=== PATIENT | female | born 1965 | race Caucasian/White ===

== ENCOUNTER 2020-05-23 08:47 | Emergency (ER) | payer MEDICARE, MEDICAID, SELFPAY ==
--- NOTE | ~2020-05-23 | CT_ITS ---
EXAMINATION: CT LE LT w con DATE: 05/23/2020 12:15 INDICATION: Left upper inner thigh erythema and edema. TECHNIQUE: High resolution computed tomography (CT) of the left thigh was performed without intraveno us contrast. Additional sagittal and coronal reconstructions were performed. Automated exposure contr ol and iterative reconstruction technique were employed. The dose-length product was 1135.30 mGy-cm. COMPARISON: CT abdomen and pelvis dated 07/02/2015 FINDINGS: There is stranding and multiple foci of soft tissue gas in the subcutaneous fat at the left inferomed ial buttock along the inferior aspect of the gluteal cleft. There is a separate similar region of sub cutaneous stranding and gas at the medial aspect of the proximal most left thigh. No abscess. No evid ent stranding or gas in the deeper muscular compartments of the thigh or extension into the pelvis. A symmetric mildly prominent likely reactive left inguinal lymph nodes. There is some subcutaneous vari cosities at the posterolateral aspect of the left thigh. Osteoarthritis at the bilateral knees, moder ate to severe in the medial compartment of the right knee and moderate in all 3 components of the lef t knee. No left knee or hip joint effusion. Mild scattered sigmoid diverticulosis without adjacent in flammatory stranding to suggest diverticulitis. IMPRESSION: 1. Regions of subcutaneous inflammatory stranding and soft tissue gas in the subcutaneous fat at the inferomedial aspect of the left buttock and at the medial aspect of the proximal left thigh raising c oncern for necrotizing fasciitis. No abscess. Dr. Crowder discussed these findings with Dr. Ya dubon at 12:20 PM. Reviewed, dictated and finalized at location B. ER IMPRESSION: 1. Regions of subcutaneous inflammatory stranding and soft tissue gas in the james bcutaneous fat at the inferomedial aspect of the left buttock and at the medial aspect of the proximal left thigh raising concern for necrotizing fasciitis. N o abscess. Dr. Crowder discussed these findings with Dr. Ya Galdamez at 12:20 PM.
[2020-05-23 08:55] VITALS: BP 124/92; PULSE 88; RESP 18; TEMP 36; O2SAT 97
--- NOTE | 2020-05-23 10:08 | ED.SKABFB ---
HPI - Skin/Abscess/Foreign Bdy General Chief complaint: Skin/Abscess/Foreign Body <Ya Galdamez PA-C - Last Filed: 05/23/20 14:18> Stated complaint: wound to buttock <Ya Galdamez PA-C - Last Filed: 05/23/20 14:18> Time Seen by Provider: 05/23/20 10:01 <Ya Galdamez PA-C - Last Filed: 05/23/20 14:18> Source: patient <Ya Galdamez PA-C - Last Filed: 05/23/20 14:18> Mode of arrival: ambulatory <Ya Galdamez PA-C - Last Filed: 05/23/20 14:18> Limitations: no limitations <Ya Galdamez PA-C - Last Filed: 05/23/20 14:18> History of Present Illness HPI narrative: This is a 55-year-old female that presents the emergency department for redness and swelling to her left thigh x3 days. Reports warmth and pain to the area. Does report she has had some drainage from the area. Reports she had some leftover cephalexin, and took 3 doses yesterday. Denies fever. <Ya Galdamez PA-C - Last Filed: 05/23/20 14:18> Related Data Allergies/Adverse reactions: Allergies Allergy/AdvReac Type Severity Reaction Status Date / Time lisinopril Allergy Unknown Verified 05/23/20 09:56 <Ya Galdamez PA-C - Last Filed: 05/23/20 14:18> Review of Systems Review of Systems: Narrative: CONSTITUTIONAL: Denies fever SKIN: Reports redness and swelling <Ya Galdamez PA-C - Last Filed: 05/23/20 14:18> All systems reviewed & are unremarkable except as noted in HPI and below <Ya Galdamez PA-C - Last Filed: 05/23/20 14:18> [facility] Past Medical History Medical History: Medical History (Updated 05/23/20 @ 14:13 by Ya Galdamez PA-C) History of diabetes mellitus History of hyperlipidemia History of hypertension <Ya Galdamez PA-C - Last Filed: 05/23/20 14:18> Family History Family History: Family History (Updated 10/21/15 @ 23:19 by DOCTOR UNKNOWN) Mother Family history of Alzheimer's disease Father Family history of diabetes mellitus in first degree relative Other Hypertension <Ya Galdamez PA-C - Last Filed: 05/23/20 14:18> Social History Social History: Social History Smoking status: Never smoker Alcohol intake: never Gender identity (if verbalized by the patient): Female <Ya Galdamez PA-C - Last Filed: 05/23/20 14:18> Exam Narrative: Exam Narrative: GENERAL: Well-appearing, obese, and in no acute distress. HEAD: Normocephalic, atraumatic. EYES: EOMI. CHEST: Airway patent HEART: Regular rate and rhythm. Normal peripheral pulses. EXTREMITIES: Normal range of motion. Left inner, upper thigh with moderate sized area of erythema and edema. Erythema extends to the left buttock SKIN: Warm, dry, no rash. NEURO: No focal deficits. Alert and oriented x3. PSYCH: Normal mood and affect <Ya Galdamez PA-C - Last Filed: 05/23/20 14:18> Course INVESTMENT BANKING ANALYST/PA Physician Supervision For this patient encounter, I reviewed the INVESTMENT BANKING ANALYST or PA documentation, treatment plan, and medical decision making; and I had [id number] time with this patient. Patient presented with redness to right posterior lower extremity and buttock that has been present for 2 days. She is non toxic appearing. There is large area of induration to right buttock and right posterior thigh, there appears to small amount of malodorous seround drainage. She was found to have findings concerning for necrotizing fasciitis so she will be transferred for higher level of care. <Yumiko Turner MD - Last Filed: 05/23/20 15:52> Consultations Consultation #1: Spoke with Dr. Goodrich about patient and workup. Would recommend transfer for higher level of care <Ya Galdamez PA-C - Last Filed: 05/23/20 14:18> Date: 05/23/20 <DEANDRA Graves Last Filed: 05/23/20 14:18> Time: 13:57 <DEANDRA Graves Filed: 05/23/20 14:18> Consultation #2: Spoke with Dr. Manriquez, general surgery at [place]. Recommends
[2020-05-23 10:41] LABS: Basophils Absolute Auto 0.1 K/mm3 (0.0-0.1); Basophils Percent Auto 0.3 % (0.2-1.2); Eosinophils Absolute Auto 0.2 K/mm3 (0-0.3); Hematocrit 37.7 % (37.0-47.0); Hemoglobin 12.2 g/dL (12.0-15.0); Immature Granulocyte Absolute 0.22 K/mm3 (0.00-0.031); Immature Granulocyte Percent A 1.4 % (0-0.5); Lymphocytes Absolute Auto 1.09 K/mm3 (0.9-3.2); Mean Corpuscular HGB Conc 32.4 g/dl (32-36); Mean Corpuscular Hemoglobin 26.1 pg (26-34); Mean Corpuscular Volume 80.6 fl (80-100); Monocytes Absolute Auto 1.2 K/mm3 (0.1-0.6); Monocytes Percent Auto 7.5 % (2.6-8.5); Neutrophils Absolute Auto 12.9 K/mm3 (1.3-6.7); Neutrophils Percent Auto 82.8 % (45.5-73.1); Platelet Count Result 286 k/mm3 (150-375); Red Blood Count 4.68 M/mm3 (4.2-5.4); Red Cell Distribution Width 13.8 % (11.5-14.5); White Blood Count 15.6 K/mm3 (4.5-10.0)
[2020-05-23 11:00] LABS: Anion Gap 5 mmol/L (8-16); Blood Urea Nitrogen 13 mg/dL (7-17); Calcium 8.8 mg/dL (8.4-10.2); Carbon Dioxide 32 mmol/L (22-30); Chloride 98 mmol/L (98-107); Estimated CRCL calculation 128 ml/min; Estimated Glomerular Filt Rate > 60; Glucose 425 mg/dL (65-105); Potassium 4.2 mmol/L (3.4-5.0); Sodium 135 mmol/L (137-145)
[2020-05-23 11:08] LABS: CRP 26.7 mg/dL (<1.0); Erythrocyte Sedimentation Rate 29 mm/hr (0-20)
[2020-05-23 11:17] LABS: Hemoglobin A1C 12.8 % (<5.7)
[2020-05-23] MEDS: SODIUM CHLORIDE 0.9% IV 1,000 ML 999 ML IV CONT (12:58)
[2020-05-23 13:12] VITALS: BP 123/72; PULSE 96; RESP 14; O2SAT 96
[2020-05-23 13:18] LABS: Lactic Acid Reflex 2.9 mmol/L (0.7-2.1)
[2020-05-23 13:31] LABS: Prothrombin Time 14.2 Seconds (11.1-14.7)
[2020-05-23 13:32] LABS: Partial Thromboplastin Time 31.4 SECONDS (22.3-36.8)
[2020-05-23 13:33] LABS: CRP 25.6 mg/dL (<1.0)
[2020-05-23 13:41] LABS: Creatine Kinase 29 U/L (30-135)
--- NOTE | 2020-05-23 14:40 | PC.NURSE ---
made contact with [facility] and [facility] to [facility]. both companies declined. made contact with [facility] and they accepted with [facility]
[2020-05-23 15:01] VITALS: BP 127/70; PULSE 102; RESP 14; O2SAT 96
[2020-05-23 16:01] VITALS: BP 129/72; PULSE 102; RESP 14; O2SAT 95
[2020-05-23 16:04] LABS: Reflex Lactic Acid Yes or No Add Lactic
--- NOTE | 2020-05-23 16:19 | PC.NURSE ---
[facility] arrived [id number]
[2020-05-23 21:32] LABS: Glucose Point of Care 386 (65-105)
== END 2020-05-23 16:21 | disposition short-term general hospital (02) ==
PROVIDERS: Physician Assistant; Emergency Provider General Practice; PCP Family Medicine Adolescent Medicine
DX: M72.6 Necrotizing fasciitis (principal); E11.9 Type 2 diabetes mellitus without complications; E78.5 Hyperlipidemia, unspecified; I10 Essential (primary) hypertension
CPT/HCPCS: 36415; 73701; 80048; 81025; 82550; 82948; 83036; 83605; 85025; 85610; 85652; 85730; 86140; 87040; 96361; 96365; 96366; 96367; 99285; J0743; J3370; J7030; Q9967

== ENCOUNTER 2022-01-05 20:34 | Inpatient (IN) | payer MEDICARE, MEDICAID, SELFPAY ==
[2022-01-05] VITALS (19 sets, daily range): BP systolic 102–139; BP diastolic 52–107; PULSE 96–111; RESP 12–25; TEMP 37.6; O2SAT 97–99
--- NOTE | ~2022-01-05 | XR_ITS ---
EXAMINATION: XR chest 1V portable INDICATION: Shortness of breath TECHNIQUE: Portable AP chest at 2132 hours COMPARISON: None available FINDINGS: There are diffuse opacities throughout the right lung. Cardiomegaly is noted. No pleural ef fusion or pneumothorax. There is thoracic dextroscoliosis. IMPRESSION: 1. Diffuse opacities throughout the right lung, consistent with atelectasis versus pneumonia versus a symmetric pulmonary edema. 2. Cardiomegaly. Reviewed, dictated and finalized at location F. IMPRESSION: 1. Diffuse opacities throughout the right lung, consistent with atelectasis bessie lisy pneumonia versus asymmetric pulmonary edema. 2. Cardiomegaly.
--- NOTE | ~2022-01-05 | XR_ITS ---
EXAMINATION: XR chest 1V portable DATE: 01/15/2022 05:51 INDICATION: Pneumonia TECHNIQUE: frontal view of the chest was obtained. COMPARISON: Chest radiograph dated 01/08/2022 FINDINGS: There is been some interval improvement in now subtle opacities in the right mid to lower and left mi d lung zones. No pleural effusion or pneumothorax. Cardiomegaly. S-shaped thoracolumbar scoliosis. IMPRESSION: 1. Decreasing bilateral lung disease which could represent improving pulmonary edema or pneumonia. 2. Cardiomegaly. Reviewed, dictated and finalized at location A.
--- NOTE | ~2022-01-05 | US_ITS ---
EXAMINATION: US venous doppler [facility] DATE: 01/09/2022 09:14 INDICATION: Lower limb pain and swelling. TECHNIQUE: Grayscale ultrasound images without and with compression and Doppler ultrasound images of the bilateral lower extremity veins were obtained. COMPARISON: Ultrasound 01/06/2022 FINDINGS: The visualized portions of right common femoral vein, profunda (deep) femoral vein, femoral vein, pop liteal vein, peroneal veins, posterior tibial veins, and greater saphenous vein outflow are patent. The visualized portions of left common femoral vein, profunda femoral vein, femoral vein, popliteal v ein, peroneal veins, posterior tibial veins, and greater saphenous vein outflow are patent. IMPRESSION: 1. No deep venous thrombosis. Reviewed, dictated and finalized at location B.
--- NOTE | ~2022-01-05 | CT_ITS ---
EXAMINATION: CTA chest PE protocol DATE: 01/05/2022 22:44 INDICATION: Shortness of breath and tachycardia TECHNIQUE: Computed tomography angiography (CTA) of the chest was performed with 100 mL Omnipaque-350 intravenous contrast timed to evaluate the pulmonary arteries. Coronal maximum intensity projection 3D-reconstructions were created by the technologist. The dose-length product (DLP) was 1006.46 mGy-cm . Automated exposure control and iterative reconstruction technique were employed. COMPARISON: None. FINDINGS: The pulmonary arteries are well-opacified. No pulmonary embolism is identified. There is mi ld bilateral hilar, subcarinal, aorticopulmonary window, and prevascular lymphadenopathy. There are a irspace opacities in the right middle and lower lobes. There are small pleural effusions. Cardiomegal y is noted. There is moderate thoracic spondylosis. IMPRESSION: 1. No pulmonary embolism. 2. Airspace opacities of the right middle and lower lobes, likely pneumonia. 3. Bilateral hilar and mediastinal lymphadenopathy as described above which may be reactive in the ab sence of known malignancy. Follow-up CT in three months is recommended. Reviewed, dictated and finalized at location F. IMPRESSION: 1. No pulmonary embolism. 2. Airspace opacities of the right middle and lower lobes, likely pneumonia. 3. Bilateral hilar and mediastinal lymphadenopathy as described above which may be reactive in the absence of known malignancy. Follow-up CT in three months i s recommended.
--- NOTE | ~2022-01-05 | XR_ITS ---
EXAMINATION: XR chest 1V portable Exam Date/Time: 01/08/2022 21:55 CDT HISTORY: SOB Comparison: CTPA and x-ray chest 01/05/2022. RESULT: Lines, tubes, and devices: None. Lungs and pleura: Worsening mid and lower right lung airspace opacities. Increasing diffuse reticula r opacities. Cardiomediastinal silhouette: Stable. Other: No acute osseous or upper abdominal finding. IMPRESSION: Worsening pneumonia and possible interstitial edema. Reviewed, dictated and finalized at location K.
--- NOTE | ~2022-01-05 | CT_ITS ---
EXAMINATION: CTA chest PE protocol DATE: 01/09/2022 08:49 INDICATION: Shortness of breath. TECHNIQUE: Computed tomography angiography (CTA) of the chest was performed with 100 mL Omnipaque-350 intravenous contrast timed to evaluate the pulmonary arteries. Coronal maximum intensity projection 3D-reconstructions were created by the technologist. Automated exposure control and iterative reconst ruction technique were employed. The dose-length product was 1043.56 mGy-cm. COMPARISON: Chest CT 01/05/2022 FINDINGS: There are centrilobular nodules and groundglass opacities in all lobes, consistent with pne umonia. No pleural effusion. Cardiomegaly is noted. No pericardial effusion. There is no pulmonary em bolus. There is mild mediastinal and bilateral hilar lymphadenopathy. There is dextroscoliosis of tho racic spine and levoscoliosis of the thoracolumbar spine. There is mild chronic anterior wedging of m ultiple vertebral bodies. There is moderate thoracolumbar spondylosis. IMPRESSION: 1. No pulmonary embolus. 2. Multifocal pneumonia, worsened from 01/05/2022. 3. Cardiomegaly. 4. Mild mediastinal and bilateral hilar lymphadenopathy, likely reactive. Reviewed, dictated and finalized at location B.
--- NOTE | ~2022-01-05 | US_ITS ---
EXAMINATION: US venous doppler [facility] DATE: 01/06/2022 16:13 INDICATION: Bilateral lower limb swelling, elevated d dimer . TECHNIQUE: Grayscale images without and with compression and Doppler images of the bilateral lower ex tremity veins were obtained. COMPARISON: CT 05/23/2020, ultrasound 09/17/2005. FINDINGS: The right common femoral vein, profunda (deep) femoral vein, femoral vein, popliteal vein, peroneal v ein, posterior tibial veins, and greater saphenous vein are patent. The left common femoral vein, profunda femoral vein, femoral vein, popliteal vein, peroneal vein, pos terior tibial veins, and greater saphenous vein are patent. IMPRESSION: 1. Patent bilateral lower extremity veins. No evidence of deep venous thrombosis. Reviewed, dictated and finalized at location K. IMPRESSION: 1. Patent bilateral lower extremity veins. No evidence of deep venous thrombos is.
--- NOTE | 2022-01-05 20:58 | ECG_ITS ---
Measurements Intervals Means Rate: 107 P: 65 IL: 163 QRS: -60 QRSD: 86 T: 55 QT: 323 QTc: 432 Interpretive Statements SINUS TACHYCARDIA WITH OCCASIONAL VENTRICULAR PREMATURE COMPLEXES BASELINE ARTIFACT CANNOT RULE OUT ANTEROSEPTAL MYOCARDIAL INFARCTION, PROBABLY OLD CANNOT RULE OUT INFERIOR MYOCARDIAL INFARCTION, PROBABLY OLD ABNORMAL ECG NO PREVIOUS ECG AVAILABLE FOR COMPARISON Electronically Signed On 01-06-2022 15:13:57 CDT by Refugio Smith M.D.
--- NOTE | 2022-01-05 21:06 | ED.GENADULT ---
HPI - General Adult General Chief complaint: Shortness of Breath/Dyspnea <DEANDRA Mclean Last Filed: 01/05/22 22:22> Stated complaint: sob <DEANDRA Mclean Last Filed: 01/05/22 22:22> Time Seen by Provider: 01/05/22 20:59 <DEANDRA Mclean Last Filed: 01/05/22 22:22> History of Present Illness HPI narrative: 56-year-old female with history of CHF, KARY here for evaluation of shortness of breath over the past day and a half. Patient states that she has a history of CHF and has not been taking her bumetanide due to diarrhea over the past week. Patient states the diarrhea has improved, but yesterday she started to feel short of breath with exertion, develop a productive cough robison sputum, and feels generalized fatigue. Denies sick contacts. States her legs are more swollen than usual. Denies orthopnea. No chest pain, abdominal pain, nausea, vomiting. She has a history of CHF. <DEANDRA Mlcean Last Filed: 01/05/22 22:22> Related Data Home medications: Home Medications Medication Instructions Recorded Confirmed bumetanide 2 mg tablet 2 mg PO BID 06/15/21 01/06/22 metformin 500 mg tablet,extended 2,000 mg PO DAILY 06/15/21 01/06/22 release 24 hr naproxen 500 mg tablet 500 mg PO BID PRN Pain, Mild 06/15/21 01/06/22 sacubitril 24 mg-valsartan 26 mg 1 tablet PO BID 06/15/21 01/06/22 tablet (Entresto) mupirocin 2 % topical ointment 1 applic topical BID knee pain 01/06/22 01/06/22 <DEANDRA Mclean Last Filed: 01/05/22 22:22> Allergies/adverse reactions: Allergies Allergy/AdvReac Type Severity Reaction Status Date / Time lisinopril Allergy Unknown Verified 12/20/21 13:34 <DEANDRA Mclean Last Filed: 01/05/22 22:22> Review of Systems Review of Systems: Gen.: Denies fevers or chills Eyes: Denies eye pain or visual change ENT: Denies congestion Respiratory: Reports shortness of breath and cough. CV: Denies chest pain or palpitations GI: Denies abdominal pain nausea, emesis or diarrhea denies burning, urgency, frequency or hematuria Musculoskeletal: Denies back pain or muscle pain Neuro: Denies numbness, tingling, weakness or focal weakness Skin: Denies rash Except as documented, all other systems reviewed and negative <Ya Ren PA-C - Last Filed: 01/05/22 22:22> [facility] Past Medical History Medical History: Medical History Chronic combined systolic and diastolic heart failure GERD (gastroesophageal reflux disease) History of amputation of left great toe 2017 Hypertension Major depressive disorder, recurrent, mild Obstructive sleep apnea 06/2019 Osteoarthritis of knees, 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 <Ya Ren PA-C - Last Filed: 01/05/22 22:22> Surgical History Surgical History: Surgical History History of cholecystectomy 09/2015 <Ya Ren PA-C - Last Filed: 01/05/22 22:22> Family History Family History: Family History Mother Family history of Alzheimer's disease Hypertension Father Family history of diabetes mellitus in first degree relative Acute myocardial infarction Heart disease Hypertension Sibling CAD (coronary artery disease) Acute myocardial infarction Other Depression Diabetes mellitus <Ya Ren PA-C - Last Filed: 01/05/22 22:22> Social History Social History: Social History Smoking status: Never smoker Second hand tobacco smoke exposure: No Alcohol intake: former Drinks per week: 1 Substance use: never Substance use type: does not use Additional occupation/education comments: Disabled Gender identity (if verbali
[2022-01-05 21:19] LABS: Basophils Percent Auto 0.3 % (0.2-1.2); Eosinophils Absolute Auto 0.1 K/mm3 (0-0.3); Eosinophils Percent Auto 0.9 % (0-4.4); Hematocrit 40.4 % (37.0-47.0); Immature Granulocyte Absolute 0.04 K/mm3 (0.00-0.031); Immature Granulocyte Percent A 0.4 % (0-0.5); Lymphocytes Absolute Auto 1.43 K/mm3 (0.9-3.2); Lymphocytes Percent Auto 15.2 % (18.3-44.2); Mean Corpuscular HGB Conc 29.7 g/dl (32-36); Mean Corpuscular Hemoglobin 22.9 pg (26-34); Mean Platelet Volume 10.2 fl (7.4-10.4); Monocytes Absolute Auto 0.9 K/mm3 (0.1-0.6); Monocytes Percent Auto 9.4 % (2.6-8.5); Neutrophils Absolute Auto 6.9 K/mm3 (1.3-6.7); Neutrophils Percent Auto 73.8 % (45.5-73.1); Nucleated Red Blood Cells Perc 0.2 % (0.0-0.2); Platelet Count Result 280 k/mm3 (150-375); Red Blood Count 5.25 M/mm3 (4.2-5.4); White Blood Count 9.4 K/mm3 (4.5-10.0)
[2022-01-05 21:28] LABS: Alanine Aminotransferase 25 U/L (6-35); Albumin Level 3.9 g/dL (3.5-5.1); Alkaline Phosphatase 84 U/L (38-126); Anion Gap 11 mmol/L (8-16); Aspartate Amino Transferase 27 U/L (14-36); Bilirubin,Total 0.4 mg/dL (0.2-1.3); Blood Urea Nitrogen 14 mg/dL (7-17); Calcium 8.5 mg/dL (8.4-10.2); Carbon Dioxide 24 mmol/L (22-30); Chloride 103 mmol/L (98-107); Estimated CRCL calculation 81 ml/min; Estimated Glomerular Filt Rate > 60; Glucose 175 mg/dL (65-110); Sodium 138 mmol/L (137-145)
[2022-01-05 21:30] LABS: INR 1.1; Prothrombin Time 13.9 Seconds (11.1-14.7)
[2022-01-05 21:31] LABS: Partial Thromboplastin Time 26.3 SECONDS (22.3-36.8)
[2022-01-05 21:39] LABS: Platelet Estimate Adequate (Adequate)
[2022-01-05 21:40] LABS: Hypochromasia 2+ (NORMAL); Microcytosis 1+ (NORMAL); Polychromasia 1+ (NORMAL); Schistocytes None Seen (NORMAL)
[2022-01-05 21:41] LABS: Anisocytosis 1+ (NORMAL)
[2022-01-05] MEDS: ALBUTEROL SULFATE NEB 2.5 MG/3 ML INH 5 MG INHALATION (21:45)
[2022-01-05 21:55] LABS: Influenza A QL RT-PCR Negative (Negative); Influenza B QL RT-PCR Negative (Negative); SARS-CoV-2 RNA PCR Negative
[2022-01-05 21:59] LABS: NT Pro B Type Natriuretic Pept 5630 pg/mL (5-100); Troponin I 0.043 ng/mL (0.000-0.034)
[2022-01-05 22:11] LABS: Lipase 105 U/L (23-300)
[2022-01-05] MEDS: FUROSEMIDE INJ 40 MG/4 ML VIAL IV PUSH (22:16)
[2022-01-05 22:18] LABS: D Dimer 1.54 ug/mL (<0.48)
--- NOTE | 2022-01-05 22:35 | PC.NURSE ---
Called pharmacy and spoke with Williams for medication for pt
[2022-01-05 23:11] LABS: Lactic Acid Reflex 2.8 mmol/L (0.7-2.0)
[2022-01-06] VITALS (23 sets, daily range): BP systolic 94–118; BP diastolic 51–96; PULSE 80–103; RESP 14–20; TEMP 36.4–37.6; O2SAT 91–99; BMI 51.0
--- NOTE | 2022-01-06 | ECHO_ITS ---
Patient Info Name: Allison Thurston Age: 56 years : 1965 Gender: Female Ht: 67 in Wt: 321 lbs BSA: 2.71 m2 HR: 86 bpm BP: 104 / 63 mmHg Heart Rhythm: Sinus Rhythm Technical Quality: Poor Exam Date: 01/06/2022 12:32 PM Exam Location: [facility] Patient Status: Inpatient Admit Date: 01/05/2022 Staff Ordering Physician: Lashon Fitzpatrick DO Pathology Teacher: Nitza Oglesby RDCS Attending Provider: Roxane White DO Referring Physician: Nanette ARTEAGA; Exam Type: CA echo dop color flow w con Study Info Indications R06.02 - Shortness of breath Complete two-dimensional, color flow and Doppler transthoracic echocardiogram is performed with contrast to opacify the left ventricle and to improve the deliniation of the left ventricle endocardial borders. Contrast/Agitated Saline Contrast/Ag. Saline: Definity Amount: 4.00 ml Administered By: Nitza Oglesby [facility] Reason for Poor Study: patient body habitus Summary 1. Technically difficult study with limited views. Despite definity contrast enhancement regional wall motion assessment limited. 2. Left ventricular chamber dimension is severely enlarged. 3. Left ventricular systolic function is moderately reduced, estimated at 35-40%. 4. There is no increased left ventricular wall thickness. 5. The left ventricular diastolic function is grade II diastolic dysfunction. 6. Right atrial chamber dimension is moderately enlarged. 7. There is mild to moderate mitral valve regurgitation. 8. There is moderate tricuspid valve regurgitation. 9. Mild pulmonary hypertension, estimated pulmonary arterial systolic pressure is 39 mmHg. Left Ventricle Left ventricular chamber dimension is severely enlarged. Left ventricular systolic function is moderately reduced, estimated at 35-40%. There is no increased left ventricular wall thickness. The left ventricular diastolic function is grade II diastolic dysfunction. Technically difficult study with limited views. Despite definity contrast enhancement regional wall motion assessment limited. Right Ventricle Right ventricular chamber dimension is normal. Right ventricular systolic function is normal. Left Atria Left atrial chamber dimension is mildly enlarged. Right Atria Right atrial chamber dimension is moderately enlarged. Aortic Valve The aortic valve is not well visualized. There is mild aortic valve regurgitation. Pulmonic Valve The pulmonic valve is not well visualized. There is trace pulmonic regurgitation. Mitral Valve The mitral valve has thickened leaflets. There is mild to moderate mitral valve regurgitation. The mitral valve annulus is mildly calcified. Tricuspid Valve The tricuspid valve leaflets are normal. There is moderate tricuspid valve regurgitation. Mild pulmonary hypertension, estimated pulmonary arterial systolic pressure is 39 mmHg. Pericardium/Pleural The pericardium appears not well visualized. Inferior Vena Cava Normal inferior vena cava with <50% collapse upon inspiration consistent with elevated right atrial pressure, 10 mmHg. Aorta The aortic root size at the sinus of Valsalva is normal. There is mild aortic atherosclerosis. Left Ventricular Outflow Tract Name Value Normal LV
[2022-01-06] MEDS: ASPIRIN 81 MG CHEWABLE TABLET 324 MG PO (00:13)
[2022-01-06] MEDS: SODIUM CHLORIDE 0.9% IV 1,000 ML 500 ML IV CONT (00:13)
--- NOTE | 2022-01-06 01:39 | ADMGEN ---
This patient, Allison Thursotn, was admitted to IMU Room 213-01 at 0135. Patient/family oriented to hospital policies and general routines including ID bracelet, bed and alarms, visiting hours, pain management, procedures, bathroom and other care routines, personal items, smoking policy, room service/diet, and visiting hours. Information on how to activate the Rapid Response Team has been discussed. Patient/Family are encouraged to report perceived risks to care and to ask questions if they do not understand what they are told or what they should do.
[2022-01-06 01:58] LABS: Glucose Point of Care 147 mg/dl (65-105)
[2022-01-06 02:00] LABS: Reflex Lactic Acid Yes or No Add Lactic
[2022-01-06 02:48] LABS: Troponin I 0.053 ng/mL (0.000-0.034)
[2022-01-06 02:56] LABS: Lactic Acid 2.2 mmol/L (0.7-2.0)
[2022-01-06 03:51] LABS: Troponin I 0.053 ng/mL (0.000-0.034)
--- NOTE | 2022-01-06 04:04 | PC.NURSE ---
Per Dr. White: No need to call with next troponin level.
[2022-01-06] MEDS: ALBUTEROL SULFATE NEB 2.5 MG/3 ML INH 5 MG INHALATION ×4 (08:44→22:50)
[2022-01-06] MEDS: IPRATROPIUM BR 0.02% INH SOLN 0.5 MG/2.5 ML VIAL INHALATION ×4 (08:44→22:50)
[2022-01-06 08:55] LABS: Glucose Point of Care 153 mg/dl (65-105)
--- NOTE | 2022-01-06 11:15 | PM.IMHP ---
H&P: HPI History of Present Illness Date/Time: 01/06/22 11:15 Chief Complaint: Shortness of breath Narrative: 56 y/o F with PMH significant for heart failure, obesity, GERD, diabetes with neuropathy, iron deficiency anemia, chronic diabetic ulcer, obstructive sleep apnea, depression with anxiety, urinary incontinence, OCD with chronic skin picking is presenting with progressively worsening shortness of breath over the last few days. She states that she has had significant diarrhea over the last week and therefore she stopped taking her water pills. She also is complaining of a cough productive of some sputum, generalized weakness and fatigue as well as worsening lower extremity edema. No chest pain. No nausea, vomiting or diarrhea. No fevers or chills. No sick contacts nor recent travel. No orthopnea. In the ER, CT was negative for PE. ER chart shows fluid overload noted on exam with 2+ pitting edema bilateral lower extremities as well as vascular congestion noted on chest x-ray. Chest x-ray positive for possible pneumonia. COVID and flu swabs were negative. Oxygen saturation was stable on room air. She was afebrile and somewhat tachycardic. She did have an elevated troponin with a benign ECG and elevated lactic acid as well as BNP. Blood cultures were drawn and she was started on IV antibiotics with Rocephin azithromycin. She was also started on maintenance fluids and not given any diuretics. Review of Systems Review of Systems: 12 point review of systems was assessed and was negative except as noted in the HPI [facility] Past Medical History Medical History Chronic combined systolic and diastolic heart failure GERD (gastroesophageal reflux disease) History of amputation of left great toe 2017 Hypertension Major depressive disorder, recurrent, mild Obstructive sleep apnea 06/2019 Osteoarthritis of knees, 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 Surgical History Surgical History History of cholecystectomy 09/2015 Family History Family History Mother Family history of Alzheimer's disease Hypertension Father Family history of diabetes mellitus in first degree relative Acute myocardial infarction Heart disease Hypertension Sibling CAD (coronary artery disease) Acute myocardial infarction Other Depression Diabetes mellitus Social History Social History (Reviewed 01/06/22 @ 16:22 by BRIANNA Calvin Smoking status: Never smoker Second hand tobacco smoke exposure: No Alcohol intake: former Drinks per week: 1 Substance use: never Substance use type: does not use Additional occupation/education comments: Disabled Gender identity (if verbalized by the patient): Female Sexual Orientation (if Verbalized by the Patient): Straight or Heterosexual Spiritual care concerns: No Agree to blood products: Yes Meds Home Medications and Allergies Home Medications Medication Instructions Recorded Confirmed Type bumetanide 2 mg tablet 2 mg PO BID 06/15/21 01/06/22 History metformin 500 mg tablet,extended 2,000 mg PO DAILY 06/15/21 01/06/22 History release 24 hr naproxen 500 mg tablet 500 mg PO BID PRN Pain, Mild 06/15/21 01/06/22 History sacubitril 24 mg-valsartan 26 mg 1 tablet PO BID 06/15/21 01/06/22 History tablet (Entresto) aspirin 81 mg chewable tablet 81 mg PO DAILY #100 tabs 08/15/21 01/06/22 Rx atorvastatin 10 mg tablet 10 mg PO DAILY #90 tabs 09/19/21 01/06/22 Rx pioglitazone 30 mg tablet See Rx Instructions .Route 09/19/21 01/06/22 Rx .COMPLEX #90 tabs sitagliptin 100 mg tablet (Januvia) 100 mg PO DAILY #90 tabs 09/19/21 01/06/22 Rx buspirone 10 mg tablet 10 mg PO BID #60 tabs 12/20/21 01/06/22 Rx ferrous sulfate 325 mg (65 mg 325 mg PO TID #90 tabs 12/20/21 01/06/22 Rx iron)
[2022-01-06 12:59] LABS: Glucose Point of Care 157 mg/dl (65-105)
[2022-01-06 16:30] LABS: Glucose Point of Care 181 mg/dl (65-105)
[2022-01-06 20:06] LABS: Glucose Point of Care 214 mg/dl (65-105)
[2022-01-06] MEDS: busPIRone HCL 10 MG TABLET PO (20:51)
[2022-01-06] MEDS: HEPARIN SODIUM 5,000 UNITS/ML VIAL 5000 UNITS SUB-Q (20:51)
[2022-01-06] MEDS: SACUBITRIL/VALSARTAN 24-26 MG TABLET 1 TAB PO (20:51)
[2022-01-06] MEDS: GABAPENTIN 300 MG CAPSULE PO (20:52)
[2022-01-07] VITALS (21 sets, daily range): BP systolic 98–120; BP diastolic 56–90; PULSE 90–105; RESP 16–22; TEMP 36.4–37.7; O2SAT 92–100
[2022-01-07] LABS: Add Urine Microscopic? YES; Appearance Urine Cloudy (Clear); Bilirubin Urine Negative (Negative); Blood Urine Negative (Negative); Color Urine Amber (Yellow); Glucose Urine UA Negative (Negative); Ketones Urine Negative (Negative); Leukocyte Esterase Ur Negative LEU/UL (NEGATIVE); Mucus Urine Rare /lpf; Nitrate Urine Negative (Negative); Protein Urine 2+ mg/dL (Negative); Squamous Epithelial Cell Urine Few /hpf (Few); Urobilinogen Urine Negative mg/dL (<2.0)
[2022-01-07 00:06] LABS: Specific Grav Ur 1.041 (1.001-1.035)
[2022-01-07] MEDS: IPRATROPIUM BR 0.02% INH SOLN 0.5 MG/2.5 ML VIAL INHALATION ×4 (02:06→20:20)
[2022-01-07] MEDS: ALBUTEROL SULFATE NEB 2.5 MG/3 ML INH 5 MG INHALATION ×4 (02:06→20:20)
[2022-01-07 05:03] LABS: Basophils Percent Auto 0.6 % (0.2-1.2); Eosinophils Absolute Auto 0.2 K/mm3 (0-0.3); Eosinophils Percent Auto 2.8 % (0-4.4); Hematocrit 32.9 % (37.0-47.0); Hemoglobin 10.2 g/dL (12.0-15.0); Immature Granulocyte Absolute 0.02 K/mm3 (0.00-0.031); Immature Granulocyte Percent A 0.3 % (0-0.5); Lymphocytes Absolute Auto 1.25 K/mm3 (0.9-3.2); Lymphocytes Percent Auto 20.3 % (18.3-44.2); Mean Corpuscular Volume 74.3 fl (80-100); Mean Platelet Volume 10.2 fl (7.4-10.4); Monocytes Absolute Auto 0.7 K/mm3 (0.1-0.6); Monocytes Percent Auto 11.8 % (2.6-8.5); Neutrophils Percent Auto 64.2 % (45.5-73.1); Platelet Count Result 229 k/mm3 (150-375); Red Blood Count 4.43 M/mm3 (4.2-5.4); Red Cell Distribution Width 15.5 % (11.5-14.5); White Blood Count 6.2 K/mm3 (4.5-10.0)
[2022-01-07 05:17] LABS: Alanine Aminotransferase 30 U/L (6-35); Albumin Level 3.4 g/dL (3.5-5.1); Alkaline Phosphatase 73 U/L (38-126); Anion Gap 12 mmol/L (8-16); Aspartate Amino Transferase 38 U/L (14-36); Bilirubin,Total 0.3 mg/dL (0.2-1.3); Blood Urea Nitrogen 15 mg/dL (7-17); Calcium 7.8 mg/dL (8.4-10.2); Carbon Dioxide 25 mmol/L (22-30); Chloride 100 mmol/L (98-107); Estimated CRCL calculation 103 ml/min; Estimated Glomerular Filt Rate > 60; Glucose 133 mg/dL (65-110); Potassium 3.3 mmol/L (3.4-5.0); Sodium 137 mmol/L (137-145)
[2022-01-07] MEDS: GABAPENTIN 300 MG CAPSULE PO ×3 (05:42→20:33)
[2022-01-07 06:08] LABS: Anisocytosis 1+ (NORMAL); Macrocytosis 1+ (NORMAL); Platelet Estimate Adequate (Adequate); Poikilocytosis 1+ (NORMAL); Polychromasia 1+ (NORMAL)
[2022-01-07 06:09] LABS: Ovalocytes 1+ (NORMAL); Schistocytes None Seen (NORMAL)
[2022-01-07 08:27] LABS: Glucose Point of Care 153 mg/dl (65-105)
[2022-01-07] MEDS: HEPARIN SODIUM 5,000 UNITS/ML VIAL 5000 UNITS SUB-Q ×2 (08:49→20:32)
[2022-01-07] MEDS: ASPIRIN 81 MG CHEWABLE TABLET PO (08:49)
[2022-01-07] MEDS: ATORVASTATIN 10 MG TABLET PO (08:50)
[2022-01-07] MEDS: busPIRone HCL 10 MG TABLET PO ×2 (08:50→16:50)
[2022-01-07] MEDS: SACUBITRIL/VALSARTAN 24-26 MG TABLET 1 TAB PO ×2 (08:50→16:50)
--- NOTE | 2022-01-07 08:50 | PM.IMPN ---
Progress Note: A&P Assessment and Plan (1) Community acquired pneumonia: Code(s): J18.9 - Pneumonia, unspecified organism Status: Acute Assessment and Plan: Continue azithromycin and Rocephin Discontinue IV fluids Suspect RSV pneumonia as etiology, but will continue antibiotics due to possibility of bacterial coinfection (2) Heart failure: Code(s): I50.9 - Heart failure, unspecified Status: Deleted Assessment and Plan: Echo showed an EF of 35-40% with grade 2 diastolic dysfunction as well as mild pulmonary hypertension. No significant valvular disease noted. Strict I's and O's and daily standing weights ordered Appreciate cardiology consultation, pending Cont diuresis with bumex for now, restart home heart failure medications, continue Entresto, Lipitor, and aspirin Will add an extra dose of IV Bumex today, convert to oral diuresis tomorrow and anticipate discharging home on usual medications, can follow-up outpatient with Cardiology to better optimize her heart failure medications when she recovers from pneumonia (3) Elevated troponin: Code(s): R77.8 - Other specified abnormalities of plasma proteins Status: Acute Assessment and Plan: Trend troponins, monitor telemetry (4) Obstructive sleep apnea: Code(s): G47.33 - Obstructive sleep apnea (adult) (pediatric) Status: Chronic Assessment and Plan: Nocturnal pulse ox (5) Major depressive disorder, recurrent, mild: Code(s): F33.0 - Major depressive disorder, recurrent, mild Status: Chronic Assessment and Plan: Stable (6) Hypertension: Code(s): I10 - Essential (primary) hypertension Status: Chronic Assessment and Plan: Stable (7) GERD (gastroesophageal reflux disease): Code(s): K21.9 - Gastro-esophageal reflux disease without esophagitis Status: Chronic Assessment and Plan: Stable (8) Type 2 diabetes mellitus with diabetic polyneuropathy: Code(s): E11.42 - Type 2 diabetes mellitus with diabetic polyneuropathy Status: Chronic Assessment and Plan: A1c is 9, down from 12.8 last year, Accu-Cheks plus sliding scale insulin Hold oral antidiabetic medications Plan DVT prophylaxis with heparin GI prophylaxis not indicated Code status full code Subjective Date/time seen: 01/07/22 08:50 Interval history: No overnight events noted. No chest pain or shortness of breath. No nausea, vomiting or diarrhea. No fevers or chills. Patient states she still feels a little too weak today into anxious to go home. She states her nieces and nephews recently got diagnosed with RSV were in the hospital, they are now home, but she is concerned that she also has RSV and she states she is very anxious about the whole situation. She would like to stay here as long as possible because when she goes home she is alone and there was no one there to take care of her. Nursing staff state that she is completely self-sufficient while here. Review of Systems Review of Systems: 12 point review of systems was assessed and was negative except as noted in the HPI Exam Narrative: General: No acute distress, alert and oriented per baseline HEENT: Atraumatic, normocephalic, mucous membranes moist CV: Regular rate and rhythm, S1, S2 Lungs: Good air entry, diminished at bases and expiratory wheezes throughout Abdomen: Soft, nontender, nondistended Extremities: 2+ pitting edema bilateral extremities Skin: No rashes noted, no lesions or wounds seen Psych: Euthymic, normal affect Objective Data Vital Signs Vital Signs: Vital Signs - 24 hr 01/06/22 12:00 01/06/22 16:00 01/06/22 08:55 Temperature 98 F 98.2 F Pulse Rate 89 87 86 Respiratory Rate 14 20 20 Blood Pressure 104/51 L 100/71 Pulse Oximetry 95 91 Oxygen Delivery 01/06/22 14:30 01/06/22 14:40 01/06/22 12:00 Temperature Pulse Rate 80 82 94 Respiratory Rate 20 2
--- NOTE | 2022-01-07 09:10 | PM.CNCAR ---
Assessment and Plan Assessment and plan (1) Chronic combined systolic and diastolic heart failure: Code(s): I50.42 - Chronic combined systolic (congestive) and diastolic (congestive) heart failure Status: Acute Assessment and Plan: Reasonably compensated although with worsening lower extremity edema due to noncompliance with diuretic therapy and IV fluids at admission. Resume diuretic therapy, given additional IV dose. Monitor volume status and renal function. Monitor blood pressure. Need to review prior cardiovascular records including left heart catheterization, ischemic testing and/or echocardiogram prior cardiology notes. Patient reports history of normal coronary anatomy on left heart catheterization within the past couple of years. Records requested. Echocardiogram personally reviewed and discussed severe LV enlargement EF 35-40% on to moderate MR/TR. Mild pulmonary hypertension. History reports multiple family members with cardiac issues with her uncles, brothers details which she is unsure states she thinks they all had heart attacks. Discussed optimization of medical management with uptitration of Entresto, addition of SGOT 2 inhibitor therapy, spironolactone. Will add carvedilol 3.125 mg twice daily. Alternative to pioglitazone may be considered given heart failure risk although this did not translate to worsening heart failure mortality. At this time, it does not appear that she will tolerate aggressive uptitration of medical therapy particularly given more acute illness. Preference for addition of beta-petty and spironolactone at this time. Monitor renal function, BP, and electrolytes. She has an unknown lisinopril issues listed under allergies yet tolerating Entresto as she describes. She will need to follow up with Cardiology as an outpatient within the next 2 weeks post discharge. (2) Cardiomyopathy: Code(s): I42.9 - Cardiomyopathy, unspecified Status: Acute Assessment and Plan: Moderate LV dysfunction EF 35-40%. Per patient report consistent with nonischemic etiology although details unavailable at this time. Management as above. (3) PSVT (paroxysmal supraventricular tachycardia): Code(s): I47.1 - Supraventricular tachycardia Status: Acute Assessment and Plan: No clear evidence of atrial fibrillation atrial flutter thus far. If identified systemic anticoagulation would be advised for block stroke risk reduction. Will initiate beta-petty therapy as above. (4) Sepsis: Qualifiers: Sepsis acute organ dysfunction status: without acute organ dysfunction Sepsis type: sepsis due to unspecified organism Qualified Code(s): A41.9 - Sepsis, unspecified organism Code(s): A41.9 - Sepsis, unspecified organism Status: Acute Assessment and Plan: Per primary service. Stable, improving. (5) Community acquired pneumonia: Code(s): J18.9 - Pneumonia, unspecified organism Status: Acute Assessment and Plan: Antibiotics as appropriate. (6) Hypertension: Code(s): I10 - Essential (primary) hypertension Status: Chronic Assessment and Plan: Stable, relatively hypotensive intermittently. (7) Type 2 diabetes mellitus with diabetic polyneuropathy: Code(s): E11.42 - Type 2 diabetes mellitus with diabetic polyneuropathy Status: Chronic Assessment and Plan: Management per primary service. Hemoglobin A1c 9%. Suboptimal control. History of Present Illness History of Present Illness Consult date/time: Date of service: 01/07/22 09:10 Requesting physician: Lashon Fitzpatrick DO Consult reason: congestive heart failure and Other (Elevated troponin) Reason For Visit: Sepsis, pneumonia Narrative: Patient is a 56-year-old female with a reported past medical history significant for nonischemic cardiomyopathy with reported normal cardiac catheterization history of EF approximately 30%, typ
[2022-01-07] MEDS: guaiFENesin 600 MG/DEXTROMETHORPHAN 30 MG SR TAB 12 HR 1 TAB PO ×2 (11:48→20:32)
[2022-01-07] MEDS: BUMETANIDE INJ 2.5 MG/10 ML VIAL 2 MG IV PUSH ×2 (11:49→16:48)
[2022-01-07] MEDS: POTASSIUM CHLORIDE 20 MEQ TABLET 40 MEQ PO (11:50)
[2022-01-07] MEDS: FERROUS SULFATE 324 MG TABLET PO ×2 (11:52→16:49)
[2022-01-07 12:54] LABS: Glucose Point of Care 216 mg/dl (65-105)
[2022-01-07] MEDS: INSULIN ASPART (*BKC) 100 UNITS/ML SUB-Q (13:27)
[2022-01-07 18:06] LABS: Glucose Point of Care 192 mg/dl (65-105)
[2022-01-07 20:28] LABS: Glucose Point of Care 236 mg/dl (65-105)
[2022-01-07] MEDS: INSULIN GLARGINE (*BKC) 100 UNITS/ML SUB-Q (20:32)
[2022-01-07] MEDS: carvediloL 3.125 MG TABLET PO (20:32)
[2022-01-08] VITALS (29 sets, daily range): BP systolic 70–146; BP diastolic 40–77; PULSE 60–96; RESP 12–26; TEMP 36.4–36.8; O2SAT 93–100
[2022-01-08] MEDS: ALBUTEROL SULFATE NEB 2.5 MG/3 ML INH 5 MG INHALATION ×4 (02:30→20:41)
[2022-01-08] MEDS: IPRATROPIUM BR 0.02% INH SOLN 0.5 MG/2.5 ML VIAL INHALATION ×4 (02:30→20:41)
[2022-01-08] MEDS: GABAPENTIN 300 MG CAPSULE PO ×3 (04:54→20:02)
[2022-01-08 05:10] LABS: Basophils Percent Auto 0.6 % (0.2-1.2); Eosinophils Absolute Auto 0.1 K/mm3 (0-0.3); Eosinophils Percent Auto 1.5 % (0-4.4); Hematocrit 35.7 % (37.0-47.0); Hemoglobin 10.8 g/dL (12.0-15.0); Immature Granulocyte Absolute 0.03 K/mm3 (0.00-0.031); Immature Granulocyte Percent A 0.4 % (0-0.5); Lymphocytes Absolute Auto 1.46 K/mm3 (0.9-3.2); Lymphocytes Percent Auto 21.2 % (18.3-44.2); Mean Corpuscular HGB Conc 30.3 g/dl (32-36); Mean Corpuscular Hemoglobin 23.2 pg (26-34); Mean Corpuscular Volume 76.8 fl (80-100); Mean Platelet Volume 10.5 fl (7.4-10.4); Monocytes Absolute Auto 0.7 K/mm3 (0.1-0.6); Monocytes Percent Auto 10.6 % (2.6-8.5); Neutrophils Absolute Auto 4.5 K/mm3 (1.3-6.7); Neutrophils Percent Auto 65.7 % (45.5-73.1); Platelet Count Result 254 k/mm3 (150-375); Red Blood Count 4.65 M/mm3 (4.2-5.4); Red Cell Distribution Width 15.9 % (11.5-14.5); White Blood Count 6.9 K/mm3 (4.5-10.0)
[2022-01-08 05:27] LABS: Alanine Aminotransferase 52 U/L (6-35); Albumin Level 3.3 g/dL (3.5-5.1); Alkaline Phosphatase 91 U/L (38-126); Anion Gap 10 mmol/L (8-16); Aspartate Amino Transferase 69 U/L (14-36); Bilirubin,Total 0.3 mg/dL (0.2-1.3); Blood Urea Nitrogen 22 mg/dL (7-17); Calcium 7.5 mg/dL (8.4-10.2); Carbon Dioxide 23 mmol/L (22-30); Chloride 100 mmol/L (98-107); Estimated CRCL calculation 92 ml/min; Estimated Glomerular Filt Rate > 60; Glucose 181 mg/dL (65-110); Potassium 3.6 mmol/L (3.4-5.0); Sodium 133 mmol/L (137-145)
[2022-01-08 09:19] LABS: Glucose Point of Care 149 mg/dl (65-105)
[2022-01-08] MEDS: BUMETANIDE INJ 2.5 MG/10 ML VIAL 2 MG IV PUSH (09:31)
[2022-01-08] MEDS: ATORVASTATIN 10 MG TABLET PO (09:32)
[2022-01-08] MEDS: guaiFENesin 600 MG/DEXTROMETHORPHAN 30 MG SR TAB 12 HR 1 TAB PO ×2 (09:32→20:01)
[2022-01-08] MEDS: FERROUS SULFATE 324 MG TABLET PO ×3 (09:32→18:39)
[2022-01-08] MEDS: ASPIRIN 81 MG CHEWABLE TABLET PO (09:32)
[2022-01-08] MEDS: carvediloL 3.125 MG TABLET PO ×2 (09:33→20:02)
[2022-01-08] MEDS: HEPARIN SODIUM 5,000 UNITS/ML VIAL 5000 UNITS SUB-Q ×2 (09:33→20:02)
[2022-01-08] MEDS: busPIRone HCL 10 MG TABLET PO ×2 (09:34→18:39)
[2022-01-08] MEDS: SACUBITRIL/VALSARTAN 24-26 MG TABLET 1 TAB PO ×2 (09:34→18:40)
--- NOTE | 2022-01-08 11:01 | PM.PNCARD ---
Progress Note: A&P Assessment and Plan (1) Cardiomyopathy: Code(s): I42.9 - Cardiomyopathy, unspecified Status: Acute (2) Chronic combined systolic and diastolic heart failure: Code(s): I50.42 - Chronic combined systolic (congestive) and diastolic (congestive) heart failure Status: Acute (3) Sepsis: Qualifiers: Sepsis acute organ dysfunction status: without acute organ dysfunction Sepsis type: sepsis due to unspecified organism Qualified Code(s): A41.9 - Sepsis, unspecified organism Code(s): A41.9 - Sepsis, unspecified organism Status: Acute (4) Pneumonia: Qualifiers: Laterality: right Lung location: lower lobe of lung Pneumonia type: due to unspecified organism Qualified Code(s): J18.9 - Pneumonia, unspecified organism Code(s): J18.9 - Pneumonia, unspecified organism Status: Acute (5) Elevated troponin: Code(s): R77.8 - Other specified abnormalities of plasma proteins Status: Acute Plan Reasonably compensated on exam today. Need to review prior cardiovascular records including left heart catheterization, ischemic testing and/or echocardiogram prior cardiology notes.? Patient reports history of normal coronary anatomy on left heart catheterization within the past couple of years.? Records requested. Echocardiogram reviewed and shows severe LV enlargement EF 35-40% on to moderate MR/TR. Continue with Entresto and Coreg at this time. Would resume home Bumex dose. She will need to follow up with Cardiology as an outpatient within the next 2 weeks post discharge. Subjective Date/time seen: 01/08/22 11:01 Interval history: Reason For Follow-Up: Cardiomyopathy No acute events overnight. Patient sitting up at side of bed eating breakfast this morning. Denies orthopnea. Review of Systems Review of Systems: All systems reviewed & are unremarkable except as noted in HPI and below (subjectie) Exam Const: General: comfortable and no acute distress HENMT: Mouth: Yes moist mucous membranes Eyes: General: appearance normal, both eyes and all related structures Neck: Neck: no JVD Resp: Effort & Inspection: normal respiratory effort Auscultation: diminished lung sounds Cardio: Rate: regular rate Rhythm: regular rhythm Heart sounds: no murmurs Skin: General skin exam: normal color Neuro: Speech: normal speech Extrem: Other: Minimal lower extremity edema Psych: Mental Status: mental status grossly normal Objective Data Vital Signs Vital Signs: Vital Signs - 24 hr 10/16/22 12:00 01/07/22 13:55 01/07/22 14:04 Temperature 36.9 C Pulse Rate 98 101 H 94 Respiratory Rate 16 22 H 20 Blood Pressure 120/90 Pulse Oximetry 97 Oxygen Delivery 01/07/22 16:00 01/07/22 12:00 01/07/22 16:00 Temperature 36.8 C Pulse Rate 93 93 92 Respiratory Rate 20 Blood Pressure 114/73 Pulse Oximetry 100 Oxygen Delivery 01/07/22 14:00 01/07/22 12:00 01/07/22 16:00 Temperature Pulse Rate 94 92 92 Respiratory Rate 20 20 Blood Pressure Pulse Oximetry 100 100 Oxygen Delivery Room Air Room Air 01/07/22 18:00 01/07/22 20:00 01/07/22 20:32 Temperature 36.4 C Pulse Rate 105 H 97 99 Respiratory Rate 20 Blood Pressure 102/77 Pulse Oximetry 96 Oxygen Delivery 01/07/22 20:45 01/07/22 21:00 01/07/22 20:00 Temperature Pulse Rate 95 94 101 H Respiratory Rate 18 20 Blood Pressure Pulse Oximetry Oxygen Delivery 01/07/22 20:00 01/07/22 22:00 01/07/22 23:47 Temperature 36.4 C Pulse Rate 99 98 95 Respiratory Rate 20 18 Blood Pressure 101/56 L Pulse Oximetry 96 97 Oxygen Delivery Room Air 01/08/22 00:00 01/08/22 00:00 01/08/22 02:00 Temperature Pulse Rate 94 95 95 Respiratory Rate 18 Blood Pressure Pulse Oximetry 97 Oxygen Delivery Room Air 01/08/22 02:30 01/08/22 02:44 01/08/22 04:00 Temperature 36.7 C Pulse Rate 94 95 78 Re
[2022-01-08 12:01] LABS: Glucose Point of Care 218 mg/dl (65-105)
--- NOTE | 2022-01-08 13:14 | PM.DS ---
DS: Admitting Diagnosis Discharge Date January 08, 2022 Admitting Diagnosis Pneumonia DS: Discharge Diagnosis Discharge Diagnosis (1) Community acquired pneumonia: Code(s): J18.9 - Pneumonia, unspecified organism Status: Acute Assessment and Plan: Continue azithromycin and Rocephin Discontinue IV fluids Suspect RSV pneumonia as etiology, but will continue antibiotics due to possibility of bacterial coinfection (2) Heart failure: Code(s): I50.9 - Heart failure, unspecified Status: Deleted Assessment and Plan: Echo showed an EF of 35-40% with grade 2 diastolic dysfunction as well as mild pulmonary hypertension. No significant valvular disease noted. Strict I's and O's and daily standing weights ordered Appreciate cardiology consultation, pending Cont diuresis with bumex for now, restart home heart failure medications, continue Entresto, Lipitor, and aspirin Will add an extra dose of IV Bumex today, convert to oral diuresis tomorrow and anticipate discharging home on usual medications, can follow-up outpatient with Cardiology to better optimize her heart failure medications when she recovers from pneumonia (3) Elevated troponin: Code(s): R77.8 - Other specified abnormalities of plasma proteins Status: Acute Assessment and Plan: Trend troponins, monitor telemetry (4) Obstructive sleep apnea: Code(s): G47.33 - Obstructive sleep apnea (adult) (pediatric) Status: Chronic Assessment and Plan: Nocturnal pulse ox (5) Major depressive disorder, recurrent, mild: Code(s): F33.0 - Major depressive disorder, recurrent, mild Status: Chronic Assessment and Plan: Stable (6) Hypertension: Code(s): I10 - Essential (primary) hypertension Status: Chronic Assessment and Plan: Stable (7) GERD (gastroesophageal reflux disease): Code(s): K21.9 - Gastro-esophageal reflux disease without esophagitis Status: Chronic Assessment and Plan: Stable (8) Type 2 diabetes mellitus with diabetic polyneuropathy: Code(s): E11.42 - Type 2 diabetes mellitus with diabetic polyneuropathy Status: Chronic Assessment and Plan: A1c is 9, down from 12.8 last year, Accu-Cheks plus sliding scale insulin Hold oral antidiabetic medications Plan DVT prophylaxis with heparin GI prophylaxis not indicated Code status full code DS: Summary Hospital Course Hospital Course: 56 y/o F with PMH significant for heart failure, obesity, GERD, diabetes with neuropathy, iron deficiency anemia, chronic diabetic ulcer, obstructive sleep apnea, depression with anxiety, urinary incontinence, OCD with chronic skin picking is presenting with progressively worsening shortness of breath over the last few days.? She states that she has had significant diarrhea over the last week and therefore she stopped taking her water pills.? She also is complaining of a cough productive of some sputum, generalized weakness and fatigue as well as worsening lower extremity edema.? No chest pain.? No nausea, vomiting or diarrhea.? No fevers or chills.? No sick contacts nor recent travel.? No orthopnea. In the ER, CT was negative for PE.? ER chart shows fluid overload noted on exam with 2+ pitting edema bilateral lower extremities as well as vascular congestion noted on chest x-ray.? Chest x-ray positive for possible pneumonia.? COVID and flu swabs were negative.? Oxygen saturation was stable on room air.? She was afebrile and somewhat tachycardic.? She did have an elevated troponin with a benign ECG and elevated lactic acid as well as BNP.? Blood cultures were drawn and she was started on IV antibiotics with Rocephin azithromycin.? She was also started on maintenance fluids and not given any diuretics. Upon admission, patient was started on IV diuresis with Bumex. Home oral anti diabetics were held, Accu-Cheks sliding scale insulin are started. Cardiology was co
[2022-01-08] MEDS: INSULIN ASPART (*BKC) 100 UNITS/ML SUB-Q (14:55)
[2022-01-08 17:01] LABS: Glucose Point of Care 185 mg/dl (65-105)
[2022-01-08 20:00] LABS: Glucose Point of Care 213 mg/dl (65-105)
[2022-01-08] MEDS: INSULIN GLARGINE (*BKC) 100 UNITS/ML SUB-Q (20:08)
--- NOTE | 2022-01-08 21:30 | PC.NURSE ---
2130- Patient put call light on was complaining of nausea and not feeling well. Vitals were obtained, systolic BP in the 70s, patient looked very pale and in distress. Rapid response initiated see documentation.
[2022-01-08 21:33] LABS: Glucose Point of Care 220 mg/dl (65-105)
--- NOTE | 2022-01-08 21:47 | ECG_ITS ---
Measurements Intervals [place] Rate: 93 P: 58 NC: 153 QRS: -61 QRSD: 110 T: 77 QT: 374 QTc: 467 Interpretive Statements SINUS RHYTHM WITH FREQUENT SUPRAVENTRICULAR PREMATURE COMPLEXES INCOMPLETE RIGHT BUNDLE BRANCH BLOCK [90+ ms QRS DURATION, TERMINAL R IN V1/V2, 40+ ms S IN I/aVL/V4/V5/V6] LEFT ANTERIOR FASCICULAR BLOCK [QRS AXIS <= -45, QR IN I, RS IN II] POSSIBLE ANTERIOR MYOCARDIAL INFARCTION [30 ms Q WAVE IN V3/V4, OR R < 0.2 mV IN V4], OF INDETERMINATE AGE ABNORMAL ECG COMPARED TO ECG 01/05/2022 21:07:30 SINUS RHYTHM NOW PRESENT INCOMPLETE RIGHT BUNDLE-BRANCH BLOCK NOW PRESENT LEFT ANTERIOR FASCICULAR BLOCK NOW PRESENT Electronically Signed On 01-09-2022 14:06:14 CDT by Mina Clemons M.D.
[2022-01-08 22:14] LABS: Alveolar/Arterial O2 Gradient 129.9 mmHg; Base Excess ABG -4.4 mEq/l (+/-2.0); Carboxyhemoglobin 0.3 % THb (0-2.0); Fractional Inspired Oxygen 44 %; HCO3 ABG 19.5 mEq/l (22.0-26.0); Methemoglobin ABG 0.2 %THb (0-1.5); Oxygen Content ABG 16.4 %vol (16.0-22.0); Oxygen Saturation ABG 98.9 % (95.0-100.0); Oxyhemoglobin 97.7 % THb (90.0-100.0); PCO2 ABG 31.9 mmHg (35.0-45.0); PO2 ABG 147.5 mmHg (80.0-100.0); PO2 FiO2 Ratio Arterial Blood 3.35 %; Reduced Hemoglobin 1.8 %THb (0-5.0); Total Hemoglobin 11.7 g/dL (12.0-18.0); pH ABG 7.404 (7.350-7.450)
[2022-01-08 22:15] LABS: Device NASAL CANNULA; Modified Allen's Test Unable to perform; Site Drawn LEFT BRACHIAL
[2022-01-08 22:26] LABS: Lactic Acid Reflex 2.9 mmol/L (0.7-2.0)
[2022-01-08 22:28] LABS: Alanine Aminotransferase 74 U/L (6-35); Albumin Level 3.6 g/dL (3.5-5.1); Alkaline Phosphatase 93 U/L (38-126); Anion Gap 15 mmol/L (8-16); Aspartate Amino Transferase 102 U/L (14-36); Bilirubin,Total 0.3 mg/dL (0.2-1.3); Blood Urea Nitrogen 27 mg/dL (7-17); Calcium 7.5 mg/dL (8.4-10.2); Carbon Dioxide 22 mmol/L (22-30); Chloride 96 mmol/L (98-107); Estimated CRCL calculation 76 ml/min; Estimated Glomerular Filt Rate 51; Glucose 278 mg/dL (65-110); Magnesium 1.3 mg/dL (1.6-2.3); Potassium 3.9 mmol/L (3.4-5.0); Sodium 133 mmol/L (137-145)
[2022-01-08] MEDS: SODIUM CHLORIDE 0.9% IV 500 ML 999 ML IV CONT (22:57)
[2022-01-08 23:11] LABS: Hematocrit 38.3 % (37.0-47.0); Hemoglobin 11.4 g/dL (12.0-15.0); Mean Corpuscular HGB Conc 29.8 g/dl (32-36); Mean Corpuscular Hemoglobin 22.9 pg (26-34); Mean Corpuscular Volume 76.9 fl (80-100); Mean Platelet Volume 11.5 fl (7.4-10.4); Platelet Count Result 298 k/mm3 (150-375); Red Blood Count 4.98 M/mm3 (4.2-5.4); Red Cell Distribution Width 15.8 % (11.5-14.5); White Blood Count 7.6 K/mm3 (4.5-10.0)
--- NOTE | 2022-01-08 23:24 | PM.CCN ---
Critical Care Event Note Summary Code activated: No Narrative: 01/08/2022 at 21:35 Rapid response was called when the patient called nursing staff stating that she felt terrible. When they went to evaluate the patient she was found to be pale, diaphoretic, cyanotic to the extremities. Her manual blood pressure was 70 systolic. She denied any chest pain. She was short of breath and reported that she could not lay flat. Patient had received 3.125 mg of Coreg about 30 minutes prior to event. Patient did not have any actual vomiting. When I arrived at bedside patient received 500 mL bolus. Stat EKG was performed which demonstrated normal sinus rhythm. Patient coarse breath sounds bilaterally with mild tachypnea, no accessory muscle use, no JVD noted, she has old healing wound to the plantar surface of the left foot, she had marked pallor and hands were cold and blue, no perioral cyanosis, 5 L nasal cannula where in place with patient's pulse ox reading 100%. The patient had been on room air prior to the event. Initially they were unable to bulk picker pulse ox but was able to bulk picker pulse ox when moved to her ear. With 500 mL bolus the patient's blood pressures did improved to the 90s systolic. Stat labs were performed which demonstrated slight increase in lactic acidosis from this a.m.. Normal white count, hemoglobin increased by almost 1 gram from this a.m. ABG pH 7.4 pCO2 31 PO2 147 with bicarb of 19 but normal serum bicarb at 22. Creatinine was up from 0.9-1.12 and BUN was up to 27 AST and ALT had increased moderately. And troponin was improved from prior serum magnesium was down to 1.3. Hypotension: Differential includes worsening sepsis, vasovagal event, medication effect or hypovolemia. The patient's blood pressure medicines were minimal dosing and I would not expect this to cause the patient's hypotension. IV Fluid bolus was given with improvement in blood pressures. Patient recurrent hypotension under additional 500 mL bolus was ordered. Chest x-ray demonstrated worsening airspace opacities concerning for worsening pneumonia versus interstitial edema. Patient is still on Rocephin and azithromycin. She remains afebrile. Patient is not a candidate for Lasix given her hypotension. She is already on appropriate antibiotic therapy. Will attempt repeat fluid bolus if blood pressures are still low will need to consider transferring the patient for central line and pressors. Will hold patient's blood pressure medications. Were performed cheetah implant further evaluation from there Hypoxia: patient did have hypoxia during the rapid response but I think this is due to hypoperfusion and vaso constriction. Patient's oxygenation remained stable after event on 2 L nasal cannula. Given sudden hypoxia and hypotension will also repeat D-dimer. 70 minute spent in critical care activities. Due to a high probability of clinically significant, life threatening deterioration, the patient required my highest level of preparedness to intervene emergently and I personally spent this critical care time directly and personally managing the patient. This critical care time included obtaining a history; examining the patient; pulse oximetry; ordering and review of studies; arranging urgent treatment with development of a management plan; evaluation of patient's response to treatment; frequent reassessment; and discussions with other providers. It was exclusive of separately billable procedures and treating other patients and teaching time. Please see Assessment and Plan section and the rest of the note for further information on patient assessment and treatment. This case had a high probability of a clinically significant, sudden, or life threatening deterioration of this patient's condition which required my full and direct attention, intervention and personal management. Critical care time: 30 - 74 mins
[2022-01-08 23:34] LABS: D Dimer 3.44 ug/mL (<0.48)
[2022-01-08] MEDS: SODIUM CHLORIDE 0.9% IV 500 ML IV CONT (23:55)
[2022-01-08] MEDS: MAGNESIUM SULF 4 GM/WATER100ML 4 GM/100 ML BAG IVPB (23:55)
[2022-01-09] VITALS (29 sets, daily range): BP systolic 89–135; BP diastolic 60–88; PULSE 77–110; RESP 18–28; TEMP 36.2–36.8; O2SAT 94–100
[2022-01-09] MEDS: SODIUM CHLORIDE 0.9% IV 1,000 ML 75 ML IV CONT ×2 (01:01→21:08)
[2022-01-09 01:10] LABS: Reflex Lactic Acid Yes or No Add Lactic
[2022-01-09 01:40] LABS: Lactic Acid 1.8 mmol/L (0.7-2.0)
[2022-01-09] MEDS: ALBUTEROL SULFATE NEB 2.5 MG/3 ML INH 5 MG INHALATION ×4 (02:31→20:30)
[2022-01-09] MEDS: IPRATROPIUM BR 0.02% INH SOLN 0.5 MG/2.5 ML VIAL INHALATION ×4 (02:31→20:30)
[2022-01-09 04:54] LABS: Basophils Absolute Auto 0.1 K/mm3 (0.0-0.1); Basophils Percent Auto 0.8 % (0.2-1.2); Eosinophils Absolute Auto 0.1 K/mm3 (0-0.3); Eosinophils Percent Auto 1.1 % (0-4.4); Hematocrit 34.5 % (37.0-47.0); Hemoglobin 10.4 g/dL (12.0-15.0); Immature Granulocyte Absolute 0.03 K/mm3 (0.00-0.031); Immature Granulocyte Percent A 0.5 % (0-0.5); Lymphocytes Absolute Auto 1.66 K/mm3 (0.9-3.2); Mean Corpuscular HGB Conc 30.1 g/dl (32-36); Mean Corpuscular Hemoglobin 23.1 pg (26-34); Mean Corpuscular Volume 76.5 fl (80-100); Mean Platelet Volume 10.8 fl (7.4-10.4); Monocytes Absolute Auto 0.7 K/mm3 (0.1-0.6); Monocytes Percent Auto 10.9 % (2.6-8.5); Neutrophils Absolute Auto 3.7 K/mm3 (1.3-6.7); Neutrophils Percent Auto 59.7 % (45.5-73.1); Nucleated Red Blood Cells Perc 0.3 % (0.0-0.2); Platelet Count Result 257 k/mm3 (150-375); Red Blood Count 4.51 M/mm3 (4.2-5.4); Red Cell Distribution Width 15.6 % (11.5-14.5); White Blood Count 6.1 K/mm3 (4.5-10.0)
[2022-01-09 05:07] LABS: Alanine Aminotransferase 82 U/L (6-35); Albumin Level 3.4 g/dL (3.5-5.1); Alkaline Phosphatase 82 U/L (38-126); Anion Gap 13 mmol/L (8-16); Aspartate Amino Transferase 96 U/L (14-36); Bilirubin,Total 0.2 mg/dL (0.2-1.3); Blood Urea Nitrogen 29 mg/dL (7-17); Calcium 7.5 mg/dL (8.4-10.2); Carbon Dioxide 21 mmol/L (22-30); Chloride 99 mmol/L (98-107); Estimated CRCL calculation 92 ml/min; Estimated Glomerular Filt Rate > 60; Glucose 181 mg/dL (65-110); Magnesium 2.1 mg/dL (1.6-2.3); Potassium 3.7 mmol/L (3.4-5.0); Sodium 133 mmol/L (137-145)
[2022-01-09] MEDS: GABAPENTIN 300 MG CAPSULE PO ×3 (06:09→21:01)
--- NOTE | 2022-01-09 07:25 | PM.IMPN ---
Progress Note: A&P Assessment and Plan (1) Hypoxia: Code(s): R09.02 - Hypoxemia Status: Acute Assessment and Plan: Patient had an episode of hypoxia overnight requiring 4 L nasal cannula, she is on room air today, D-dimer was checked and had increased from previous, Dopplers and CTA negative for blood clots Will consult pulmonology for possible sleep apnea due to the apneic episode last night, she may need to go home on CPAP/oxygen Will order ApneaLink tonight (2) Community acquired pneumonia: Code(s): J18.9 - Pneumonia, unspecified organism Status: Acute Assessment and Plan: Continue azithromycin and Rocephin Discontinue IV fluids Suspect RSV pneumonia as etiology, but will continue antibiotics due to possibility of bacterial coinfection (3) Heart failure: Code(s): I50.9 - Heart failure, unspecified Status: Deleted Assessment and Plan: Echo showed an EF of 35-40% with grade 2 diastolic dysfunction as well as mild pulmonary hypertension. No significant valvular disease noted. Strict I's and O's and daily standing weights ordered Appreciate cardiology consultation, pending Restarted home heart failure medications, continue Entresto, Lipitor, and aspirin Converted to oral diuresis and anticipate discharging home on usual medications She can follow-up outpatient with Cardiology to better optimize her heart failure medications when she recovers from pneumonia (4) Elevated troponin: Code(s): R77.8 - Other specified abnormalities of plasma proteins Status: Acute Assessment and Plan: resolved (5) Obstructive sleep apnea: Code(s): G47.33 - Obstructive sleep apnea (adult) (pediatric) Status: Chronic Assessment and Plan: ApneaLink tonight, appreciate pulmonology consultation, may need CPAP at discharge (6) Major depressive disorder, recurrent, mild: Code(s): F33.0 - Major depressive disorder, recurrent, mild Status: Chronic Assessment and Plan: Stable (7) Hypertension: Code(s): I10 - Essential (primary) hypertension Status: Chronic Assessment and Plan: Stable (8) GERD (gastroesophageal reflux disease): Code(s): K21.9 - Gastro-esophageal reflux disease without esophagitis Status: Chronic Assessment and Plan: Stable (9) Type 2 diabetes mellitus with diabetic polyneuropathy: Code(s): E11.42 - Type 2 diabetes mellitus with diabetic polyneuropathy Status: Chronic Assessment and Plan: A1c is 9, down from 12.8 last year, Accu-Cheks plus sliding scale insulin Hold oral antidiabetic medications Plan DVT prophylaxis with heparin GI prophylaxis not indicated Code status full code Subjective Date/time seen: 01/08/22 07:25 Interval history: Patient states she feels a little sick still, requesting to go home tomorrow. No overnight events noted. No chest pain or shortness of breath. No nausea, vomiting or diarrhea. No fevers or chills. Review of Systems Review of Systems: 12 point review of systems was assessed and was negative except as noted in the HPI Exam Narrative: General: No acute distress, alert and oriented per baseline HEENT: Atraumatic, normocephalic, mucous membranes moist CV: Regular rate and rhythm, S1, S2 Lungs: Good air entry, diminished at bases and expiratory wheezes throughout Abdomen: Soft, nontender, nondistended Extremities: 1+ pitting edema bilateral extremities Skin: No rashes noted, no lesions or wounds seen Psych: Euthymic, normal affect Objective Data Vital Signs Vital Signs: Vital Signs - 24 hr 01/08/22 07:28 01/08/22 08:03 01/08/22 08:05 Temperature 98.3 F Pulse Rate 93 81 82 Respiratory Rate 22 H 12 12 Blood Pressure 136/75 Pulse Oximetry 99 Oxygen Delivery Oxygen Flow Rate Fraction of Inspired Oxygen 01/08/22 09:33 01/08/22 08:00 01/08/22 10:00 Temperature Pulse Rate 96 95
[2022-01-09 09:04] LABS: Glucose Point of Care 182 mg/dl (65-105)
[2022-01-09] MEDS: ATORVASTATIN 10 MG TABLET PO (09:52)
[2022-01-09] MEDS: guaiFENesin 600 MG/DEXTROMETHORPHAN 30 MG SR TAB 12 HR 1 TAB PO ×2 (09:52→21:00)
[2022-01-09] MEDS: busPIRone HCL 10 MG TABLET PO ×2 (09:52→18:25)
[2022-01-09] MEDS: FERROUS SULFATE 324 MG TABLET PO ×3 (09:52→18:25)
[2022-01-09] MEDS: ASPIRIN 81 MG CHEWABLE TABLET PO (09:52)
[2022-01-09] MEDS: SACUBITRIL/VALSARTAN 24-26 MG TABLET 1 TAB PO ×2 (09:52→18:25)
[2022-01-09] MEDS: HEPARIN SODIUM 5,000 UNITS/ML VIAL 5000 UNITS SUB-Q ×2 (09:53→21:01)
--- NOTE | 2022-01-09 11:04 | PM.PNCARD ---
Progress Note: A&P Assessment and Plan (1) Cardiomyopathy: Code(s): I42.9 - Cardiomyopathy, unspecified Status: Acute (2) Chronic combined systolic and diastolic heart failure: Code(s): I50.42 - Chronic combined systolic (congestive) and diastolic (congestive) heart failure Status: Acute (3) Community acquired pneumonia: Code(s): J18.9 - Pneumonia, unspecified organism Status: Acute (4) Sepsis: Qualifiers: Sepsis acute organ dysfunction status: without acute organ dysfunction Sepsis type: sepsis due to unspecified organism Qualified Code(s): A41.9 - Sepsis, unspecified organism Code(s): A41.9 - Sepsis, unspecified organism Status: Acute Plan Echocardiogram reviewed and shows severe LV enlargement EF 35-40% on to moderate MR/TR. Patient reports a history of non-ischemic cardiomyopathy (was taking Entresto at home), however, has not seen a liquor tester in a while. Prior cardiovascular records including left heart catheterization, ischemic testing and/or echocardiogram prior cardiology notes.? Patient reports history of normal coronary anatomy on left heart catheterization within the past couple of years.? Records requested. Treatment of PNA as per primary team. Continue with Entresto and Coreg at this time. Would resume home Bumex dose. She will need to follow up with Cardiology as an outpatient within the next 2 weeks post discharge. Subjective Date/time seen: 01/09/22 11:04 Interval history: Reason for follow-up: Cardiomyopathy Patient was supposed to be discharged yesterday, however, had a rapid response called. Patient was noted to be pale, diaphoretic, cyanotic to extremities. Patient states she felt short of breath when this happening. Manual blood pressure cuff 70s systolics. Given fluid bolus, which improved blood pressure. Patient noted to be hypoxia during this event, which improved with supplemental oxygen via nasal cannula. EKG done which did not show significant changes. Chest CT done which was negative for PE, but noted to have worsening multifocal PNA. Venous duplex negative for DVT. Patient states she feels much better this morning. Review of Systems Review of Systems: All systems reviewed & are unremarkable except as noted in HPI and below (subjective) Exam Const: General: comfortable and no acute distress Eyes: General: appearance normal, both eyes and all related structures Neck: Neck: no JVD Resp: Effort & Inspection: normal respiratory effort Auscultation: diminished lung sounds Cardio: Rate: regular rate Rhythm: regular rhythm Heart sounds: no murmurs Skin: General skin exam: normal color Neuro: Speech: normal speech Psych: Mental Status: mental status grossly normal Objective Data Vital Signs Vital Signs: Vital Signs - 24 hr 01/08/22 13:26 01/08/22 13:30 01/08/22 16:00 Temperature 36.6 C Pulse Rate 69 67 60 Respiratory Rate 12 14 20 Blood Pressure 98/73 L Pulse Oximetry 100 Oxygen Delivery Oxygen Flow Rate Fraction of Inspired Oxygen 01/08/22 20:02 01/08/22 20:13 01/08/22 21:30 Temperature 36.7 C 36.4 C L Pulse Rate 75 76 76 Respiratory Rate 20 16 Blood Pressure 146/77 H 70/40 L Pulse Oximetry 97 97 Oxygen Delivery Oxygen Flow Rate Fraction of Inspired Oxygen 01/08/22 22:00 01/08/22 20:41 01/08/22 20:52 Temperature Pulse Rate 88 76 74 Respiratory Rate 16 16 16 Blood Pressure 90/46 L Pulse Oximetry 100 Oxygen Delivery Oxygen Flow Rate Fraction of Inspired Oxygen 01/08/22 20:52 01/08/22 21:00 01/08/22 20:00 Temperature 36.4 C L Pulse Rate 93 Respiratory Rate 22 H Blood Pressure 70/40 L Pulse Oximetry 98 96 Oxygen Delivery Room Air High Flow Nasal Cannula Room Air Oxygen Flow Rate 6 Fraction of Inspired Oxygen 01/08/22 22:47 01/08/22 22:15 01/08/22 22:41 Temperature Pulse Rate 88 70 Respiratory Rate 16 Blood
[2022-01-09 12:01] LABS: Glucose Point of Care 248 mg/dl (65-105)
[2022-01-09] MEDS: INSULIN ASPART (*BKC) 100 UNITS/ML SUB-Q ×2 (13:27→18:25)
--- NOTE | 2022-01-09 15:48 | PCPTNOTE ---
Spoke with hospitalist about pt being able to participate in skilled therapy with Bed rest orders in places since last night 01/08/22. Hospitalist OK patient to participate in skilled therapy this date despite bed rest orders.
[2022-01-09 17:26] LABS: Glucose Point of Care 314 mg/dl (65-105)
[2022-01-09 20:37] LABS: Glucose Point of Care 237 mg/dl (65-105)
[2022-01-09] MEDS: INSULIN GLARGINE (*BKC) 100 UNITS/ML SUB-Q (21:01)
[2022-01-10] VITALS (22 sets, daily range): BP systolic 92–134; BP diastolic 62–89; PULSE 65–94; RESP 18–24; TEMP 36–37.1; O2SAT 94–100
[2022-01-10] MEDS: ALBUTEROL SULFATE NEB 2.5 MG/3 ML INH 5 MG INHALATION ×4 (04:36→20:49)
[2022-01-10] MEDS: IPRATROPIUM BR 0.02% INH SOLN 0.5 MG/2.5 ML VIAL INHALATION ×4 (04:36→20:49)
[2022-01-10 05:42] LABS: Basophils Percent Auto 0.7 % (0.2-1.2); Eosinophils Absolute Auto 0.1 K/mm3 (0-0.3); Eosinophils Percent Auto 2.1 % (0-4.4); Hematocrit 36.6 % (37.0-47.0); Immature Granulocyte Absolute 0.04 K/mm3 (0.00-0.031); Immature Granulocyte Percent A 0.7 % (0-0.5); Lymphocytes Absolute Auto 2.23 K/mm3 (0.9-3.2); Lymphocytes Percent Auto 36.9 % (18.3-44.2); Mean Corpuscular HGB Conc 30.1 g/dl (32-36); Mean Corpuscular Volume 76.4 fl (80-100); Monocytes Absolute Auto 0.7 K/mm3 (0.1-0.6); Monocytes Percent Auto 11.7 % (2.6-8.5); Neutrophils Absolute Auto 2.9 K/mm3 (1.3-6.7); Neutrophils Percent Auto 47.9 % (45.5-73.1); Nucleated Red Blood Cells Perc 0.3 % (0.0-0.2); Platelet Count Result 272 k/mm3 (150-375); Red Blood Count 4.79 M/mm3 (4.2-5.4); Red Cell Distribution Width 15.7 % (11.5-14.5); White Blood Count 6.1 K/mm3 (4.5-10.0)
[2022-01-10 05:54] LABS: Alanine Aminotransferase 107 U/L (6-35); Albumin Level 3.4 g/dL (3.5-5.1); Alkaline Phosphatase 113 U/L (38-126); Anion Gap 10 mmol/L (8-16); Aspartate Amino Transferase 106 U/L (14-36); Bilirubin,Total 0.3 mg/dL (0.2-1.3); Blood Urea Nitrogen 34 mg/dL (7-17); Calcium 7.8 mg/dL (8.4-10.2); Carbon Dioxide 25 mmol/L (22-30); Chloride 97 mmol/L (98-107); Estimated CRCL calculation 84 ml/min; Estimated Glomerular Filt Rate 57; Glucose 154 mg/dL (65-110); Sodium 132 mmol/L (137-145)
[2022-01-10] MEDS: GABAPENTIN 300 MG CAPSULE PO ×3 (06:15→21:17)
[2022-01-10 06:40] LABS: Platelet Estimate Adequate (Adequate)
[2022-01-10 06:41] LABS: Anisocytosis 1+ (NORMAL); Atypical Lymphocytes Present; Crenated RBC 1+ (NORMAL); Hypochromasia 1+ (NORMAL); Ovalocytes 1+ (NORMAL); Poikilocytosis 2+ (NORMAL); Schistocytes 1+ (NORMAL)
[2022-01-10 08:25] LABS: Glucose Point of Care 144 mg/dl (65-105)
[2022-01-10] MEDS: guaiFENesin 600 MG/DEXTROMETHORPHAN 30 MG SR TAB 12 HR 1 TAB PO ×2 (09:16→21:17)
[2022-01-10] MEDS: FERROUS SULFATE 324 MG TABLET PO ×3 (09:16→18:17)
[2022-01-10] MEDS: ATORVASTATIN 10 MG TABLET PO (09:17)
[2022-01-10] MEDS: busPIRone HCL 10 MG TABLET PO ×2 (09:17→18:16)
[2022-01-10] MEDS: ASPIRIN 81 MG CHEWABLE TABLET PO (09:17)
[2022-01-10] MEDS: HEPARIN SODIUM 5,000 UNITS/ML VIAL 5000 UNITS SUB-Q ×2 (09:17→21:17)
[2022-01-10] MEDS: SACUBITRIL/VALSARTAN 24-26 MG TABLET 1 TAB PO ×2 (09:17→18:16)
--- NOTE | 2022-01-10 10:38 | PM.CNPUL ---
Assessment and Plan Assessment and plan (1) Hypoxia: Code(s): R09.02 - Hypoxemia Status: Acute Assessment and Plan: The patient currently is on room air. She required oxygen 4 L with her rapid response yesterday, this occurred with hypotension, clamminess, increased infiltrates on the chest x-ray. There was a concern that part of this may have been obstructive sleep apnea and I think this is very likely. She says she was tested, Dr Machado told her she did not have it, and to sleep on her side. I do not see any sleep studies in our system, nor an ApneaLink while in the hospital. She may not want to use CPAP, so testing may have limited utility. She has elevated BMI 51.8, snores, crowded airway, sleepy in the day. plan: ApneaLink tonight; this may not be enough to get her into a CPAP but may help give an idea about severity. (2) Community acquired pneumonia: Code(s): J18.9 - Pneumonia, unspecified organism Status: Acute Assessment and Plan: Has worsening infiltrate on chest CT January 09, still on antibiotics with a cough productive yellow sputum. She was on azithromycin which has been stopped because she has had the full 5 days, continues on Rocephin. I am recommending to change that to cefepime with increased infiltrates and get a procalcitonin. If possible we should obtain a sputum. She has been on antibiotics but if she has a resistant organism we may be able to culture it. plan: Stop Rocephin, add Cefepime, sputum studies, procalcitonin. Cornet valve to help clear secretions. (3) Obstructive sleep apnea: Code(s): G47.33 - Obstructive sleep apnea (adult) (pediatric) Status: Chronic Assessment and Plan: This is listed as a diagnosis. Cannot find a report, patient says she does not have. Probably does. Ben plummer. History of Present Illness History of Present Illness Consult date: 01/10/22 Requesting physician: Lashon Fitzpatrick DO Chief complaint: Sepsis, pneumonia Narrative: She was seen about 10:30, and her mother's cousin Traci was in the room. NEW: Allison Thurston is a 56 yo F with increased shortness of breath, was treated for chronic systolic & diastolic CHF, cardiomyopathy, was better, planned to be discharged yesterday. She had a rapid response, was hypotensive to 70, clammy and sweaty, needed a bolus of fluids and required 4 L of oxygen and previously was on room air. She was short of breath and hypoxemic, needed O2. EKG was without changes. CT chest = increased pneumonia without PE. Dopplers negative for DVT. Her Ddimer was increased 3.44. White blood cell count is normal 6.1. Hemoglobin 11, hematocrit 36.6%, platelets 272, all of these are normal. Arterial blood gas on admission 7.4, 31.9, 147.5, 19.3 and 98.9. Sodium 132 potassium 4 chloride 97 carbon dioxide 25 BUN 34 creatinine 1. She has been on azithromycin and Rocephin since admission. She says that prior to this admission she was around a fire pit at home with family members, later developed nausea vomiting and diarrhea for 3 days prior to this admission. She stopped her diuretics because she was having diarrhea. She had increased dyspnea and LE swelling before admission. She had a productive cough with yellow sputum, increased SOB and wheezing. She does not use a nebulizer at home, was using her albuterol inhaler 8-9 times a day. She has 1 cat. Her shortness of breath with worse with exertion, rain, spring & fall, but not cold air. Se does not have signficaint sinus symptoms. ? She does not have a prior history of significant lung disease. She has had an inhaler at home over the last couple of years. She uses his when she has an episode of bronchitis which is infrequent. She does not generally have a cough for
[2022-01-10 12:20] LABS: Glucose Point of Care 193 mg/dl (65-105)
--- NOTE | 2022-01-10 14:23 | PM.IMPN ---
Progress Note: A&P Assessment and Plan (1) Hypoxia: Code(s): R09.02 - Hypoxemia Status: Acute Assessment and Plan: Patient had an episode of hypoxia overnight requiring 4 L nasal cannula, Ddimer was checked and had increased from previous, Dopplers and CTA negative for blood clots Pulmonary consulted for possible sleep apnea due to the apneic episode last night, she may need to go home on CPAP/oxygen Apnea link not done yet No hypercapnia noted that ABG (2) Community acquired pneumonia: Code(s): J18.9 - Pneumonia, unspecified organism Status: Acute Assessment and Plan: Continue azithromycin and Rocephin Discontinue IV fluids Suspect RSV pneumonia as etiology, but will continue antibiotics due to possibility of bacterial coinfection CTA showed multifocal pneumonia which has worsened. Finished azithromycin course. Ceftriaxone has been switched to cefepime per Pulmonary. Appreciate her recommendations. Sputum culture Pulmonary consulted (3) Heart failure: Code(s): I50.9 - Heart failure, unspecified Status: Deleted Assessment and Plan: Echo showed an EF of 35-40% with grade 2 diastolic dysfunction as well as mild pulmonary hypertension. There is moderate TR and [id number] MR. Strict I's and O's and daily standing weights ordered Cardiology consulted. Restarted home heart failure medications, continue Entresto, Lipitor, and aspirin Converted to oral diuresis and anticipate discharging home on usual medications She can follow-up outpatient with Cardiology to better optimize her heart failure medications when she recovers from pneumonia Stop IV fluids in restarted Bumex smaller dose 1 mg twice daily today (4) Elevated troponin: Code(s): R77.8 - Other specified abnormalities of plasma proteins Status: Acute Assessment and Plan: resolved (5) Obstructive sleep apnea: Code(s): G47.33 - Obstructive sleep apnea (adult) (pediatric) Status: Chronic Assessment and Plan: ApneaLink tonight, appreciate pulmonology consultation, may need CPAP at discharge (6) Major depressive disorder, recurrent, mild: Code(s): F33.0 - Major depressive disorder, recurrent, mild Status: Chronic Assessment and Plan: Stable (7) Hypertension: Code(s): I10 - Essential (primary) hypertension Status: Chronic Assessment and Plan: Stable (8) GERD (gastroesophageal reflux disease): Code(s): K21.9 - Gastro-esophageal reflux disease without esophagitis Status: Chronic Assessment and Plan: Stable (9) Type 2 diabetes mellitus with diabetic polyneuropathy: Code(s): E11.42 - Type 2 diabetes mellitus with diabetic polyneuropathy Status: Chronic Assessment and Plan: A1c is 9, down from 12.8 last year, Accu-Cheks plus sliding scale insulin Hold oral antidiabetic medications Plan DVT prophylaxis with heparin GI prophylaxis not indicated Code status full code Subjective Date/time seen: 01/10/22 14:23 Interval history: No overnight events. Feels short of breath upon ambulation. But much more improved than day before yesterday when she was very short of breath. Denies any fever chills. She is currently off oxygen. Review of Systems Review of Systems: All systems reviewed & are unremarkable except as noted in HPI and below Exam Narrative: General: No acute distress, alert and oriented per baseline HEENT: Atraumatic, normocephalic, mucous membranes moist CV: Regular rate and rhythm, S1, S2 Lungs: Good air entry, diminished at bases and end expiratory wheezes throughout Abdomen: Soft, nontender, nondistended Extremities: 2 + pitting edema bilateral extremities Skin: No rashes noted, no lesions or wounds seen Psych: Euthymic, normal affect Objective Data Vital Signs Vital Signs: Vital Signs - 24 hr 01/09/22 14:47 01/09/22 14:50 01/09/22 14:59 Temperature Pulse
[2022-01-10 16:41] LABS: Glucose Point of Care 244 mg/dl (65-105)
[2022-01-10] MEDS: BUMETANIDE 1 MG TABLET PO (18:16)
[2022-01-10] MEDS: INSULIN ASPART (*BKC) 100 UNITS/ML SUB-Q (18:17)
[2022-01-10 20:14] LABS: Glucose Point of Care 255 mg/dl (65-105)
[2022-01-10] MEDS: INSULIN GLARGINE (*BKC) 100 UNITS/ML SUB-Q (21:17)
[2022-01-11] VITALS (16 sets, daily range): BP systolic 105–134; BP diastolic 60–94; PULSE 62–86; RESP 16–22; TEMP 36.3–36.7; O2SAT 94–100
[2022-01-11] MEDS: GABAPENTIN 300 MG CAPSULE PO ×3 (05:22→20:56)
[2022-01-11 06:45] LABS: Basophils Absolute Auto 0.1 K/mm3 (0.0-0.1); Basophils Percent Auto 0.9 % (0.2-1.2); Eosinophils Absolute Auto 0.3 K/mm3 (0-0.3); Hematocrit 37.5 % (37.0-47.0); Hemoglobin 11.2 g/dL (12.0-15.0); Immature Granulocyte Absolute 0.04 K/mm3 (0.00-0.031); Immature Granulocyte Percent A 0.7 % (0-0.5); Mean Corpuscular HGB Conc 29.9 g/dl (32-36); Mean Corpuscular Hemoglobin 23.2 pg (26-34); Mean Corpuscular Volume 77.6 fl (80-100); Mean Platelet Volume 10.5 fl (7.4-10.4); Monocytes Absolute Auto 0.6 K/mm3 (0.1-0.6); Monocytes Percent Auto 10.6 % (2.6-8.5); Neutrophils Absolute Auto 2.9 K/mm3 (1.3-6.7); Neutrophils Percent Auto 49.8 % (45.5-73.1); Platelet Count Result 263 k/mm3 (150-375); Red Blood Count 4.83 M/mm3 (4.2-5.4); Red Cell Distribution Width 15.8 % (11.5-14.5); White Blood Count 5.8 K/mm3 (4.5-10.0)
[2022-01-11 07:04] LABS: Alanine Aminotransferase 131 U/L (6-35); Albumin Level 3.4 g/dL (3.5-5.1); Alkaline Phosphatase 120 U/L (38-126); Anion Gap 9 mmol/L (8-16); Aspartate Amino Transferase 118 U/L (14-36); Bilirubin,Total 0.3 mg/dL (0.2-1.3); Blood Urea Nitrogen 29 mg/dL (7-17); Calcium 8.2 mg/dL (8.4-10.2); Carbon Dioxide 24 mmol/L (22-30); Chloride 103 mmol/L (98-107); Estimated CRCL calculation 103 ml/min; Estimated Glomerular Filt Rate > 60; Glucose 150 mg/dL (65-110); Potassium 3.5 mmol/L (3.4-5.0); Sodium 136 mmol/L (137-145)
[2022-01-11 07:32] LABS: Procalcitonin 0.1 ng/mL
[2022-01-11 07:35] LABS: Atypical Lymphocytes Present; Hypochromasia 1+ (NORMAL); Platelet Estimate Adequate (Adequate); Schistocytes None Seen (NORMAL)
[2022-01-11 08:36] LABS: Glucose Point of Care 132 mg/dl (65-105)
[2022-01-11] MEDS: ALBUTEROL SULFATE NEB 2.5 MG/3 ML INH 5 MG INHALATION ×3 (08:39→21:28)
[2022-01-11] MEDS: IPRATROPIUM BR 0.02% INH SOLN 0.5 MG/2.5 ML VIAL INHALATION ×3 (08:39→21:28)
[2022-01-11] MEDS: HEPARIN SODIUM 5,000 UNITS/ML VIAL 5000 UNITS SUB-Q ×2 (10:02→20:54)
[2022-01-11] MEDS: SACUBITRIL/VALSARTAN 24-26 MG TABLET 1 TAB PO ×2 (10:02→16:38)
[2022-01-11] MEDS: ATORVASTATIN 10 MG TABLET PO (10:02)
[2022-01-11] MEDS: ASPIRIN 81 MG CHEWABLE TABLET PO (10:02)
[2022-01-11] MEDS: FERROUS SULFATE 324 MG TABLET PO ×3 (10:02→16:39)
[2022-01-11] MEDS: guaiFENesin 600 MG/DEXTROMETHORPHAN 30 MG SR TAB 12 HR 1 TAB PO ×2 (10:02→20:55)
[2022-01-11] MEDS: BUMETANIDE 1 MG TABLET PO (10:02)
[2022-01-11] MEDS: busPIRone HCL 10 MG TABLET PO ×2 (10:02→16:38)
[2022-01-11] MEDS: ACETAMINOPHEN 325 MG TABLET 650 MG PO (11:37)
--- NOTE | 2022-01-11 12:02 | PCPTNOTE ---
Attempted to see patient for PT at this time, however patient declined. Patient reported she wants to rest at this time.
[2022-01-11 12:37] LABS: Glucose Point of Care 181 mg/dl (65-105)
[2022-01-11] MEDS: BUDESONIDE RESPULE NEB 0.5 MG/2 ML AMP INHALATION ×2 (13:07→21:28)
--- NOTE | 2022-01-11 13:52 | PM.IMPN ---
Progress Note: A&P Assessment and Plan (1) Hypoxia: Code(s): R09.02 - Hypoxemia Status: Acute Assessment and Plan: Patient had an episode of hypoxia overnight requiring 4 L nasal cannula, Ddimer was checked and had increased from previous, Dopplers and CTA negative for blood clots Pulmonary consulted for possible sleep apnea due to the apneic episode last night, she may need to go home on CPAP/oxygen Apnea link not done yet No hypercapnia noted that ABG (2) Community acquired pneumonia: Code(s): J18.9 - Pneumonia, unspecified organism Status: Acute Assessment and Plan: Continue azithromycin and Rocephin Discontinue IV fluids Suspect RSV pneumonia as etiology, but will continue antibiotics due to possibility of bacterial coinfection CTA showed multifocal pneumonia which has worsened. Finished azithromycin course. Ceftriaxone has been switched to cefepime per Pulmonary. Appreciate her recommendations. Sputum culture Pulmonary consulted Will add Pulmicort nebs today (3) Heart failure: Code(s): I50.9 - Heart failure, unspecified Status: Deleted Assessment and Plan: Echo showed an EF of 35-40% with grade 2 diastolic dysfunction as well as mild pulmonary hypertension. There is moderate TR and [id number] MR. Strict I's and O's and daily standing weights ordered Cardiology consulted. Restarted home heart failure medications, continue Entresto, Lipitor, and aspirin Converted to oral diuresis and anticipate discharging home on usual medications She can follow-up outpatient with Cardiology to better optimize her heart failure medications when she recovers from pneumonia Stop IV fluids in restarted Bumex smaller dose 1 mg twice daily which he tolerated well Bumex will be increased to 2 mg twice daily (4) Elevated troponin: Code(s): R77.8 - Other specified abnormalities of plasma proteins Status: Acute Assessment and Plan: resolved (5) Obstructive sleep apnea: Code(s): G47.33 - Obstructive sleep apnea (adult) (pediatric) Status: Chronic Assessment and Plan: ApneaLink performed 01/11/2022 with AHI 21.3/RI 24.2. Highly suspicious for underlying sleep apnea. we Can use CPAP at night however she will need sleep study as an outpatient basis for formal diagnosis and treatment. Pulmonary on board for further direction on this she will at least qualify for oxygen at night (6) Major depressive disorder, recurrent, mild: Code(s): F33.0 - Major depressive disorder, recurrent, mild Status: Chronic Assessment and Plan: Stable (7) Hypertension: Code(s): I10 - Essential (primary) hypertension Status: Chronic Assessment and Plan: Stable (8) GERD (gastroesophageal reflux disease): Code(s): K21.9 - Gastro-esophageal reflux disease without esophagitis Status: Chronic Assessment and Plan: Stable (9) Type 2 diabetes mellitus with diabetic polyneuropathy: Code(s): E11.42 - Type 2 diabetes mellitus with diabetic polyneuropathy Status: Chronic Assessment and Plan: A1c is 9, down from 12.8 last year, Accu-Cheks plus sliding scale insulin Hold oral antidiabetic medications Plan DVT prophylaxis with heparin GI prophylaxis not indicated Code status full code disposition: [facility] has accepted Subjective Date/time seen: 01/11/22 13:52 Interval history: No overnight events.Patient feels diet and bit short of breath. Still wheezy. Denies fever chills. No chest pain. Review of Systems Review of Systems: All systems reviewed & are unremarkable except as noted in HPI and below Exam Narrative: General: No acute distress, alert and oriented per baseline HEENT: Atraumatic, normocephalic, mucous membranes moist CV: Regular rate and rhythm, S1, S2 Lungs: Good air entry, diminished at bases and end expiratory wheezes throughout Abdomen:
[2022-01-11] MEDS: BUMETANIDE 1 MG TABLET 2 MG PO (16:38)
[2022-01-11 16:53] LABS: Glucose Point of Care 187 mg/dl (65-105)
--- NOTE | 2022-01-11 18:19 | PM.PNPUL ---
Progress Note: A&P Assessment and Plan (1) Hypoxia: Code(s): R09.02 - Hypoxemia Status: Acute Assessment and Plan: The patient currently is 2 L/min. Has been on room air at time this admission. She required oxygen 4 L with her rapid response 01/09, occurred with hypotension, clamminess, increased infiltrates on the chest x-ray.? There was a concern that part of this may have been obstructive sleep apnea, nad he ApneaLink is consistent with obstructive sleep apnea. (2) Community acquired pneumonia: Code(s): J18.9 - Pneumonia, unspecified organism Status: Acute Assessment and Plan: Has worsening infiltrate on chest CT January 09, still on antibiotics with a cough productive yellow sputum. Completed azithromycin x 5 days. Changed to Cefepime 01/10 with increased infiltrates. plan:?Stop Rocephin, add Cefepime, sputum studies, procalcitonin. Cornet valve to help clear secretions. (3) Obstructive sleep apnea: Code(s): G47.33 - Obstructive sleep apnea (adult) (pediatric) Status: Chronic Assessment and Plan: This is listed as a diagnosis, ApneaLink shows this is positive. Time Spent With Patient Time with patient: less than 15 minutes Subjective Date/time seen: 01/11/22 18:19 Interval history: Hospital follow up : Allison Thurston is a 56 yo F with increased shortness of breath, was treated for chronic systolic & diastolic CHF, cardiomyopathy, was better, was almost ready to go home, then 01/09 had a rapid response, was hypotensive to 70, clammy and sweaty, needed a bolus of fluids and required 4 L of oxygen and previously was on room air.? She was short of breath and hypoxemic, needed O2. EKG was without changes. CT chest = increased pneumonia without PE, no DVT, D-dimer was increased 3.44, normal WBC. ABG @ admission 7.4, 31.9, 147.5, 19.3 and 98.9.? Yesterday she was switched to Cefepime from Rocephin, azithromycin stopped. She had ApneaLink last night, has evidence of obstructive sleep apnea, O2 dragan of 70%, AHI 21.3; 32 minutes < 88%. She says that prior to this admission she was around a fire pit at home with family members, later developed nausea vomiting and diarrhea for 3 days prior to this admission. She stopped her diuretics because she was having diarrhea. She had increased dyspnea and LE swelling before admission. She had a productive cough with yellow sputum, increased SOB and wheezing. She does not use a nebulizer at home, was using her albuterol inhaler 8-9 times a day. She has 1 cat. Her shortness of breath with worse with exertion, rain, spring & fall, but not cold air. Seh does not have signficaint sinus symptoms. ? She does not have a prior history of significant lung disease.? She has had an inhaler at home over the last couple of years.? She uses his when she has an episode of bronchitis which is infrequent.? She does not generally have a cough for sputum production.? Smoked a minimal amount in her teens. 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 PMH: CHF, GERD, DM, neuropathy, Fe def anemia with pica, she says she was tested and does not have KARY, anxiety and depression. She has chronic skin picking. DATA * 01/10/2022 : ApneaLink 6 hour 19 min; AHI 21.3, PEE 35.2, average saturation 93%, lowest saturation 70%, 32 minutes spent below 88%. This is abnormal, needs follow up out-patient. * 01/09/2022 - Chest CTA?No pulmonary embolus.? Multifocal pneumonia, worsened from 01/05/2022.? Cardiomegaly.? Mild mediastinal and bilateral hilar lymphadenopathy, likely reactive. * 01/06/2022 - echo - Technically difficult study with limited views. Despite definity contrast enhancement regional wall motion assessment limited. ? 2. Left ventricular chamber dimension is severely
[2022-01-11 20:02] LABS: Glucose Point of Care 213 mg/dl (65-105)
[2022-01-11] MEDS: INSULIN GLARGINE (*BKC) 100 UNITS/ML SUB-Q (20:50)
[2022-01-12] VITALS (14 sets, daily range): BP systolic 112–129; BP diastolic 68–98; PULSE 74–95; RESP 16–20; TEMP 36.1–36.8; O2SAT 94–100
[2022-01-12] MEDS: ALBUTEROL SULFATE NEB 2.5 MG/3 ML INH 5 MG INHALATION ×4 (02:10→20:15)
[2022-01-12 05:12] LABS: Basophils Absolute Auto 0.1 K/mm3 (0.0-0.1); Basophils Percent Auto 0.9 % (0.2-1.2); Eosinophils Absolute Auto 0.3 K/mm3 (0-0.3); Eosinophils Percent Auto 5.7 % (0-4.4); Hematocrit 36.1 % (37.0-47.0); Immature Granulocyte Absolute 0.04 K/mm3 (0.00-0.031); Immature Granulocyte Percent A 0.7 % (0-0.5); Lymphocytes Absolute Auto 2.18 K/mm3 (0.9-3.2); Lymphocytes Percent Auto 38.8 % (18.3-44.2); Mean Corpuscular HGB Conc 30.5 g/dl (32-36); Mean Corpuscular Hemoglobin 22.8 pg (26-34); Mean Corpuscular Volume 74.9 fl (80-100); Mean Platelet Volume 10.6 fl (7.4-10.4); Monocytes Absolute Auto 0.6 K/mm3 (0.1-0.6); Monocytes Percent Auto 11.4 % (2.6-8.5); Neutrophils Absolute Auto 2.4 K/mm3 (1.3-6.7); Neutrophils Percent Auto 42.5 % (45.5-73.1); Platelet Count Result 288 k/mm3 (150-375); Red Blood Count 4.82 M/mm3 (4.2-5.4); White Blood Count 5.6 K/mm3 (4.5-10.0)
[2022-01-12 05:25] LABS: Alanine Aminotransferase 120 U/L (6-35); Albumin Level 3.3 g/dL (3.5-5.1); Alkaline Phosphatase 103 U/L (38-126); Anion Gap 9 mmol/L (8-16); Aspartate Amino Transferase 86 U/L (14-36); Bilirubin,Total 0.3 mg/dL (0.2-1.3); Blood Urea Nitrogen 25 mg/dL (7-17); Calcium 8.5 mg/dL (8.4-10.2); Carbon Dioxide 31 mmol/L (22-30); Chloride 102 mmol/L (98-107); Estimated CRCL calculation 93 ml/min; Estimated Glomerular Filt Rate > 60; Glucose 141 mg/dL (65-110); Magnesium 1.5 mg/dL (1.6-2.3); Potassium 3.7 mmol/L (3.4-5.0); Sodium 142 mmol/L (137-145)
[2022-01-12] MEDS: GABAPENTIN 300 MG CAPSULE PO ×3 (05:27→21:28)
[2022-01-12 05:47] LABS: Anisocytosis 1+ (NORMAL); Atypical Lymphocytes Present; Hypochromasia 2+ (NORMAL); Microcytosis 1+ (NORMAL); Platelet Estimate Adequate (Adequate); Schistocytes None Seen (NORMAL)
[2022-01-12] MEDS: IPRATROPIUM BR 0.02% INH SOLN 0.5 MG/2.5 ML VIAL INHALATION ×4 (06:40→20:17)
[2022-01-12 08:19] LABS: Glucose Point of Care 152 mg/dl (65-105)
[2022-01-12] MEDS: BUDESONIDE RESPULE NEB 0.5 MG/2 ML AMP INHALATION (08:39)
[2022-01-12 09:26] LABS: RSV RNA, RT-PCR Negative (Negative)
[2022-01-12] MEDS: ASPIRIN 81 MG CHEWABLE TABLET PO (09:54)
[2022-01-12] MEDS: HEPARIN SODIUM 5,000 UNITS/ML VIAL 5000 UNITS SUB-Q ×2 (09:54→20:17)
[2022-01-12] MEDS: SACUBITRIL/VALSARTAN 24-26 MG TABLET 1 TAB PO ×2 (09:54→16:31)
[2022-01-12] MEDS: ATORVASTATIN 10 MG TABLET PO (09:54)
[2022-01-12] MEDS: FERROUS SULFATE 324 MG TABLET PO ×3 (09:54→16:31)
[2022-01-12] MEDS: busPIRone HCL 10 MG TABLET PO ×2 (09:54→16:31)
[2022-01-12] MEDS: guaiFENesin 600 MG/DEXTROMETHORPHAN 30 MG SR TAB 12 HR 1 TAB PO ×2 (09:56→20:16)
[2022-01-12] MEDS: BUMETANIDE 1 MG TABLET 2 MG PO ×2 (09:56→16:30)
[2022-01-12 12:15] LABS: Glucose Point of Care 199 mg/dl (65-105)
--- NOTE | 2022-01-12 12:20 | PM.IMPN ---
Progress Note: A&P Assessment and Plan (1) Hypoxia: Code(s): R09.02 - Hypoxemia Status: Acute Assessment and Plan: Patient had an episode of hypoxia overnight requiring 4 L nasal cannula, Ddimer was checked and had increased from previous, Dopplers and CTA negative for blood clots Pulmonary consulted for possible sleep apnea due to the apneic episode last night, she may need to go home on CPAP/oxygen Apnea link with possible underlying sleep apnea. Will order oxygen at night at discharge however also started on CPAP during night time here No hypercapnia noted that ABG (2) Community acquired pneumonia: Code(s): J18.9 - Pneumonia, unspecified organism Status: Acute Assessment and Plan: Continue azithromycin and Rocephin Discontinue IV fluids Suspect RSV pneumonia as etiology, but will continue antibiotics due to possibility of bacterial coinfection. RSV came back negative CTA showed multifocal pneumonia which has worsened. Finished azithromycin course. Ceftriaxone has been switched to cefepime per Pulmonary. Appreciate her recommendations. Sputum culture Pulmonary consulted added Pulmicort neb 01/11 Wheezing still present: Will add prednisone 50 mg dailyNow that she is adequately treated for her bacterial pneumonia (3) Heart failure: Code(s): I50.9 - Heart failure, unspecified Status: Deleted Assessment and Plan: Echo showed an EF of 35-40% with grade 2 diastolic dysfunction as well as mild pulmonary hypertension. There is moderate TR and [id number] MR. Strict I's and O's and daily standing weights ordered Cardiology consulted. Restarted home heart failure medications, continue Entresto, Lipitor, and aspirin Converted to oral diuresis and anticipate discharging home on usual medications She can follow-up outpatient with Cardiology to better optimize her heart failure medications when she recovers from pneumonia Stop IV fluids in restarted Bumex smaller dose 1 mg twice daily which he tolerated well Bumex increased to 2 mg twice daily. Tolerating well continue same (4) Elevated troponin: Code(s): R77.8 - Other specified abnormalities of plasma proteins Status: Acute Assessment and Plan: resolved (5) Obstructive sleep apnea: Code(s): G47.33 - Obstructive sleep apnea (adult) (pediatric) Status: Chronic Assessment and Plan: ApneaLink performed 01/11/2022 with AHI 21.3/RI 24.2. Highly suspicious for underlying sleep apnea. we Can use CPAP at night however she will need sleep study as an outpatient basis for formal diagnosis and treatment. Pulmonary on board for further direction on this she will at least qualify for oxygen at night (6) Major depressive disorder, recurrent, mild: Code(s): F33.0 - Major depressive disorder, recurrent, mild Status: Chronic Assessment and Plan: Stable (7) Hypertension: Code(s): I10 - Essential (primary) hypertension Status: Chronic Assessment and Plan: Stable (8) GERD (gastroesophageal reflux disease): Code(s): K21.9 - Gastro-esophageal reflux disease without esophagitis Status: Chronic Assessment and Plan: Stable (9) Type 2 diabetes mellitus with diabetic polyneuropathy: Code(s): E11.42 - Type 2 diabetes mellitus with diabetic polyneuropathy Status: Chronic Assessment and Plan: A1c is 9, down from 12.8 last year, Accu-Cheks plus sliding scale insulin Hold oral antidiabetic medications Plan DVT prophylaxis with heparin GI prophylaxis not indicated Code status full code disposition: [facility] has accepted Subjective Date/time seen: 01/12/22 12:20 Interval history: No overnight events. Patient feeling better. Still wheezy and short of breath with activity. No chest pain. Cough present. Review of Systems Review of Systems: All systems reviewed & are unremarkable except as n
--- NOTE | 2022-01-12 13:27 | PC.NURSE ---
This patient, Allison Thurston, was received from [ [id number]] on 01/12/22 at 1310. Patient/family oriented to unit policies and routines
[2022-01-12] MEDS: predniSONE 40 MG, predniSONE 10 MG 50 MG PO (13:42)
[2022-01-12] MEDS: MAGNESIUM SULF 2 GM/WATER 50ML 2 GM/50 ML BAG IVPB (13:46)
[2022-01-12 16:25] LABS: Glucose Point of Care 177 mg/dl (65-105)
[2022-01-12] MEDS: INSULIN GLARGINE (*BKC) 100 UNITS/ML SUB-Q (20:15)
[2022-01-12 21:33] LABS: Glucose Point of Care 281 mg/dl (65-105)
[2022-01-13] VITALS (14 sets, daily range): BP systolic 90–133; BP diastolic 70–89; PULSE 62–94; RESP 14–20; TEMP 36.2–36.6; O2SAT 93–100
[2022-01-13] MEDS: IPRATROPIUM BR 0.02% INH SOLN 0.5 MG/2.5 ML VIAL INHALATION ×4 (03:51→20:53)
[2022-01-13] MEDS: ALBUTEROL SULFATE NEB 2.5 MG/3 ML INH 5 MG INHALATION ×4 (03:51→20:53)
[2022-01-13] MEDS: GABAPENTIN 300 MG CAPSULE PO ×3 (05:32→21:41)
[2022-01-13 06:23] LABS: Basophils Percent Auto 0.5 % (0.2-1.2); Hematocrit 36.4 % (37.0-47.0); Immature Granulocyte Absolute 0.09 K/mm3 (0.00-0.031); Immature Granulocyte Percent A 1.4 % (0-0.5); Lymphocytes Absolute Auto 1.54 K/mm3 (0.9-3.2); Lymphocytes Percent Auto 23.7 % (18.3-44.2); Mean Corpuscular HGB Conc 30.2 g/dl (32-36); Mean Corpuscular Hemoglobin 22.5 pg (26-34); Mean Corpuscular Volume 74.4 fl (80-100); Mean Platelet Volume 10.3 fl (7.4-10.4); Monocytes Absolute Auto 0.5 K/mm3 (0.1-0.6); Monocytes Percent Auto 7.7 % (2.6-8.5); Neutrophils Absolute Auto 4.3 K/mm3 (1.3-6.7); Neutrophils Percent Auto 66.7 % (45.5-73.1); Platelet Count Result 321 k/mm3 (150-375); Red Blood Count 4.89 M/mm3 (4.2-5.4); Red Cell Distribution Width 16.2 % (11.5-14.5); White Blood Count 6.5 K/mm3 (4.5-10.0)
[2022-01-13 06:35] LABS: Alanine Aminotransferase 91 U/L (6-35); Albumin Level 3.3 g/dL (3.5-5.1); Alkaline Phosphatase 91 U/L (38-126); Anion Gap 10 mmol/L (8-16); Aspartate Amino Transferase 48 U/L (14-36); Bilirubin,Total 0.3 mg/dL (0.2-1.3); Blood Urea Nitrogen 25 mg/dL (7-17); Calcium 8.3 mg/dL (8.4-10.2); Carbon Dioxide 31 mmol/L (22-30); Chloride 98 mmol/L (98-107); Estimated CRCL calculation 95 ml/min; Estimated Glomerular Filt Rate > 60; Glucose 227 mg/dL (65-110); Magnesium 1.4 mg/dL (1.6-2.3); Potassium 3.8 mmol/L (3.4-5.0); Sodium 139 mmol/L (137-145)
[2022-01-13 08:03] LABS: Glucose Point of Care 235 mg/dl (65-105)
[2022-01-13] MEDS: BUDESONIDE RESPULE NEB 0.5 MG/2 ML AMP INHALATION ×2 (08:24→20:56)
[2022-01-13] MEDS: MAGNESIUM SULF 2 GM/WATER 50ML 2 GM/50 ML BAG IVPB (08:46)
[2022-01-13] MEDS: FERROUS SULFATE 324 MG TABLET PO ×3 (08:47→16:46)
[2022-01-13] MEDS: predniSONE 40 MG, predniSONE 10 MG 50 MG PO (08:47)
[2022-01-13] MEDS: SACUBITRIL/VALSARTAN 24-26 MG TABLET 1 TAB PO ×2 (08:47→16:46)
[2022-01-13] MEDS: busPIRone HCL 10 MG TABLET PO ×2 (08:47→16:46)
[2022-01-13] MEDS: guaiFENesin 600 MG/DEXTROMETHORPHAN 30 MG SR TAB 12 HR 1 TAB PO ×2 (08:47→21:41)
[2022-01-13] MEDS: ATORVASTATIN 10 MG TABLET PO (08:47)
[2022-01-13] MEDS: HEPARIN SODIUM 5,000 UNITS/ML VIAL 5000 UNITS SUB-Q ×2 (08:48→21:40)
[2022-01-13] MEDS: ASPIRIN 81 MG CHEWABLE TABLET PO (08:48)
[2022-01-13] MEDS: INSULIN ASPART (*BKC) 100 UNITS/ML SUB-Q ×3 (08:48→16:45)
[2022-01-13] MEDS: BUMETANIDE 1 MG TABLET 2 MG PO ×2 (08:48→16:46)
[2022-01-13 11:40] LABS: Glucose Point of Care 266 mg/dl (65-105)
--- NOTE | 2022-01-13 15:19 | PM.IMPN ---
Progress Note: A&P Assessment and Plan (1) Hypoxia: Code(s): R09.02 - Hypoxemia Status: Acute Assessment and Plan: Patient had an episode of hypoxia overnight requiring 4 L nasal cannula, Ddimer was checked and had increased from previous, Dopplers and CTA negative for blood clots Pulmonary consulted for possible sleep apnea due to the apneic episode last night, she may need to go home on CPAP/oxygen Apnea link with possible underlying sleep apnea. Will order oxygen at night at discharge however also started on CPAP during night time here which he tolerated well No hypercapnia noted that ABG (2) Community acquired pneumonia: Code(s): J18.9 - Pneumonia, unspecified organism Status: Acute Assessment and Plan: Continue azithromycin and Rocephin Discontinue IV fluids Suspect RSV pneumonia as etiology, but will continue antibiotics due to possibility of bacterial coinfection. RSV came back negative CTA showed multifocal pneumonia which has worsened. Finished azithromycin course. Ceftriaxone has been switched to cefepime per Pulmonary. Appreciate her recommendations. Sputum culture Pulmonary consulted added Pulmicort neb 01/11 Wheezing still present: Added prednisone 50 mg dailyNow that she is adequately treated for her bacterial pneumonia Wheezing much improved after addition of prednisone. Will continue short course (3) Heart failure: Code(s): I50.9 - Heart failure, unspecified Status: Deleted Assessment and Plan: Echo showed an EF of 35-40% with grade 2 diastolic dysfunction as well as mild pulmonary hypertension. There is moderate TR and [id number]-fv-mxmyztye MR. Strict I's and O's and daily standing weights ordered Cardiology consulted. Restarted home heart failure medications, continue Entresto, Lipitor, and aspirin Converted to oral diuresis and anticipate discharging home on usual medications She can follow-up outpatient with Cardiology to better optimize her heart failure medications when she recovers from pneumonia Stop IV fluids in restarted Bumex smaller dose 1 mg twice daily which he tolerated well Bumex increased to 2 mg twice daily. Tolerating well continue same (4) Elevated troponin: Code(s): R77.8 - Other specified abnormalities of plasma proteins Status: Acute Assessment and Plan: resolved (5) Obstructive sleep apnea: Code(s): G47.33 - Obstructive sleep apnea (adult) (pediatric) Status: Chronic Assessment and Plan: ApneaLink performed 01/11/2022 with AHI 21.3/RI 24.2. Highly suspicious for underlying sleep apnea. we Can use CPAP at night however she will need sleep study as an outpatient basis for formal diagnosis and treatment. Pulmonary on board for further direction on this she will at least qualify for oxygen at night (6) Major depressive disorder, recurrent, mild: Code(s): F33.0 - Major depressive disorder, recurrent, mild Status: Chronic Assessment and Plan: Stable (7) Hypertension: Code(s): I10 - Essential (primary) hypertension Status: Chronic Assessment and Plan: Stable (8) GERD (gastroesophageal reflux disease): Code(s): K21.9 - Gastro-esophageal reflux disease without esophagitis Status: Chronic Assessment and Plan: Stable (9) Type 2 diabetes mellitus with diabetic polyneuropathy: Code(s): E11.42 - Type 2 diabetes mellitus with diabetic polyneuropathy Status: Chronic Assessment and Plan: A1c is 9, down from 12.8 last year, Accu-Cheks plus sliding scale insulin Hold oral antidiabetic medications Plan DVT prophylaxis with heparin GI prophylaxis not indicated Code status full code disposition: [facility] has accepted Subjective Date/time seen: 01/13/22 15:19 Interval history: Patient feeling better. Some cough still present. Denies any chest pain. Daughter at bedside and discussed with her
[2022-01-13 16:35] LABS: Glucose Point of Care 278 mg/dl (65-105)
[2022-01-13] MEDS: INSULIN GLARGINE (*BKC) 100 UNITS/ML SUB-Q ×2 (21:40→22:52)
[2022-01-13 22:38] LABS: Glucose Point of Care 408 mg/dl (65-105)
[2022-01-13] MEDS: INSULIN ASPART (*BKC) 100 UNITS/ML 6 UNITS SUB-Q (22:52)
[2022-01-14] VITALS (18 sets, daily range): BP systolic 100–133; BP diastolic 57–75; PULSE 58–99; RESP 18–21; TEMP 36.1–37.1; O2SAT 95–100
[2022-01-14] MEDS: ALBUTEROL SULFATE NEB 2.5 MG/3 ML INH 5 MG INHALATION ×4 (02:39→20:34)
[2022-01-14] MEDS: IPRATROPIUM BR 0.02% INH SOLN 0.5 MG/2.5 ML VIAL INHALATION ×4 (02:39→20:34)
[2022-01-14 02:45] LABS: Glucose Point of Care 318 mg/dl (65-105)
--- NOTE | 2022-01-14 03:11 | PCRCNOTE ---
Patient refused her autoCPAP therapy.
[2022-01-14] MEDS: GABAPENTIN 300 MG CAPSULE PO ×3 (05:24→20:19)
[2022-01-14 06:37] LABS: Basophils Percent Auto 0.5 % (0.2-1.2); Eosinophils Percent Auto 0.2 % (0-4.4); Hematocrit 35.7 % (37.0-47.0); Hemoglobin 10.7 g/dL (12.0-15.0); Immature Granulocyte Absolute 0.06 K/mm3 (0.00-0.031); Immature Granulocyte Percent A 0.7 % (0-0.5); Lymphocytes Absolute Auto 2.29 K/mm3 (0.9-3.2); Lymphocytes Percent Auto 27.2 % (18.3-44.2); Mean Corpuscular Hemoglobin 22.5 pg (26-34); Mean Platelet Volume 10.3 fl (7.4-10.4); Monocytes Absolute Auto 0.9 K/mm3 (0.1-0.6); Monocytes Percent Auto 10.6 % (2.6-8.5); Neutrophils Absolute Auto 5.1 K/mm3 (1.3-6.7); Neutrophils Percent Auto 60.8 % (45.5-73.1); Platelet Count Result 345 k/mm3 (150-375); Red Blood Count 4.76 M/mm3 (4.2-5.4); Red Cell Distribution Width 16.6 % (11.5-14.5); White Blood Count 8.4 K/mm3 (4.5-10.0)
[2022-01-14 06:47] LABS: Alanine Aminotransferase 70 U/L (6-35); Albumin Level 3.5 g/dL (3.5-5.1); Alkaline Phosphatase 78 U/L (38-126); Anion Gap 13 mmol/L (8-16); Aspartate Amino Transferase 32 U/L (14-36); Bilirubin,Total 0.3 mg/dL (0.2-1.3); Blood Urea Nitrogen 27 mg/dL (7-17); Calcium 8.4 mg/dL (8.4-10.2); Carbon Dioxide 32 mmol/L (22-30); Chloride 96 mmol/L (98-107); Estimated CRCL calculation 95 ml/min; Estimated Glomerular Filt Rate > 60; Glucose 238 mg/dL (65-110); Potassium 3.2 mmol/L (3.4-5.0); Sodium 141 mmol/L (137-145)
[2022-01-14 08:04] LABS: Glucose Point of Care 204 mg/dl (65-105)
[2022-01-14] MEDS: INSULIN ASPART (*BKC) 100 UNITS/ML SUB-Q (08:56)
[2022-01-14] MEDS: POTASSIUM CHLORIDE 20 MEQ TABLET 40 MEQ PO (08:56)
[2022-01-14] MEDS: guaiFENesin 600 MG/DEXTROMETHORPHAN 30 MG SR TAB 12 HR 1 TAB PO ×2 (08:57→20:19)
[2022-01-14] MEDS: HEPARIN SODIUM 5,000 UNITS/ML VIAL 5000 UNITS SUB-Q ×2 (08:57→20:21)
[2022-01-14] MEDS: FERROUS SULFATE 324 MG TABLET PO ×3 (08:57→16:43)
[2022-01-14] MEDS: ATORVASTATIN 10 MG TABLET PO (08:57)
[2022-01-14] MEDS: SACUBITRIL/VALSARTAN 24-26 MG TABLET 1 TAB PO ×2 (08:57→16:43)
[2022-01-14] MEDS: busPIRone HCL 10 MG TABLET PO ×2 (08:57→16:42)
[2022-01-14] MEDS: BUMETANIDE 1 MG TABLET 2 MG PO ×2 (08:57→16:42)
[2022-01-14] MEDS: ASPIRIN 81 MG CHEWABLE TABLET PO (08:58)
[2022-01-14] MEDS: BUDESONIDE RESPULE NEB 0.5 MG/2 ML AMP INHALATION ×2 (09:03→20:34)
[2022-01-14 11:34] LABS: Glucose Point of Care 194 mg/dl (65-105)
--- NOTE | 2022-01-14 13:41 | PM.IMPN ---
Progress Note: A&P Assessment and Plan (1) Hypoxia: Code(s): R09.02 - Hypoxemia Status: Acute Assessment and Plan: Patient had an episode of hypoxia overnight requiring 4 L nasal cannula, Ddimer was checked and had increased from previous, Dopplers and CTA negative for blood clots Pulmonary consulted for possible sleep apnea due to the apneic episode last night, she may need to go home on CPAP/oxygen Apnea link with possible underlying sleep apnea. Will order oxygen at night at discharge however also started on CPAP during night time here which he tolerated well No hypercapnia noted that ABG Can continue CPAP at night while in the nursing facility if available (2) Community acquired pneumonia: Code(s): J18.9 - Pneumonia, unspecified organism Status: Acute Assessment and Plan: Continue azithromycin and Rocephin Discontinue IV fluids Suspect RSV pneumonia as etiology, but will continue antibiotics due to possibility of bacterial coinfection. RSV came back negative CTA showed multifocal pneumonia which has worsened. Finished azithromycin course. Ceftriaxone has been switched to cefepime per Pulmonary. Appreciate her recommendations. Sputum culture Pulmonary consulted added Pulmicort neb 01/11 Wheezing still present: Added prednisone 50 mg dailyNow that she is adequately treated for her bacterial pneumonia Wheezing much improved after addition of prednisone. Will continue short course Lower down prednisone to 40 mg daily Will also switch her cefepime and change it to oral Omnicef (3) Heart failure: Code(s): I50.9 - Heart failure, unspecified Status: Deleted Assessment and Plan: Echo showed an EF of 35-40% with grade 2 diastolic dysfunction as well as mild pulmonary hypertension. There is moderate TR and nomo-tr-vvmnzufx MR. Strict I's and O's and daily standing weights ordered Cardiology consulted. Restarted home heart failure medications, continue Entresto, Lipitor, and aspirin Converted to oral diuresis and anticipate discharging home on usual medications She can follow-up outpatient with Cardiology to better optimize her heart failure medications when she recovers from pneumonia Stop IV fluids in restarted Bumex smaller dose 1 mg twice daily which he tolerated well Bumex increased to 2 mg twice daily. Tolerating well continue same (4) Elevated troponin: Code(s): R77.8 - Other specified abnormalities of plasma proteins Status: Acute Assessment and Plan: resolved (5) Obstructive sleep apnea: Code(s): G47.33 - Obstructive sleep apnea (adult) (pediatric) Status: Chronic Assessment and Plan: ApneaLink performed 01/11/2022 with AHI 21.3/RI 24.2. Highly suspicious for underlying sleep apnea. we Can use CPAP at night however she will need sleep study as an outpatient basis for formal diagnosis and treatment. Pulmonary on board for further direction on this she will at least qualify for oxygen at night (6) Major depressive disorder, recurrent, mild: Code(s): F33.0 - Major depressive disorder, recurrent, mild Status: Chronic Assessment and Plan: Stable (7) Hypertension: Code(s): I10 - Essential (primary) hypertension Status: Chronic Assessment and Plan: Stable (8) GERD (gastroesophageal reflux disease): Code(s): K21.9 - Gastro-esophageal reflux disease without esophagitis Status: Chronic Assessment and Plan: Stable (9) Type 2 diabetes mellitus with diabetic polyneuropathy: Code(s): E11.42 - Type 2 diabetes mellitus with diabetic polyneuropathy Status: Chronic Assessment and Plan: A1c is 9, down from 12.8 last year, Accu-Cheks plus sliding scale insulin Hold oral antidiabetic medications Increase Lantus and SSI to continue. Worsening likely due to steroid treatment. Plan DVT prophylaxis with heparin GI prophylaxis not indicated Code status full code
[2022-01-14 16:40] LABS: Glucose Point of Care 167 mg/dl (65-105)
[2022-01-14] MEDS: CEFDINIR 300 MG CAPSULE PO (20:20)
[2022-01-14] MEDS: INSULIN GLARGINE (*BKC) 100 UNITS/ML 10 UNITS SUB-Q (20:20)
[2022-01-14 20:48] LABS: Glucose Point of Care 267 mg/dl (65-105)
[2022-01-14 21:32] LABS: Pneumococcal Antigen Urine Not Detected (Not Detected)
[2022-01-15] VITALS (11 sets, daily range): BP systolic 111–121; BP diastolic 74–78; PULSE 77–92; RESP 18–20; TEMP 36.1–36.4; O2SAT 95–98
[2022-01-15] MEDS: IPRATROPIUM BR 0.02% INH SOLN 0.5 MG/2.5 ML VIAL INHALATION ×2 (02:12→09:12)
[2022-01-15] MEDS: ALBUTEROL SULFATE NEB 2.5 MG/3 ML INH 5 MG INHALATION ×2 (02:12→09:12)
[2022-01-15] MEDS: GABAPENTIN 300 MG CAPSULE PO ×2 (05:48→14:17)
[2022-01-15 07:06] LABS: Basophils Absolute Auto 0.1 K/mm3 (0.0-0.1); Basophils Percent Auto 0.7 % (0.2-1.2); Eosinophils Absolute Auto 0.3 K/mm3 (0-0.3); Eosinophils Percent Auto 4.1 % (0-4.4); Hematocrit 36.7 % (37.0-47.0); Hemoglobin 11.1 g/dL (12.0-15.0); Immature Granulocyte Absolute 0.03 K/mm3 (0.00-0.031); Immature Granulocyte Percent A 0.4 % (0-0.5); Lymphocytes Absolute Auto 2.11 K/mm3 (0.9-3.2); Lymphocytes Percent Auto 31.2 % (18.3-44.2); Mean Corpuscular HGB Conc 30.2 g/dl (32-36); Mean Corpuscular Hemoglobin 22.9 pg (26-34); Mean Corpuscular Volume 75.7 fl (80-100); Mean Platelet Volume 10.6 fl (7.4-10.4); Monocytes Absolute Auto 0.7 K/mm3 (0.1-0.6); Monocytes Percent Auto 10.5 % (2.6-8.5); Neutrophils Absolute Auto 3.6 K/mm3 (1.3-6.7); Neutrophils Percent Auto 53.1 % (45.5-73.1); Platelet Count Result 348 k/mm3 (150-375); Red Blood Count 4.85 M/mm3 (4.2-5.4); Red Cell Distribution Width 16.9 % (11.5-14.5); White Blood Count 6.8 K/mm3 (4.5-10.0)
[2022-01-15 07:30] LABS: Alanine Aminotransferase 65 U/L (6-35); Albumin Level 3.4 g/dL (3.5-5.1); Alkaline Phosphatase 79 U/L (38-126); Anion Gap 9 mmol/L (8-16); Aspartate Amino Transferase 37 U/L (14-36); Bilirubin,Total 0.3 mg/dL (0.2-1.3); Blood Urea Nitrogen 23 mg/dL (7-17); Calcium 8.6 mg/dL (8.4-10.2); Carbon Dioxide 36 mmol/L (22-30); Chloride 96 mmol/L (98-107); Estimated CRCL calculation 95 ml/min; Estimated Glomerular Filt Rate > 60; Glucose 173 mg/dL (65-110); Potassium 3.7 mmol/L (3.4-5.0); Sodium 141 mmol/L (137-145)
[2022-01-15] MEDS: CEFDINIR 300 MG CAPSULE PO (08:12)
[2022-01-15] MEDS: FERROUS SULFATE 324 MG TABLET PO ×3 (08:13→16:44)
[2022-01-15] MEDS: ASPIRIN 81 MG CHEWABLE TABLET PO (08:13)
[2022-01-15] MEDS: busPIRone HCL 10 MG TABLET PO ×2 (08:14→16:43)
[2022-01-15] MEDS: ATORVASTATIN 10 MG TABLET PO (08:15)
[2022-01-15] MEDS: predniSONE 20 MG TABLET 40 MG PO (08:15)
[2022-01-15] MEDS: BUMETANIDE 1 MG TABLET 2 MG PO ×2 (08:15→16:45)
[2022-01-15] MEDS: SACUBITRIL/VALSARTAN 24-26 MG TABLET 1 TAB PO ×2 (08:15→16:45)
[2022-01-15] MEDS: guaiFENesin 600 MG/DEXTROMETHORPHAN 30 MG SR TAB 12 HR 1 TAB PO (08:15)
[2022-01-15] MEDS: HEPARIN SODIUM 5,000 UNITS/ML VIAL 5000 UNITS SUB-Q (08:16)
[2022-01-15] MEDS: BUDESONIDE RESPULE NEB 0.5 MG/2 ML AMP INHALATION (09:12)
[2022-01-15 09:18] LABS: Glucose Point of Care 165 mg/dl (65-105)
[2022-01-15] MEDS: INSULIN ASPART (*BKC) 100 UNITS/ML SUB-Q (12:06)
[2022-01-15 12:16] LABS: Glucose Point of Care 306 mg/dl (65-105)
--- NOTE | 2022-01-15 13:59 | PM.DS ---
DS: Admitting Diagnosis Discharge Date 01/15/2022 Admitting Diagnosis shortness of breath DS: Discharge Diagnosis Discharge Diagnosis (1) Hypoxia: Code(s): R09.02 - Hypoxemia Status: Acute (2) Community acquired pneumonia: Code(s): J18.9 - Pneumonia, unspecified organism Status: Acute (3) Heart failure: Code(s): I50.9 - Heart failure, unspecified Status: Deleted (4) Elevated troponin: Code(s): R77.8 - Other specified abnormalities of plasma proteins Status: Acute (5) Obstructive sleep apnea: Code(s): G47.33 - Obstructive sleep apnea (adult) (pediatric) Status: Chronic (6) Major depressive disorder, recurrent, mild: Code(s): F33.0 - Major depressive disorder, recurrent, mild Status: Chronic (7) Hypertension: Code(s): I10 - Essential (primary) hypertension Status: Chronic (8) GERD (gastroesophageal reflux disease): Code(s): K21.9 - Gastro-esophageal reflux disease without esophagitis Status: Chronic (9) Type 2 diabetes mellitus with diabetic polyneuropathy: Code(s): E11.42 - Type 2 diabetes mellitus with diabetic polyneuropathy Status: Chronic DS: Summary Hospital Course Hospital Course: # acute hypoxic respiratory failure: Patient had an episode of hypoxia overnight After admission requiring 4 L nasal cannula, Ddimer was checked and had increased from previous, Dopplers and CTA negative for blood clots Pulmonary consulted for possible sleep apnea due to the apneic episode. Apnea link Done in the hospital showed possible underlying sleep apnea.? she was started on APAP while in the hospital and will need sleep study as an outpatient. Continue oxygen at night and/or CPAP at night while in the nursing facility Follow-up with pulmonary as an outpatient basis for continued evaluation. No hypercapnia noted that ABG # pneumonia: She was started on Rocephin and azithromycin. RSV came back negative. Negative for flu and COVID. CTA showed multifocal pneumonia which has worsened.? Finished azithromycin course.? Ceftriaxone has been switched to cefepime per Pulmonary.? Delete that still wheezy and hence was started on prednisone with subsequent improvement. Continue prednisone taper at discharge along with antibiotics. She did 7 days course of cefepime and was changed to Omnicef at discharge. Delete that # congestive heart failure: Combined diastolic and systolic acute on chronic Echo showed an EF of 35-40% with grade 2 diastolic dysfunction as well as mild pulmonary hypertension.? There is moderate TR and vyqj-fw-ukhzecku MR. Strict I's and O's and daily standing weights ordered Cardiology consulted. Restarted home heart failure medications, continue Entresto, Lipitor, and aspirin initially started on IV diuresis which was could converted to oral diuresis. # elevated troponin: resolved # obstructive sleep apnea: ApneaLink? performed 01/11/2022 with AHI 21.3/RI 24.2. ? Highly suspicious for underlying sleep apnea. We started her on CPAP at night while in the hospital stay. However she will need formal sleep study as an outpatient basis for formal diagnosis and treatment. Will continue on oxygen at night, if possible continue APAP at the nursing facility upon discharge. # major depressive disorder, recurrent, mild: Stable # hypotension: In episode during the hospital stay likely related to pneumonia which recovered quickly. # GERD: Stable # Type 2 diabetes mellitus with diabetic polyneuropathy: A1c is 9, down from 12.8 last year, Accu-Cheks plus sliding scale insulin Hold oral antidiabetic medications Increase Lantus and SSI to continue.? Worsening likely due to steroid treatment. Will resume oral hypoglycemic agent at discharge along with SSI due to concurrent use of steroid. #DVT prophylaxis with heparin #GI prophylaxis not indicated #Code status full code #?disposition:? PT OT sug
[2022-01-15 14:21] LABS: EDCOVIDSCREEN Negative (Negative)
[2022-01-15 16:30] LABS: Glucose Point of Care 407 mg/dl (65-105)
[2022-01-15] MEDS: INSULIN ASPART (*BKC) 100 UNITS/ML 10 UNITS SUB-Q (16:46)
[2022-01-16 22:57] LABS: Legionella pneumophila Ag Ur Not Detected (Not Detected)
== END 2022-01-15 19:52 | DRG 871 ==
LOC: ANHED 23:38 → ANHIMU 01-06 01:04 → ANH3MEDSUR 01-12 13:01
PROVIDERS: Emergency Medicine; Internal Medicine Critical Care Medicine; Physician Assistant; Student in an Organized Health Care Education/Training Program; Admitting Provider Internal Medicine; Emergency Provider Emergency Medicine; PCP Family Medicine Adolescent Medicine; Visit Provider Internal Medicine
DX: A41.9 Sepsis, unspecified organism (principal); I50.43 Acute on chronic combined systolic (congestive) and diastolic (congestive) heart failure; J18.9 Pneumonia, unspecified organism; J96.01 Acute respiratory failure with hypoxia; F33.0 Major depressive disorder, recurrent, mild; I47.1 Supraventricular tachycardia; I42.8 Other cardiomyopathies; Z68.43 Body mass index [BMI] 50.0-59.9, adult; I27.20 Pulmonary hypertension, unspecified; I11.0 Hypertensive heart disease with heart failure; E11.622 Type 2 diabetes mellitus with other skin ulcer; E11.42 Type 2 diabetes mellitus with diabetic polyneuropathy; I08.1 Rheumatic disorders of both mitral and tricuspid valves; D50.9 Iron deficiency anemia, unspecified; E66.01 Morbid (severe) obesity due to excess calories; I95.9 Hypotension, unspecified; F41.8 Other specified anxiety disorders; F42.4 Excoriation (skin-picking) disorder; K21.9 Gastro-esophageal reflux disease without esophagitis; G47.33 Obstructive sleep apnea (adult) (pediatric); R77.8 Other specified abnormalities of plasma proteins; M17.0 Bilateral primary osteoarthritis of knee; Z20.822 Contact with and (suspected) exposure to COVID-19; Z28.21 Immunization not carried out because of patient refusal; Z79.82 Long term (current) use of aspirin; Z79.84 Long term (current) use of oral hypoglycemic drugs; Z79.899 Other long term (current) drug therapy; Z91.14 Patient's other noncompliance with medication regimen
CPT/HCPCS: 36415; 36600; 71045; 71275; 80053; 81001; 82375; 82805; 82948; 83036; 83050; 83605; 83690; 83735; 83880; 84145; 84484; 85025; 85027; 85380; 85610; 85730; 87040; 87426; 87449; 87502; 87899; 93005; 93970; 94002; 94640; 94660; 96361; 96365; 96367; 96375; 96376; 97110; 97116; 97162; 97165; 97530; 97535; 99285; A9270; C8929; C9803; G0378; J0131; J0456; J0692; J0696; J1644; J1815; J1940; J3475; J7030; J7040; J7512; Q9967; U0003; U0005

== ENCOUNTER 2022-08-26 20:31 | Emergency (ER) | payer MEDICARE, MEDICAID, SELFPAY ==
--- NOTE | ~2022-08-26 | CT_ITS ---
EXAMINATION: CTA [facility] DATE: 08/27/2022 00:38 INDICATION: Peripheral arterial disease. Multiple lower limb ulcers. TECHNIQUE: Computed tomographic angiography (CTA) of the bilateral lower extremities was performed wi th 150 mL Omnipaque-350 intravenous contrast. Automated exposure control and iterative reconstruction technique were employed. The dose-length product was 1643.94 mGy-cm. Maximum intensity projection 3D -reconstructions of the arteries were created by the technologist on a separate workstation. COMPARISON: Left lower limb CT 05/23/2020, CT abdomen and pelvis 07/02/2015 FINDINGS: PELVIC VASCULATURE: There is no significant stenosis of the external iliac arteries. RIGHT LOWER EXTREMITY VASCULATURE: There is no significant stenosis of right common femoral artery, right profunda femoral artery, super ficial femoral artery, popliteal artery, tibioperoneal trunk, peroneal artery or anterior tibial wendy ry. There is total occlusion of posterior tibial artery distally. LEFT LOWER EXTREMITY VASCULATURE: There is no significant stenosis of left common femoral artery, deep femoral artery, superficial femo ral artery, posterior tibial artery, anterior tibial artery, or peroneal artery. ADDITIONAL FINDINGS: Body wall edema is noted. There is physiologic fluid in the pelvis. There is subcutaneous edema in th e lower limbs. There is severe osteoarthritis of the knees. There are moderate-sized bilateral knee j oint effusions with loose bodies. There is a large ulcer of the plantar aspect of left foot. There is amputation of left great toe. There is severe osteoarthritis of left ankle joint, left subtalar join t, and left Chopart joint. IMPRESSION: 1. Total occlusion of distal right posterior tibial artery. Two-vessel runoff on the right. 2. No significant left-sided arterial occlusive disease. Three-vessel runoff. 3. Large ulcer of plantar aspect of left foot. No specific evidence of osteomyelitis. Reviewed, dictated and finalized at location A. IMPRESSION: 1. Total occlusion of distal right posterior tibial artery. Two-vessel runoff on the right. 2. No significant left-sided arterial occlusive disease. Three-vessel runoff. 3. Large ulcer of plantar aspect of left foot. No specific evidence of osteomye litis.
[2022-08-26 20:33] VITALS: BP 117/72; PULSE 77; RESP 18; TEMP 36.3; O2SAT 100
[2022-08-26 21:37] VITALS: BP 125/86; PULSE 81; RESP 20
[2022-08-26 21:46] VITALS: BP 127/84; PULSE 81; RESP 18
[2022-08-26 22:01] VITALS: BP 117/82; PULSE 81; RESP 18
--- NOTE | 2022-08-26 22:03 | ED.EXTPRO ---
HPI - Extremity Problem General Chief complaint: Extremity Problem,Nontraumatic <Igor Cabrera PA-C - Last Filed: 08/27/22 03:42> Stated complaint: burning in feet, ulcer <Igor Cabrera PA-C - Last Filed: 08/27/22 03:42> Time Seen by Provider: 08/26/22 21:16 <Igor Cabrera PA-C - Last Filed: 08/27/22 03:42> Source: patient <DEANDRA Garcia Last Filed: 08/27/22 03:42> Mode of arrival: ambulatory <DEANDRA Garcia Last Filed: 08/27/22 03:42> Limitations: no limitations <Igor Cabrera PA-C - Last Filed: 08/27/22 03:42> History of Present Illness HPI Narrative: This is a 57-year-old female with PMH of type 2 diabetes, chronic ulcers, heart failure who is presenting to the ED with chief complaint of bilateral lower extremity wounds and pain. Reports this is been going on for several weeks but is worse in the last couple of days. She is concerned as the right toes seem darker and cold. Reports the pain in the right foot is worse than the left. Describes it as a burning pain. Reports bilateral swelling. States she has been dealing with diabetic/venous ulcers chronically and has a wound care doctor that she sees at [place]. She states that the last appointment for this was around . She has been using the dressings they prescribed. Denies fevers, chills, shortness of breath, chest pain, cough, abdominal pain, nausea, vomiting. Patient states that her sugars have been under control running in the 120s to 130s. <Igor Cabrera PA-C - Last Filed: 08/27/22 03:42> Related Data Home medications: Home Medications Medication Instructions Recorded Confirmed bumetanide 2 mg tablet 2 mg PO BID 06/15/21 02/01/22 sacubitril 24 mg-valsartan 26 mg 1 tablet PO BID 06/15/21 02/01/22 tablet (Entresto) carvedilol 3.125 mg tablet 3.125 mg PO Q12H 02/05/22 <Igor Cabrera PA-C - Last Filed: 08/27/22 03:42> Allergies/Adverse reactions: Allergies Allergy/AdvReac Type Severity Reaction Status Date / Time lisinopril Allergy Unknown Verified 08/26/22 20:32 <Igor Cabrera PA-C - Last Filed: 08/27/22 03:42> Review of Systems Review of Systems: CONSTITUTIONAL: Denies fever, chills, or sweats. EYES: Denies visual changes, redness, or discharge. ENT: Denies rhinorrhea, congestion, sore throat, or otalgia. CARDIOVASCULAR: Denies chest pain, palpitations, or edema. RESPIRATORY: Denies cough or dyspnea. GASTROINTESTINAL: Denies abdominal pain, nausea, vomiting, or diarrhea. GENITOURINARY: Denies dysuria or hematuria. SKIN: See HPI MUSCULOSKELETAL: See HPI NEUROLOGIC: Denies headache, numbness, dizziness, or weakness. PSYCHIATRIC: Denies anxiety or depression. <Igor Cabrera PA-C - Last Filed: 08/27/22 03:42> [facility] Past Medical History Medical History: Medical History (Updated 08/27/22 @ 03:40 by Igor Cabrera PA-C) Chronic combined systolic and diastolic heart failure GERD (gastroesophageal reflux disease) History of amputation of left great toe 2017 History of amputation of toe Lt big toe Hypertension Major depressive disorder, recurrent, mild Obstructive sleep apnea 06/2019 Osteoarthritis of knees, 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 <DEANDRA Garcia Last Filed: 08/27/22 03:42> Surgical History Surgical History: Surgical History History of cholecystectomy 09/2015 <DEANDRA Garcia Last Filed: 08/27/22 03:42> Family History Family History: Family History Mother Family history of Alzheimer's disease Hypertension Father Family history of diabetes mellitus in first degree relative Acute myocardial infarction Heart disease Hypertension Sibling CAD (coronary artery disease) Acute myocardial infarction Other Depression Diabetes mellitus <Igor Cabrera PA-C -
[2022-08-26 22:25] LABS: Basophils Absolute Auto 0.1 K/mm3 (0.0-0.1); Basophils Percent Auto 0.9 % (0.2-1.2); Eosinophils Absolute Auto 0.4 K/mm3 (0-0.3); Eosinophils Percent Auto 4.5 % (0-4.4); Hematocrit 42.2 % (37.0-47.0); Hemoglobin 12.2 g/dL (12.0-15.0); Immature Granulocyte Absolute 0.04 K/mm3 (0.00-0.031); Immature Granulocyte Percent A 0.5 % (0-0.5); Lymphocytes Absolute Auto 0.93 K/mm3 (0.9-3.2); Lymphocytes Percent Auto 10.7 % (18.3-44.2); Mean Corpuscular HGB Conc 28.9 g/dl (32-36); Mean Corpuscular Hemoglobin 20.7 pg (26-34); Mean Corpuscular Volume 71.8 fl (80-100); Monocytes Absolute Auto 0.8 K/mm3 (0.1-0.6); Monocytes Percent Auto 9.1 % (2.6-8.5); Neutrophils Absolute Auto 6.4 K/mm3 (1.3-6.7); Neutrophils Percent Auto 74.3 % (45.5-73.1); Nucleated Red Blood Cells Perc 0.2 % (0.0-0.2); Platelet Count Result 382 k/mm3 (150-375); Red Blood Count 5.88 M/mm3 (4.2-5.4); Red Cell Distribution Width 25.2 % (11.5-14.5); White Blood Count 8.7 K/mm3 (4.5-10.0)
[2022-08-26 22:37] LABS: Alanine Aminotransferase 17 U/L (6-35); Albumin Level 3.6 g/dL (3.5-5.1); Alkaline Phosphatase 116 U/L (38-126); Anion Gap 8 mmol/L (8-16); Aspartate Amino Transferase 24 U/L (14-36); Bilirubin,Total 0.7 mg/dL (0.2-1.3); Blood Urea Nitrogen 31 mg/dL (7-17); Calcium 8.4 mg/dL (8.4-10.2); Carbon Dioxide 25 mmol/L (22-30); Chloride 108 mmol/L (98-107); Estimated CRCL calculation 79 ml/min; Estimated Glomerular Filt Rate 57; Glucose 100 mg/dL (65-110); Potassium 4.6 mmol/L (3.4-5.0); Sodium 141 mmol/L (137-145)
[2022-08-26] MEDS: SODIUM CHLORIDE 0.9% IV 1,000 ML 999 ML IV CONT (22:51)
[2022-08-26] MEDS: HYDROmorphone HCL INJ (*CRX) 1 MG/ML SYR 0.5 MG IV PUSH (22:52)
[2022-08-26] MEDS: PIPERACILLN/TAZ 3.375GM/NS50ML 3.375 GM/50 ML BAG IVPB (23:03)
[2022-08-26 23:18] LABS: Anisocytosis 1+ (NORMAL); Platelet Estimate Adequate (Adequate); Poikilocytosis 1+ (NORMAL); Schistocytes None Seen (NORMAL); Target Cells 1+ (NORMAL)
[2022-08-27] VITALS (10 sets, daily range): BP systolic 92–113; BP diastolic 67–86; PULSE 76–86; RESP 12–18; O2SAT 97–100
[2022-08-27] MEDS: HYDROmorphone HCL INJ (*CRX) 1 MG/ML SYR 0.5 MG IV PUSH (03:25)
== END 2022-08-27 05:20 | disposition home or self-care (01) ==
PROVIDERS: Physician Assistant; Emergency Provider Emergency Medicine; PCP Family Medicine Adolescent Medicine
DX: E11.621 Type 2 diabetes mellitus with foot ulcer (principal); L97.529 Non-pressure chronic ulcer of other part of left foot with unspecified severity; L97.519 Non-pressure chronic ulcer of other part of right foot with unspecified severity; E11.42 Type 2 diabetes mellitus with diabetic polyneuropathy; F33.0 Major depressive disorder, recurrent, mild; K21.9 Gastro-esophageal reflux disease without esophagitis; I11.0 Hypertensive heart disease with heart failure; I50.42 Chronic combined systolic (congestive) and diastolic (congestive) heart failure; G47.33 Obstructive sleep apnea (adult) (pediatric); Z79.84 Long term (current) use of oral hypoglycemic drugs; Z79.82 Long term (current) use of aspirin
CPT/HCPCS: 36415; 73706; 80053; 85025; 86140; 96361; 96365; 96375; 96376; 99284; J1170; J2543; J7030; Q9967

== ENCOUNTER 2022-09-30 17:01 | Inpatient (IN) | payer MEDICARE, MEDICAID, SELFPAY ==
--- NOTE | ~2022-09-30 | CT_ITS ---
EXAMINATION: CT cervical spine wo con DATE: 09/30/2022 18:57 INDICATION: Nontraumatic right side pain TECHNIQUE: Computed tomography (CT) of the cervical spine was performed without intravenous contrast. Automated exposure control and iterative reconstruction technique were employed. The dose-length pro duct was 555.91 mGy-cm. COMPARISON: None. FINDINGS: Vertebral Body Alignment: Intact. Reversed cervical lordosis centered at C4-5. Craniocervical and atlantoaxial alignment: Moderate degenerative change. Alignment intact. Osseous structures/fracture: No evidence of a lytic or blastic process in the visualized spine. No e vidence of acute fracture. Small volume right mastoid fluid. Cervical soft tissues: The paraspinal soft tissues planes are maintained. 3.0 cm right thyroid nodule . Bovine aortic arch. Degenerative changes: Multilevel degenerative disc disease, severe at C4-5 through C6-7. Multilevel m ild and moderate degrees of neural foraminal narrowing. Multilevel mild facet arthropathy. Moderate c entral canal stenosis at C5-6. IMPRESSION: No acute fracture or traumatic malalignment in the cervical spine. Moderate central canal stenosis at C5-6. Multilevel severe cervical degenerative disc disease, mild facet arthropathy, and mild to moderate de grees of neural foraminal narrowing. 3 cm right thyroid nodule, recommend outpatient thyroid ultrasound for further characterization. Reviewed, dictated and finalized at location K. IMPRESSION: No acute fracture or traumatic malalignment in the cervical spine. Moderate central canal stenosis at C5-6. Multilevel severe cervical degenerative disc disease, mild facet arthropathy, a nd mild to moderate degrees of neural foraminal narrowing. 3 cm right thyroid nodule, recommend outpatient thyroid ultrasound for further characterization.
--- NOTE | ~2022-09-30 | XR_ITS ---
EXAMINATION: XR hand BI arthritis min 3V DATE: 10/02/2022 14:33 INDICATION: Edema of the hands. Rheumatoid factor positive. TECHNIQUE: 5 views of each hand on a total of 8 radiographs were obtained. COMPARISON: Left wrist radiographs 08/06/2007 FINDINGS: RIGHT HAND: Bone alignment is normal. No fracture. There is moderate osteoarthritis of first carpomet acarpal joint and mild osteoarthritis of third metacarpophalangeal joint and most of the interphalang eal joints. There is moderate osteoarthritis of second distal interphalangeal joint. LEFT HAND: Bone alignment is normal. No fracture. There is moderate osteoarthritis of first carpometa carpal joint and mild osteoarthritis of first metacarpophalangeal joint and most of the interphalange al joints. There is moderate osteoarthritis of second and third distal interphalangeal joints. There are loose bodies of first carpometacarpal joint. IMPRESSION: 1. Polyarticular osteoarthritis. No evidence of inflammatory arthropathy. Reviewed, dictated and finalized at location E.
--- NOTE | ~2022-09-30 | CT_ITS ---
CT OF RIGHT SHOULDER EXAMINATION: CT shoulder RT wo con DATE: 09/30/2022 18:57 INDICATION: Nontraumatic pain, septic arthritis. TECHNIQUE: Computed tomography (CT) of the right shoulder was performed without intravenous contrast. Automated exposure control and iterative reconstruction technique were employed. The dose-length pro duct was 653.14 mGy-cm. COMPARISON: CT C-spine, same date; CTPA 01/09/2022 FINDINGS: Moderate AC joint and glenohumeral joint osteoarthritis. No fracture or dislocation. No lisy picious osseous erosion. Scattered degenerative appearing subchondral cysts. Small-volume joint fluid . Right axillary lymphadenopathy Degenerative changes in the spine. Partially visualized right thyroid nodule, follow-up recommendations made in the concurrent CT C-spine report. Rounded, slightly irregul ar 7 mm pulmonary nodule in the medial right apex. The nodule's borders are less well defined which c ould be secondary to interval pathologic change or motion artifact. IMPRESSION: No acute osseous finding in the right shoulder. No CT evidence of osteomyelitis or significant joint effusion. Note, sterility of the joint space cannot be confirmed with imaging alone. 7 mm right medial apical pulmonary nodule, stable in size since the prior study 9 months ago, but wit h potentially concerning morphologic change, recommend low-dose noncontrast CT of the chest in 6 chaim hs for continued follow-up. Reviewed, dictated and finalized at location K. IMPRESSION: No acute osseous finding in the right shoulder. No CT evidence of osteomyelitis or significant joint effusion. Note, sterility of the joint space cannot be co nfirmed with imaging alone. 7 mm right medial apical pulmonary nodule, stable in size since the prior study 9 months ago, but with potentially concerning morphologic change, recommend lo w-dose noncontrast CT of the chest in 6 months for continued follow-up.
--- NOTE | ~2022-09-30 | XR_ITS ---
EXAMINATION: XR chest 1V portable Exam Date/Time: 09/30/2022 20:35 CDT HISTORY: Right upper extremity pain, SWELLING IN LT ARM Comparison: 01/15/2022. RESULT: Lines, tubes, and devices: None. Lungs and pleura: Clear. Cardiomediastinal silhouette: Stable. Other: No acute osseous or upper abdominal finding. Severe thoracic scoliosis. IMPRESSION: No acute cardiopulmonary process. Reviewed, dictated and finalized at location K.
--- NOTE | ~2022-09-30 | MR_ITS ---
MRI of the cervical spine Clinical History: Bilateral upper extremity pain and weakness Technique: Axial T2-weighted and gradient images, and sagittal T1-weighted, T2-weighted, and STIR mandeep ges were acquired. Following intravenous administration of 20 cc MultiHance gadolinium, T1-weighted f at-sat imaging was performed in the axial and sagittal planes. Findings: There is mild reversal normal cervical lordosis. No fracture or subluxation evident. No lisy picious bone marrow signal abnormality seen. At C2-C3, there is no disc bulge or herniation. No spinal canal stenosis, cord compression, or neural foraminal narrowing. At C3-C4, there is minimal central disc bulge. No spinal canal stenosis, cord compression, or neural foraminal narrowing. At C4-C5, there is degenerative disc narrowing with disc ossify complex, resulting in mild canal sten osis and mild flattening the ventral cord. There is bilateral neural foraminal narrowing. There is bi lateral facet arthropathy. At C5-C6, there is degenerative disc narrowing. Disc osteophyte complex results in moderate canal mehreen nosis and ventral cord compression. There is bilateral neural foraminal narrowing. At C6-C7, there is disc osteophyte complex at the left paracentral to left foraminal region, with lef t neural foraminal narrowing. Right neural foramen probably preserved. No chanel canal stenosis or cor d compression. No abnormal signal seen in the spinal cord. Paravertebral soft tissues are unremarkable. No abnormal postcontrast enhancement identified. Impression: Moderate to advanced degenerative spondylosis at C5-C6, with canal stenosis, cord compression, and bi lateral neural foraminal narrowing, largely related to disc osteophyte complex. Moderate degenerative spondylosis at C4-C5, as detailed above. Left neural foraminal narrowing at C6-C7 related to left paracentral/left foraminal disc osteophyte c omplex. Reviewed, dictated and finalized at location M. Impression: Moderate to advanced degenerative spondylosis at C5-C6, with canal stenosis, co rd compression, and bilateral neural foraminal narrowing, largely related to di sc osteophyte complex. Moderate degenerative spondylosis at C4-C5, as detailed above. Left neural foraminal narrowing at C6-C7 related to left paracentral/left naveed inal disc osteophyte complex.
[2022-09-30 17:02] VITALS: BP 121/68; PULSE 93; RESP 18; TEMP 36.6; O2SAT 100
[2022-09-30 18:00] LABS: Basophils Absolute Auto 0.1 K/mm3 (0.0-0.1); Basophils Percent Auto 0.7 % (0.2-1.2); Eosinophils Absolute Auto 0.2 K/mm3 (0-0.3); Eosinophils Percent Auto 2.5 % (0-4.4); Hematocrit 42.3 % (37.0-47.0); Hemoglobin 12.4 g/dL (12.0-15.0); Immature Granulocyte Absolute 0.03 K/mm3 (0.00-0.031); Immature Granulocyte Percent A 0.4 % (0-0.5); Lymphocytes Absolute Auto 1.19 K/mm3 (0.9-3.2); Lymphocytes Percent Auto 15.6 % (18.3-44.2); Mean Corpuscular HGB Conc 29.3 g/dl (32-36); Mean Corpuscular Hemoglobin 20.8 pg (26-34); Mean Platelet Volume 9.6 fl (7.4-10.4); Monocytes Absolute Auto 0.8 K/mm3 (0.1-0.6); Monocytes Percent Auto 10.5 % (2.6-8.5); Neutrophils Absolute Auto 5.4 K/mm3 (1.3-6.7); Neutrophils Percent Auto 70.3 % (45.5-73.1); Platelet Count Result 285 k/mm3 (150-375); Red Blood Count 5.96 M/mm3 (4.2-5.4); Red Cell Distribution Width 21.7 % (11.5-14.5); White Blood Count 7.6 K/mm3 (4.5-10.0)
[2022-09-30 18:11] LABS: Lactic Acid Reflex 1.6 mmol/L (0.7-2.0)
[2022-09-30 18:14] LABS: Alanine Aminotransferase 15 U/L (6-35); Anion Gap 1 mmol/L (8-16); Aspartate Amino Transferase 22 U/L (14-36); Bilirubin,Total 0.5 mg/dL (0.2-1.3); Blood Urea Nitrogen 28 mg/dL (7-17); CRP 5.2 mg/dL (<1.0); Calcium 9.4 mg/dL (8.4-10.2); Carbon Dioxide 30 mmol/L (22-30); Chloride 103 mmol/L (98-107); Estimated CRCL calculation 116 ml/min; Estimated Glomerular Filt Rate > 60; Glucose 130 mg/dL (65-110); Potassium 4.1 mmol/L (3.4-5.0); Sodium 134 mmol/L (137-145)
--- NOTE | 2022-09-30 18:14 | ED.UPPEXIN ---
HPI - Extremity Injury (Upper) General Chief Complaint: Extremity Injury, Upper Stated Complaint: right arm pain Time Seen by Provider: 09/30/22 18:00 Source: patient and EMS Mode of arrival: EMS Limitations: no limitations History of Present Illness HPI narrative: 57 years old white female lives alone came from home by ambulance complaining of right shoulder and right upper extremity pain started 2 days ago. She denies any trauma, fever, chills, nausea, vomiting, chest pain, shortness of breath. Patient reports some swelling of handS, more on the right side, left hand is improving, Patient uses a walker at home, status post left right toes amputation 3 weeks ago, ulceration of the left foot 1 week ago, been taking care of by home visiting nurse and wound care clinic. And was told that her condition is chronic and stable. Was seen by her family physician recently for feet managed. Related Data Home Medications Medication Instructions Recorded Confirmed bumetanide 2 mg tablet 2 mg PO BID 06/15/21 02/01/22 sacubitril 24 mg-valsartan 26 mg 1 tablet PO BID 06/15/21 02/01/22 tablet (Entresto) carvedilol 3.125 mg tablet 3.125 mg PO Q12H 02/05/22 Allergies Allergy/AdvReac Type Severity Reaction Status Date / Time lisinopril Allergy Unknown Verified 09/30/22 17:02 Review of Systems Review of Systems: All systems reviewed & are unremarkable except as noted in HPI and below PMFSH Past Medical History Medical History Chronic combined systolic and diastolic heart failure GERD (gastroesophageal reflux disease) History of amputation of left great toe 2017 History of amputation of toe Lt big toe Hypertension Major depressive disorder, recurrent, mild Obstructive sleep apnea 06/2019 Osteoarthritis of knees, 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 Surgical History Surgical History History of cholecystectomy 09/2015 Family History Family History Mother Family history of Alzheimer's disease Hypertension Father Family history of diabetes mellitus in first degree relative Acute myocardial infarction Heart disease Hypertension Sibling CAD (coronary artery disease) Acute myocardial infarction Other Depression Diabetes mellitus Social History Social History Smoking status: Never smoker Second hand tobacco smoke exposure: No Alcohol intake: former Drinks per week: 1 Substance use: never Substance use type: does not use Living arrangements: alone Occupation/Education: other Additional occupation/education comments: Disabled Gender identity (if verbalized by the patient): Female Sexual Orientation (if Verbalized by the Patient): Straight or Heterosexual Spiritual care concerns: No Agree to blood products: Yes Exam Narrative: General appearance: Well-developed, well-nourished Skin: Normal color multiple scattered sores Head: Normocephalic, nontraumatic Eyes: Clear conjunctiva ENT: Oropharynx normal, ears normal, nose normal Neck: Supple, nontender Chest and respiratory: Airway patent, no respiratory distress, no accessory muscle use Heart: Regular rate/rhythm Abdomen: Soft, nontender, no organomegaly, quiet bowel sounds Vascular: Normal peripheral pulses, normal capillary refill. Musculoskeletal: Severe limited range of motion of the right shoulder, diffuse tenderness of the right shoulder laterally, no bruises, no swelling, no deformity, no warmth. Supination triggers severe pain at the wrist area and hand left foot showed 5 x 5 X half centimeter ulcer at the plantar area, no erythema, no discharge, chronic. Right lower leg showed superficial ulceration medially above the medial malleolus, without any erythematous changes or discharge. Chron
[2022-09-30 18:15] LABS: Albumin Level 3.6 g/dL (3.5-5.1); Alkaline Phosphatase 93 U/L (38-126)
[2022-09-30 18:22] LABS: Anisocytosis 1+ (NORMAL); Hypochromasia 1+ (NORMAL); Microcytosis 1+ (NORMAL); Platelet Estimate Adequate (Adequate); Schistocytes None Seen (NORMAL); Target Cells 1+ (NORMAL)
[2022-09-30 18:23] LABS: Troponin I < 0.012 ng/mL (0.000-0.034)
[2022-09-30] MEDS: HYDROmorphone HCL INJ (*CRX) 1 MG/ML SYR 0.5 MG IV PUSH (18:23)
[2022-09-30] MEDS: ONDANSETRON INJ 4 MG/2 ML VIAL IV PUSH (18:23)
[2022-09-30 18:29] LABS: Prothrombin Time 13.5 Seconds (11.1-14.7)
[2022-09-30 18:30] LABS: Partial Thromboplastin Time 28.2 SECONDS (22.3-36.8)
[2022-09-30 18:49] LABS: Erythrocyte Sedimentation Rate 13 mm/hr (0-20)
--- NOTE | 2022-09-30 19:24 | PC.NURSE ---
This RN assumed care of patient.
--- NOTE | 2022-09-30 21:26 | PM.IMHP ---
H&P: HPI History of Present Illness Date/Time: 09/30/22 21:26 Chief Complaint: Right arm pain Narrative: 57-year-old female with a past medical history of type 2 diabetes mellitus, diabetic peripheral neuropathy, Charcot foot with chronic right foot wound and untreated obstructive sleep apnea who presented to the ER with right shoulder pain. The patient reports that for the last week or so she has been having heaviness in increased weakness in bilateral arms and hands. She has noticed some edema to bilateral hands. She reports that her hands have become so weak that she has been opening bottles with a wrench. She is right handed. She reports that 2 days ago she woke up with pain in her right arm. The pain extended from her right lateral neck down her arm into her hand. It hurts so bad that she can even make a fist or squeeze my hand. She cannot lift her arm from the shoulder and seems to be having difficulty straightening her arm at the elbow. She denies any fevers or chills. She has not had any nausea or vomiting. She does feel as if she is hungry. She has not been able to eat 2 days because she has not been able to get out of bed unassisted. She did have recent partial amputation of the right 2nd toe by her biodiesel product development manager at [facility]. She has had a prior left great toe amputation. She reports that she has chronic wound on her left foot that is actually quite large. But she has not noticed any significant drainage. The wound has been there on and off for years and most recently open back up in April. She had recent debridement of wound on her right medial stuart while she was hospitalized at [facility]. She follows with podiatry and wound care. She denies any cough or congestion. She does have some dyspnea on exertion but this is unchanged from baseline. She denies any change in her chronic swelling of her legs but again bilateral hands and arms are swollen. She denies any loss of bowel control. She has chronic difficulty with bladder control in has a lot of functional urinary incontinence. Review of Systems Review of Systems: 12 systems were reviewed with pertinent positives and negatives per HPI. Except as documented in the HPI, all other systems were reviewed and are negative. FOR[facility] Past Medical History Medical History (Updated 10/01/22 @ 06:47 by Roxane White DO) Charcot's joint of foot due to diabetes Chronic combined systolic and diastolic heart failure Essential hypertension GERD (gastroesophageal reflux disease) Major depressive disorder, recurrent, mild Mixed incontinence Obstructive sleep apnea 06/2019--refuses CPAP Osteoarthritis of knees, bilateral Peripheral artery disease PSVT (paroxysmal supraventricular tachycardia) Type 2 diabetes mellitus with diabetic polyneuropathy Surgical History Surgical History (Updated 10/01/22 @ 06:37 by Roxane White DO) History of 3 sections History of amputation of left great toe 2017 History of amputation of toe Partial amputation of 2nd left toe History of cholecystectomy 09/2015 Family History Family History Mother Family history of Alzheimer's disease Hypertension Father Family history of diabetes mellitus in first degree relative Acute myocardial infarction Heart disease Hypertension Sibling CAD (coronary artery disease) Acute myocardial infarction Other Depression Diabetes mellitus Social History Social History (Updated 10/01/22 @ 06:44 by Roxane White DO) Social History: She is and lives in her own home. She has a son who lives in [place] and a daughter who lives locally. She had another son who in an MVA at a young age. She ambulates with a walker. 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 Code status: Full code Surrogate decision maker: Daughter Smoking status:
[2022-09-30 21:33] VITALS: BMI 41.6
[2022-09-30 21:34] VITALS: BP 142/83; PULSE 71; RESP 20; TEMP 36.3; O2SAT 94
--- NOTE | 2022-09-30 22:50 | PC.NURSE ---
This patient, Allison Thurston, was admitted to Medical Room 349-01. Patient/family oriented to hospital policies and general routines including ID bracelet, bed and alarms, visiting hours, pain management, procedures, bathroom and other care routines, personal items, smoking policy, room service/diet, and visiting hours. Information on how to activate the Rapid Response Team has been discussed. Patient/Family are encouraged to report perceived risks to care and to ask questions if they do not understand what they are told or what they should do.
[2022-10-01] VITALS (7 sets, daily range): BP systolic 105–122; BP diastolic 62–75; PULSE 92–97; RESP 16–18; TEMP 36.5–36.6; O2SAT 95–100
[2022-10-01 05:49] LABS: Anion Gap 4 mmol/L (8-16); Blood Urea Nitrogen 23 mg/dL (7-17); Calcium 9.3 mg/dL (8.4-10.2); Carbon Dioxide 31 mmol/L (22-30); Chloride 103 mmol/L (98-107); Estimated CRCL calculation 102 ml/min; Estimated Glomerular Filt Rate > 60; Glucose 193 mg/dL (65-110); Potassium 4.6 mmol/L (3.4-5.0); Sodium 138 mmol/L (137-145)
[2022-10-01 05:57] LABS: Basophils Percent Auto 0.3 % (0.2-1.2); Hematocrit 42.8 % (37.0-47.0); Hemoglobin 12.1 g/dL (12.0-15.0); Immature Granulocyte Absolute 0.02 K/mm3 (0.00-0.031); Immature Granulocyte Percent A 0.5 % (0-0.5); Lymphocytes Absolute Auto 0.62 K/mm3 (0.9-3.2); Lymphocytes Percent Auto 16.8 % (18.3-44.2); Mean Corpuscular HGB Conc 28.3 g/dl (32-36); Mean Corpuscular Hemoglobin 20.4 pg (26-34); Mean Corpuscular Volume 72.3 fl (80-100); Mean Platelet Volume 9.4 fl (7.4-10.4); Monocytes Absolute Auto 0.2 K/mm3 (0.1-0.6); Monocytes Percent Auto 5.7 % (2.6-8.5); Neutrophils Absolute Auto 2.8 K/mm3 (1.3-6.7); Neutrophils Percent Auto 76.7 % (45.5-73.1); Platelet Count Result 273 k/mm3 (150-375); Red Blood Count 5.92 M/mm3 (4.2-5.4); Red Cell Distribution Width 21.6 % (11.5-14.5); White Blood Count 3.7 K/mm3 (4.5-10.0)
[2022-10-01 06:24] LABS: Anisocytosis 1+ (NORMAL); Hypochromasia 1+ (NORMAL); Platelet Estimate Adequate (Adequate); Schistocytes None Seen (NORMAL)
[2022-10-01 08:44] LABS: Glucose Point of Care 155 mg/dl (65-105)
[2022-10-01] MEDS: ATORVASTATIN 10 MG TABLET PO (09:12)
[2022-10-01] MEDS: SACUBITRIL/VALSARTAN 24-26 MG TABLET 1 TAB PO ×2 (09:12→17:12)
[2022-10-01] MEDS: PIOGLITAZONE HCL 30 MG TABLET PO (09:12)
[2022-10-01] MEDS: GABAPENTIN 300 MG CAPSULE PO ×3 (09:12→17:12)
[2022-10-01] MEDS: EMPAGLIFLOZIN 25 MG TABLET PO (09:12)
[2022-10-01] MEDS: SPIRONOLACTONE 25 MG TABLET PO (09:12)
[2022-10-01] MEDS: busPIRone HCL 10 MG TABLET PO ×2 (09:12→17:13)
[2022-10-01] MEDS: COLLAGENASE OINT 30 GM TUBE 1 APPLIC TOPICAL (09:13)
[2022-10-01] MEDS: DICLOFENAC SODIUM 1% 100 GM GEL (*BKC) 1 APPLIC TOPICAL ×4 (09:13→20:32)
[2022-10-01] MEDS: LIDOCAINE 5% PATCH 1 PATCH TRANSDERM (09:23)
[2022-10-01 12:05] LABS: Glucose Point of Care 183 mg/dl (65-105)
--- NOTE | 2022-10-01 13:30 | PM.IMPN ---
Progress Note: A&P Assessment and Plan (1) Pain of right upper extremity: Code(s): M79.601 - Pain in right arm Status: Acute Assessment and Plan: Patient has marked pain of the right upper extremity up into the neck. Cervical spine CT showing no acute fracture or traumatic malalignment but with moderate central canal stenosis C5-6. Shoulder CT shows no acute osseous abnormalities of the right shoulder. No evidence of osteomyelitis or significant joint effusion. Cervical spine MRI again shows moderate to advanced degenerative spondylosis at C5-6 with central canal stenosis, cord compression and bilateral neural foraminal narrowing secondary to disc osteophyte complex. Also with left neural foraminal stenosis at C6-7 related to left paracentral/left foraminal disc osteophyte complex. Patient was started on IV antibiotics for possible septic arthritis although this seems less likely. CRP is elevated at 5.2 by white count is normal. No fevers. More concerning for neural foraminal and cord stenosis. Orthopedics has been consulted. Start PT and OT. Will check rheumatoid factor and CHARO. 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 She is followed at a wound care clinic. Even if patient needed shoulder or cervical spine surgery, she would not be a candidate given the fact she has multiple open wounds. Blood culture collected. White count normal. CRP slightly elevated at 5.2. Will continue IV antibiotics for now. Will follow CRP levels. Wound care consult. Add diflucan. (3) Type 2 diabetes mellitus with diabetic polyneuropathy: Qualifiers: Diabetes mellitus predatory animal exterminator insulin use: without predatory animal exterminator use Qualified Code(s): E11.42 - Type 2 diabetes mellitus with diabetic polyneuropathy Code(s): E11.42 - Type 2 diabetes mellitus with diabetic polyneuropathy Status: Chronic Assessment and Plan: A1c in December was 9.0. The patient's blood glucose was reviewed on 10/01 Glucose remains reasonably well controlled. Continue AccuCheks covering with sliding scale. Hypoglycemia protocol available as needed. Continue to follow Will also continue medications for neuropathy including Neurontin.? Patient may benefit from increasing her Neurontin dose.? Will also continue tramadol as needed for pain (4) Thyroid nodule: Code(s): E04.1 - Nontoxic single thyroid nodule Status: Acute Assessment and Plan: Cervical spine CT showing 3cm right thyroid nodule. She will need to have outpatient follow-up. (5) Pulmonary nodule: Code(s): R91.1 - Solitary pulmonary nodule Status: Acute Assessment and Plan: Shoulder CT shows a 7 mm right medial apical pulmonary nodule that is stable in size but with potentially concerning morphologic change. Patient will need follow-up CT of the chest in 6 months to monitor. Chest x-ray was clear. (6) Obstructive sleep apnea: Code(s): G47.33 - Obstructive sleep apnea (adult) (pediatric) Status: Chronic Assessment and Plan: Patient does have obstructive sleep apnea but refuses CPAP.? She would benefit from diet lifestyle modification.? Given the patient's decreased mobility she may require placement for acute rehab on discharge. (7) CHF (congestive heart failure): Code(s): I50.9 - Heart failure, unspecified Status: Acute Assessment and Plan: Patient has chronic systolic and diastolic CHF. Echocardiogram here in December 2021 shows EF of 35-40% with grade 2 diastolic dysfunction and severe LV chamber enlargement. There is mild-moderate MR and moderate TR. She also has mild pulmonary hypertension. Continue Entresto. Continue Aldactone
[2022-10-01] MEDS: ENOXAPARIN 40 MG/0.4 ML SYRINGE SUB-Q (17:11)
[2022-10-01] MEDS: TOLNAFTATE 1% POWDER 45 GM BTL 1 APPLIC TOPICAL ×2 (17:11→20:32)
[2022-10-01] MEDS: SILVERGEL (ELTA) 45 ML 1 APPLIC TOPICAL (17:11)
[2022-10-01 17:23] LABS: Glucose Point of Care 137 mg/dl (65-105)
[2022-10-01 21:40] LABS: Glucose Point of Care 175 mg/dl (65-105)
[2022-10-02 05:40] VITALS: BP 126/82; PULSE 86; RESP 16; TEMP 36.1; O2SAT 96
[2022-10-02 06:25] LABS: Basophils Absolute Auto 0.1 K/mm3 (0.0-0.1); Basophils Percent Auto 1.1 % (0.2-1.2); Eosinophils Absolute Auto 0.2 K/mm3 (0-0.3); Hematocrit 41.5 % (37.0-47.0); Immature Granulocyte Absolute 0.03 K/mm3 (0.00-0.031); Immature Granulocyte Percent A 0.5 % (0-0.5); Lymphocytes Absolute Auto 1.15 K/mm3 (0.9-3.2); Lymphocytes Percent Auto 20.1 % (18.3-44.2); Mean Corpuscular HGB Conc 28.9 g/dl (32-36); Mean Corpuscular Hemoglobin 20.9 pg (26-34); Mean Corpuscular Volume 72.3 fl (80-100); Mean Platelet Volume 9.8 fl (7.4-10.4); Monocytes Absolute Auto 0.6 K/mm3 (0.1-0.6); Monocytes Percent Auto 10.7 % (2.6-8.5); Neutrophils Absolute Auto 3.6 K/mm3 (1.3-6.7); Neutrophils Percent Auto 63.6 % (45.5-73.1); Platelet Count Result 270 k/mm3 (150-375); Red Blood Count 5.74 M/mm3 (4.2-5.4); Red Cell Distribution Width 21.9 % (11.5-14.5); White Blood Count 5.7 K/mm3 (4.5-10.0)
[2022-10-02 06:34] LABS: Iron 49 ug/dL (37-170); Rheumatoid Factor 20.6 IU/ML (<12)
[2022-10-02 06:35] LABS: Anion Gap 5 mmol/L (8-16); Blood Urea Nitrogen 20 mg/dL (7-17); Carbon Dioxide 31 mmol/L (22-30); Chloride 103 mmol/L (98-107); Potassium 4.1 mmol/L (3.4-5.0); Sodium 139 mmol/L (137-145)
[2022-10-02 06:36] LABS: Alanine Aminotransferase 16 U/L (6-35); Albumin Level 3.6 g/dL (3.5-5.1); Alkaline Phosphatase 82 U/L (38-126); Aspartate Amino Transferase 24 U/L (14-36); Bilirubin,Total 0.4 mg/dL (0.2-1.3); CRP 2.6 mg/dL (<1.0); Calcium 9.3 mg/dL (8.4-10.2); Estimated CRCL calculation 102 ml/min; Estimated Glomerular Filt Rate > 60; Glucose 131 mg/dL (65-110); Magnesium 1.6 mg/dL (1.6-2.3)
[2022-10-02 06:43] LABS: Percent Iron Saturation 18 % (20-50)
[2022-10-02 06:53] LABS: Platelet Estimate Adequate (Adequate)
[2022-10-02 06:54] LABS: Hypochromasia 1+ (NORMAL)
[2022-10-02 06:55] LABS: Anisocytosis 1+ (NORMAL); Microcytosis 2+ (NORMAL); Schistocytes None Seen (NORMAL)
[2022-10-02 07:23] LABS: Glucose Point of Care 127 mg/dl (65-105)
[2022-10-02] MEDS: ATORVASTATIN 10 MG TABLET PO (08:21)
[2022-10-02] MEDS: PIOGLITAZONE HCL 30 MG TABLET PO (08:21)
[2022-10-02] MEDS: SPIRONOLACTONE 25 MG TABLET PO (08:21)
[2022-10-02] MEDS: EMPAGLIFLOZIN 25 MG TABLET PO (08:21)
[2022-10-02] MEDS: GABAPENTIN 300 MG CAPSULE PO ×3 (08:21→18:13)
[2022-10-02] MEDS: SACUBITRIL/VALSARTAN 24-26 MG TABLET 1 TAB PO ×2 (08:21→18:12)
[2022-10-02] MEDS: busPIRone HCL 10 MG TABLET PO ×2 (08:21→18:12)
[2022-10-02] MEDS: TOLNAFTATE 1% POWDER 45 GM BTL 1 APPLIC TOPICAL ×2 (08:22→20:24)
[2022-10-02] MEDS: ENOXAPARIN 40 MG/0.4 ML SYRINGE SUB-Q (08:23)
[2022-10-02] MEDS: LIDOCAINE 5% PATCH 1 PATCH TRANSDERM (08:26)
[2022-10-02 10:39] LABS: Vancomycin Trough 22.4 ug/mL (10.0-20.0)
--- NOTE | 2022-10-02 11:48 | PM.IMPN ---
Progress Note: A&P Assessment and Plan (1) Bacteremia: Code(s): R78.81 - Bacteremia Status: Acute Assessment and Plan: Patient was started on IV antibiotics in the form Rocephin and vancomycin for possible septic arthritis. These conditions are unlikely. Blood cultures have returned positive for Gram-positive cocci in clusters in the aerobic bottle only in 1 set. She does have open wounds so this could be the source of the bacteremia. This may be a contaminated specimen. No fevers. No elevated white count. CRP was elevated at 5.2 and this has improved. Continue Rocephin and vancomycin for now. Follow-up on blood culture results. (2) Pain of right upper extremity: Code(s): M79.601 - Pain in right arm Status: Acute Assessment and Plan: Patient had marked pain of the right upper extremity up into the neck. Cervical spine CT showing no acute fracture or traumatic malalignment but with moderate central canal stenosis C5-6. Shoulder CT shows no acute osseous abnormalities of the right shoulder. No evidence of osteomyelitis or significant joint effusion. Cervical spine MRI as mentioned below. Patient was started on IV antibiotics for possible septic arthritis although this is unlikely. CRP is elevated at 5.2 but now trending down. No fevers. Appears this is related to vibrating trauma with the power merchandise carrier. Symptoms are much better. Orthopedics has been consulted. Continue PT and OT but probably not required after today. CHARO pending but RF positive. Will check hand xray looking for erosions (given the hand edema) but feel RA unlikely. (3) Cervical spinal cord compression: Code(s): G95.20 - Unspecified cord compression Status: Acute Assessment and Plan: Cervical spine MRI again shows moderate to advanced degenerative spondylosis at C5-6 with central canal stenosis, cord compression and bilateral neural foraminal narrowing secondary to disc osteophyte complex. Also with left neural foraminal stenosis at C6-7 related to left paracentral/left foraminal disc osteophyte complex. Do not feel this is contributing to her symptoms but this will need to be followed by neurosurgery. Plan to have her follow up with NS after discharge (4) Chronic ulcer of left foot due to diabetes mellitus: Code(s): E11.621 - Type 2 diabetes mellitus with foot ulcer; L97.529 - Non-pressure chronic ulcer of other part of left foot with unspecified severity Status: Acute Assessment and Plan: Patient with a known chronic left foot wound. She is followed at a wound care clinic in [place]. Even if patient needed cervical spine surgery, she would not be a candidate given the fact she has multiple open wounds. Blood cultureas above. White count normal. CRP elevated at 5.2 but trending down. Will continue IV antibiotics for now. Wound care following. (5) Type 2 diabetes mellitus with diabetic polyneuropathy: Qualifiers: Diabetes mellitus vermin exterminator insulin use: without vermin exterminator use Qualified Code(s): E11.42 - Type 2 diabetes mellitus with diabetic polyneuropathy Code(s): E11.42 - Type 2 diabetes mellitus with diabetic polyneuropathy Status: Chronic Assessment and Plan: A1c in December was 9.0. The patient's blood glucose was reviewed on 10/02 Glucose remains reasonably well controlled. Continue AccuCheks covering with sliding scale. Hypoglycemia protocol available as needed. Continue to follow She has chronic neuropathy related to her DM. She is on gabapentin. Will also continue medications for neuropathy including Neurontin. Continue tramadol as needed for pain (6) Thyroid nodule: Code(s): E04.1 - Nontoxic single thyroid nodule Status: Acute Assessment and Plan: Cervical spine CT showing 3cm right thyroid nodule. She will need to have outpatient follow-up. (7) Pulmonary nodule: Code(s): R91.1 - Solitary pulmonary no
[2022-10-02 11:51] LABS: Glucose Point of Care 168 mg/dl (65-105)
[2022-10-02] MEDS: SILVERGEL (ELTA) 45 ML 1 APPLIC TOPICAL (12:48)
[2022-10-02] MEDS: DICLOFENAC SODIUM 1% 100 GM GEL (*BKC) 1 APPLIC TOPICAL ×4 (12:49→20:24)
[2022-10-02] MEDS: cefTRIAXone 2 GM/NS 100 ML 2 GM/100 ML BAG IVPB (12:53)
[2022-10-02] MEDS: CYANOCOBALAMIN INJ 1,000 MCG/ML VIAL 1000 MCG IM (12:58)
[2022-10-02 14:00] VITALS: BP 131/93; PULSE 86; RESP 16; TEMP 36.4; O2SAT 98
--- NOTE | 2022-10-02 14:52 | PCPTNOTE ---
Patient refused treatment this session. Patient initially agreed to therapy, however patient refused to participate in any activity. Patient reported not today for therapy.
[2022-10-02 16:45] LABS: Glucose Point of Care 146 mg/dl (65-105)
[2022-10-02 20:00] VITALS: PULSE 86; RESP 16; O2SAT 98
[2022-10-02 21:08] LABS: Glucose Point of Care 157 mg/dl (65-105)
[2022-10-02 21:59] VITALS: BP 114/73; PULSE 91; RESP 18; TEMP 36.7; O2SAT 96
[2022-10-03 06:00] VITALS: BP 111/78; PULSE 90; RESP 18; TEMP 36.6; O2SAT 94
[2022-10-03 06:04] LABS: Anion Gap 3 mmol/L (8-16); Blood Urea Nitrogen 22 mg/dL (7-17); Calcium 9.4 mg/dL (8.4-10.2); Carbon Dioxide 31 mmol/L (22-30); Chloride 104 mmol/L (98-107); Estimated CRCL calculation 117 ml/min; Estimated Glomerular Filt Rate > 60; Glucose 117 mg/dL (65-110); Potassium 4.4 mmol/L (3.4-5.0); Sodium 138 mmol/L (137-145)
[2022-10-03 06:08] LABS: Hemoglobin A1C 7.8 % (<5.7)
[2022-10-03 08:31] LABS: Glucose Point of Care 127 mg/dl (65-105)
[2022-10-03] MEDS: CYANOCOBALAMIN 1,000 MCG TABLET 1000 MCG PO (08:57)
[2022-10-03] MEDS: ATORVASTATIN 10 MG TABLET PO (08:57)
[2022-10-03] MEDS: busPIRone HCL 10 MG TABLET PO ×2 (08:57→17:37)
[2022-10-03] MEDS: EMPAGLIFLOZIN 25 MG TABLET PO (08:57)
[2022-10-03] MEDS: ENOXAPARIN 40 MG/0.4 ML SYRINGE SUB-Q (08:57)
[2022-10-03] MEDS: GABAPENTIN 300 MG CAPSULE PO ×3 (08:57→17:37)
[2022-10-03] MEDS: SACUBITRIL/VALSARTAN 24-26 MG TABLET 1 TAB PO ×2 (08:57→17:37)
[2022-10-03] MEDS: SPIRONOLACTONE 25 MG TABLET PO (08:57)
[2022-10-03] MEDS: LIDOCAINE 5% PATCH 1 PATCH TRANSDERM (08:58)
[2022-10-03] MEDS: TOLNAFTATE 1% POWDER 45 GM BTL 1 APPLIC TOPICAL ×2 (09:01→21:15)
[2022-10-03] MEDS: DICLOFENAC SODIUM 1% 100 GM GEL (*BKC) 1 APPLIC TOPICAL ×4 (09:01→21:15)
[2022-10-03] MEDS: SILVERGEL (ELTA) 45 ML 1 APPLIC TOPICAL (09:02)
[2022-10-03 12:43] LABS: Glucose Point of Care 184 mg/dl (65-105)
[2022-10-03] MEDS: cefTRIAXone 2 GM/NS 100 ML 2 GM/100 ML BAG IVPB (13:35)
[2022-10-03 14:22] VITALS: BP 110/74; PULSE 84; RESP 17; TEMP 36.3; O2SAT 99
--- NOTE | 2022-10-03 16:16 | PM.IMPN ---
Progress Note: A&P Assessment and Plan (1) Bacteremia: Code(s): R78.81 - Bacteremia Status: Acute Assessment and Plan: Patient was started on IV antibiotics in the form Rocephin and vancomycin for possible septic arthritis. These conditions are unlikely. Blood cultures have returned positive for Gram-positive cocci in clusters in the aerobic bottle only in 1 set. She does have open wounds so this could be the source of the bacteremia. This may be a contaminated specimen. No fevers. No elevated white count. CRP was elevated at 5.2 and this has improved. Continue Rocephin and vancomycin for now. Blood cx positive, repeat pending, cont abx for now (2) Pain of right upper extremity: Code(s): M79.601 - Pain in right arm Status: Acute Assessment and Plan: Patient had marked pain of the right upper extremity up into the neck. Cervical spine CT showing no acute fracture or traumatic malalignment but with moderate central canal stenosis C5-6. Shoulder CT shows no acute osseous abnormalities of the right shoulder. No evidence of osteomyelitis or significant joint effusion. Cervical spine MRI as mentioned below. Patient was started on IV antibiotics for possible septic arthritis although this is unlikely. CRP is elevated at 5.2 but now trending down. No fevers. Appears this is related to vibrating trauma with the power tufter hand. Symptoms are much better. Orthopedics has been consulted. Continue PT and OT but probably not required after today. CHARO pending but RF positive. Will check hand xray looking for erosions (given the hand edema) but feel RA unlikely. (3) Cervical spinal cord compression: Code(s): G95.20 - Unspecified cord compression Status: Acute Assessment and Plan: Cervical spine MRI again shows moderate to advanced degenerative spondylosis at C5-6 with central canal stenosis, cord compression and bilateral neural foraminal narrowing secondary to disc osteophyte complex. Also with left neural foraminal stenosis at C6-7 related to left paracentral/left foraminal disc osteophyte complex. Do not feel this is contributing to her symptoms but this will need to be followed by neurosurgery. Plan to have her follow up with NS after discharge (4) Chronic ulcer of left foot due to diabetes mellitus: Code(s): E11.621 - Type 2 diabetes mellitus with foot ulcer; L97.529 - Non-pressure chronic ulcer of other part of left foot with unspecified severity Status: Acute Assessment and Plan: Patient with a known chronic left foot wound. She is followed at a wound care clinic in [place]. Even if patient needed cervical spine surgery, she would not be a candidate given the fact she has multiple open wounds. Blood cultureas above. White count normal. CRP elevated at 5.2 but trending down. Will continue IV antibiotics for now. Wound care following. 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 The patient's blood glucose was reviewed on 10/03 Glucose remains reasonably well controlled. Continue AccuCheks covering with sliding scale. Hypoglycemia protocol available as needed. Continue to follow She has chronic neuropathy related to her DM. She is on gabapentin. Will also continue medications for neuropathy including Neurontin. Continue tramadol as needed for pain (6) Thyroid nodule: Code(s): E04.1 - Nontoxic single thyroid nodule Status: Acute Assessment and Plan: Cervical spine CT showing 3cm right thyroid nodule. She will need to have outpatient follow-up. (7) Pulmonary nodule: Code(s): R91.1 - Solit
[2022-10-03 17:37] LABS: Glucose Point of Care 172 mg/dl (65-105)
[2022-10-03 19:54] VITALS: BP 117/71; PULSE 83; RESP 19; TEMP 35.8; O2SAT 97
[2022-10-03 20:41] LABS: Glucose Point of Care 178 mg/dl (65-105)
[2022-10-04 05:22] VITALS: BP 101/58; PULSE 83; RESP 18; TEMP 36.4; O2SAT 98
[2022-10-04 05:57] LABS: Estimated CRCL calculation 102 ml/min; Estimated Glomerular Filt Rate > 60
[2022-10-04 08:31] LABS: Glucose Point of Care 143 mg/dl (65-105)
[2022-10-04] MEDS: GABAPENTIN 300 MG CAPSULE PO ×3 (09:13→17:45)
[2022-10-04] MEDS: SPIRONOLACTONE 25 MG TABLET PO (09:13)
[2022-10-04] MEDS: ENOXAPARIN 40 MG/0.4 ML SYRINGE SUB-Q (09:13)
[2022-10-04] MEDS: SACUBITRIL/VALSARTAN 24-26 MG TABLET 1 TAB PO (09:13)
[2022-10-04] MEDS: CYANOCOBALAMIN 1,000 MCG TABLET 1000 MCG PO (09:13)
[2022-10-04] MEDS: ATORVASTATIN 10 MG TABLET PO (09:13)
[2022-10-04] MEDS: busPIRone HCL 10 MG TABLET PO ×2 (09:13→17:45)
[2022-10-04] MEDS: TOLNAFTATE 1% POWDER 45 GM BTL 1 APPLIC TOPICAL ×2 (09:14→20:52)
[2022-10-04] MEDS: SILVERGEL (ELTA) 45 ML 1 APPLIC TOPICAL (09:14)
[2022-10-04] MEDS: DICLOFENAC SODIUM 1% 100 GM GEL (*BKC) 1 APPLIC TOPICAL ×4 (09:14→20:52)
[2022-10-04] MEDS: LIDOCAINE 5% PATCH 1 PATCH TRANSDERM (09:14)
[2022-10-04 09:52] LABS: Basophils Absolute Auto 0.1 K/mm3 (0.0-0.1); Basophils Percent Auto 0.8 % (0.2-1.2); Eosinophils Absolute Auto 0.4 K/mm3 (0-0.3); Eosinophils Percent Auto 5.9 % (0-4.4); Hematocrit 43.2 % (37.0-47.0); Hemoglobin 12.5 g/dL (12.0-15.0); Immature Granulocyte Absolute 0.04 K/mm3 (0.00-0.031); Immature Granulocyte Percent A 0.7 % (0-0.5); Lymphocytes Absolute Auto 1.39 K/mm3 (0.9-3.2); Lymphocytes Percent Auto 23.3 % (18.3-44.2); Mean Corpuscular HGB Conc 28.9 g/dl (32-36); Mean Corpuscular Hemoglobin 21.2 pg (26-34); Mean Corpuscular Volume 73.1 fl (80-100); Monocytes Absolute Auto 0.7 K/mm3 (0.1-0.6); Monocytes Percent Auto 11.7 % (2.6-8.5); Neutrophils Absolute Auto 3.4 K/mm3 (1.3-6.7); Neutrophils Percent Auto 57.6 % (45.5-73.1); Platelet Count Result 293 k/mm3 (150-375); Red Blood Count 5.91 M/mm3 (4.2-5.4); Red Cell Distribution Width 22.2 % (11.5-14.5)
[2022-10-04 10:17] LABS: Platelet Estimate Adequate (Adequate)
[2022-10-04 10:18] LABS: Large Platelets Present
[2022-10-04 10:19] LABS: Anisocytosis 1+ (NORMAL); Microcytosis 2+ (NORMAL); Schistocytes None Seen (NORMAL)
[2022-10-04 11:16] LABS: Alanine Aminotransferase 21 U/L (6-35); Albumin Level 3.4 g/dL (3.5-5.1); Alkaline Phosphatase 84 U/L (38-126); Anion Gap 2 mmol/L (8-16); Aspartate Amino Transferase 29 U/L (14-36); Bilirubin,Total 0.3 mg/dL (0.2-1.3); Blood Urea Nitrogen 23 mg/dL (7-17); CRP 1.2 mg/dL (<1.0); Calcium 9.4 mg/dL (8.4-10.2); Carbon Dioxide 29 mmol/L (22-30); Chloride 103 mmol/L (98-107); Estimated CRCL calculation 102 ml/min; Estimated Glomerular Filt Rate > 60; Glucose 130 mg/dL (65-110); Potassium 4.3 mmol/L (3.4-5.0); Sodium 134 mmol/L (137-145)
--- NOTE | 2022-10-04 11:19 | PM.DS ---
DS: Admitting Diagnosis Discharge Date 10/04/22 Admitting Diagnosis Shoulder pain DS: Discharge Diagnosis Discharge Diagnosis (1) Bacteremia: Code(s): R78.81 - Bacteremia Status: Acute Assessment and Plan: Patient was started on IV antibiotics in the form Rocephin and vancomycin for possible septic arthritis. These conditions are unlikely. Blood cultures have returned positive for Gram-positive cocci in clusters in the aerobic bottle only in 1 set. She does have open wounds so this could be the source of the bacteremia. This may be a contaminated specimen. No fevers. No elevated white count. CRP was elevated at 5.2 and this has improved. Continue Rocephin and vancomycin for now. Blood cx positive, repeat pending, cont abx for now 10/04: blood cx with staph epidermidis, sens to bactrim, transition to this and anticipate d/c after ortho eval, start linezolid to complete 7 day course abx, hold buspar + tramadol while on it, trial norco + hydroxyzine (2) Pain of right upper extremity: Code(s): M79.601 - Pain in right arm Status: Acute Assessment and Plan: Patient had marked pain of the right upper extremity up into the neck. Cervical spine CT showing no acute fracture or traumatic malalignment but with moderate central canal stenosis C5-6. Shoulder CT shows no acute osseous abnormalities of the right shoulder. No evidence of osteomyelitis or significant joint effusion. Cervical spine MRI as mentioned below. Patient was started on IV antibiotics for possible septic arthritis although this is unlikely. CRP is elevated at 5.2 but now trending down. No fevers. Appears this is related to vibrating trauma with the power icer hand. Symptoms are much better. Orthopedics has been consulted. Continue PT and OT but probably not required after today. CHARO pending but RF positive. Will check hand xray looking for erosions (given the hand edema) but feel RA unlikely. 10/04: awaiting ortho consult (3) Cervical spinal cord compression: Code(s): G95.20 - Unspecified cord compression Status: Acute Assessment and Plan: Cervical spine MRI again shows moderate to advanced degenerative spondylosis at C5-6 with central canal stenosis, cord compression and bilateral neural foraminal narrowing secondary to disc osteophyte complex. Also with left neural foraminal stenosis at C6-7 related to left paracentral/left foraminal disc osteophyte complex. Do not feel this is contributing to her symptoms but this will need to be followed by neurosurgery. Plan to have her follow up with NS after discharge 10/04: f/u NS outpatient (4) Chronic ulcer of left foot due to diabetes mellitus: Code(s): E11.621 - Type 2 diabetes mellitus with foot ulcer; L97.529 - Non-pressure chronic ulcer of other part of left foot with unspecified severity Status: Acute Assessment and Plan: Patient with a known chronic left foot wound. She is followed at a wound care clinic in [place]. Even if patient needed cervical spine surgery, she would not be a candidate given the fact she has multiple open wounds. Blood cultureas above. White count normal. CRP elevated at 5.2 but trending down. Will continue IV antibiotics for now. Wound care following. 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 The patient's blood glucose was reviewed on 10/04 Glucose remains reasonably well controlled. Continue AccuCheks covering with sliding scale. Hypoglycemia protocol available as needed. Continue to follow She has chron
--- NOTE | 2022-10-04 11:21 | PM.IMPN ---
Progress Note: A&P Assessment and Plan (1) Bacteremia: Code(s): R78.81 - Bacteremia Status: Acute Assessment and Plan: Patient was started on IV antibiotics in the form Rocephin and vancomycin for possible septic arthritis. These conditions are unlikely. Blood cultures have returned positive for Gram-positive cocci in clusters in the aerobic bottle only in 1 set. She does have open wounds so this could be the source of the bacteremia. This may be a contaminated specimen. No fevers. No elevated white count. CRP was elevated at 5.2 and this has improved. Continue Rocephin and vancomycin for now. Blood cx positive, repeat pending, cont abx for now 10/04: blood cx with staph epidermidis, sens to bactrim, transition to this and anticipate d/c after ortho eval, start linezolid to complete 7 day course abx, hold buspar + tramadol while on it, trial norco + hydroxyzine (2) Pain of right upper extremity: Code(s): M79.601 - Pain in right arm Status: Acute Assessment and Plan: Patient had marked pain of the right upper extremity up into the neck. Cervical spine CT showing no acute fracture or traumatic malalignment but with moderate central canal stenosis C5-6. Shoulder CT shows no acute osseous abnormalities of the right shoulder. No evidence of osteomyelitis or significant joint effusion. Cervical spine MRI as mentioned below. Patient was started on IV antibiotics for possible septic arthritis although this is unlikely. CRP is elevated at 5.2 but now trending down. No fevers. Appears this is related to vibrating trauma with the power hand blocker. Symptoms are much better. Orthopedics has been consulted. Continue PT and OT but probably not required after today. CHARO pending but RF positive. Will check hand xray looking for erosions (given the hand edema) but feel RA unlikely. 10/04: awaiting ortho consult (3) Cervical spinal cord compression: Code(s): G95.20 - Unspecified cord compression Status: Acute Assessment and Plan: Cervical spine MRI again shows moderate to advanced degenerative spondylosis at C5-6 with central canal stenosis, cord compression and bilateral neural foraminal narrowing secondary to disc osteophyte complex. Also with left neural foraminal stenosis at C6-7 related to left paracentral/left foraminal disc osteophyte complex. Do not feel this is contributing to her symptoms but this will need to be followed by neurosurgery. Plan to have her follow up with NS after discharge 10/04: f/u NS outpatient (4) Chronic ulcer of left foot due to diabetes mellitus: Code(s): E11.621 - Type 2 diabetes mellitus with foot ulcer; L97.529 - Non-pressure chronic ulcer of other part of left foot with unspecified severity Status: Acute Assessment and Plan: Patient with a known chronic left foot wound. She is followed at a wound care clinic in [place]. Even if patient needed cervical spine surgery, she would not be a candidate given the fact she has multiple open wounds. Blood cultureas above. White count normal. CRP elevated at 5.2 but trending down. Will continue IV antibiotics for now. Wound care following. 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 The patient's blood glucose was reviewed on 10/04 Glucose remains reasonably well controlled. Continue AccuCheks covering with sliding scale. Hypoglycemia protocol available as needed. Continue to follow She has chronic neuropathy related to her DM. She is on gabapentin. Will also continue medications for leo
[2022-10-04 11:31] LABS: Procalcitonin 0.1 ng/mL
[2022-10-04 12:11] LABS: Glucose Point of Care 169 mg/dl (65-105)
[2022-10-04] MEDS: EMPAGLIFLOZIN 25 MG TABLET PO (12:32)
[2022-10-04 14:00] VITALS: BP 112/86; PULSE 82; RESP 18; TEMP 36.7; O2SAT 97
--- NOTE | 2022-10-04 15:47 | PC.NURSE ---
Message left to ortho office regarding consult that was done on the . At this time it looks as though no one has seen pt. Will attempt one more time before close of office.
[2022-10-04 17:21] LABS: Glucose Point of Care 146 mg/dl (65-105)
--- NOTE | 2022-10-04 17:55 | PM.CNOR ---
Assessment and Plan Assessment and plan (1) Pain of right upper extremity: Code(s): M79.601 - Pain in right arm Status: Acute Assessment and Plan: JULITO IS HERE FOR EVALUATION OF HER RIGHT SHOULDER PAIN ON ADMISSION. HER PAIN IS NO LONGER SIGNIFICANT. SHE STATES SHE RECEIVED A PAIN PATCH OF LIDOCAINE AND IS FEELING MUCH BETTER. SHE HAS FULL MOTION OF THE RIGHT SHOULDER WITH MINIMAL DISCOMFORT. SHE HAS NO SIGN OF SEPSIS OR ANY ROTATOR CUFF OR SHOULDER JOINT PATHOLOGY ON EXAM AT THIS TIME. CT SCAN SHOWS NO SIGNIFICANT SHOULDER PATHOLOGY RELATED TO SEPSIS OR TRAUMA. HISTORY, EXAM AND RADIOGRAPHS REVIEWED WITH THE PATIENT. REFERRING PHYSICIAN RECORDS AND IMAGES REVIEWED. CONDITION, NATURE, ETIOLOGY AND COURSE OF NATURAL HISTORY REVIEWED. CONSERVATIVE AND OPERATIVE TREATMENT OPTIONS REVIEWED WELL THE RISKS AND BENEFITS OF EACH. IMPRESSION IS TRANSIENT RIGHT SHOULDER DISCOMFORT POSSIBLY RELATED TO CERVICAL RADICULOPATHY VS SHOULDER STRAIN. RECOMMEND CONTINUE CURRENT PAIN REGIMEN WITH PATCH AND ENCOURAGE MOTION AND F/U NEEDED. History of Present Illness HPI Consult date: 10/04/22 Consult reason: joint pain (RIGHT SHOULDER PAIN) Chief complaint: Right upper extremity pain of uknown etiology Narrative: JULITO WAS ADMITTED FOR RIGHT SHOULDER PAIN AND POSSIBLE SEPSIS TO THE RIGHT SHOULDER JOINT. ON ADMISSION SHE COMPLAINED OF SEVERE PAIN WITH ACTIVITY. SHE DENIED ANY INJURY. SHE DENIED ANY FEVER OR CHILLS. HER ONSET OF PAIN WAS PROGRESSIVE OVER THE LAST COUPLE OF DAYS. ONCE SHE WAS ADMITTED A CONSULT WAS REQUESTED. ON THEW DAY SHE WAS EXAMINED SHE HAS NO MORE COMPLAINTS OR RIGHT SHOULDER PAIN. SHE DID HAVE SOME NECK PAIN AND POSSIBLE SOME MILD SIGNS OF RADICULOPATHY TO THE SHOULDER BLADE REGION. SHE DENIED ANY SHOULDER PROPPER PAIN. Review of Systems Review of Systems: All systems reviewed & are unremarkable except as noted in HPI and below PMFSH Past Medical History Medical History Charcot's joint of foot due to diabetes Chronic combined systolic and diastolic heart failure Essential hypertension GERD (gastroesophageal reflux disease) Major depressive disorder, recurrent, mild Mixed incontinence Obstructive sleep apnea 06/2019--refuses CPAP Osteoarthritis of knees, bilateral Peripheral artery disease PSVT (paroxysmal supraventricular tachycardia) Type 2 diabetes mellitus with diabetic polyneuropathy Surgical History Surgical History History of 3 sections History of amputation of left great toe 2018 History of amputation of toe Partial amputation of 2nd left toe History of cholecystectomy 09/2015 Family History Family History Mother Family history of Alzheimer's disease Hypertension Father Family history of diabetes mellitus in first degree relative Acute myocardial infarction Heart disease Hypertension Sibling CAD (coronary artery disease) Acute myocardial infarction Other Depression Diabetes mellitus Social History Social History Social History: She is and lives in her own home. She has a son who lives in [place] and a daughter who lives locally. She had another son who in an MVA at a young age. She ambulates with a walker. 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 Code status: Full code Surrogate decision maker: Daughter Smoking status: Never smoker Second hand tobacco smoke exposure: No Alcohol intake: never Drinks per week: 1 Substance use: never Substance use type: does not use Lack of Transportation: No Lack of Food: Never True Current Housing: I Have Housing Concerned About Future Housing: No Difficulty Paying Gas/Electric Bills: Decline
[2022-10-04 20:32] VITALS: BP 118/68; PULSE 90; RESP 18; TEMP 36.1; O2SAT 96
[2022-10-04] MEDS: SULFAMETHOXAZOLE/TRIMETHOPRIM 800/160 MG DS TABLET 1 TAB PO (20:51)
[2022-10-04 20:55] LABS: Glucose Point of Care 211 mg/dl (65-105)
[2022-10-05 05:34] VITALS: BP 95/68; PULSE 98; RESP 16; TEMP 36.2; O2SAT 74
[2022-10-05 05:42] LABS: Basophils Absolute Auto 0.1 K/mm3 (0.0-0.1); Basophils Percent Auto 0.8 % (0.2-1.2); Eosinophils Absolute Auto 0.4 K/mm3 (0-0.3); Eosinophils Percent Auto 6.9 % (0-4.4); Hematocrit 42.5 % (37.0-47.0); Hemoglobin 12.4 g/dL (12.0-15.0); Immature Granulocyte Absolute 0.03 K/mm3 (0.00-0.031); Immature Granulocyte Percent A 0.5 % (0-0.5); Lymphocytes Absolute Auto 1.52 K/mm3 (0.9-3.2); Mean Corpuscular HGB Conc 29.2 g/dl (32-36); Mean Corpuscular Hemoglobin 21.1 pg (26-34); Mean Corpuscular Volume 72.3 fl (80-100); Mean Platelet Volume 9.2 fl (7.4-10.4); Monocytes Absolute Auto 0.7 K/mm3 (0.1-0.6); Monocytes Percent Auto 11.4 % (2.6-8.5); Neutrophils Absolute Auto 3.4 K/mm3 (1.3-6.7); Neutrophils Percent Auto 55.4 % (45.5-73.1); Platelet Count Result 273 k/mm3 (150-375); Red Blood Count 5.88 M/mm3 (4.2-5.4); Red Cell Distribution Width 21.7 % (11.5-14.5); White Blood Count 6.1 K/mm3 (4.5-10.0)
[2022-10-05 06:15] LABS: Alanine Aminotransferase 21 U/L (6-35); Albumin Level 3.6 g/dL (3.5-5.1); Alkaline Phosphatase 90 U/L (38-126); Anion Gap 4 mmol/L (8-16); Aspartate Amino Transferase 32 U/L (14-36); Bilirubin,Total 0.3 mg/dL (0.2-1.3); Blood Urea Nitrogen 22 mg/dL (7-17); Calcium 9.4 mg/dL (8.4-10.2); Carbon Dioxide 28 mmol/L (22-30); Chloride 105 mmol/L (98-107); Estimated CRCL calculation 117 ml/min; Estimated Glomerular Filt Rate > 60; Glucose 120 mg/dL (65-110); Potassium 4.1 mmol/L (3.4-5.0); Sodium 137 mmol/L (137-145)
[2022-10-05 06:27] LABS: Anisocytosis 2+ (NORMAL); Hypochromasia 1+ (NORMAL); Platelet Estimate Adequate (Adequate)
[2022-10-05 06:28] LABS: Microcytosis 2+ (NORMAL); Schistocytes None Seen (NORMAL)
[2022-10-05] MEDS: SULFAMETHOXAZOLE/TRIMETHOPRIM 800/160 MG DS TABLET 1 TAB PO (09:47)
[2022-10-05] MEDS: CYANOCOBALAMIN 1,000 MCG TABLET 1000 MCG PO (09:47)
[2022-10-05] MEDS: GABAPENTIN 300 MG CAPSULE PO ×2 (09:48→14:03)
[2022-10-05] MEDS: ATORVASTATIN 10 MG TABLET PO (09:48)
[2022-10-05] MEDS: LIDOCAINE 5% PATCH 1 PATCH TRANSDERM (09:48)
[2022-10-05] MEDS: busPIRone HCL 10 MG TABLET PO (09:48)
[2022-10-05] MEDS: EMPAGLIFLOZIN 25 MG TABLET PO (09:48)
[2022-10-05] MEDS: ENOXAPARIN 40 MG/0.4 ML SYRINGE SUB-Q (09:48)
[2022-10-05] MEDS: SILVERGEL (ELTA) 45 ML 1 APPLIC TOPICAL (09:49)
[2022-10-05] MEDS: DICLOFENAC SODIUM 1% 100 GM GEL (*BKC) 1 APPLIC TOPICAL ×2 (09:49→14:01)
[2022-10-05] MEDS: TOLNAFTATE 1% POWDER 45 GM BTL 1 APPLIC TOPICAL (09:49)
[2022-10-05 12:11] LABS: Glucose Point of Care 125 mg/dl (65-105)
[2022-10-05 12:11] LABS: Glucose Point of Care 133 mg/dl (65-105)
== END 2022-10-05 16:30 | disposition home health service (06) | DRG 552 ==
LOC: ANHED 20:28 → ANH3MED 20:45
PROVIDERS: Internal Medicine; Admitting Provider Internal Medicine; Emergency Provider Emergency Medicine; PCP Family Medicine Adolescent Medicine; Visit Provider Student in an Organized Health Care Education/Training Program
DX: M47.12 Other spondylosis with myelopathy, cervical region (principal); I50.42 Chronic combined systolic (congestive) and diastolic (congestive) heart failure; L97.429 Non-pressure chronic ulcer of left heel and midfoot with unspecified severity; L97.819 Non-pressure chronic ulcer of other part of right lower leg with unspecified severity; I47.1 Supraventricular tachycardia; R78.81 Bacteremia; M48.02 Spinal stenosis, cervical region; M79.601 Pain in right arm; I11.0 Hypertensive heart disease with heart failure; E11.42 Type 2 diabetes mellitus with diabetic polyneuropathy; E11.51 Type 2 diabetes mellitus with diabetic peripheral angiopathy without gangrene; E11.621 Type 2 diabetes mellitus with foot ulcer; E11.622 Type 2 diabetes mellitus with other skin ulcer; E11.610 Type 2 diabetes mellitus with diabetic neuropathic arthropathy; E53.8 Deficiency of other specified B group vitamins; E04.1 Nontoxic single thyroid nodule; M17.0 Bilateral primary osteoarthritis of knee; R91.1 Solitary pulmonary nodule; K21.9 Gastro-esophageal reflux disease without esophagitis; G47.33 Obstructive sleep apnea (adult) (pediatric); F32.9 Major depressive disorder, single episode, unspecified; Z89.412 Acquired absence of left great toe; Z89.421 Acquired absence of other right toe(s); Z79.85 Long-term (current) use of injectable non-insulin antidiabetic drugs
CPT/HCPCS: 36415; 71045; 72125; 72156; 73130; 73200; 80048; 80053; 80202; 82565; 82607; 82728; 82746; 82948; 83036; 83540; 83550; 83605; 83735; 84145; 84484; 85025; 85610; 85652; 85730; 86038; 86140; 86430; 87040; 87147; 87181; 87186; 96365; 96366; 96367; 96372; 96375; 97110; 97161; 97165; 97530; 97535; 99285; A9270; A9577; G0378; J0696; J1100; J1170; J1650; J2405; J3370; J3420

== ENCOUNTER 2024-04-27 14:37 | Inpatient (IN) | payer MEDICARE, MEDICAID, SELFPAY ==
--- NOTE | ~2024-04-27 | XR_ITS ---
EXAMINATION: XR chest 1V DATE: 04/27/2024 16:48 INDICATION: Dyspnea. TECHNIQUE: A single frontal view of the chest was obtained. COMPARISON: Chest single view 09/30/2022, chest CT 01/09/2022 FINDINGS: There is no pneumonia, pleural effusion, or pneumothorax. Cardiomegaly is noted. IMPRESSION: 1. Cardiomegaly. Reviewed, dictated and finalized at location A. [employer] IMPRESSION: 1. Cardiomegaly.
[2024-04-27 15:14] VITALS: BP 141/89; PULSE 88; RESP 20; TEMP 36.7; O2SAT 100
--- NOTE | 2024-04-27 16:17 | ECG_ITS ---
Test Date: 2024-04-27 16:35:40 Measurements Intervals [place] Rate: 86 P: 51 FL: 177 QRS: -59 QRSD: 106 T: 64 QT: 380 QTc: 455 Interpretive Statements SINUS RHYTHM LEFT AXIS DEVIATION POSSIBLE LEFT ATRIAL ENLARGEMENT CONSIDER INFERIOR INFARCT, AGE INDETERMINATE POSSIBLE ANTERIOR MYOCARDIAL INFARCTION , OF INDETERMINATE AGE BASELINE ARTIFACT- I, II, AVR, AVL, V3-V4 ABNORMAL ECG No previous ECG available for comparison Electronically Signed On 04-27-2024 16:38:29 NETWORK DIAGNOSTIC SUPPORT SPECIALIST by Royal Jensen D.O.
--- NOTE | 2024-04-27 16:19 | ED.SOB ---
HPI - SOB/Dyspnea General Chief Complaint: Shortness of Breath/Dyspnea Stated Complaint: swelling to extremities Focused HPI: This is a 59-year-old female who presents to the ED for chief complaint of extremity swelling over the past week. Patient reports that she has had a near 40 lb weight gain in the past 4 months. States that she just realized today that she has not been taking Entresto as prescribed for the past 7 months. Otherwise she is taking all of her medications to her knowledge. States that she has not seen a affiliate marketing manager any here. Endorses dyspnea on exertion. Denies chest pain, cough, fevers GENERAL: Well-appearing, well-nourished, and in no acute distress. HEAD: Normocephalic, atraumatic. CHEST: Clear to auscultation. No respiratory distress. HEART: Regular rate and rhythm. EXT: 3+ pitting edema to the bilateral feet and calves. NEURO: Alert and oriented x3. Patient screened in triage and initial orders placed. Additional care and disposition to be based upon diagnostic testing and treatment. Source: patient Mode of arrival: wheelchair Limitations: no limitations Related Data Home Medications ?Medication ?Instructions ?Recorded ?Confirmed ?Last Taken ?Type bumetanide 2 mg tablet 2 mg PO DAILY 01/06/24 01/06/24 Unknown History bupropion HCl 300 mg 24 hr tablet, 300 mg PO QAM 01/06/24 01/06/24 Unknown History extended release glimepiride 4 mg tablet 4 mg PO QAM 01/06/24 01/06/24 Unknown History lisinopril 20 mg tablet 20 mg PO DAILY 01/06/24 01/06/24 Unknown History magnesium 200 mg tablet 400 mg PO DAILY 01/06/24 01/06/24 Unknown History oxybutynin chloride 5 mg tablet 5 mg PO DAILY 01/06/24 01/06/24 Unknown History pioglitazone 30 mg tablet 30 mg PO DAILY 01/06/24 01/06/24 Unknown History prednisone 10 mg tablet 10 mg PO DAILY 01/06/24 01/06/24 Unknown History sacubitril 49 mg-valsartan 51 mg 1 tablet PO BID 01/06/24 01/06/24 Unknown History tablet (Entresto) sitagliptin phosphate 100 mg 100 mg PO DAILY 01/06/24 01/06/24 Unknown History tablet (Januvia) Allergies Allergy/AdvReac Type Severity Reaction Status Date / Time No Known Allergies Allergy Verified 01/06/24 14:22 [facility] Past Medical History Medical History Charcot's joint of foot due to diabetes Chronic combined systolic and diastolic heart failure Chronic ulcer of left foot due to diabetes mellitus Essential hypertension GERD (gastroesophageal reflux disease) Major depressive disorder, recurrent, mild Mixed incontinence Obstructive sleep apnea 06/2019--refuses CPAP Osteoarthritis of knees, bilateral Peripheral artery disease Pneumonia PSVT (paroxysmal supraventricular tachycardia) Sepsis Type 2 diabetes mellitus with diabetic polyneuropathy Surgical History Surgical History History of 3 sections History of amputation of left great toe 2017 History of amputation of toe Partial amputation of 2nd left toe History of cholecystectomy 09/2015 Family History Family History Mother Family history of Alzheimer's disease Hypertension Father Family history of diabetes mellitus in first degree relative Acute myocardial infarction Heart disease Hypertension Sibling CAD (coronary artery disease) Acute myocardial infarction Other Depression Diabetes mellitus Social History Social History Social History: She is and lives in her own home. She has a son who lives in [place] and a daughter who lives locally. She had another son who in an MVA at a young age. She ambulates with a walker. 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 Code status: Full code Surrogate decision maker: Daughter Smoking status: Never smoker Second hand tobacco smoke exposure: No Alcohol intake: never Drinks per week: 1 Substance use: never Substance use type: does not use Lack of Transportation: No Lack of Food: Never True Current Housing: I Have Housing Concerned About Future Housing: No Difficulty Paying Gas/Electric Bills: Decline to Answer Difficulty Paying for Meds: Decline to Answer Currently Unemployed: Decline to Answer Education: Decline to Answer Difficulty w/ Childcare or Family Care: Decline to Answer Living arrangements: alone Occupation/Education: other Additional occupation/education comments: Disabled Gender identity (if verbalized by the patient): Female Sexual Orientation (if Verbalized by the Patient): Straight or Heterosexual Spiritual care concerns: No Agree to blood products: Yes Course Vital Signs Vital signs: Vital Signs Temperature 98.0 F 04/27/24 15:14 Pulse Rate 88 04/27/24 15:14 Respiratory Rate 20 04/27/24 15:14 Blood Pressure 141/89 H 04/27/24 15:14 Pulse Oximetry 100 04/27/24 15:14 Oxygen Delivery Room Air 04/27/24 15:14 Temperature 98.0 F 04/27/24 15:14 Pulse Rate 88 04/27/24 15:14 Respiratory Rate 20 04/27/24 15:14 Blood Pressure 141/89 H 04/27/24 15:14 Pulse Oximetry 100 04/27/24 15:14 Oxygen Delivery Room Air 04/27/24 15:14 Discharge Plan Discharge Patient Language: Mauritian Prescriptions: No Action lorazepam 1 mg tablet 1 mg PO BID Qty: 60 4RF Januvia 100 mg tablet 100 mg PO DAILY glimepiride 4 mg tablet 4 mg PO QAM Rx Instructions: administer with breakfast lisinopril 20 mg tablet 20 mg PO DAILY bupropion HCl 300 mg tablet extended release 24 hr 300 mg PO QAM Entresto 49-51 mg tablet 1 tablet PO BID magnesium 200 mg tablet 400 mg PO DAILY bumetanide 2 mg tablet 2 mg PO DAILY oxybutynin chloride 5 mg tablet 5 mg PO DAILY prednisone 10 mg tablet 10 mg PO DAILY pioglitazone 30 mg tablet 30 mg PO DAILY (DME) blood-glucose meter [OneTouch Ultra2 Meter] [facility] See Rx Instructions .Route Qty: 1 0RF Rx Instructions: use to test blood sugars once daily (DME) OneTouch Ultra Test Strip See Rx Instructions .Route Qty: 100 2RF Rx Instructions: use one daily to test blood sugars buspirone 10 mg tablet 10 mg PO BID Qty: 180 2RF Rx Instructions: TAKE 1 TABLET BY MOUTH TWICE A DAY tolterodine 4 mg capsule,extended release 24hr See Rx Instructions .ROUTE .COMPLEX Qty: 90 1RF Dose Instruction: TAKE 1 CAPSULE BY MOUTH EVERY DAY Rx Instructions: TAKE 1 CAPSULE BY MOUTH EVERY DAY diclofenac sodium 1 % gel See Rx Instructions .ROUTE .COMPLEX Qty: 100 2RF Dose Instruction: APPLY 4 G TOPICALLY FOUR TIMES DAILY APPLY TO SINGLE KNEE, ANKLE, FOOT FOR FOOT INCLUDES SOLE/TOES/TOP OF FOOT Rx Instructions: APPLY 4 G TOPICALLY FOUR TIMES DAILY APPLY TO SINGLE KNEE, ANKLE, FOOT FOR FOOT INCLUDES SOLE/TOES/TOP OF FOOT metformin 500 mg tablet extended release 24 hr 2,000 mg PO DAILY Qty: 360 2RF atorvastatin 10 mg tablet 10 mg PO DAILY Qty: 90 2RF naproxen 500 mg tablet 500 mg PO BID Qty: 180 1RF gabapentin 300 mg capsule 300 mg PO TID Qty: 270 2RF doxycycline hyclate 100 mg capsule 100 mg PO DAILY Qty: 90 2RF spironolactone 25 mg tablet 25 mg PO DAILY Qty: 90 2RF Follow-up/Referrals: Ortiz Machado MD [Primary Care Provider] -
[2024-04-27 16:38] LABS: Basophils Absolute Auto 0.1 K/mm3 (0.0-0.1); Basophils Percent Auto 0.9 % (0.2-1.2); Eosinophils Absolute Auto 0.2 K/mm3 (0-0.3); Hematocrit 45.3 % (37.0-47.0); Hemoglobin 12.8 g/dL (12.0-15.0); Immature Granulocyte Absolute 0.05 K/mm3 (0.00-0.031); Immature Granulocyte Percent A 0.6 % (0-0.5); Lymphocytes Absolute Auto 1.72 K/mm3 (0.9-3.2); Lymphocytes Percent Auto 18.9 % (18.3-44.2); Mean Corpuscular HGB Conc 28.3 g/dl (32-36); Mean Corpuscular Hemoglobin 21.1 pg (26-34); Mean Corpuscular Volume 74.6 fl (80-100); Mean Platelet Volume 9.4 fl (7.4-10.4); Monocytes Absolute Auto 0.8 K/mm3 (0.1-0.6); Monocytes Percent Auto 8.5 % (2.6-8.5); Neutrophils Absolute Auto 6.3 K/mm3 (1.3-6.7); Neutrophils Percent Auto 69.1 % (45.5-73.1); Platelet Count Result 367 k/mm3 (150-375); Red Blood Count 6.07 M/mm3 (4.2-5.4); Red Cell Distribution Width 19.6 % (11.5-14.5); White Blood Count 9.1 K/mm3 (4.5-10.0)
[2024-04-27 16:48] LABS: Prothrombin Time 13.3 Seconds (11.1-14.7)
[2024-04-27 16:49] LABS: Partial Thromboplastin Time 25.1 Seconds (22.3-36.8)
[2024-04-27 16:57] LABS: NT Pro B Type Natriuretic Pept 4260 pg/mL (19.9-100); Troponin I 0.018 ng/mL (0.000-0.034)
[2024-04-27 17:11] LABS: Alanine Aminotransferase 21 U/L (6-35); Albumin Level 4.3 g/dL (3.5-5.1); Alkaline Phosphatase 104 U/L (38-126); Anion Gap 14 mmol/L (4-12); Aspartate Amino Transferase 23 U/L (14-36); Bilirubin,Total 0.6 mg/dL (0.2-1.3); Blood Urea Nitrogen 24 mg/dL (7-17); Calcium 9.8 mg/dL (8.4-10.2); Carbon Dioxide 24 mmol/L (22-30); Chloride 102 mmol/L (98-107); Estimated CRCL calculation 101 ml/min; Estimated Glomerular Filt Rate > 60; Glucose 160 mg/dL (65-110); Potassium 5.1 mmol/L (3.4-5.0); Sodium 140 mmol/L (137-145)
[2024-04-27 17:12] LABS: Hypochromasia 1+; Platelet Estimate Adequate (Adequate); Schistocytes None Seen
[2024-04-27 17:13] LABS: Anisocytosis 3+; Microcytosis 1+ (NORMAL)
--- OUTSIDE RECORDS SUMMARY | 2024-04-27 19:20 | XMS_ITS | Referral Summary ---
Author Organization [facility] Address [address] [place] [address] Care Team Providers Care Hydrogenation Still Operator Name Role Phone Unavailable Primary Care Provider Unavailabl e Source Comments [facility],non-owned Affiliates and Associated Physician Practices is amultiple site organization consisting of ambulatory clinics and hospital sitesin [place], [place], [place] and [place]. This disclosure is being madepursuant to the Care Everywhere program and may not contain all information available regarding this patient. Last updated 17.[facility] [employer] Allergies No known active allergies Medications * Be aware that medications may not be up to date on this document. Alwaysverify current medications with the patient. Medication Sig Dispensed Refills Start Date End Date Status VENTOLIN HFA 108 (90 Base) MCG/ACT inhaler 10/02/2018 Act virgil atorvastatin (LIPITOR) 10 MG tablet Take 10 mg by mouth once daily 06/05/2019 Active diclofenac sodium (VOLTAREN) 1 % gel 01/19/2019 Active ferrous sulfate 325 (65 FE) MG tablet TAKE 1 TABLET 3 TIMES A DAY 09/04/2018 Active glimepiride (AMARYL) 2 MG tablet 05/27/2019 Active LORazepam (ATIVAN) 1 MG tablet 03/06/2019 Active metFORMIN ER 24hr (GLUCOPHAGE XR) 500 MG tablet 10/13/2018 Active Sacubitril-Valsartan (ENTRESTO PO) Active SITagliptin Phosphate (JANUVIA PO) Active GLIMEPIRIDE PO Active LISINOPRIL PO Active magnesium 500 MG tablet Take 500 mg by mouth once daily Active BUMETANIDE PO Active mupirocin (BACTROBAN) 2 % ointment Apply to affected area 3 times daily 30 g 2 04/10/2020 Active Social History Tobacco Use Types Packs/Day Years Used Date Smoking Tobacco: Never Smokeless Tobacco: Never Sex and Gender Information Value Date Recorded Sex Assigned at Not on file Gender Identity Not on file Sexual Orientation Not on file Last Filed Vital Signs Vital Sign Reading Time Taken Comments Blood Pressure 152/88 04/10/2020 11:29 AM [employer] Pulse 100 04/10/2020 11:29 AM [employer] Temperature 36.6 ??C (97.8 ??F) 04/10/2020 11:[address] Respiratory Rate 16 04/10/2020 11:29 AM [employer] Oxygen Saturation 96% 04/10/2020 11:29 AM [employer] Inhaled Oxygen Concentration - - Weight 140.6 kg (310 lb) 04/10/2020 11:29 AM [employer] Height 172.7 cm (5' 8 ) 04/10/2020 11:29 AM [employer] Body Mass Index 47.14 04/10/2020 11:29 AM [employer] Plan of Treatment Not on file
--- OUTSIDE RECORDS SUMMARY | 2024-04-27 19:20 | XMS_ITS | Clinical Summary ---
Author Organization [facility] Address [address] [place] [address] Care Team Providers Care Hearing Screen Coordinator Name Role Phone Ortiz Machado MD Primary Care Prov ider Mina Lawler MD Unavailable Alok Wright MD Unavailable [phone] Allergies No known active allergies Medications atorvastatin (LIPITOR) 10 mg tabletIndicatio ns:hyperlipidem ia 9 Active insulin glargine (LANTUS,BASAGLA R) 100 unit/mL (3 mL) insulin pen Inject 36 Units under the skin nightly May substitute with insulin detemir if glargine not covered. 15 mL 1 Active Additional Information Patient not taking.Reported on 05/31/2022 pen needle, diabetic (Pen Needle) 31 gauge x 5/16 needle Use as directed once a day 100 each 1 Active pen needle, diabetic 31 gauge x 5/16 needle Use as directed 3 times a day 100 each 1 Active liraglutide (VICTOZA) 0.6 mg/0.1 mL (18 mg/3 mL) injectionIndica tions:type 2 diabetes mellitus Inject 1.2 mg under the skin daily Indications: type 2 diabetes mellitus 6 mL 1 1 Active Additional Information Patient not taking.Reported on 05/31/2022 buPROPion XL (WELLBUTRIN XL) 300 mg 24 hr tabletIndicatio ns:major depressive disorder bupropion HCl XL 300 mg 24 hr tablet, extended release Active glimepiride (AMARYL) 4 mg tabletIndicatio ns:type 2 diabetes mellitus Take 1 tablet (4 mg total) by mouth 2 (two) times a day Active magnesium oxide (MAG-OX) 400 mg (241.3 mg elemental magnesium) tabletIndicatio ns:hypomagnesem ia Take 1 tablet (400 mg total) by mouth 2 (two) times a day 1 Active Jardiance 25 mg tabletIndicatio ns:heart failure associated with type 2 diabetes mellitus Take 1 tablet (25 mg total) by mouth daily 3 Active OneTouch Ultra2 Meter misc 3 Active OneTouch Ultra Test strip 3 Active metFORMIN (GLUCOPHAGE) 500 mg tabletIndicatio ns:type 2 diabetes mellitus Take 2 tablets (1,000 mg total) by mouth 2 (two) times a day with meals Active SITagliptin phosphate (JANUVIA) 100 mg tabletIndicatio ns:type 2 diabetes mellitus Take 1 tablet (100 mg total) by mouth 2 (two) times a day Active gabapentin (NEURONTIN) 300 mg capsuleIndicati ons:Diabetic Peripheral Neuropathy Take 1 capsule (300 mg total) by mouth 3 (three) times a day Active oxybutynin XL (DITROPAN-XL) 5 mg 24 hr tabletIndicatio ns:Neurogenic Bladder Take 1 tablet (5 mg total) by mouth daily Active ferrous sulfate 325 mg (65 mg of elemental iron) tabletIndicatio ns:Iron Deficiency Anemia Take 1 tablet (325 mg total) by mouth daily with breakfast Active furosemide (LASIX) 20 mg tabletIndicatio ns:Edema Take 3 tablets (60 mg total) by mouth 2 (two) times a day 180 tablet 11 3 Active metoprolol XL (TOPROL-XL) 25 mg extended release tabletIndicatio ns:hypertension Take 1 tablet (25 mg total) by mouth daily 30 tablet 11 3 Active spironolactone (ALDACTONE) 25 mg tabletIndicatio ns:hypertension TAKE 1 TABLET (25 MG TOTAL) BY MOUTH DAILY. 90 tablet 3 3 Active Entresto 24-26 mg tabletIndicatio ns:chronic heart failure TAKE 1 TABLET BY MOUTH TWICE A DAY 60 tablet 3 Active busPIRone (BUSPAR) 10 mg tabletIndicatio ns:Generalized Anxiety Disorder Take 1 tablet (10 mg total) by mouth 3 (three) times a day Active LORazepam (ATIVAN) 1 mg tablet Take 1 tablet (1 mg total) by mouth 2 (two) times a day Active Active Problems Problem Noted Date Diagnosed Date Acute osteomyelitis of left foot (CMS/HCC) 08/27 Acute kidney injury 05/16/2022 Acute hematogenous osteomyelitis of left foot Assessment & Plan (05/10/2022 4:26 PM TRANSFER PROFESSOR): Impression: Patient underwent an MRI of the left foot on 05/08/2022 which reveals acute osteomyelitis to the left 3rd toe. Plan: Recommend patient to follow-up with Podiatry to discuss surgical intervention to include amputation of left 3rd toe osteomyelitis. Patient to follow-up on an as-needed basis. CHF (congestive heart failur e), NYHA class I, acute on chronic, combined 05/10/2022 Class 3 severe obesity due t o excess calories with serious comorbidity and body mass index (BMI) of 50.0 to 59.9 in adult 05/04/2022 Assessment & Plan (05/04/2022 12:37 PM TRANSFER PROFESSOR): Impression: Patient reports gaining 100 lb since December 2021. BMI is 56.23. Plan: Discussed with the patient the importance of lifestyle modifications to include diet and exercise. We will defer care to primary care provider. Type 2 diabetes mellitus wit h foot ulcer, with long-term current use of insulin 05/04/2022 Assessment & Plan (05/10/2022 4:27 PM TRANSFER PROFESSOR): Impression: Chronic diabetes Plan: Continue insulin, Jardiance, Victoza Assessment & Plan (05/04/2022 1:34 PM TRANSFER PROFESSOR): Impression: Chronic diabetes mellitus with good glucose control. 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 No concern for osteomyelitis seen on MRI. Osteomyelitis is seen to the left 3rd toe. Plan: Continue wound care as recommended by wound clinic. Recommend patient to follow-up with Podiatry for further surgical evaluation. Assessment & Plan (05/04/2022 1:40 PM TRANSFER PROFESSOR): Impression: Neurotrophic ulcer noted to the left foot. Unable to probe bone on exam. No concern for infection. Necrosis noted to the tip of the left 2nd toe. Audible signals are noted to bilateral distal pulses. Plan: Recommend bilateral lower extremity arterial Doppler for further evaluation of arterial blood flow and MRI of left foot with and without contrast for further evaluation of underlying bone infection. Continue wound care recommendations as per [facility]. Non-pressure chronic ulcer o f right calf with fat layer exposed 05/04/2022 Assessment & Plan (05/10/2022 4:28 PM TRANSFER PROFESSOR): Impression: Multiple small ulcerations to right lower extremity. Plan: Continue dressing changes as recommended by wound care. Assessment & Plan (05/04/2022 1:38 PM TRANSFER PROFESSOR): Impression: Patient has multiple small ulcerations to the right medial calf with yellow slough tissue noted within the wound bed. Patient also has a right dorsal foot wound that is small in size. No concern for infection. Plan: Continue recommendations as per Wound Clinic. Localized edema 05/04/2022 Assessment & Plan (05/04/2022 1:44 PM TRANSFER PROFESSOR): Impression: Patient has 3+ pitting edema to bilateral lower extremities. Plan: Recommend compression therapy to include Tubigrip and Kti bandage to bilateral lower extremities and leg elevation for edema control. 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 - Endocrine c/s - Lantus qhs - MDSSI - Carb consistent diet 05/24 current regimen: Lantus 34 units QHS, Lispro 11 units TID with meals, SSI Endocrine recommendations: - 16 units Lispro with meals and High dose sliding scale -??Recommend Victoza 0.6 mg every day (covered by insurance; $9.20/month) at discharge??(Victoza would aid in weight loss). - discontinue Januvia at discharge - Monitor blood glucose TID/HS HTN (hypertension) 05/24/2020 Assessment & Plan (05/10/2022 4:26 PM TRANSFER PROFESSOR): Impression: Chronic hypertension Plan: Continue Coreg Assessment & Plan (05/04/2022 12:37 PM TRANSFER PROFESSOR): Impression: Chronic hypertension. Plan: Continue Coreg Assessment & Plan (05/24/2020 10:09 AM TRANSFER PROFESSOR): Home medications: HCTZ, lisinopril both on hold. Reports EF 35% Necrotizing fasciitis of lower leg ([facility]) 03/2020 Overview (05/23/2020): Added automatically from request for surgery [id number] Assessment & Plan (05/30/2020 11:44 AM TRANSFER PROFESSOR): #LLE wound/buttock - OR 05/23-I&D excisional debridement L buttock and medial thigh w/ 2 incisions packed WTD Kerlix w/ Dakins - WTD dressing changes - Vanc / Cefepime / Clindamycin - Vanc trough -Wound Cx: GPC, GPB, GN coccobacillus 3/ dressing changed, changed to Dakin's wet to dry dressings. 05/25 BID dakin's soaked gauze and cover with dry dressing. May shower. 05/26 OR Excisional debridement left buttock and medial thigh 05/27: plan for Closure in OR on 05/29 05/29: OR for closure of buttock and medial thigh wound, closed over whitney drain On day of discharge patient ambulating well, pain controlled, KIET drain teaching provided Home health ordered Necrotizing fasciitis 05/23/2020 Encounters Date Type Department Care Team Description 02/12/2024 3:10 PM TRANSFER PROFESSOR Ancillary Procedure [facility] Imaging at [address] [phone] 02/12/2024 3:05 PM TRANSFER PROFESSOR Ancillary Procedure [facility] at [address] [phone] 02/12/2024 3:00 PM TRANSFER PROFESSOR Office Visit [facility] [address] [place] [phone] Inocencio Sinha PA Primary osteoarthritis of both knees (Primary Dx); BMI 40.0-44.9, adult ([facility]) 02/12/2024 Orders Only [facility] [address] [place] [phone] Inocencio Sinha PA Primary osteoarthritis of both knees (Primary Dx); BMI 40.0-44.9, adult ([facility]) from Last 3 Months Surgical History Surgery Date Site/Laterality Comments CHOLECYSTECTOMY FOOT SURGERY 03/25/2014 - 03/24/2015 left toe amputation INCISION AND DRAINAGE OF WOUND 05/23/2020 Left LEFT BUTTOCK/THIGH/PERINEUM TOE AMPUTATION 03/25/2014 - 03/24/2015 Left CARDIAC CATHETERIZATION 03/25/2019 - 03/24/2020 Medical History Medical History Date Comments Hypertension Hypercholesteremia Peripheral neuropathy Rheumatoid arthritis (HCC) Osteoarthritis Depression Diabetes mellitus (HCC) CHF (congestive heart failure) ([facility]/HCC) (HCC) Necrotizing fasciitis ([facility]) 05/2020 LEFT BUTTOCK/THIGH/PERINEUM Type 2 diabetes mellitus ([facility]) Family History Medical History Relation Name Comments Arthritis Other Diabetes Other Heart disease Other Hypertension Other Seizures Other Relation Name Status Comments Other Social History Tobacco Use Types Packs/Day Years Used Date Smoking Tobacco: Never Tobacco Cessation:Counseling Given: Not Answered Alcohol Use Standard Drinks/Week Comments Yes 0 (1 standard drink = 0.6 oz pur e alcohol) OASIS D0700: Social Isolation Answer Da te Recorded Frequency of experiencing loneliness or isolatio n Rarely 10/18/2023 OASIS A1250: Transportation Answer Date Recorded Lack of Transportation (Medical) No 10/18/2023 Lack of Transportation (Non-Medical) No 10/18/2023 Patient Unable or Declines to Respond No 10/18/2023 OASIS B1300: Health Literacy Answer Jj e Recorded Frequency of needing help to read materials from doctor or pharmacy Sometimes 10/18/2023 Humiliation, Afraid, Rape, and Kick questionnair e Answer Date Recorded Within the last year, have y ou been afraid of your partner or ex-partner? No 08/30/2022 Within the last year, have y ou been humiliated or emotionally abused in other ways by your partner or ex-partner? No Within the last year, have y ou been kicked, hit, slapped, or otherwise physically hurt by your partner or ex-partner? No 08/30/2022 Within the last year, have y ou been raped or forced to have any kind of sexual activity by your partner or ex-partner? No 08/30/2022 Social Connection and Isolat ion Panel [NHANES] Answer Date Recorded In a typical week, how many times do you talk on the phone with family, friends, or neighbors? More than three times a week 08/30/2022 How often do you get togethe r with friends or relatives? More than three times a week 08/30/2022 How often do you attend chur ch or amish services? Never 08/30/2022 Do you belong to any clubs o r organizations such as gnosticist groups, unions, fraternal or athletic groups, or school groups? No 08/30/2022 How often do you attend meet ings of the clubs or organizations you belong to? Never 08/30/2022 Are you , , di vorced, , never , or living with a partner? 08/30/2022 AUDIT-C Answer Date Recorded Q1: How often do you have a drink containing alc ohol? Monthly or less 08/31/2022 Q2: How many drinks containi ng alcohol do you have on a typical day when you are drinking? 1 or 2 08/31/2022 Q3: How often do you have si x or more drinks on one occasion? Never 08/31/2022 Overall Financial Resource Strain (CARDIA) Answe r Date Recorded How hard is it for you to pa y for the very basics like food, housing, medical care, and heating? Not hard at all 08/30/2022 PHQ-2 Answer Date Recorded PHQ-2 Total Score (If total score is 3 or more points, staff should administer the PHQ-9) 6 08/30/2022 [facility] - Occupational Stress Questionnaire Answer Date Recorded Do you feel stress - tense, restless, nervous, or anxious, or unable to sleep at night because your mind is troubled all the time - these days? Rather much 08/30/2022 Exercise Vital Sign Answer Date Recorde d On average, how many days pe r week do you engage in moderate to strenuous exercise (like a brisk walk)? 0 days 08/30/2022 On average, how many minutes do you engage in exercise at this level? 0 min 08/30/2022 Hunger Vital Sign Answer Date Recorded Within the past 12 months, y ou worried that your food would run out before you got the money to buy more. Never true 08/31/19 23 Within the past 12 months, t he food you bought just didn't last and you didn't have money to get more. Never true 08/30/2022 PRAPARE - Transportation Answer Date Re corded In the past 12 months, has l ack of transportation kept you from medical appointments or from getting medications? No 10/2022 In the past 12 months, has l ack of transportation kept you from meetings, work, or from getting things needed for daily living? No 08/30/2022 Housing Stability Vital Sign Answer Jj e Recorded In the last 12 months, was t here a time when you were not able to pay the mortgage or rent on time? No 08/30/2022 In the last 12 months, how many places have you lived? 1 08/30/2022 In the last 12 months, was t here a time when you did not have a steady place to sleep or slept in a chcf (including now)? No 08/30/2022 Personal Safety Answer Date Recorded Have you ever been in or are you currently in a harmful physical or emotional relationship or is someone making you feel afraid or unsafe? Denies 08/27/2022 Comments No Sex and Gender Information Value Date Recorded Sex Assigned at Not on file Legal Sex Female 8:33 AM TRANSFER PROFESSOR Gender Identity Not on file Sexual Orientation Not on file Occupation Industry Job Start Date Job End Date retired/ disabled Not on file Not on file Not on cynthia e Obstetrics History Last Filed Vital Signs Vital Sign Reading Time Taken Comments Blood Pressure 170/104 02/12/2024 3:17 PM TRANSFER PROFESSOR Pulse 105 02/12/2024 3:17 PM TRANSFER PROFESSOR Temperature 36.7 ??C (98 ??F) 10/18/2023 12:00 PM CDT Respiratory Rate 18 10/18/2023 12:00 PM CDT Oxygen Saturation 98% 10/18/2023 12:00 PM CDT Inhaled Oxygen Concentration - - Weight 120.2 kg (265 lb) 02/12/2024 3:17 PM TRANSFER PROFESSOR Height 170.2 cm (5' 7 ) 02/12/2024 3:17 PM TRANSFER PROFESSOR Body Mass Index 41.5 02/12/2024 3:17 PM TRANSFER PROFESSOR Plan of Treatment Health Maintenance Due Date Last Done Comments Albumin Creatinine Ratio, Urine 1964 Breast Cancer Screening-Mammogram 1964 Colon Cancer Screening-Colonoscopy 1965 Hepatitis C Screening 1965 Dilated Eye Exam 1964 Foot Exam 1964 Pneumococcal vaccine <65 (1 of 2 - PCV) 01/20/1970 DTaP/Tdap/Td Vaccine (1 - Tdap) 01/20/1975 Hepatitis B Screening 01/20/1982 Regular Well Visit/Exam 18-64 01/20/1982 Zoster Vaccine (1 of 2) 01/20/2014 Hemoglobin A1C 02/28/2023 08/29/2022, 02/0 09/2022, 05/01/2022, Additional history exists Lipid Panel 04/30/2023 04/30/2022, 03/0 03/2020, 09/17/2019 Depression Screening 08/28/2023 08/27/2022, 08/28/19 23 eGFR 09/05/2023 09/04/2022, 08/23, 09/02/2022, Additional history exists Covid-19 Vaccine (3 - 2023-2 5 season) 2023 09/21/2020, 08/31/2020 Influenza Vaccine (#1) 2023 Procedures Procedure Name Priority Date/Time Associated Diagnosis Comments XR KNEE BILATERAL 4 OR MORE VIEWS Schedule Routine, Read Routine (OP Routine) 02/12/2024 3:10 PM TRANSFER PROFESSOR Primary osteoarthritis of both knees XR PELVIS 1 OR 2 VIEWS Schedule Routine, Read Routine (OP Routine) 02/12/2024 3:10 PM TRANSFER PROFESSOR Primary osteoarthritis of both knees EGFR Routine 09/04/2022 2:58 AM CDT HEMOGLOBIN A1C Routine 08/29/2022 5:55 AM CDT POCT LIPID PANEL Routine 04/30/2022 3:55 PM TRANSFER PROFESSOR Lipid screening from Last 3 Months or Most Recently Relevant to Health Maintenance Results * XR Knee Bilateral 4 or More Views (02/12/2024 3:10 PM TRANSFER PROFESSOR) Anatomical Region Laterality Modality Lower Extremities, Knee Digital Radiography Narrative 02/12/2024 3:28 PM TRANSFER PROFESSOR Four views of bilateral knees are negative for fracture dislocation or osseous lesion. ??Advanced arthritic changes are noted bilaterally right greater than left. ??Livr-xn-rctf changes medially in the patellofemoral compartments. ??Large osteophytes noted bilaterally. Inocencio DENISE IMKeesha XR PROCEDURES Final Res ult * XR Pelvis 1 or 2 Views (02/12/2024 3:10 PM TRANSFER PROFESSOR) Anatomical Region Laterality Modality Body, Pelvis N/A Digital Radiogra phy Narrative 02/12/2024 4:11 PM TRANSFER PROFESSOR A weight-bearing AP view of the pelvis taken today in the office demonstrate no evidence of fracture or acute bony abnormality . ??There is no bone lesions noted. There is no radiopaque foreign body. There are moderate to severe changes noted on the right and mild to moderate noted on the left degenerative changes noted in the femoral acetabular joints. ?? us Inocencio DENISE IMG XR PROCEDURES Final Res ult * eGFR (09/04/2022 2:58 AM CDT) eGFR 68 mL/min/1. 73 m2 [facility] ([place] Comment: Interpretive Data Reference Interval Normal ?>/= 90 mL/min/1.73m2 Mildly decreased* ? 60 - 89 mL/min/1.73m2 Mildly to moderately decreased ?45 - 59 mL/min/1.73m2 Moderately to severely decreased ??30 - 44 mL/min/1.73m2 Severely decreased ?15 - 29 mL/min/1.73m2 Kidney Failure ?< 15 ??mL/min/1.73m2 *Relative to young adult level Estimated glomerular filtration rate is determined by the 2020 CKD-EPI equation recommended by the National Kidney Foundation (A Unifying Approach to GFR Estimation: Recommendations of the NKF-ASK Task Force on Reassessing the Inclusion of Race in Diagnosing Kidney Disease, JASN 2020). The CKD-EPI equation should not be used for patients with unstable renal function and has not been validated in children and those over 70. Current interpretive data was last reviewed 2021. Blood 09/04/2022 2:58 AM CDT 09/04/2022 4:30 AM CDT us Kimani Mcgee DPM LAB BLOOD ORDERABLES Final Res ult [facility] ([place] [address] [facility] [place] [address] * (ABNORMAL) Hemoglobin A1c (08/29/2022 5:55 AM CDT) Hgb A1C 8.4(H) 4.0 - 5.6 % [facility] Estimated Average Glucose 194 mg/dL [facility] ([place] Comment: The ADA recommends reporting an estimated Average Glucose (eAG) with all Hemoglobin A1c results using the equation derived from a study of 507 normal and diabetic adults. ??Minority populations were underrepresented and children were not included. ?? (Diabetes Care 31:8295-4833, 2008). ??The eAG is not equivalent to a fasting glucose. Blood 08/29/2022 5:55 AM CDT 08/29/2022 6:26 AM CDT Minagarrick Mcintosh Abdelrahman DO LAB BLOOD ORDERABLES F inal Result [facility] [address] [facility] [place] [address] * POCT lipid panel (04/30/2022 3:55 PM TRANSFER PROFESSOR) Pathologist [facility] Cholesterol, POC <100 mg/dL Comment:Glucose = 155 HDL, POC 27 mg/dL Triglycerides, POC 219 mg/dL LDL Cholesterol POC 43 mg/dL Chol/HDL Ratio, POC N/A Non-HDL Cholesterol, POC N/A mg/dL Cholesterol Total, POC <100 mg/dL Capillary blood 04/30/2022 3 :55 PM TRANSFER PROFESSOR Hortencia Viera NP POINT OF CARE TEST ORDERA BLES Final Result from Last 3 Months or Most Recently Relevant to Health Maintenance Insurance IDPA MEDICARE MEDICARE [facility] MEDICARE [employer] MEDICARE SOLUTIONS Advance Directives For more information, please contact: [phone] Documents on File Type Date Recorded 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 DIRECTIVE 10/31/2022 8:09 AM Power of Boot Trimmer-Medical * Full Code (Latest Code Status on File) Date Activated Date Inactivated Comments 08/27/2022 12:34 PM 09/04/2022 3:38 PM * Full Code Date Activated Date Inactivated Comments 05/10/2022 11:25 PM 05/22/2022 8:20 PM * Full Code Date Activated Date Inactivated Comments 05/24/2020 12:25 AM 05/30/2020 6:24 PM Care Teams Hearing Screen Coordinator Relationship Specialty Start Date End Date Ortiz Machado MD PCP - General Family Medicine 06/20/18 Mina Lawler MD Consulting Physician General Surgery 05/22/22 Alok Wright MD Consulting Physician Infectious Diseases 09/03/22
--- OUTSIDE RECORDS SUMMARY | 2024-04-27 19:20 | XMS_ITS | Clinical Summary ---
Author Organization [facility] Address [address] [place] [address] Care Team Providers Care Er Medical Technician Name Role Phone Unavailable Primary Care Provider Unavailabl e Source Comments [facility],non-owned Affiliates and Associated Physician Practices is amultiple site organization consisting of ambulatory clinics and hospital sitesin [place], [place], [place] and [place]. This disclosure is being madepursuant to the Care Everywhere program and may not contain all information available regarding this patient. Last updated 17.[facility] Allergies No known active allergies Medications * Be aware that medications may not be up to date on this document. Always verify current medications with the patient. Medication Sig [...] Comments Blood Pressure 152/88 04/10/2020 11:29 AM CHANGE CONTROL SPECIALIST Pulse 100 04/10/2020 11:29 AM CHANGE CONTROL SPECIALIST Temperature 36.6 ??C (97.8 ??F) 04/10/2020 11:[address] Respiratory Rate 16 04/10/2020 11:29 AM CHANGE CONTROL SPECIALIST Oxygen Saturation 96% 04/10/2020 11:29 AM CHANGE CONTROL SPECIALIST Inhaled Oxygen Concentration - - Weight 140.6 kg (310 lb) 04/10/2020 11:29 AM CHANGE CONTROL SPECIALIST Height 172.7 cm (5' 8 ) 04/10/2020 11:29 AM CHANGE CONTROL SPECIALIST Body Mass Index 47.14 04/10/2020 11:29 AM CHANGE CONTROL SPECIALIST Plan of Treatment Health Maintenance Due Date Last Done Comments COLOGUARD (AGES 45-75) - COL ON CA SCREENING 1964 COLON MONITORING 1964 COLONOSCOPY - COLON CA SCREENING 1964 CT COLONOGRAPHY - COLON CA SCREENING 1964 Colorectal Cancer Screening 1964 FIT - COLON CA SCREENING 1964 FLEX SIG - COLON CA SCREENING 1964 MAMMOGRAM 1964 MEDICARE AWV ? 12 MONTHS 1964 PAP SMEAR 1964 HIV SCREENING 01/20/1979 HEPATITIS C SCREENING 01/16/1982 DTAP/TDAP/TD VACCINES (1 - Tdap) 01/20/1983 PNEUMOCOCCAL VACCINE 50+ (1 of 1 - PCV) 01/20/2014 ZOSTER VACCINE (1 of 2) 01/20/2014 SCREENING FOR DIABETES 01/23/2020 COVID-19 VACCINE (2 - 2023-2 5 season) 2023 08/31/2020 INFLUENZA VACCINE (#1) 2023 Respiratory Syncytial Virus (RSV) Vaccine Pt: or over 60 yrs (1 - Risk 60-74 years 1-dose series) 2024 DEPRESSION SCREENING 03/25/2024 HEPATITIS B VACCINE Aged Out No longe r eligible based on patient's age to complete this topic HIB VACCINE Aged Out No longer eligi ble based on patient's age to complete this topic HPV VACCINE Aged Out No longer eligi ble based on patient's age to complete this topic MENINGOCOCCAL (Group B) VACCINE Aged Out No longer eligible based on patient's age to complete this topic MENINGOCOCCAL VACCINE Aged Out No anne marie martha eligible based on patient's age to complete this topic PNEUMOCOCCAL VACCINE Aged Out No long er eligible based on patient's age to complete this topic
--- OUTSIDE RECORDS SUMMARY | 2024-04-27 19:20 | XMS_ITS | Patient Health Summary ---
Author Organization [facility] [email or web address] Address [address] [address] Care Team Providers Care Installation Coordinator Name Role Phone Unavailable Primary Care Provider Unavailabl e Note from [facility],non-owned Affiliates and Associated Physician Practices is amultiple site organization consisting of ambulatory clinics and hospital sitesin [place], [place], [place] and [place]. This disclosure is being madepursuant to the Care Everywhere program and may not contain all information available regarding this patient. Last updated 17.[facility] [email or web address] Allergies No known active allergies Medications * Be aware that medications may not be up to date on this document. Alwaysverify current medications with the patient. * VENTOLIN HFA 108 (90 Base) MCG/ACT inhaler(Started 10/02/2018) * atorvastatin (LIPITOR) 10 MG tablet(Started 06/05/2019) Take 10 mg by mouth once daily * diclofenac sodium (VOLTAREN) 1 % gel(Started 01/19/2019) * ferrous sulfate 325 (65 FE) MG tablet(Started 09/04/2018) TAKE 1 TABLET 3 TIMES A DAY * glimepiride (AMARYL) 2 MG tablet(Started 05/27/2019) * LORazepam (ATIVAN) 1 MG tablet(Started 03/06/2019) * metFORMIN ER 24hr (GLUCOPHAGE XR) 500 MG tablet(Started 10/13/2018) * Sacubitril-Valsartan (ENTRESTO PO) * SITagliptin Phosphate (JANUVIA PO) * GLIMEPIRIDE PO * LISINOPRIL PO * magnesium 500 MG tablet Take 500 mg by mouth once daily * BUMETANIDE PO * mupirocin (BACTROBAN) 2 % ointment(Started 04/10/2020) Apply to affected area 3 times daily 2 refills by 04/10/2021 Social History Tobacco Use Types Packs/Day Years Used Date Smoking Tobacco: Never Smokeless Tobacco: Never Sex and Gender Information Value Date Recorded Sex Assigned at Not on file Gender Identity Not on file Sexual Orientation Not on file Last Filed Vital Signs Vital Sign Reading Time Taken Comments Blood Pressure 152/88 04/10/2020 11:29 AM WOOD TREATING INSPECTOR Pulse 100 04/10/2020 11:29 AM WOOD TREATING INSPECTOR Temperature 36.6 ??C (97.8 ??F) 04/10/2020 11:[address] Respiratory Rate 16 04/10/2020 11:29 AM WOOD TREATING INSPECTOR Oxygen Saturation 96% 04/10/2020 11:29 AM WOOD TREATING INSPECTOR Inhaled Oxygen Concentration - - Weight 140.6 kg (310 lb) 04/10/2020 11:29 AM WOOD TREATING INSPECTOR Height 172.7 cm (5' 8 ) 04/10/2020 11:29 AM WOOD TREATING INSPECTOR Body Mass Index 47.14 04/10/2020 11:29 AM WOOD TREATING INSPECTOR
--- OUTSIDE RECORDS SUMMARY | 2024-04-27 19:20 | XMS_ITS | Encounter Summary ---
Author Organization [facility] Address [address] [place] [address]. [place] [address] [place] [address] Care Team Providers Care High Value Associate Name Role Phone Ortiz Machado MD Primary Care Provider [phone] Encounter Details Date Type Department Care Team (Late st Contact Info) Description 09/28/2019 Hospital Follow-up Call [facility] Telemetry Unit [facility] [place] [address] Julia Martínez, RN Social History Tobacco Use Types Packs/Day Years Used Date Smoking Tobacco: Never Smokeless Tobacco: Never Alcohol Use Standard Drinks/Week Comments Not Currently 0 (1 standard drink = 0.6 oz pur e alcohol) AUDIT-C Answer Date Recorded Q1: How often do you have a drink containing alc ohol? Never 09/16/2019 Average Number of Drinks Not on file 020 Frequency of Binge Drinking Not on file 08/24 Comments No Sex and Gender Information Value Date Recorded Sex Assigned at Not on file Legal Sex Female 3:50 PM CDT Gender Identity Not on file Sexual Orientation Not on file COVID-19 Exposure Response Date Recorded In the last month, have you been in contact with someone who was confirmed or suspected to have Coronavirus / COVID-19? No / Unsure 09/21/2019 2:17 PM CDT documented as of this encounter Functional Status * RETIRED Are you deaf or do you have serious difficulty hearing Answer Date of Assessment Author Status No 09/20/2019 5:33 AM CDT Activ e * RETIRED Are you blind or do you have serious difficulty seeing, even when wearing glasses? Answer Date of Assessment Author Status No 09/20/2019 5:33 AM CDT Activ e * Do you have serious difficulty walking or climbing stairs? Answer Date of Assessment Author Status No 09/20/2019 5:33 AM Katelynn Kate RN Active * Do you have difficulty dressing or bathing? Answer Date of Assessment Author Status No 09/20/2019 5:33 AM Katelynn Kate RN Active * Because of a physical, mental, or emotional condition, do you have difficulty doing errands alone such as visiting a doctor's office or shopping? Answer Date of Assessment Author Status No 09/20/2019 5:33 AM Katelynn Kate RN Active documented as of this encounter Mental Status * Because of a physical, mental, or emotional condition, do you have serious difficulty concentrating, remembering, or making decisions? Answer Entry Date Author Status No 09/20/2019 5:33 AM Katelynn Kate RN Active documented in this encounter Plan of Treatment Not on file documented as of this encounter Visit Diagnoses Not on filedocumented in this encounter Care Teams High Value Associate Relationship Specialty Start Date End Date Ortiz Machado MD [address] [address] PCP - General FAMILY PRACTICE 09/16/19 documented as of this encounter
--- OUTSIDE RECORDS SUMMARY | 2024-04-27 19:20 | XMS_ITS | CONTINUITY OF CARE DOCUMENT ---
Author Name juan martinez Address Unknown Organization [facility] Address [address] [place] [address] Phone [phone] Care Team Providers Care Carbonating Stone Cleaner Name Role Phone Claire VILLEDA, Wilfrid Unavailable [phone] John VILLEDA, Kayleen Unavailable HALLIE VILLEDA, LEAH Unavailable INSURANCE PROVIDERS Payer name Policy type / Coverage type [place]ilene red libertarian [id number] (2) Medicaid [id number]
--- OUTSIDE RECORDS SUMMARY | 2024-04-27 19:20 | XMS_ITS | Clinical Summary ---
Author Organization [facility] Address [address] [place] [address]. [place] [address] [place] [address] Care Team Providers Care Claim Approver Name Role Phone Ortiz Machado MD Primary Care Provider [phone] Allergies No known active allergies Medications metFORMIN 500 MG tablet Take 1,000 mg by mouth 2 (two) times daily with meals. Active SITagliptin 100 MG tablet Take 100 mg by mouth daily. Active atorvastatin 10 MG tablet Take 10 mg by mouth nightly at bedtime. Active glimepiride 4 MG tablet Take 4 mg by mouth every morning before breakfast. Active MAGNESIUM OXIDE 400 MG tablet TAKE 1 TABLET BY MOUTH TWICE A DAY 180 tablet 1 1 Active SPIRONOLACTONE 25 MG tablet TAKE 1/2 TABLET BY MOUTH EVERY DAY 45 tablet 1 1 Active METOPROLOL SUCCINATE ER 50 MG 24 hr tablet TAKE 1 TABLET BY MOUTH EVERY DAY 90 tablet 1 Active VENTOLIN HFA 108 (90 Base) MCG/ACT inhaler Inhale 2 puffs into the lungs 4 (four) times daily as needed. 1 Active diclofenac sodium 1 % gel Apply 4 g topically 4 (four) times daily. Active bumetanide 2 MG tablet Take 1 tablet (2 mg total) by mouth 2 (two) times daily. CALL FOR APPT 180 tablet 2 Active aspirin ([facility] ASPIRIN ADULT LOW DOSE) 81 MG chewable tablet Chew 1 tablet (81 mg total) by mouth in the morning. Call to make an appointment. 30 tablet 2 Active ENTRESTO 24-26 MG tablet TAKE 1 TABLET BY MOUTH 2 (TWO) TIMES DAILY. CALL TO MAKE APPT 60 tablet 2 Active Active Problems Problem Noted Date Diagnosed Date Pulmonary HTN ([facility]) 03/02/2020 Dilated cardiomyopathy ([facility]) 020 Acute combined systolic and diastolic congestive heart failure ([facility]) 09/24/2019 Non-STEMI (non-ST elevated m yocardial infarction) ([facility]) 09/16/2019 Hypertension Hyperlipidemia Diabetes mellitus ([facility]) Social History Tobacco Use Types Packs/Day Years [...] Sign Reading Time Taken Comments Blood Pressure 160/90 09/20/2020 1:37 PM CDT Pulse 86 09/20/2020 1:37 PM CDT Temperature 36.7 ??C (98.1 ??F) 09/24/2019 10:38 AM C DT Respiratory Rate 16 09/24/2019 10:38 AM CDT Oxygen Saturation 96% 09/20/2020 1:37 PM CDT Inhaled Oxygen Concentration - - Weight 137.9 kg (304 lb) 09/20/2020 1:37 PM CDT Height 175.3 cm (5' 9 ) 09/20/2020 1:37 PM CDT Body Mass Index 44.89 09/20/2020 1:37 PM CDT Plan of Treatment Health Maintenance Due Date Last Done Comments ASCVD Statin 1965 Cervical Cancer Screening Pa p Smear (Age 30 to 64) Every 3 Years 1964 Colorectal Cancer Screening Colonoscopy (10 Years) 1964 Kidney Health Evaluation 1964 Annual Physical 01/20/1967 Pneumococcal Vaccine: Pediatrics (0 to 5 Years) and At-Risk Patients (6 to 64 Years) (1 of 2 - PCV) 01/20/1970 Diabetes: Retinopathy Eye Exam 01/20/1982 Hepatitis C 01/20/1982 DTaP, Tdap and Td Vaccines ( 1 - Tdap) 01/20/1983 Cervical Cancer Screening Pa p with HPV Testing (Age 30 to 64) Every 5 Years 01/20/1994 Cervical Cancer Screening wi th HPV 01/20/1994 Mammogram Screening 2004 Zoster Vaccines (1 of 2) 01/20/2014 ASCVD LDL 09/16/2020 09/17/2019 Lipid Panel 09/16/2020 09/17/2019 Hemoglobin A1C 11/24/2020 05/24/2020, 05/23/2020 COVID-19 Vaccine (3 - 2023-2 5 season) 2023 09/21/2020, 08/31/2020 Influenza Adult (#1) 2023 RSV Immunization or 60+ Years (1 - Risk 60-74 years 1-dose series) 2024 Meningococcal B Vaccine Aged Out No l onger eligible based on patient's age to complete this topic Meningococcal Vaccine Aged Out No anne marie martha eligible based on patient's age to complete this topic RSV Immunizations Under 20 Months Aged Out No longer eligible b ased on patient's age to complete this topic Procedures Procedure Name Priority Date/Time Associated Diagnosis Comments LIPID PANEL Routine 09/17/2019 4:00 AM CDT from Last 3 Months or Most Recently Relevant to Health Maintenance Results * (ABNORMAL) LIPID PANEL (09/17/2019 4:00 AM CDT) CHOLESTEROL 126 <200 MG/DL 09/17/2019 5:10 AM CDT [facility] TRIGLYCERIDES 208(H) <150 MG/DL 09/17/2019 5:10 AM CDT [facility] HDL 36(L) >40.0 MG/DL 09/17/2019 5:10 AM CDT [facility] LDL (CALCULATED) 48 <100 MG/DL 09/17/2019 5:10 AM CDT [facility] NON HDL CHOLESTEROL 90 <130 MG/DL 09/17/2019 5:10 AM CDT [facility] CHOL/HDL RATIO 3.5 0.0 - 4.5 09/17/2019 5:10 AM T [facility] VLDL CALCULATION 42 5 - 55 MG/DL 09/17/2019 5:10 AM T [facility] LIPID INTERPRETATION 09/17/2019 5:10 AM T [facility] Comment: [facility] CONCENSUS REPORT RECOMMENDATIONS: ?ADULT ?CHILD ??LOW RISK: ?CHOLESTEROL ? <200 ? <170 ?TRIGLYCERIDE ?<150 ?--- ?HDL ? >=60 ?--- ?LDL ? <100 ? <110 ??BORDERLINE: ?CHOLESTEROL ? 200-239 ?? 170-199 ?TRIGLYCERIDE ?150-199 ? --- ?HDL ?40-59 ?--- ?LDL ? 100-159 ?? 110-129 ??HIGH RISK: ?CHOLESTEROL ? >=240 ?>=200 ?TRIGLYCERIDE ?>=200 ? --- ?HDL ?<40 ?--- ?LDL ? >=160 ?>=130 09/17/2019 4:00 AM CDT Percy Elise DO LABORATORY Final Result [facility] [address] [place] [address], from Last 3 Months or Most Recently Relevant to Health Maintenance Insurance MEDICAID Advance Directives * Full Code (Latest Code Status on File) Date Activated Date Inactivated Comments 09/24/2019 11:08 AM 09/24/2019 4:23 PM * Full Code Date Activated Date Inactivated Comments 09/21/2019 3:32 PM 09/24/2019 11:08 AM * Full Code Date Activated Date Inactivated Comments 09/16/2019 9:17 PM 09/21/2019 3:31 PM Care Teams Claim Approver Relationship Specialty Start Date End Date Ortiz Machado MD [address] [address] PCP - General FAMILY PRACTICE 09/16/19
--- OUTSIDE RECORDS SUMMARY | 2024-04-27 19:20 | XMS_ITS | Referral Summary ---
Author Organization [facility] Address [address] [place] [address] Care Team Providers Care Screw Machine Tender Name Role Phone Ortiz Machado MD Primary Care Prov ider Mina Lawler MD Unavailable Alok Wright MD Unavailable + [phone] Encounters Date Type Department Care Team Description 02/12/2024 Orders Only [facility] Medical Group Orthopedic and Sports Medicine [address] [place] [address] [phone] Inocencio Sinha PA Primary osteoarthritis of both knees (Primary Dx); BMI 40.0-44.9, adult (HCC) 02/12/2024 3:10 PM WRECKER OPERATOR Ancillary Procedure [facility] Medical Group Imaging at [address] [phone] 02/12/2024 3:05 PM WRECKER OPERATOR Ancillary Procedure [facility] Medical Group Imaging at [address] [phone] 02/12/2024 3:00 PM WRECKER OPERATOR Office Visit [facility] Medical [facility] Orthopedic and Sports Medicine [address] [place] [address] [phone] Inocencio Sinha PA Primary osteoarthritis of both knees (Primary Dx); BMI 40.0-44.9, adult (HCC) from Last 3 Months Allergies No known active allergies Medications atorvastatin [...] MOUTH TWICE A DAY 60 tablet 3 3 Active busPIRone (BUSPAR) 10 mg tabletIndicatio [...] foot Assessment & Plan (05/10/2022 4:26 PM WRECKER OPERATOR): Impression: Patient underwent an MRI of the [...] 05/04/2022 Assessment & Plan (05/04/2022 12:37 PM WRECKER OPERATOR): Impression: Patient reports gaining 100 lb since December 2021. BMI is 56.23. Plan: Discussed with the patient the importance of lifestyle modifications to include diet and exercise. We will defer care to primary care provider. Type 2 diabetes mellitus wit h foot ulcer, with long-term current use of insulin 05/04/2022 Assessment & Plan (05/10/2022 4:27 PM WRECKER OPERATOR): Impression: Chronic diabetes Plan: Continue insulin, Jardiance, Victoza Assessment & Plan (05/04/2022 1:34 PM WRECKER OPERATOR): Impression: Chronic diabetes mellitus with good glucose control. 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 No concern for osteomyelitis seen on MRI. Osteomyelitis is seen to the left 3rd toe. Plan: Continue wound care as recommended by wound clinic. Recommend patient to follow-up with Podiatry for further surgical evaluation. Assessment & Plan (05/04/2022 1:40 PM WRECKER OPERATOR): Impression: Neurotrophic ulcer noted to the left [...] infection. Continue wound care recommendations as per [facility]. Non-pressure chronic ulcer o f right calf with fat layer exposed 05/04/2022 Assessment & Plan (05/10/2022 4:28 PM WRECKER OPERATOR): Impression: Multiple small ulcerations to right lower extremity. Plan: Continue dressing changes as recommended by wound care. Assessment & Plan (05/04/2022 1:38 PM WRECKER OPERATOR): Impression: Patient has multiple small ulcerations to the right medial calf with yellow slough tissue noted within the wound bed. Patient also has a right dorsal foot wound that is small in size. No concern for infection. Plan: Continue recommendations as per Wound Clinic. Localized edema 05/04/2022 Assessment & Plan (05/04/2022 1:44 PM WRECKER OPERATOR): Impression: Patient has 3+ pitting edema to bilateral lower extremities. Plan: Recommend compression therapy to include Tubigrip and Kit bandage to bilateral lower extremities and leg elevation for edema control. 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 - Endocrine c/s - Lantus qhs - MDSSI - Carb consistent diet 3/ current regimen: Lantus 34 units QHS, Lispro 11 units TID with meals, SSI Endocrine recommendations: - 16 units Lispro with meals and High dose sliding scale -??Recommend Victoza 0.6 mg every day (covered by insurance; $9.20/month) at discharge??(Victoza would aid in weight loss). - discontinue Januvia at discharge - Monitor blood glucose TID/HS HTN (hypertension) 05/24/2020 Assessment & Plan (05/10/2022 4:26 PM WRECKER OPERATOR): Impression: Chronic hypertension Plan: Continue Coreg Assessment & Plan (05/04/2022 12:37 PM WRECKER OPERATOR): Impression: Chronic hypertension. Plan: Continue Coreg Assessment & Plan (05/24/2020 10:09 AM WRECKER OPERATOR): Home medications: HCTZ, lisinopril both on hold. Reports EF 35% Necrotizing fasciitis of lower leg ([facility]) 03/2020 Overview (05/23/2020): Added automatically from request for surgery [id number] Assessment & Plan (05/30/2020 11:44 AM WRECKER OPERATOR): #LLE wound/buttock - OR 05/23-I&D excisional debridement L buttock and medial thigh w/ 2 incisions packed WTD Kerlix w/ Dakins - WTD dressing changes - Vanc / Cefepime / Clindamycin - Vanc trough -Wound Cx: GPC, GPB, GN coccobacillus 05/24 dressing changed, changed to Dakin's wet to [...] provided Home health ordered Necrotizing fasciitis 05/23/2020 Social History Tobacco Use Types Packs/Day Years [...] often do you attend chur ch or jainism services? Never 08/30/2022 Do you belong to any clubs o r organizations such as jainism groups, unions, fraternal or athletic groups, or [...] staff should administer the PHQ-9) 6 08/30/2022 [facility] of Occupat ional Health - Occupational Stress Questionnaire Answer Date Recorded [...] place to sleep or slept in a detention (including now)? No 08/30/2022 Personal Safety Answer Date Recorded Have you ever been in or are you currently in a harmful physical or emotional relationship or is someone making you feel afraid or unsafe? Denies 08/27/2022 Comments No Sex and Gender Information Value Date Recorded Sex Assigned at Not on file Legal Sex Female 8:33 AM WRECKER OPERATOR Gender Identity Not on file Sexual Orientation Not on file Occupation Industry Job Start Date Job End Date retired/ disabled Not on file Not on file Not on cynthia e Last Filed Vital Signs Vital Sign Reading Time Taken Comments Blood Pressure 170/104 02/12/2024 3:17 PM WRECKER OPERATOR Pulse 105 02/12/2024 3:17 PM WRECKER OPERATOR Temperature 36.7 ??C (98 ??F) 10/18/2023 12:00 PM CDT Respiratory Rate 18 10/18/2023 12:00 PM CDT Oxygen Saturation 98% 10/18/2023 12:00 PM CDT Inhaled Oxygen Concentration - - Weight 120.2 kg (265 lb) 02/12/2024 3:17 PM WRECKER OPERATOR Height 170.2 cm (5' 7 ) 02/12/2024 3:17 PM WRECKER OPERATOR Body Mass Index 41.5 02/12/2024 3:17 PM WRECKER OPERATOR Plan of Treatment Not on file Procedures Procedure Name Priority Date/Time Associated Diagnosis Comments XR KNEE BILATERAL 4 OR MORE VIEWS Schedule Routine, Read Routine (OP Routine) 02/12/2024 3:10 PM WRECKER OPERATOR Primary osteoarthritis of both knees XR PELVIS 1 OR 2 VIEWS Schedule Routine, Read Routine (OP Routine) 02/12/2024 3:10 PM WRECKER OPERATOR Primary osteoarthritis of both knees EGFR Routine 09/04/2022 2:58 AM CDT HEMOGLOBIN A1C Routine 08/29/2022 5:55 AM CDT POCT LIPID PANEL Routine 04/30/2022 3:55 PM WRECKER OPERATOR Lipid screening from Last 3 Months or Most Recently Relevant to Health Maintenance Results * XR Knee Bilateral 4 or More Views (02/12/2024 3:10 PM WRECKER OPERATOR) Anatomical Region Laterality Modality Lower Extremities, Knee Digital Radiography Narrative 02/12/2024 3:28 PM WRECKER OPERATOR Four views of bilateral knees are negative for fracture dislocation or osseous lesion. ??Advanced arthritic changes are noted bilaterally right greater than left. ??[id number] changes medially in the patellofemoral compartments. ??Large osteophytes noted bilaterally. us Inocencio DENISE IMG XR PROCEDURES Final Res ult * XR Pelvis 1 or 2 Views (02/12/2024 3:10 PM WRECKER OPERATOR) Anatomical Region Laterality Modality Body, Pelvis N/A Digital Radiogra phy Narrative 02/12/2024 4:11 PM WRECKER OPERATOR A weight-bearing AP view of the pelvis [...] eGFR 68 mL/min/1. 73 m2 [facility] Comment: Interpretive Data Reference Interval Normal ?>/= [...] 2:58 AM CDT 09/04/2022 4:30 AM CDT Kimani Mcgee DPM LAB BLOOD ORDERABLES Final Res ult [facility] ([facility]) [address] Department [place] [address] * (ABNORMAL) Hemoglobin A1c (08/29/2022 5:55 AM CDT) Pathologist [facility] Hgb A1C 8.4(H) 4.0 - 5.6 % [facility]) Estimated Average Glucose 194 mg/dL [facility] ([facility]) Comment: The ADA recommends reporting an estimated Average Glucose (eAG) with all Hemoglobin A1c results using the equation derived from a study of 507 normal and diabetic adults. ??Minority populations were underrepresented and children were not included. ?? (Diabetes Care 31:6167-5251, 2008). ??The eAG is not equivalent to a fasting glucose. Blood 08/29/2022 5:55 AM CDT 08/29/2022 6:26 AM CDT Mina Quick DO LAB BLOOD ORDERABLES F inal Result [facility] ([facility]) [address] [place] [address] * POCT lipid panel (04/30/2022 3:55 PM WRECKER OPERATOR) [facility] Cholesterol, POC <100 mg/dL Comment:Glucose = 155 HDL, POC 27 mg/dL Triglycerides, POC 219 mg/dL LDL Cholesterol POC 43 mg/dL Chol/HDL Ratio, POC N/A Non-HDL Cholesterol, POC N/A mg/dL Cholesterol Total, POC <100 mg/dL Capillary blood 04/30/2022 3 :55 PM WRECKER OPERATOR Hortencia Viera NP POINT OF CARE TEST ORDERA BLES Final Result from Last 3 Months or Most Recently Relevant to Health Maintenance Insurance [employer] MEDICARE MEDICARE [facility] MEDICARE [facility] MEDICARE SOLUTIONS Advance Directives For more information, please contact: [phone] Documents on File Type Date Recorded Patient Music Typographer Expl anation ADVANCE DIRECTIVE 10/31/2022 8:09 AM Power of Orthopaedic Surgeon-Medical * Full Code (Latest Code Status on File) Date Activated Date Inactivated Comments 08/27/2022 12:34 PM 09/04/2022 3:38 PM * Full Code Date Activated Date Inactivated Comments 05/10/2022 11:25 PM 05/22/2022 8:20 PM * Full Code Date Activated Date Inactivated Comments 05/24/2020 12:25 AM 05/30/2020 6:24 PM Care Teams Screw Machine Tender Relationship Specialty Start Date End Date Ortiz Machado MD PCP - General Family Medicine 06/20/18 Mina Lawler MD Consulting Physician General Surgery 05/22/22 Alok Wright MD Consulting Physician Infectious Diseases 09/03/22
[2024-04-27] MEDS: FUROSEMIDE INJ 40 MG/4 ML VIAL IV PUSH (20:00)
[2024-04-27 20:01] VITALS: BP 132/93; PULSE 92; RESP 24; O2SAT 97
[2024-04-27 21:54] VITALS: BP 132/79; PULSE 79; RESP 16; O2SAT 97
[2024-04-27 22:40] LABS: Add Urine Microscopic? YES; Appearance Urine Clear (Clear); Bacteria Urine None Seen /hpf; Bilirubin Urine Negative (Negative); Blood Urine Negative (Negative); Color Urine Yellow (Yellow); Glucose Urine UA 3+ mg/dL (Negative); Ketones Urine Negative (Negative); Leukocyte Esterase Ur Negative LEU/UL (Negative); Nitrate Urine Negative (Negative); Non Pathogenic Casts 0-2; Protein Urine 2+ mg/dL (Negative); RBC Urine 0-2 /hpf (0-2); Specific Grav Ur 1.024 (1.001-1.035); Squamous Epithelial Cell Urine None Seen /hpf (Few); Urobilinogen Urine 0.2 mg/dL (<2.0); WBC Urine 0-5 /hpf (0-3)
[2024-04-27 23:04] VITALS: BMI 46.9
[2024-04-27 23:07] VITALS: BP 124/97; PULSE 87; RESP 16; O2SAT 97
--- NOTE | 2024-04-27 23:44 | ADMGEN ---
This patient, Allison Thurston, was admitted to Medical Room 342-01. Patient/family oriented to hospital policies and general routines including ID bracelet, bed and alarms, visiting hours, pain management, procedures, bathroom and other care routines, personal items, smoking policy, room service/diet, and visiting hours. Information on how to activate the Rapid Response Team has been discussed. Patient/Family are encouraged to report perceived risks to care and to ask questions if they do not understand what they are told or what they should do.
[2024-04-28] VITALS (13 sets, daily range): BP systolic 100–121; BP diastolic 52–81; PULSE 77–95; RESP 18–20; TEMP 36.2–36.9; O2SAT 94–100
--- NOTE | 2024-04-28 | ECHO_ITS ---
Patient Info Name: Allison Thurston Age: 59 years : 1965 Gender: Female Ht: 67 in Wt: 300 lbs BSA: 2.61 m2 HR: 83 bpm BP: 121 / 72 mmHg Technical Quality: Fair Exam Date: 04/28/2024 9:06 AM Exam Location: Echo Lab Patient Status: Inpatient Admit Date: 04/27/2024 Staff Ordering Physician: Roxane White DO Print Manager: Jessie Silveira RDCS Attending Provider: Roxane White DO Referring Physician: Christopher AMAYA; Exam Type: CA echo doppler color flow Study Info Indications - CHF EXACERBATION Complete two-dimensional, color flow and Doppler transthoracic echocardiogram is performed. Summary 1. Technically difficult study with limited views. Patient declined Definity. 2. Left ventricular chamber dimension is severely enlarged. 3. Left ventricular systolic function is moderately reduced, estimated at 30-35%. 4. The left ventricular diastolic function is grade I diastolic dysfunction. 5. Right ventricular chamber dimension is mildly enlarged. 6. Right ventricular systolic function is normal. 7. Left atrial chamber dimension is mildly enlarged. 8. Right atrial chamber dimension is mildly enlarged. 9. There is mild aortic valve regurgitation. 10. There is mild to moderate mitral valve regurgitation. 11. There is mild to moderate tricuspid valve regurgitation. 12. Pulmonary hypertension. Estimated pulmonary arterial systolic pressure is 66 mmHg. Left Ventricle Left ventricular chamber dimension is severely enlarged. Left ventricular systolic function is moderately reduced, estimated at 30-35%. There is no increased left ventricular wall thickness. The left ventricular diastolic function is grade I diastolic dysfunction. Right Ventricle Right ventricular chamber dimension is mildly enlarged. Right ventricular systolic function is normal. Left Atria Left atrial chamber dimension is mildly enlarged. Right Atria Right atrial chamber dimension is mildly enlarged. Atrial Septum Intact interatrial septum visualized by color flow imaging. Aortic Valve The aortic valve is probable trileaflet. There is no aortic valve stenosis. There is mild aortic valve regurgitation. There is mild aortic valve calcification. Pulmonic Valve The pulmonic valve is not well visualized. There is trace pulmonic regurgitation. Mitral Valve There is mild to moderate mitral valve regurgitation. Tricuspid Valve There is mild to moderate tricuspid valve regurgitation. Pulmonary hypertension. Estimated pulmonary arterial systolic pressure is 66 mmHg. Pericardium/Pleural There is no pericardial effusion. Inferior Vena Cava Dilated inferior vena cava with <50% collapse upon inspiration consistent with elevated right atrial pressure, 15 mmHg. Aorta The aortic root size at the sinus of Valsalva is normal. Left Ventricular Outflow Tract Name Value Normal LVOT 2D LVOT Diameter 2.3 cm LVOT Doppler LVOT Peak Gradient 4 mmHg LVOT Mean Gradient 2 mmHg LVOT VTI 17 cm LVOT VTI/AV VTI Ratio 0.4 LVOT Stroke Volume 70 ml LVOT CO 5.9 l/min LVOT CI 2.3 l/min/m2 Pulmonic Valve Name Value Normal PV Doppler PV Peak Gradient 5 mmHg PV Regurgitation Doppler NV Peak End Diastolic Velocity 135 cm/s Mitral Valve Name Value Normal MV Doppler MV Peak Gradient 5 mmHg MV Mean Gradient 2 mmHg MV Decel Real 544 cm/s2 MV PHT 55 ms MV Area (PHT) 4.0 cm2 4.0-5.0 MV Area (Cont Eq VTI) 2.9 cm2 MV Regurgitation Doppler MR Peak Gradient 97 mmHg MV Diastolic Function MV E Peak Velocity 103 cm/s MV A Peak Velocity 91 cm/s MV E/A 1.1 MV Decel Time 189 ms MV Annular TDI MV E/e' (Septal) 21.2 <=8.0 MV E/e' (Lateral) 20.4 <=8.0 MV E/e' (Average) 20.8 Tricuspid Valve Name Value Normal TV Regurgitation Doppler TR Peak Velocity 355 cm/s TR Peak Gradient 51 mmHg Estimated PAP/RSVP RA Pressure 15 mmHg <=5 PA Systolic Pressure 66 mmHg <36 RV Systolic Pressure 66 mmHg <36 Aortic Valve Name Value Normal AV Doppler AV Peak Velocity 222 cm/s AV Peak Gradient 16 mmHg AV Mean Gradient 9 mmHg AV VTI 40 cm AV Area (Cont Eq VTI) 1.7 cm2 >=3.0 AV Area (Cont Eq Jose) 1.9 cm2 AV Regurgitation 2D LVOT Area 4.1 cm2 AV Regurgitation Doppler AR Decel Time 2,333 ms AR Decel Real 150 cm/s2 AR PHT 676 ms Ventricles Name Value Normal LV Dimensions 2D/MM IVS Diastolic Thickness (2D) 1.1 cm 0.6-1.0 LVID Diastole (2D) 6.8 cm 3.8-5.2 LVIW Diastolic Thickness (2D) 1.1 cm 0.6-0.9 LVID Systole (2D) 6.2 cm 2.2-3.5 LVOT Diameter 2.3 cm LV Mass (2D Cubed) 351.17 g 67.00-162.00 LV Mass Index (2D Cubed) 134 g/m2 43-95 Relative Wall Thickness (2D) 0.33 LV Fractional Shortening/Ejection Fraction 2D/MM LV Fractional Shortening (2D) 11 % 27-45 LV EF (2D Teichchelseaz) 23 % 54-74 LV Diastolic Volume (4C MOD) 259 ml LV EF (4C MOD) 31 % LV Diastolic Volume (2C MOD) 278 ml LV EF (2C MOD) 33 % LV Diastolic Volume (BP MOD) 268 ml 46-106 LV Diastolic Volume Index (BP MOD) 102 ml/m2 29-61 LV Systolic Volume (BP MOD) 184 ml 14-42 LV Systolic Volume Index (BP MOD) 70 ml/m2 8-24 LV EF (BP MOD) 31 % 54-74 LV Diastolic Length (4C) 9.7 cm LV Systolic Length (4C) 8.6 cm LV Stroke Volume (4C MOD) 80 ml Atria Name Value Normal LA Dimensions LA Volume (4C A-L) 83 ml RA Dimensions RA Area (4C) 23.5 cm2 <=18.0 Report Signatures
--- NOTE | 2024-04-28 07:48 | P.HP_ITS ---
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 She reports that she has been having increased lower extremity swelling for a week and increased dyspnea on exertion. She stated that when she was weighed today that she had gained 40 lb compared to her prior weight from 2 or 3 months ago. The patient arrived with medications both in bottles and in pre packaged packets. The patient reports he has been taking the medications from her bottles to try to finish off of those medications before starting the packets of medications. The patient has poor insight as to what her medications are and the different reasons for the medications to be administered. It turns out the patient has been taking her prescribed Entresto for the last 7 months but she also does not know her dose of Entresto. Her water carter is not at this facility. Her according to the external medication data from a pharmacy in appears alert Entresto has not been filled since August of 2023 but this could be in part due to her receiving package medications from and mail order pharmacy. But she does not think her Entresto was even in the mail order packets. She is unsure because she has not even been taking her medications in those packets. She had also previously been on Bumex which is not within the medication bottles that she has on hand and is also not in her medication packets. She thinks that she has been taking her spironolactone as directed. She reports that her glucoses have been stable. She has not noticed any new foot wounds. She denies any lower extremity erythema. She does chronically pick and scratch at her skin several open wounds but not appear to be acutely infected. She has chronic large and stress urinary incontinence. She reports that since she received a 40 mg of Lasix in the ER that she has put out almost 3 L of urine this is confirmed by nursing documentation. She has a pure wick catheter in place. In the ER her labs demonstrated mild hyperkalemia with potassium of 5.1. She is not taking any potassium supplements at home but is on a potassium sparing diuretic. Review of Systems 2 Review of Systems: 12 systems were reviewed with pertinent positives and negatives per HPI. Except as documented in the HPI, all other systems were reviewed and are negative. 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 PSVT (paroxysmal supraventricular tachycardia) Chronic combined systolic and diastolic heart failure EF 35-40% and grade 2 diastolic dysfunction noted on echocardiogram 2021 also noted [id number] mitral valve regurgitation, moderate tricuspid valve regurgitation and moderate right atrial enlargement Pneumonia Mixed incontinence Obstructive sleep apnea 06/2019--refuses CPAP Major depressive disorder, recurrent, mild Osteoarthritis of knees, bilateral GERD (gastroesophageal reflux disease) Type 2 diabetes mellitus with diabetic polyneuropathy Surgical History Surgical History (Updated 04/28/24 @ 08:01 by Roxane White DO) Cervical spinal cord compression History of 3 sections History of amputation of toe Partial amputation of 2nd left toe History of cholecystectomy 09/2015 History of amputation of left great toe 2018 Family History Family History Mother Family history of Alzheimer's disease Hypertension Father Family history of diabetes mellitus in first degree relative Acute myocardial infarction Heart disease Hypertension Sibling CAD (coronary artery disease) Acute myocardial infarction Other Depression Diabetes mellitus Social History Social History (Updated 04/28/24 @ 08:16 by Roxane White DO) Social History: She is and lives in her own home. She has a son who lives in [place] and a daughter who lives locally. She had another son who in an MVA at a young age. She ambulates with a walker. 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 Code status: Full code Surrogate decision maker: Malissa (Daughter) Smoking status: Never smoker Second hand tobacco smoke exposure: No Alcohol intake: current Drinks per week: 1 Substance use: current Substance use type: marijuana Other substance usage details: once every other month Do You Feel Safe in your Home?: Yes Lack of Transportation: No Lack of Food: Never True Current Housing: I Have Housing Concerned About Future Housing: No Difficulty Paying Gas/Electric Bills: YES Difficulty Paying for Meds: No Currently Unemployed: No Education: High School Diploma/GED Difficulty w/ Childcare or Family Care: No Living arrangements: alone Occupation/Education: other Additional occupation/education comments: Disabled Gender identity (if verbalized by the patient): Female Sexual Orientation (if Verbalized by the Patient): Straight or Heterosexual Spiritual care concerns: No Agree to blood products: Yes Meds Home Medications and Allergies Home Medications ?Medication ?Instructions ?Recorded ?Confirmed ?Type blood-glucose meter (OneTouch #1 ea 05/01/22 04/28/24 Rx Ultra2 Meter) blood sugar diagnostic (OneTouch #100 ea 09/10/22 04/28/24 Rx Ultra Test strips) buspirone 10 mg tablet 10 mg PO BID #180 tabs 11/18/23 04/28/24 Rx lorazepam 1 mg tablet 1 mg PO BID #60 tabs 12/02/23 04/28/24 Rx tolterodine 4 mg capsule,extended See Rx Instructions .Route 02/25/24 04/28/24 Rx release 24 hr .COMPLEX #90 caps atorvastatin 10 mg tablet 10 mg PO DAILY #90 tabs 03/07/24 04/28/24 Rx gabapentin 300 mg capsule 300 mg PO TID #270 caps 03/07/24 04/28/24 Rx metformin 500 mg tablet,extended 2,000 mg (4 x 500 mg) PO DAILY 03/07/24 04/28/24 Rx release 24 hr #360 tabs naproxen 500 mg tablet 500 mg PO BID #180 tabs 03/07/24 04/28/24 Rx doxycycline hyclate 100 mg capsule 100 mg PO DAILY #90 caps 04/07/24 04/28/24 Rx spironolactone 25 mg tablet 25 mg PO DAILY #90 tabs 04/10/24 04/28/24 Rx apple cider vinegar 300 mg tablet 450 mg PO DAILY 04/28/24 04/28/24 History empagliflozin 25 mg tablet 25 mg PO DAILY 04/28/24 04/28/24 History (Jardiance) ferrous sulfate 325 mg (65 mg 325 mg PO DAILY 04/28/24 04/28/24 History iron) tablet (iron) metoprolol succinate 25 mg 25 mg PO DAILY 04/28/24 04/28/24 History tablet,extended release 24 hr sacubitril 24 mg-valsartan 26 mg 1 tablet PO BID 04/28/24 04/28/24 History tablet (Entresto) Allergies Allergy/AdvReac Type Severity Reaction Status Date / Time No Known Allergies Allergy Verified 01/06/24 14:22 Vital Signs Vital Signs - 24 hr 04/27/24 15:14 04/27/24 19:17 04/27/24 20:01 Temperature 98.0 F Pulse Rate 88 92 Respiratory Rate 20 24 H Blood Pressure 141/89 H 132/93 H Pulse Oximetry 100 97 Oxygen Delivery Room Air Room Air 04/27/24 21:54 04/27/24 23:07 04/28/24 00:05 Temperature Pulse Rate 79 87 91 Respiratory Rate 16 16 Blood Pressure 132/79 124/97 H Pulse Oximetry 97 97 Oxygen Delivery 04/28/24 00:06 04/28/24 00:48 04/28/24 04:00 Temperature 97.6 F Pulse Rate 95 91 Respiratory Rate 18 Blood Pressure 117/52 L Pulse Oximetry 97 Oxygen Delivery Room Air Exam 2 Narrative: Weight 136 kg BMI 47 Const: Other: Morbidly obese, appears stated age, no acute distress, chronically deconditioned HENMT: Other: Mucous membranes are tacky, no oral pharyngeal erythema, crowded posterior oropharynx, head is normocephalic atraumatic Eyes: Other: Pupils are equal and reactive, no scleral icterus, no conjunctival pallor Neck: Other: Large neck circumference, unable to assess for JVD due to body habitus, short neck Resp: Other: Decreased breath sounds bilaterally, no increased work of breathing, no accessory lung sounds Cardio: Other: Regular rate, regular rhythm, 2+ bilateral radial pedal pulses GI: Other: Obese, soft, nontender, midline surgical scar from the pubis to the umbilicus, rectus diastasis noted, normoactive bowel sounds, difficult to assess for organomegaly due to body habitus : Other: Pure wick catheter in place Skin: Other: Patient has multiple scars from picking and scratching, she has scattered skin ulcerations on her face, right hip, lower extremities and abdomen due to skin picking and scratching, Neuro: Other: Alert orient x4, speech is clear, no facial asymmetry, moves all extremities equally, chronic neuropathic changes due to peripheral neuropathy bilateral feet greater than bilateral hands Extrem: Other: A 2 to 3+ pitting edema bilateral lower extremities up through the thighs Psych: Other: Appropriate mood and affect, pleasant and cooperative, poor insight H&P: Results Labs Labs: Laboratory Tests 04/27/24 16:29 04/27/24 16:29 04/27/24 04/27/24 16:29 20:07 WBC 9.1 RBC 6.07 H Hgb 12.8 Hct 45.3 MCV 74.6 L MCH 21.1 L MCHC 28.3 L RDW 19.6 H Plt Count 367 MPV 9.4 Immature Gran % (Auto) 0.6 H Neut % (Auto) 69.1 Lymph % (Auto) 18.9 [place] % (Auto) 8.5 Eos % (Auto) 2.0 Baso % (Auto) 0.9 Lymph # (Auto) 1.72 [place] # (Auto) 0.8 H Eos # (Auto) 0.2 Baso # (Auto) 0.1 Abs Immat Gran (auto) 0.05 H Absolute Neuts (auto) 6.3 Absolute Nucleated RBC 0.000 Nucleated RBC % 0.0 Platelet Estimate Adequate Hypochromasia 1+ Anisocytosis 3+ Microcytosis 1+ Schistocytes None seen PT 13.3 INR 1.0 APTT 25.1 Sodium 140 Potassium 5.1 H Chloride 102 Carbon Dioxide 24 Anion Gap 14 H BUN 24 H Creatinine 0.75 Estim Creat Clear Calc 101 Estimated GFR > 60 Glucose 160 H Calcium 9.8 Total Bilirubin 0.6 AST 23 ALT 21 Alkaline Phosphatase 104 Troponin I 0.018 NT-Pro-B Natriuret Pep 4260 H Total Protein 8.0 Albumin 4.3 Urine Color Yellow Urine Appearance Clear Urine pH 6.0 Ur Specific [place] 1.024 Urine Protein 2+ H Urine Glucose (UA) 3+ H Urine Ketones Negative Ur Blood (Man) Negative Urine Nitrate Negative Urine Bilirubin Negative Urine Urobilinogen 0.2 Leukocyte Esterase Rfl Negative Urine RBC 0-2 Urine WBC 0-5 Ur Squamous Epith Cells None seen Urine Bacteria None seen Urine Casts 0-2 Impressions Chest X-Ray 04/27/24 16:50 IMPRESSION: 1. Cardiomegaly. EKG: Measurements Intervals Rogers Rate: 86 P: 51 CO: 177 QRS: -59 QRSD: 106 T: 64 QT: 380 QTc: 455 Interpretive Statements SINUS RHYTHM LEFT AXIS DEVIATION POSSIBLE LEFT ATRIAL ENLARGEMENT CONSIDER INFERIOR INFARCT, AGE INDETERMINATE POSSIBLE ANTERIOR MYOCARDIAL INFARCTION , OF INDETERMINATE AGE BASELINE ARTIFACT- I, II, AVR, AVL, V3-V4 ABNORMAL ECG No previous ECG available for comparison All imaging and EKGs personally reviewed and interpreted. And unless stated otherwise agree with radiologic and cardiology interpretation. Assessment and Plan Assessment and plan (1) Acute on chronic combined systolic (congestive) and diastolic (congestive) heart failure: Code(s): I50.43 - Acute on chronic combined systolic (congestive) and diastolic (congestive) heart failure Status: Acute (2) Acute hyperkalemia: Code(s): E87.5 - Hyperkalemia Status: Acute (3) Type 2 diabetes mellitus with diabetic polyneuropathy: Qualifiers: Diabetes mellitus terminal makeup operator insulin use: without longterm use Q ualified Code(s): E11.42 - Type 2 diabetes mellitus with diabetic polyneuropathy Code(s): E11.42 - Type 2 diabetes mellitus with diabetic polyneuropathy Status: Chronic (4) Hypertension: Qualifiers: Hypertension type: primary hypertension Qualified Code(s): I10 - Essential (primary) hypertension Code(s): I10 - Essential (primary) hypertension Status: Chronic (5) Obstructive sleep apnea: Code(s): G47.33 - Obstructive sleep apnea (adult) (pediatric) Status: Chronic Assessment and Plan: Untreated patient refuses BiPAP (6) Mixed incontinence: Code(s): N39.46 - Mixed incontinence Status: Acute (7) Medication nonadherence due to psychosocial problem: Code(s): Z91.148 - Patient's other noncompliance with medication regimen for other reason; Z65.9 - Problem related to unspecified psychosocial circumstances Status: Acute Plan Patient has acute on chronic combined systolic and diastolic heart failure due to nonadherence to medication regimen. Patient seemed to have difficulty understanding medication regimen and or organizing medications. The patient has had great urine output with 40 mg of Lasix x1 given in the ER. She has already had 2.6 L urine output. Will monitor electrolyte panel. Will change diet to consistent carbohydrate 2 g sodium. Will monitor strict I&O's and daily weights. It would be nice if we could get a hold of the patient's water carter to determine what her home cardiac meds truly should be. The patient would benefit from low-dose Entresto plus likely low-dose beta-petty. However given the patient's current mild hyperkalemia will hold off on starting Entresto. Will start patient on Coreg 6.25 mg p.o. b.i.d.. Will obtain echocardiogram to further evaluate cardiac structure and function as the patient's last echocardiogram within our system was in 2021. Will hold the patient's home spironolactone due to her mild hyperkalemia. Will repeat electrolyte panel is a.m.. Patient has been admitted as observation status. Quality VTE Prophylaxis VTE prophylaxis: pharmacologic ordered (Lovenox 40 mg subQ q.12 hours.) Hospitalist [facility] Advance Care Plan I have confirmed that the patient's Advanced Care Plan is present, code status is documented, or surrogate decision maker is listed in patient medical record.: Yes Medication Reconciliation I have utilized all available resources to obtain, update and review the patients current medications (includes all prescriptions, OTC, herbals, cannabis, and nutritional supplements).: Yes
[2024-04-28 08:30] LABS: Anion Gap 8 mmol/L (4-12); Blood Urea Nitrogen 25 mg/dL (7-17); Calcium 9.3 mg/dL (8.4-10.2); Carbon Dioxide 28 mmol/L (22-30); Chloride 101 mmol/L (98-107); Estimated CRCL calculation 101 ml/min; Estimated Glomerular Filt Rate > 60; Glucose 150 mg/dL (65-110); Potassium 4.5 mmol/L (3.4-5.0); Sodium 137 mmol/L (137-145)
--- NOTE | 2024-04-28 09:21 | PM.IMPN ---
Progress Note: A&P Assessment and Plan (1) Acute on chronic combined systolic (congestive) and diastolic (congestive) heart failure: Code(s): I50.43 - Acute on chronic combined systolic (congestive) and diastolic (congestive) heart failure Status: Acute (2) Acute hyperkalemia: Code(s): E87.5 - Hyperkalemia Status: Acute (3) Type 2 diabetes mellitus with diabetic polyneuropathy: Qualifiers: Diabetes mellitus buttermaker continuous churn insulin use: without senior living use Qualified Code(s): E11.42 - Type 2 diabetes mellitus with diabetic polyneuropathy Code(s): E11.42 - Type 2 diabetes mellitus with diabetic polyneuropathy Status: Chronic (4) Hypertension: Qualifiers: Hypertension type: primary hypertension Qualified Code(s): I10 - Essential (primary) hypertension Code(s): I10 - Essential (primary) hypertension Status: Chronic (5) Obstructive sleep apnea: Code(s): G47.33 - Obstructive sleep apnea (adult) (pediatric) Status: Chronic Assessment and Plan: Untreated patient refuses BiPAP (6) Mixed incontinence: Code(s): N39.46 - Mixed incontinence Status: Acute (7) Medication nonadherence due to psychosocial problem: Code(s): Z91.148 - Patient's other noncompliance with medication regimen for other reason; Z65.9 - Problem related to unspecified psychosocial circumstances Status: Acute Plan Patient has acute on chronic combined systolic and diastolic heart failure due to nonadherence to medication regimen. The patient has had great urine output with 40 mg of Lasix x1 given in the ER. She has already had 2.6 L urine output - monitor electrolyte panel diet to consistent carbohydrate 2 g sodium - monitor strict I&O's and daily weights. home med list is completed and Entresto and beta-petty supposed to be on it will restart beta petty and hold entresto for now However given the patient's current mild hyperkalemia will hold off on starting Entresto. ECHO is ordered Holding home spironolactone due to her mild hyperkalemia trend daily labs- ordered t2dm ss, lantus 10 units at hs, hypoglycemia protocol she is on metfromin at home and jardiance will continue jardiance but hold metformin Time Spent With Patient Time with patient: 25 - 35 minutes Subjective Date/time seen: 04/28/24 09:21 Interval history: 59-year-old female with a past medical history of combined systolic and diastolic heart failure, morbid obesity, type 2 diabetes mellitus with severe diabetic peripheral neuropathy, essential hypertension, untreated obstructive sleep apnea and combined urinary incontinence who presented to the ER from home due to some bilateral lower extremity swelling and dyspnea on exertion. She reports that she has been having increased lower extremity swelling for a week and increased dyspnea on exertion. She gained about 40 lb in the last couple of months. Unsure what meds she was taking and doses. pt is seen and examined. she is poor historian- gets distracted easily, reports she is here per her pcp recommendation to figure out her meds Review of Systems Review of Systems: 12 systems were reviewed with pertinent positives and negatives per HPI. Except as documented in the HPI, all other systems were reviewed and are negative. Exam Narrative: Weight 136 kg BMI 47 Const: General: comfortable Resp: Effort & Inspection: normal respiratory effort Cardio: Rate: regular rate Rhythm: regular rhythm Skin: Lesions: lesion noted Other: scabs to lower extremities states worse lately when her legs started to swell Extrem: General: edema Psych: Affect: normal affect Objective Data Vital Signs Vital Signs: Vital Signs - 24 hr 04/27/24 15:14 04/27/24 19:17 04/27/24 20:01 Temperature 98.0 F Pulse Rate 88 92 Respiratory Rate 20 24 H Blood Pressure 141/89 H 132/93 H Pulse Oximetry 100 97 Oxygen Delivery Room Air Room Air 04/27/24 21:54 04/27/24 23:07 04/28/24 00:05 Temperature Pulse Rate 79 87 91 Respiratory Rate 16 16 Blood Pressure 132/79 124/97 H Pulse Oximetry 97 97 Oxygen Delivery 04/28/24 00:06 04/28/24 00:48 04/28/24 04:00 Temperature 97.6 F Pulse Rate 95 91 Respiratory Rate 18 Blood Pressure 117/52 L Pulse Oximetry 97 Oxygen Delivery Room Air 04/28/24 06:00 04/28/24 08:05 Temperature 97.3 F L Pulse Rate 88 Respiratory Rate 18 Blood Pressure 121/72 Pulse Oximetry 96 94 Oxygen Delivery Room Air Intake/Output Intake/Output: Intake & Output 04/25/24 04/26/24 04/27/24 04/28/24 23:59 23:59 23:59 23:59 Intake Total 300 Output Total 2601 900 Balance -2600 -600 Meds/Results Medications: Active Medications Generic Name Dose Route Start Last Admin Trade Name Freq PRN Reason Stop Dose Admin Acetaminophen 650 mg 04/27/24 21:09 Acetaminophen 325 Mg Tablet PO Q4H PRN Mild Pain (1-3) or Fever Hydrocodone Bitart/Acetaminophen 1 tab 04/27/24 21:09 Hydrocodone/Acetaminophen (*Crx) 5-325 Mg Tablet PO Q4H PRN Pain Rated 4-6 Atorvastatin Calcium 10 mg 04/28/24 09:00 Atorvastatin 10 Mg Tablet PO DAILY REPLACED BY [facility] Buspirone HCl 10 mg 04/28/24 09:00 Buspirone Hcl 10 Mg Tablet PO BID REPLACED BY [facility] Carvedilol 6.25 mg 04/28/24 09:00 Carvedilol 6.25 Mg Tablet PO Q12HR REPLACED BY [facility] Dextrose 12.5 gm 04/28/24 07:53 Dextrose 50% 25 Gm/50 Ml Syringe IV PUSH PRN PRN Hypoglycemia Protocol Doxycycline Hyclate 100 mg 04/28/24 09:00 Doxycycline Hyclate 100 Mg Tablet PO DAILY REPLACED BY [facility] Empagliflozin 25 mg 04/28/24 09:00 Empagliflozin 25 Mg Tablet PO DAILY REPLACED BY [facility] Enoxaparin Sodium 40 mg 04/28/24 09:00 Enoxaparin 40 Mg/0.4 Ml Syringe SUB-Q Q12HR REPLACED BY [facility] Ferrous Sulfate 325 mg 04/28/24 09:00 Ferrous Sulfate [address] BY MOUTH DAILY REPLACED BY [facility] Furosemide 40 mg 04/28/24 09:00 Furosemide Inj 40 Mg/4 Ml Vial IV PUSH Q12HR REPLACED BY [facility] Gabapentin 300 mg 04/28/24 09:00 Gabapentin 300 Mg Capsule PO TID REPLACED BY [facility] Glucagon 1 mg 04/28/24 07:53 Glucagon For Inj 1 Mg Vial IM PRN PRN Hypoglycemia Protocol Glucose 15 gm 04/28/24 07:53 Glucose Oral Gel 15 Gm Of Glucse In 37.5 Gm Tube PO PRN PRN Hypoglycemia Protocol Dextrose 1,000 mls @ 100 mls/hr 04/28/24 07:53 Dextrose 5% 1,000 Ml IVPB PRN PRN Hypoglycemia Protocol Insulin Aspart 3 - 6 units 04/28/24 08:00 04/28/24 09:16 Insulin Aspart (*Bkc) 100 Units/Ml SUB-Q Not Given TIDWM REPLACED BY [facility] Protocol Insulin Aspart 1 - 3 units 02/04/25 21:00 Insulin Aspart (*Bkc) 100 Units/Ml SUB-Q HS REPLACED BY [facility] Protocol Lorazepam 1 mg 04/28/24 09:00 Lorazepam (*Crx) 1 Mg Tablet PO BID REPLACED BY [facility] Metformin HCl 2,000 mg 04/28/24 09:00 Metformin Hcl Xr 500 Mg Tab.Sr.24h PO DAILY REPLACED BY [facility] Naproxen 500 mg 04/28/24 09:00 Naproxen 500 Mg Tablet PO BID REPLACED BY [facility] Ondansetron HCl 4 mg 04/27/24 21:09 Ondansetron Inj 4 Mg/2 Ml Vial IV PUSH Q4H PRN Nausea Perflutren Lipid Microsphere 0 ml 04/28/24 07:50 Perflutren Lipid Microspheres 1.5 Ml Vial Diluted To 10 Ml Total Volume IV PUSH 05/01/24 07:50 ONCE PRN adequate visualization Protocol Spironolactone 25 mg 04/28/24 09:00 Spironolactone 25 Mg Tablet PO DAILY REPLACED BY [facility] Tolterodine Tartrate 4 mg 04/28/24 09:00 Tolterodine Tartrate La 4 Mg Cap.Er.24h PO DAILY REPLACED BY [facility] Radiology Results: ITS Impressions Chest X-Ray 04/27/24 16:50 IMPRESSION: 1. Cardiomegaly. Labs Labs: Laboratory Results - last 24 hr 04/27/24 04/27/24 04/28/24 16:29 20:07 08:09 WBC 9.1 RBC 6.07 H Hgb 12.8 Hct 45.3 MCV 74.6 L MCH 21.1 L MCHC 28.3 L RDW 19.6 H Plt Count 367 MPV 9.4 Immature Gran % (Auto) 0.6 H Neut % (Auto) 69.1 Lymph % (Auto) 18.9 [place] % (Auto) 8.5 Eos % (Auto) 2.0 Baso % (Auto) 0.9 Lymph # (Auto) 1.72 [place] # (Auto) 0.8 H Eos # (Auto) 0.2 Baso # (Auto) 0.1 Abs Immat Gran (auto) 0.05 H Absolute Neuts (auto) 6.3 Absolute Nucleated RBC 0.000 Nucleated RBC % 0.0 Platelet Estimate Adequate Hypochromasia 1+ Anisocytosis 3+ Microcytosis 1+ Schistocytes None seen PT 13.3 INR 1.0 APTT 25.1 Sodium 140 137 Potassium 5.1 H 4.5 Chloride 102 101 Carbon Dioxide 24 28 Anion Gap 14 H 8 BUN 24 H 25 H Creatinine 0.75 0.74 Estim Creat Clear Calc 101 101 Estimated GFR > 60 > 60 Glucose 160 H 150 H Calcium 9.8 9.3 Total Bilirubin 0.6 AST 23 ALT 21 Alkaline Phosphatase 104 Troponin I 0.018 NT-Pro-B Natriuret Pep 4260 H Total Protein 8.0 Albumin 4.3 Urine Color Yellow Urine Appearance Clear Urine pH 6.0 Ur Specific [place] 1.024 Urine Protein 2+ H Urine Glucose (UA) 3+ H Urine Ketones Negative Ur Blood (Man) Negative Urine Nitrate Negative Urine Bilirubin Negative Urine Urobilinogen 0.2 Leukocyte Esterase Rfl Negative Urine RBC 0-2 Urine WBC 0-5 Ur Squamous Epith Cells None seen Urine Bacteria None seen Urine Casts 0-2 Quality VTE Prophylaxis VTE prophylaxis: pharmacologic ordered (Lovenox 40 mg subQ q.12 hours.)
[2024-04-28] MEDS: carvediloL 6.25 MG TABLET PO (11:11)
[2024-04-28] MEDS: LORazepam (*CRX) 1 MG TABLET PO ×2 (11:11→17:48)
[2024-04-28] MEDS: ENOXAPARIN 40 MG/0.4 ML SYRINGE SUB-Q ×2 (11:11→20:43)
[2024-04-28] MEDS: FERROUS SULFATE 325 MG TABLET DR BY MOUTH (11:12)
[2024-04-28] MEDS: busPIRone HCL 10 MG TABLET PO ×2 (11:12→17:48)
[2024-04-28] MEDS: NAPROXEN 500 MG TABLET PO ×2 (11:12→17:48)
[2024-04-28] MEDS: EMPAGLIFLOZIN 25 MG TABLET PO (11:12)
[2024-04-28] MEDS: DOXYCYCLINE HYCLATE 100 MG TABLET PO (11:12)
[2024-04-28] MEDS: ATORVASTATIN 10 MG TABLET PO (11:12)
[2024-04-28] MEDS: GABAPENTIN 300 MG CAPSULE PO ×2 (11:12→17:48)
[2024-04-28] MEDS: FUROSEMIDE INJ 40 MG/4 ML VIAL IV PUSH ×2 (11:13→20:43)
[2024-04-28] MEDS: TOLTERODINE TARTRATE LA 4 MG CAP.ER.24H PO (11:13)
[2024-04-28 11:45] LABS: Glucose Point of Care 229 mg/dl (65-105)
--- NOTE | 2024-04-28 12:04 | PC.NURSE ---
Addendum entered by Ta Chapman RN 04/28/24 12:19: RN spoke with Dr. Campos's office (patient's PCP). RN there stated the only medication list they have that is updated with prescriptions is from a urology consult from February of 2024. They have another medication list but it is from April 2023. RN asked for this office to fax medication sheet from February 2024 as the system does not show me who prescribed medications and if they were filled. Original Note: RN spoke with patient about home medications. Patient said the only medications she takes are the medications in the bag she gave to night RN. Night RN reconciled patient's medications.
[2024-04-28 12:28] LABS: Hemoglobin A1C 8.8 % (<5.7)
[2024-04-28] MEDS: INSULIN ASPART (*BKC) 100 UNITS/ML SUB-Q (13:28)
[2024-04-28 17:16] LABS: Glucose Point of Care 162 mg/dl (65-105)
[2024-04-28] MEDS: SACUBITRIL/VALSARTAN 24-26 MG TABLET 1 TAB PO (17:48)
[2024-04-28] MEDS: INSULIN GLARGINE (*BKC) 100 UNITS/ML 10 UNITS SUB-Q (20:44)
[2024-04-28 21:03] LABS: Glucose Point of Care 199 mg/dl (65-105)
[2024-04-29] VITALS (10 sets, daily range): BP systolic 92–109; BP diastolic 64–78; PULSE 79–89; RESP 16–20; TEMP 36.4–36.9; O2SAT 97–98
[2024-04-29 06:36] LABS: Hematocrit 41.3 % (37.0-47.0); Hemoglobin 11.9 g/dL (12.0-15.0); Mean Corpuscular HGB Conc 28.8 g/dl (32-36); Mean Corpuscular Hemoglobin 20.9 pg (26-34); Mean Corpuscular Volume 72.6 fl (80-100); Mean Platelet Volume 9.4 fl (7.4-10.4); Platelet Count Result 335 k/mm3 (150-375); Red Blood Count 5.69 M/mm3 (4.2-5.4); Red Cell Distribution Width 18.9 % (11.5-14.5); White Blood Count 7.1 K/mm3 (4.5-10.0)
[2024-04-29 06:46] LABS: Anion Gap 11 mmol/L (4-12); Blood Urea Nitrogen 31 mg/dL (7-17); Calcium 8.9 mg/dL (8.4-10.2); Carbon Dioxide 28 mmol/L (22-30); Chloride 99 mmol/L (98-107); Estimated CRCL calculation 82 ml/min; Estimated Glomerular Filt Rate > 60; Glucose 147 mg/dL (65-110); Sodium 138 mmol/L (137-145)
[2024-04-29 07:43] LABS: Glucose Point of Care 156 mg/dl (65-105)
[2024-04-29] MEDS: ATORVASTATIN 10 MG TABLET PO (09:12)
[2024-04-29] MEDS: FUROSEMIDE INJ 40 MG/4 ML VIAL IV PUSH (09:12)
[2024-04-29] MEDS: ENOXAPARIN 40 MG/0.4 ML SYRINGE SUB-Q ×2 (09:12→20:01)
[2024-04-29] MEDS: GABAPENTIN 300 MG CAPSULE PO ×3 (09:12→17:36)
[2024-04-29] MEDS: NAPROXEN 500 MG TABLET PO ×2 (09:12→17:36)
[2024-04-29] MEDS: TOLTERODINE TARTRATE LA 4 MG CAP.ER.24H PO (09:12)
[2024-04-29] MEDS: LORazepam (*CRX) 1 MG TABLET PO ×2 (09:12→17:37)
[2024-04-29] MEDS: DOXYCYCLINE HYCLATE 100 MG TABLET PO (09:12)
[2024-04-29] MEDS: FERROUS SULFATE 325 MG TABLET DR BY MOUTH (09:12)
[2024-04-29] MEDS: EMPAGLIFLOZIN 25 MG TABLET PO (09:12)
[2024-04-29] MEDS: METOPROLOL SUCCINATE EXT REL 25 MG TABCR PO (09:12)
[2024-04-29] MEDS: busPIRone HCL 10 MG TABLET PO ×2 (09:12→17:37)
--- NOTE | 2024-04-29 10:20 | P.PNIM_ITS ---
Progress Note: A&P Assessment and Plan (1) Acute on chronic combined systolic (congestive) and diastolic (congestive) heart failure: Code(s): I50.43 - Acute on chronic combined systolic (congestive) and diastolic (congestive) heart failure Status: Acute Assessment and Plan: - Symptoms: bilateral lower extremity swelling and dyspnea on exertion and gained 40 lb compared to her prior weight from 2 or 3 months ago - BNP: 4260 - EKG: sinus rhythm HR 86 - Chest XR: cardiomegaly - Echo: LVEF 30-35% with grade I diastolic dysfunction - Lasix 40 mg daily - Home med list is completed and Entresto and beta-petty supposed to be on it will restart beta petty and hold entresto and spironolactone for now given borderline hypotension - Monitor vital signs, I&Os, BUN/creatinine, daily weights, neuro status and patient is a fall risk - Monitor serum electrolytes, Keep serum Potassium>4 and serum Magnesium>2 and CBC - Cardiology consulted, appreciate recommendations (2) Acute hyperkalemia: Code(s): E87.5 - Hyperkalemia Status: Acute Assessment and Plan: K 5.1 on admission. - K 4 on am labs - Continue to monitor (3) Type 2 diabetes mellitus with diabetic polyneuropathy: Qualifiers: Diabetes mellitus alf insulin use: without adjunct faculty for medical terminology use Qualified Code(s): E11.42 - Type 2 diabetes mellitus with diabetic polyneur opathy Code(s): E11.42 - Type 2 diabetes mellitus with diabetic polyneuropathy Status: Chronic Assessment and Plan: ss, lantus 10 units at hs, hypoglycemia protocol she is on metfromin at home and jardiance will continue jardiance but hold metformin (4) Hypertension: Qualifiers: Hypertension type: primary hypertension Qualified Code(s): I10 - Essential (primary) hypertension Code(s): I10 - Essential (primary) hypertension Status: Chronic Assessment and Plan: Chronic - Continue metoprolol 25 mg p.o. daily - holding spironolactone 25 mg p.o. daily and Entresto 24/26 b.i.d. secondary to borderline hypotension and previous hyperkalemia - blood pressures remain stable, continue to monitor and resume home antihypertensives as appropriate (5) Obstructive sleep apnea: Code(s): G47.33 - Obstructive sleep apnea (adult) (pediatric) Status: Chronic Assessment and Plan: Untreated patient refuses BiPAP (6) Medication nonadherence due to psychosocial problem: Code(s): Z91.148 - Patient's other noncompliance with medication regimen for other reason; Z65.9 - Problem related to unspecified psychosocial circumstances Status: Acute Time Spent With Patient Time with patient: 25 - 35 minutes Subjective Date/time seen: 04/29/24 10:20 Interval history: 59-year-old female with a past medical history of combined systolic and diastolic heart failure, morbid obesity, type 2 diabetes mellitus with severe diabetic peripheral neuropathy, essential hypertension, untreated obstructive sleep apnea and combined urinary incontinence who presented to the ER from home due to some bilateral lower extremity swelling and dyspnea on exertion. Patient is pleasant sitting up comfortably in bed. She states that her shortness of breath has slightly improved as well as her lower extremity edema. She has no other complaints denying chest pain, palpitations, nausea /vomiting, abdominal pain. Patient's echo showed an ejection fraction of 30%. Patient does not have a wire spiral binder, cardiology consulted. Patient remains on Lasix for heart failure exacerbation. Review of Systems Review of Systems: All systems reviewed & are unremarkable except as noted in HPI and below Exam Narrative: AF HR 82 RR 20 SPO2 98 BP 109/78 General: female in no acute respiratory distress who is nontoxic appearing, sitting up in bed HEENT: Normocephalic. Atraumatic. Extraocular movement intact. Sclera clear and anicteric. No facial asymmetry. Neck: Neck was supple. No dominant adenopathy, thyromegaly or masses. 2+ carotid upstrokes without bruits. Chest: Lungs are clear but diminished to auscultation bilaterally. No wheezes or crackles. CV: Heart was regular rate and rhythm. S1-S2. No murmurs, gallops, or rubs. Abd: Abdomen was soft. Nontender. Nondistended. Positive bowel sounds. No organomegaly or masses. Ext: No clubbing, cyanosis. 2+ DP pulses bilaterally. 1+ pitting edema. Neuro: Patient is alert. Speech is clear. Psych: Normal nood and affect. Patient is pleasant and cooperative. Skin: Warm and dry. No rashes noted. Objective Data Vital Signs Vital Signs: Vital Signs - 24 hr 04/28/24 10:30 04/28/24 11:10 04/28/24 11:11 Temperature Pulse Rate 89 Respiratory Rate Blood Pressure 106/81 Pulse Oximetry Oxygen Delivery Room Air 04/28/24 12:00 04/28/24 14:00 04/28/24 16:00 Temperature 97.1 F L Pulse Rate 85 81 77 Respiratory Rate 18 Blood Pressure 105/63 Pulse Oximetry 95 Oxygen Delivery 04/28/24 20:00 04/28/24 20:00 04/28/24 21:16 Temperature 98.4 F Pulse Rate 78 79 Respiratory Rate 20 Blood Pressure 100/62 Pulse Oximetry 100 Oxygen Delivery Room Air 04/29/24 00:00 04/29/24 04:00 04/29/24 06:00 Temperature 97.5 F L Pulse Rate 79 81 82 Respiratory Rate 20 Blood Pressure 109/78 Pulse Oximetry 98 Oxygen Delivery 04/29/24 09:12 Temperature Pulse Rate 83 Respiratory Rate Blood Pressure Pulse Oximetry Oxygen Delivery Intake/Output Intake/Output: Intake & Output 04/26/24 04/27/24 04/28/24 04/29/24 23:59 23:59 23:59 23:59 Intake Total 1570 1040 Output Total 2600 4000 1800 Balance -2606 -2430 -760 Meds/Results Medications: Active Medications Generic Name Dose Route Start Last Admin Trade Name Freq PRN Reason Stop Dose Admin Acetaminophen 650 mg 04/27/24 21:09 Acetaminophen 325 Mg Tablet PO Q4H PRN Mild Pain (1-3) or Fever Hydrocodone Bitart/Acetaminophen 1 tab 04/27/24 21:09 Hydrocodone/Acetaminophen (*Crx) 5-325 Mg Tablet PO Q4H PRN Pain Rated 4-6 Atorvastatin Calcium 10 mg 04/28/24 09:00 04/29/24 09:12 Atorvastatin 10 Mg Tablet PO 10 mg DAILY AASHISH Administration Buspirone HCl 10 mg 04/28/24 09:00 04/29/24 09:12 Buspirone Hcl 10 Mg Tablet PO 10 mg BID AASHISH Administration Dextrose 12.5 gm 04/28/24 15:39 Dextrose 50% 25 Gm/50 Ml Syringe IV PUSH PRN PRN Hypoglycemia Protocol Doxycycline Hyclate 100 mg 04/28/24 09:00 04/29/24 09:12 Doxycycline Hyclate 100 Mg Tablet PO 100 mg DAILY AASHISH Administration Empagliflozin 25 mg 04/28/24 09:00 04/29/24 09:12 Empagliflozin 25 Mg Tablet PO 25 mg DAILY AASHISH Administration Enoxaparin Sodium 40 mg 04/28/24 09:00 04/29/24 09:12 Enoxaparin 40 Mg/0.4 Ml Syringe SUB-Q 40 mg Q12HR AASHISH Administration Ferrous Sulfate 325 mg 04/28/24 09:00 04/29/24 09:12 Ferrous Sulfate [address] BY MOUTH 325 mg DAILY AASHISH Administration Furosemide 40 mg 04/28/24 09:00 04/29/24 09:12 Furosemide Inj 40 Mg/4 Ml Vial IV PUSH 40 mg Q12HR AASHISH Administration Gabapentin 300 mg 04/28/24 09:00 04/29/24 09:12 Gabapentin 300 Mg Capsule PO 300 mg TID AASHISH Administration Glucagon 1 mg 04/28/24 15:39 Glucagon For Inj 1 Mg Vial IM PRN PRN Hypoglycemia Protocol Glucose 15 gm 04/28/24 15:39 Glucose Oral Gel 15 Gm Of Glucse In 37.5 Gm Tube PO PRN PRN Hypoglycemia Protocol Dextrose 1,000 mls @ 100 mls/hr 04/28/24 15:39 Dextrose 5% 1,000 Ml IVPB PRN PRN Hypoglycemia Protocol Insulin Aspart 1 - 3 units 04/28/24 21:00 04/28/24 20:43 Insulin Aspart (*Bkc) 100 Units/Ml SUB-Q Not Given HS [facility] Protocol Insulin Aspart 2 - 5 units 04/28/24 17:00 04/29/24 08:28 Insulin Aspart (*Bkc) 100 Units/Ml SUB-Q Not Given TIDWM [facility] Protocol Insulin Glargine 10 units 04/28/24 21:00 04/28/24 20:44 Insulin Glargine (*Bkc) 100 Units/Ml SUB-Q 10 units HS [facility] Administration Lorazepam 1 mg 04/28/24 09:00 04/29/24 09:12 Lorazepam (*Crx) 1 Mg Tablet PO 1 mg BID AASHISH Administration Metoprolol Succinate 25 mg 04/29/24 09:00 04/29/24 09:12 Metoprolol Succinate Ext Rel 25 Mg Tabcr PO 25 mg DAILY AASHISH Administration Naproxen 500 mg 04/28/24 09:00 04/29/24 09:12 Naproxen 500 Mg Tablet PO 500 mg BID AASHISH Administration Ondansetron HCl 4 mg 04/27/24 21:09 Ondansetron Inj 4 Mg/2 Ml Vial IV PUSH Q4H PRN Nausea Perflutren Lipid Microsphere 0 ml 04/28/24 07:50 Perflutren Lipid Microspheres 1.5 Ml Vial Diluted To 10 Ml Total Volume IV PUSH 05/01/24 07:50 ONCE PRN adequate visualization Protocol Sacubitril/Valsartan 1 tab 04/28/24 17:00 04/28/24 17:48 Sacubitril/Valsartan 24-26 Mg Tablet PO 1 tab BID AASHISH Administration Spironolactone 25 mg 04/28/24 09:00 Spironolactone 25 Mg Tablet PO DAILY AASHISH Tolterodine Tartrate 4 mg 04/28/24 09:00 04/29/24 09:12 Tolterodine Tartrate La 4 Mg Cap.Er.24h PO 4 mg DAILY AASHISH Administration Radiology Results: ITS Impressions Chest X-Ray 04/27/24 16:50 IMPRESSION: 1. Cardiomegaly. Labs Labs: Laboratory Results - last 24 hr 04/28/24 04/28/24 04/28/24 08:09 11:38 16:56 WBC RBC Hgb Hct MCV MCH MCHC RDW Plt Count MPV Sodium Potassium Chloride Carbon Dioxide Anion Gap BUN Creatinine Estim Creat Clear Calc Estimated GFR Glucose POC Capillary Glucose 229 H 162 H Hemoglobin A1c 8.8 H Calcium 04/28/24 04/29/24 04/29/24 20:43 05:40 07:36 WBC 7.1 RBC 5.69 H Hgb 11.9 L Hct 41.3 MCV 72.6 L MCH 20.9 L MCHC 28.8 L RDW 18.9 H Plt Count 335 MPV 9.4 Sodium 138 Potassium 4.0 Chloride 99 Carbon Dioxide 28 Anion Gap 11 BUN 31 H Creatinine 0.92 Estim Creat Clear Calc 82 Estimated GFR > 60 Glucose 147 H POC Capillary Glucose 199 H 156 H Hemoglobin A1c Calcium 8.9 Quality VTE Prophylaxis VTE prophylaxis: mechanical ordered
[2024-04-29 11:18] LABS: Glucose Point of Care 217 mg/dl (65-105)
[2024-04-29] MEDS: INSULIN ASPART (*BKC) 100 UNITS/ML SUB-Q (12:41)
[2024-04-29 16:43] LABS: Glucose Point of Care 164 mg/dl (65-105)
[2024-04-29] MEDS: INSULIN GLARGINE (*BKC) 100 UNITS/ML 10 UNITS SUB-Q (20:01)
[2024-04-29 21:39] LABS: Glucose Point of Care 193 mg/dl (65-105)
[2024-04-30] VITALS (14 sets, daily range): BP systolic 93–105; BP diastolic 50–67; PULSE 78–92; RESP 16–20; TEMP 36.2–36.8; O2SAT 94–98
[2024-04-30 06:27] LABS: Hematocrit 39.7 % (37.0-47.0); Hemoglobin 11.4 g/dL (12.0-15.0); Mean Corpuscular HGB Conc 28.7 g/dl (32-36); Mean Corpuscular Volume 73.1 fl (80-100); Mean Platelet Volume 9.6 fl (7.4-10.4); Platelet Count Result 266 k/mm3 (150-375); Red Blood Count 5.43 M/mm3 (4.2-5.4); Red Cell Distribution Width 18.9 % (11.5-14.5); White Blood Count 5.7 K/mm3 (4.5-10.0)
[2024-04-30 06:36] LABS: Anion Gap 12 mmol/L (4-12); Blood Urea Nitrogen 37 mg/dL (7-17); Calcium 8.4 mg/dL (8.4-10.2); Carbon Dioxide 26 mmol/L (22-30); Chloride 98 mmol/L (98-107); Estimated CRCL calculation 83 ml/min; Estimated Glomerular Filt Rate > 60; Glucose 151 mg/dL (65-110); Sodium 136 mmol/L (137-145)
--- NOTE | 2024-04-30 07:57 | P.PNIM_ITS ---
Progress Note: A&P Assessment and Plan (1) Acute on chronic combined systolic (congestive) and diastolic (congestive) heart failure: Code(s): I50.43 - Acute on chronic combined systolic (congestive) and diastolic (congestive) heart failure Status: Acute Assessment and Plan: - Symptoms: bilateral lower extremity swelling and dyspnea on exertion and gained 40 lb compared to her prior weight from 2 or 3 months ago - BNP: 4260 - EKG: sinus rhythm HR 86 - Chest XR: cardiomegaly - Echo: LVEF 30-35% with grade I diastolic dysfunction - Lasix 40 mg IV daily, transition to oral tomorrow - Home med list is completed and Entresto and beta-petty supposed to be on it will restart beta petty and hold entresto and spironolactone for now given borderline hypotension - Monitor vital signs, I&Os, BUN/creatinine, daily weights, neuro status and patient is a fall risk - Monitor serum electrolytes, Keep serum Potassium>4 and serum Magnesium>2 and CBC - Cardiology consulted, appreciate recommendations Continue lasix 40 mg IV push daily, switch to po tomorrow Entresto, spironolactone are on hold because of mild hypotension. Resume when blood pressure improves (2) Acute hyperkalemia: Code(s): E87.5 - Hyperkalemia Status: Acute Assessment and Plan: K 5.1 on admission. - K 4 on am labs - Continue to monitor Resolved. (3) Type 2 diabetes mellitus with diabetic polyneuropathy: Qualifiers: Diabetes mellitus penitentiary insulin use: without adjunct faculty for medical terminology use Qualified Code(s): E11.42 - Type 2 diabetes mellitus with diabetic polyneuropathy Code(s): E11.42 - Type 2 diabetes mellitus with diabetic polyneuropathy Status: Chronic Assessment and Plan: ss, lantus 10 units at hs, hypoglycemia protocol she is on metfromin at home and jardiance will continue jardiance but hold metformin (4) Hypertension: Qualifiers: Hypertension type: primary hypertension Qualified Code(s): I10 - Essential (primary) hypertension Code(s): I10 - Essential (primary) hypertension Status: Chronic Assessment and Plan: Chronic - Continue metoprolol 25 mg p.o. daily - holding spironolactone 25 mg p.o. daily and Entresto 24/26 b.i.d. secondary to borderline hypotension and previous hyperkalemia - blood pressures remain stable, continue to monitor and resume home antihypertensives as appropriate (5) Obstructive sleep apnea: Code(s): G47.33 - Obstructive sleep apnea (adult) (pediatric) Status: Chronic Assessment and Plan: Untreated patient refuses BiPAP (6) Medication nonadherence due to psychosocial problem: Code(s): Z91.148 - Patient's other noncompliance with medication regimen for other reason; Z65.9 - Problem related to unspecified psychosocial circumstances Status: Acute Time Spent With Patient Time with patient: 25 - 35 minutes Subjective Date/time seen: 04/30/24 07:57 Interval history: 59-year-old female with a past medical history of combined systolic and diastolic heart failure, morbid obesity, type 2 diabetes mellitus with severe diabetic peripheral neuropathy, essential hypertension, untreated obstructive sleep apnea and combined urinary incontinence who presented to the ER from home due to some bilateral lower extremity swelling and dyspnea on exertion. Patient is pleasant lying comfortably in bed. She states that her she feels much better today especially after receiving her breathing treatment and notes that her swelling is greatly improved. She has no complaints at this time denying chest pain, shortness a breath, palpitations, nausea/vomiting, and abdominal pain. Review of Systems Review of Systems: All systems reviewed & are unremarkable except as noted in HPI and below Exam Narrative: AF HR 89 RR 16 SpO2 98 BP 93/50 General: female in no acute respiratory distress who is nontoxic appearing, sitting up in bed HEENT: Normocephalic. Atraumatic. Extraocular movement intact. Sclera clear and anicteric. No facial asymmetry. Chest: Lungs are clear but diminished to auscultation bilaterally. No wheezes or crackles. CV: Heart was regular rate and rhythm. S1-S2. No murmurs, gallops, or rubs. Abd: Abdomen was soft. Nontender. Nondistended. Positive bowel sounds. Ext: No clubbing, cyanosis. 2+ DP pulses bilaterally. 1+ pitting edema. Neuro: Patient is alert. Speech is clear. Objective Data Vital Signs Vital Signs: Vital Signs - 24 hr 04/29/24 09:12 04/29/24 09:50 04/29/24 09:50 Temperature Pulse Rate 83 88 Respiratory Rate Blood Pressure Pulse Oximetry Oxygen Delivery Room Air 04/29/24 12:00 04/29/24 14:00 04/29/24 16:00 Temperature 98.2 F Pulse Rate 85 85 89 Respiratory Rate 18 Blood Pressure 92/69 L Pulse Oximetry 98 Oxygen Delivery 04/29/24 19:56 04/29/24 20:00 04/29/24 20:00 Temperature 98.4 F Pulse Rate 86 88 Respiratory Rate 16 Blood Pressure 99/64 L Pulse Oximetry 97 Oxygen Delivery Room Air 04/30/24 00:00 04/30/24 04:00 04/30/24 04:42 Temperature 97.1 F L Pulse Rate 89 88 89 Respiratory Rate 18 Blood Pressure 94/57 L Pulse Oximetry 95 Oxygen Delivery Intake/Output Intake/Output: Intake & Output 04/27/24 04/28/24 04/29/24 04/30/24 23:59 23:59 23:59 23:59 Intake Total 1570 1520 350 Output Total 2600 4000 2900 1000 Balance -2600 -2430 -1380 -650 Meds/Results Medications: Active Medications Generic Name Dose Route Start Last Admin Trade Name Freq PRN Reason Stop Dose Admin Acetaminophen 650 mg 04/27/24 21:09 Acetaminophen 325 Mg Tablet PO Q4H PRN Mild Pain (1-3) or Fever Hydrocodone Bitart/Acetaminophen 1 tab 04/27/24 21:09 Hydrocodone/Acetaminophen (*Crx) 5-325 Mg Tablet PO Q4H PRN Pain Rated 4-6 Atorvastatin Calcium 10 mg 04/28/24 09:00 04/29/24 09:12 Atorvastatin 10 Mg Tablet PO 10 mg DAILY AASHISH Administration Buspirone HCl 10 mg 04/28/24 09:00 04/29/24 17:37 Buspirone Hcl 10 Mg Tablet PO 10 mg BID AASHISH Administration Dextrose 12.5 gm 04/28/24 15:39 Dextrose 50% 25 Gm/50 Ml Syringe IV PUSH PRN PRN Hypoglycemia Protocol Doxycycline Hyclate 100 mg 04/28/24 09:00 04/29/24 09:12 Doxycycline Hyclate 100 Mg Tablet PO 100 mg DAILY AASHISH Administration Empagliflozin 25 mg 04/28/24 09:00 04/29/24 09:12 Empagliflozin 25 Mg Tablet PO 25 mg DAILY AASHISH Administration Enoxaparin Sodium 40 mg 04/28/24 09:00 04/29/24 20:01 Enoxaparin 40 Mg/0.4 Ml Syringe SUB-Q 40 mg Q12HR AASHISH Administration Ferrous Sulfate 325 mg 04/28/24 09:00 04/29/24 09:12 Ferrous Sulfate [address] BY MOUTH 325 mg DAILY AASHISH Administration Furosemide 40 mg 04/30/24 09:00 Furosemide Inj 40 Mg/4 Ml Vial IV PUSH DAILY AASHISH Gabapentin 300 mg 04/28/24 09:00 04/29/24 17:36 Gabapentin 300 Mg Capsule PO 300 mg TID AASHISH Administration Glucagon 1 mg 04/28/24 15:39 Glucagon For Inj 1 Mg Vial IM PRN PRN Hypoglycemia Protocol Glucose 15 gm 04/28/24 15:39 Glucose Oral Gel 15 Gm Of Glucse In 37.5 Gm Tube PO PRN PRN Hypoglycemia Protocol Dextrose 1,000 mls @ 100 mls/hr 04/28/24 15:39 Dextrose 5% 1,000 Ml IVPB PRN PRN Hypoglycemia Protocol Insulin Aspart 1 - 3 units 04/28/24 21:00 04/29/24 20:03 Insulin Aspart (*Bkc) 100 Units/Ml SUB-Q Not Given HS [facility] Protocol Insulin Aspart 2 - 5 units 04/28/24 17:00 04/29/24 17:34 Insulin Aspart (*Bkc) 100 Units/Ml SUB-Q Not Given TIDWM [facility] Protocol Insulin Glargine 10 units 04/28/24 21:00 04/29/24 20:01 Insulin Glargine (*Bkc) 100 Units/Ml SUB-Q 10 units HS AASHISH Administration Lorazepam 1 mg 04/28/24 09:00 04/29/24 17:37 Lorazepam (*Crx) 1 Mg Tablet PO 1 mg BID AASHISH Administration Metoprolol Succinate 25 mg 04/29/24 09:00 04/29/24 09:12 Metoprolol Succinate Ext Rel 25 Mg Tabcr PO 25 mg DAILY AASHISH Administration Naproxen 500 mg 04/28/24 09:00 04/29/24 17:36 Naproxen 500 Mg Tablet PO 500 mg BID AASHISH Administration Ondansetron HCl 4 mg 04/27/24 21:09 Ondansetron Inj 4 Mg/2 Ml Vial IV PUSH Q4H PRN Nausea Perflutren Lipid Microsphere 0 ml 04/28/24 07:50 Perflutren Lipid Microspheres 1.5 Ml Vial Diluted To 10 Ml Total Volume IV PUSH 05/01/24 07:50 ONCE PRN adequate visualization Protocol Sacubitril/Valsartan 1 tab 04/28/24 17:00 04/28/24 17:48 Sacubitril/Valsartan 24-26 Mg Tablet PO 1 tab BID AASHISH Administration Spironolactone 25 mg 04/28/24 09:00 Spironolactone 25 Mg Tablet PO DAILY AASHISH Tolterodine Tartrate 4 mg 04/28/24 09:00 04/29/24 09:12 Tolterodine Tartrate La 4 Mg Cap.Er.24h PO 4 mg DAILY AASHISH Administration Radiology Results: ITS Impressions Chest X-Ray 04/27/24 16:50 IMPRESSION: 1. Cardiomegaly. Labs Labs: Laboratory Results - last 24 hr 04/29/24 04/29/24 04/29/24 11:11 16:32 20:03 WBC RBC Hgb Hct MCV MCH MCHC RDW Plt Count MPV Sodium Potassium Chloride Carbon Dioxide Anion Gap BUN Creatinine Estim Creat Clear Calc Estimated GFR Glucose POC Capillary Glucose 217 H 164 H 193 H Calcium 04/30/24 05:45 WBC 5.7 RBC 5.43 H Hgb 11.4 L Hct 39.7 MCV 73.1 L MCH 21.0 L MCHC 28.7 L RDW 18.9 H Plt Count 266 MPV 9.6 Sodium 136 L Potassium 4.0 Chloride 98 Carbon Dioxide 26 Anion Gap 12 BUN 37 H Creatinine 0.91 Estim Creat Clear Calc 83 Estimated GFR > 60 Glucose 151 H POC Capillary Glucose Calcium 8.4 Quality VTE Prophylaxis VTE prophylaxis: mechanical ordered
[2024-04-30 08:28] LABS: Glucose Point of Care 141 mg/dl (65-105)
--- NOTE | 2024-04-30 08:30 | PC.NURSE ---
Patient asking RN for albuterol treatment as she feels short of breath. RN reviewed patient's chart and patient does not have any orders for albuterol treatment. Patient oxygen saturation is above 90% on room air, but patient does have an expiratory wheeze on auscultation. RN called hospitalist Cleo for PRN albuterol treatment. Hospitalist stated she would look at the chart and put in orders. RN called respiratory and spoke with Lidya CULLEN and updated her on the patient and the PRN treatment that will be ordered soon.
[2024-04-30] MEDS: ALBUTEROL SULFATE NEB 2.5 MG/3 ML INH INHALATION (09:12)
[2024-04-30] MEDS: ATORVASTATIN 10 MG TABLET PO (09:35)
[2024-04-30] MEDS: NAPROXEN 500 MG TABLET PO ×2 (09:35→18:04)
[2024-04-30] MEDS: TOLTERODINE TARTRATE LA 4 MG CAP.ER.24H PO (09:35)
[2024-04-30] MEDS: EMPAGLIFLOZIN 25 MG TABLET PO (09:35)
[2024-04-30] MEDS: LORazepam (*CRX) 1 MG TABLET PO ×2 (09:35→18:04)
[2024-04-30] MEDS: FERROUS SULFATE 325 MG TABLET DR BY MOUTH (09:35)
[2024-04-30] MEDS: busPIRone HCL 10 MG TABLET PO ×2 (09:35→18:04)
[2024-04-30] MEDS: DOXYCYCLINE HYCLATE 100 MG TABLET PO (09:35)
[2024-04-30] MEDS: GABAPENTIN 300 MG CAPSULE PO ×3 (09:35→18:04)
[2024-04-30] MEDS: ENOXAPARIN 40 MG/0.4 ML SYRINGE SUB-Q ×2 (09:36→20:37)
[2024-04-30] MEDS: METOPROLOL SUCCINATE EXT REL 25 MG TABCR PO (09:36)
[2024-04-30] MEDS: FUROSEMIDE INJ 40 MG/4 ML VIAL IV PUSH (09:36)
--- NOTE | 2024-04-30 10:21 | P.CONCA_ITS ---
Assessment and Plan Assessment and plan (1) Chronic combined systolic and diastolic heart failure: Code(s): I50.42 - Chronic combined systolic (congestive) and diastolic (congestive) heart failure Status: Acute Assessment and Plan: History of systolic and diastolic heart failure, EF 30%. * Continue with furosemide 40 mg IV push daily, perhaps switch to p.o. furosemide tomorrow * Daily weights * Strict intake and output * CHF counseling (2) Cardiomyopathy: Code(s): I42.9 - Cardiomyopathy, unspecified Status: Acute Assessment and Plan: Nonischemic cardiomyopathy, EF 30% * On guideline directed medical therapy with Entresto, spironolactone, Toprol XL, Jardiance as an outpatient. Entresto, spironolactone are on hold because of mild hypotension. Resume when blood pressure improves * Daily BMP (3) Hypertension: Qualifiers: Hypertension type: primary hypertension Qualified Code(s): I10 - Essential (primary) hypertension Code(s): I10 - Essential (primary) hypertension Status: Chronic Assessment and Plan: As above (4) Acute hyperkalemia: Code(s): E87.5 - Hyperkalemia Status: Acute Assessment and Plan: Spironolactone being held. Close monitoring potassium as an outpatient as she is also on Entresto which can cause hyperkalemia. History of Present Illness History of Present Illness Consult date/time: 04/30/24 10:21 Requesting physician: Lita Srivastava PA-C Consult reason: congestive heart failure Reason For Visit: Heart failure, Hyperkalemia Narrative: Allison Thurston is a 59 year old female with a nonischemic cardiomyopathy. This is a patient who presents to the hospital with complaints of progressive shortness of breath over the past week, lower extremity swelling, and chest congestion. She reports that she has remained out of the hospital for one year and had been doing well. Apparently her mail order pharmacy sent her the wrong medications which she feels led to this exacerbation. Difficult to determine which medications were incorrect because she is unclear about which medications she is supposed to be taking. She is feeling better after receiving some IV diuresis. She denies any chest pain, palpitations, orthopnea, shortness of breath at rest. She is lying comfortably in bed at the time of my evaluation and has no active complaints. 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 PSVT (paroxysmal supraventricular tachycardia) Chronic combined systolic and diastolic heart failure EF 35-40% and grade 2 diastolic dysfunction noted on echocardiogram 2021 also noted [id number] mitral valve regurgitation, moderate tricuspid valve regurgitation and moderate right atrial enlargement Pneumonia Mixed incontinence Obstructive sleep apnea 06/2019--refuses CPAP Major depressive disorder, recurrent, mild Osteoarthritis of knees, bilateral GERD (gastroesophageal reflux disease) Type 2 diabetes mellitus with diabetic polyneuropathy Surgical History Surgical History Cervical spinal cord compression History of 3 sections History of amputation of toe Partial amputation of 2nd left toe History of cholecystectomy 09/2015 History of amputation of left great toe 2017 Family History Family History Mother Family history of Alzheimer's disease Hypertension Father Family history of diabetes mellitus in first degree relative Acute myocardial infarction Heart disease Hypertension Sibling CAD (coronary artery disease) Acute myocardial infarction Other Depression Diabetes mellitus Social History Social History Social History: She is and lives in her own home. She has a son who lives in [place] and a daughter who lives locally. She had another son who in an MVA at a young age. She ambulates with a walker. 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 Code status: Full code Surrogate decision maker: Malissa (Daughter) Smoking status: Never smoker Second hand tobacco smoke exposure: No Alcohol intake: current Drinks per week: 1 Substance use: current Substance use type: marijuana Other substance usage details: once every other month Do You Feel Safe in your Home?: Yes Lack of Transportation: No Lack of Food: Never True Current Housing: I Have Housing Concerned About Future Housing: No Difficulty Paying Gas/Electric Bills: YES Difficulty Paying for Meds: No Currently Unemployed: No Education: High School Diploma/GED Difficulty w/ Childcare or Family Care: No Living arrangements: alone Occupation/Education: other Additional occupation/education comments: Disabled Gender identity (if verbalized by the patient): Female Sexual Orientation (if Verbalized by the Patient): Straight or Heterosexual Spiritual care concerns: No Agree to blood products: Yes Meds Home Medications and Allergies Home Medications ?Medication ?Instructions ?Recorded ?Confirmed ?Type blood-glucose meter (OneTouch #1 ea 05/01/22 04/28/24 Rx Ultra2 Meter) blood sugar diagnostic (OneTouch #100 ea 09/10/22 04/28/24 Rx Ultra Test strips) buspirone 10 mg tablet 10 mg PO BID #180 tabs 11/18/23 04/28/24 Rx lorazepam 1 mg tablet 1 mg PO BID #60 tabs 12/02/23 04/28/24 Rx tolterodine 4 mg capsule,extended See Rx Instructions .Route 02/25/24 04/28/24 Rx release 24 hr .COMPLEX #90 caps atorvastatin 10 mg tablet 10 mg PO DAILY #90 tabs 03/07/24 04/28/24 Rx gabapentin 300 mg capsule 300 mg PO TID #270 caps 03/07/24 04/28/24 Rx metformin 500 mg tablet,extended 2,000 mg (4 x 500 mg) PO DAILY 03/07/24 04/28/24 Rx release 24 hr #360 tabs naproxen 500 mg tablet 500 mg PO BID #180 tabs 03/07/24 04/28/24 Rx doxycycline hyclate 100 mg capsule 100 mg PO DAILY #90 caps 04/07/24 04/28/24 Rx spironolactone 25 mg tablet 25 mg PO DAILY #90 tabs 04/10/24 04/28/24 Rx apple cider vinegar 300 mg tablet 450 mg PO DAILY 04/28/24 04/28/24 History empagliflozin 25 mg tablet 25 mg PO DAILY 04/28/24 04/28/24 History (Jardiance) ferrous sulfate 325 mg (65 mg 325 mg PO DAILY 04/28/24 04/28/24 History iron) tablet (iron) metoprolol succinate 25 mg 25 mg PO DAILY 04/28/24 04/28/24 History tablet,extended release 24 hr sacubitril 24 mg-valsartan 26 mg 1 tablet PO BID 04/28/24 04/28/24 History tablet (Entresto) Allergies Allergy/AdvReac Type Severity Reaction Status Date / Time No Known Allergies Allergy Verified 01/06/24 14:22 Vital Signs Vital Signs - 24 hr 04/29/24 12:00 04/29/24 14:00 04/29/24 16:00 Temperature 36.8 C Pulse Rate 85 85 89 Respiratory Rate 18 Blood Pressure 92/69 L Pulse Oximetry 98 Oxygen Delivery 04/29/24 19:56 04/29/24 20:00 04/29/24 20:00 Temperature 36.9 C Pulse Rate 86 88 Respiratory Rate 16 Blood Pressure 99/64 L Pulse Oximetry 97 Oxygen Delivery Room Air 04/30/24 00:00 04/30/24 04:00 04/30/24 04:42 Temperature 36.2 C L Pulse Rate 89 88 89 Respiratory Rate 18 Blood Pressure 94/57 L Pulse Oximetry 95 Oxygen Delivery 04/30/24 09:18 04/30/24 09:19 04/30/24 09:28 Temperature Pulse Rate 78 79 Respiratory Rate 20 20 Blood Pressure Pulse Oximetry 98 Oxygen Delivery Room Air 04/30/24 09:35 04/30/24 09:35 04/30/24 09:36 Temperature Pulse Rate 84 Respiratory Rate Blood Pressure 105/67 Pulse Oximetry Oxygen Delivery Room Air Exam 2 Const: General: comfortable, no acute distress, alert and awake O rientation/consciousness: patient oriented x3 HENMT: Head: normal to inspection Eyes: General: appearance normal, both eyes and all related structures P upils: Equal, round and reactive pupils present Neck: Neck: normal visual inspection, supple and no JVD Carotids: normal carotid upstroke Resp: Effort & Inspection: normal respiratory effort Auscultation: rales on the left at the base Cardio: Rate: regular rate Rhythm: regular rhythm Heart sounds: S1 normal heart sound present, S2 normal heart sound present and no murmurs GI: Auscultation: normal bowel sounds Urinary Catheter: Urinary Catheter: patent and draining and urine clear Skin: General skin exam: normal color Neuro: General: patient oriented x3 Cranial nerves: Yes Equal, round and reactive pupils present Extrem: General: edema and pedal edema Other: mild edema Psych: Appearance: grossly normal Mental Status: mental status grossly normal Results Labs and Meds 04/30/24 05:45 04/30/24 05:45 Lab results: CBC 04/30/24 Range/Units 05:45 WBC 5.7 (4.5-10.0) K/mm3 RBC 5.43 H (4.2-5.4) M/mm3 Hgb 11.4 L (12.0-15.0) g/dL Hct 39.7 (37.0-47.0) % Plt Count 266 (150-375) k/mm3 Comprehensive Metabolic Panel 04/30/24 Range/Units 05:45 Sodium 136 L (137-145) mmol/L Potassium 4.0 (3.4-5.0) mmol/L Chloride 98 (98-107) mmol/L Carbon Dioxide 26 (22-30) mmol/L BUN 37 H (7-17) mg/dL Creatinine 0.91 (0.7-1.0) mg/dL Glucose 151 H (65-110) mg/dL Calcium 8.4 (8.4-10.2) mg/dL Intake and Output 04/29/24 04/30/24 04/30/24 23:59 07:59 15:59 Intake Total 240 350 236 Output Total 1100 1000 350 Balance -860 -650 -114 Intake: Oral 240 350 236 Output: Urine 1100 Catheter Urine 1000 350 External/Condom 1000 350 Patient Weight 04/30/24 23:59 Weight 134 kg
[2024-04-30 12:11] LABS: Glucose Point of Care 222 mg/dl (65-105)
[2024-04-30] MEDS: INSULIN ASPART (*BKC) 100 UNITS/ML SUB-Q ×2 (13:28→18:04)
[2024-04-30 17:06] LABS: Glucose Point of Care 202 mg/dl (65-105)
[2024-04-30] MEDS: INSULIN GLARGINE (*BKC) 100 UNITS/ML 10 UNITS SUB-Q (20:35)
[2024-04-30 21:22] LABS: Glucose Point of Care 181 mg/dl (65-105)
[2024-04-30] MEDS: BENZOCAINE/MENTHOL (*BKC) 18 EA LOZENGE 1 LOZENGE PO (21:40)
[2024-04-30] MEDS: guaiFENesin 12 HR 600 MG TABCR PO (21:41)
[2024-04-30 22:23] LABS: Influenza A QL RT-PCR Positive (Negative); Influenza B QL RT-PCR Negative (Negative); RSV RNA, RT-PCR Negative (Negative); SARS-CoV-2 RNA PCR Negative (Negative)
[2024-04-30] MEDS: OSELTAMIVIR PHOSPHATE 75 MG CAPSULE PO (22:37)
[2024-05-01] VITALS (12 sets, daily range): BP systolic 94–110; BP diastolic 69–72; PULSE 71–91; RESP 16–20; TEMP 36.1–36.8; O2SAT 93–98
[2024-05-01 06:19] LABS: Hematocrit 39.4 % (37.0-47.0); Hemoglobin 11.3 g/dL (12.0-15.0); Mean Corpuscular HGB Conc 28.7 g/dl (32-36); Mean Corpuscular Hemoglobin 21.2 pg (26-34); Mean Corpuscular Volume 73.8 fl (80-100); Mean Platelet Volume 9.5 fl (7.4-10.4); Platelet Count Result 232 k/mm3 (150-375); Red Blood Count 5.34 M/mm3 (4.2-5.4); Red Cell Distribution Width 18.7 % (11.5-14.5); White Blood Count 4.5 K/mm3 (4.5-10.0)
[2024-05-01 06:55] LABS: Anion Gap 9 mmol/L (4-12); Blood Urea Nitrogen 34 mg/dL (7-17); Calcium 8.5 mg/dL (8.4-10.2); Carbon Dioxide 27 mmol/L (22-30); Chloride 101 mmol/L (98-107); Estimated CRCL calculation 84 ml/min; Estimated Glomerular Filt Rate > 60; Glucose 129 mg/dL (65-110); Potassium 3.9 mmol/L (3.4-5.0); Sodium 137 mmol/L (137-145)
[2024-05-01 08:42] LABS: Glucose Point of Care 133 mg/dl (65-105)
[2024-05-01] MEDS: DOXYCYCLINE HYCLATE 100 MG TABLET PO (08:59)
[2024-05-01] MEDS: GABAPENTIN 300 MG CAPSULE PO ×3 (08:59→18:02)
[2024-05-01] MEDS: EMPAGLIFLOZIN 25 MG TABLET PO (09:00)
[2024-05-01] MEDS: METOPROLOL SUCCINATE EXT REL 25 MG TABCR PO (09:00)
[2024-05-01] MEDS: busPIRone HCL 10 MG TABLET PO ×2 (09:00→18:18)
[2024-05-01] MEDS: LORazepam (*CRX) 1 MG TABLET PO ×2 (09:00→18:02)
[2024-05-01] MEDS: FERROUS SULFATE 325 MG TABLET DR BY MOUTH (09:00)
[2024-05-01] MEDS: TOLTERODINE TARTRATE LA 4 MG CAP.ER.24H PO (09:00)
[2024-05-01] MEDS: OSELTAMIVIR PHOSPHATE 75 MG CAPSULE PO ×2 (09:00→21:13)
[2024-05-01] MEDS: guaiFENesin 12 HR 600 MG TABCR PO ×2 (09:00→21:13)
[2024-05-01] MEDS: FUROSEMIDE 40 MG TABLET PO (09:00)
[2024-05-01] MEDS: ATORVASTATIN 10 MG TABLET PO (09:00)
[2024-05-01] MEDS: NAPROXEN 500 MG TABLET PO ×2 (09:00→18:02)
[2024-05-01] MEDS: HYDROcodone/acetaminophen (*CRX) 5-325 MG TABLET 1 TAB PO (09:03)
[2024-05-01] MEDS: ENOXAPARIN 40 MG/0.4 ML SYRINGE SUB-Q ×2 (09:07→21:16)
[2024-05-01] MEDS: ALBUTEROL SULFATE NEB 2.5 MG/3 ML INH INHALATION (10:24)
[2024-05-01 11:53] LABS: Glucose Point of Care 169 mg/dl (65-105)
--- NOTE | 2024-05-01 13:07 | P.PNCA_ITS ---
Progress Note: A&P Assessment and Plan (1) Chronic combined systolic and diastolic heart failure: Code(s): I50.42 - Chronic combined systolic (congestive) and diastolic (congestive) heart failure Status: Acute Assessment and Plan: History of systolic and diastolic heart failure, EF 30%. * Continue furosemide 40mg p.o. daily * Daily weights * Strict intake and output * CHF counseling (2) Cardiomyopathy: Code(s): I42.9 - Cardiomyopathy, unspecified Status: Acute Assessment and Plan: Nonischemic cardiomyopathy, EF 30% * On guideline directed medical therapy with Entresto, spironolactone, Toprol XL, Jardiance as an outpatient. Entresto, spironolactone had been held because of mild hypotension. Resume Entresto this evening. Continue ToprolXL. Can make further adjustments as outpatient * Daily BMP * recommend BMP one week after discharge as well. (3) Hypertension: Qualifiers: Hypertension type: primary hypertension Qualified Code(s): I10 - Essential (primary) hypertension Code(s): I10 - Essential (primary) hypertension Status: Chronic Assessment and Plan: As above (4) Acute hyperkalemia: Code(s): E87.5 - Hyperkalemia Status: Acute Assessment and Plan: Spironolactone being held. Close monitoring potassium as an outpatient as she is also on Entresto which can cause hyperkalemia. Plan Would anticipate discharge in the next 24 - 48 hours if she remains stable Subjective Date/time seen: 05/01/24 13:07 Interval history: Cardiology follow up for CHF She has now tested positive for influenza A. She feels better today. No shortness of breath. Swelling improving. Review of Systems Review of Systems: All systems reviewed & are unremarkable except as noted in HPI and below Exam Const: General: comfortable, no acute distress, alert and awake Orientation/consciousness: patient oriented x3 HENMT: Head: normal to inspection Eyes: General: appearance normal, both eyes and all related structures Pupils: Equal, round and reactive pupils present Neck: Neck: normal visual inspection, supple and no JVD Carotids: normal carotid upstroke Resp: Effort & Inspection: normal respiratory effort Auscultation: rales on the left at the base Cardio: Rate: regular rate Rhythm: regular rhythm Heart sounds: S1 normal heart sound present, S2 normal heart sound present and no murmurs GI: Auscultation: normal bowel sounds Urinary Catheter: Urinary Catheter: patent and draining and urine clear Skin: General skin exam: normal color Neuro: General: patient oriented x3 Cranial nerves: Yes Equal, round and reactive pupils present Extrem: General: edema and pedal edema Other: mild edema Psych: Appearance: grossly normal Mental Status: mental status grossly normal Objective Data Vital Signs Vital Signs: Vital Signs - 24 hr 04/30/24 14:00 04/30/24 16:00 04/30/24 20:00 Temperature 36.6 C Pulse Rate 89 92 Respiratory Rate 16 Blood Pressure 93/50 L Pulse Oximetry 98 Oxygen Delivery Room Air 04/30/24 20:00 04/30/24 21:32 05/01/24 00:00 Temperature 36.8 C Pulse Rate 88 83 91 Respiratory Rate 16 Blood Pressure 102/67 Pulse Oximetry 94 Oxygen Delivery 05/01/24 04:00 05/01/24 04:44 05/01/24 09:00 Temperature 36.2 C L Pulse Rate 89 71 82 Respiratory Rate 18 Blood Pressure 105/69 Pulse Oximetry 98 Oxygen Delivery 05/01/24 09:03 05/01/24 10:25 Temperature Pulse Rate 76 Respiratory Rate 20 Blood Pressure Pulse Oximetry Oxygen Delivery Room Air Intake/Output Intake/Output: Intake & Output 04/28/24 04/29/24 04/30/24 05/01/24 23:59 23:59 23:59 23:59 Intake Total 1570 1520 2016 1200 Output Total 4000 2900 2650 850 Balance -3116 -0240 -574 350 Meds/Results Medications: Active Medications Generic Name Dose Route Start Last Admin Trade Name Freq PRN Reason Stop Dose Admin Acetaminophen 650 mg 04/27/24 21:09 Acetaminophen 325 Mg Tablet PO Q4H PRN Mild Pain (1-3) or Fever Hydrocodone Bitart/Acetaminophen 1 tab 04/27/24 21:09 05/01/24 09:03 Hydrocodone/Acetaminophen (*Crx) 5-325 Mg Tablet PO 1 tab Q4H PRN Administration Pain Rated 4-6 Albuterol/Ipratropium 3 ml 05/01/24 12:28 Ipratropium 0.5 Mg/Albuterol Sulfate 2.5 Mg Ampul.Neb 3 Ml INHALATION Q6HRT PRN Shortness Of Breath Or Wheezing Atorvastatin Calcium 10 mg 04/28/24 09:00 05/01/24 09:00 Atorvastatin 10 Mg Tablet PO 10 mg DAILY AASHISH Administration Benzocaine 1 lozenge 04/30/24 21:28 04/30/24 21:40 Benzocaine/Menthol (*Bkc) 18 Ea Lozenge PO 1 lozenge PRN PRN Administration Sore Throat Buspirone HCl 10 mg 04/28/24 09:00 05/01/24 09:00 Buspirone Hcl 10 Mg Tablet PO 10 mg BID AASHISH Administration Dextrose 12.5 gm 04/28/24 15:39 Dextrose 50% 25 Gm/50 Ml Syringe IV PUSH PRN PRN Hypoglycemia Protocol Doxycycline Hyclate 100 mg 04/28/24 09:00 05/01/24 08:59 Doxycycline Hyclate 100 Mg Tablet PO 100 mg DAILY AASHISH Administration Empagliflozin 25 mg 04/28/24 09:00 05/01/24 09:00 Empagliflozin 25 Mg Tablet PO 25 mg DAILY AASHISH Administration Enoxaparin Sodium 40 mg 04/28/24 09:00 05/01/24 09:07 Enoxaparin 40 Mg/0.4 Ml Syringe SUB-Q 40 mg Q12HR AASHISH Administration Ferrous Sulfate 325 mg 04/28/24 09:00 05/01/24 09:00 Ferrous Sulfate [address] BY MOUTH 325 mg DAILY AASHISH Administration Furosemide 40 mg 05/01/24 09:00 05/01/24 09:00 Furosemide 40 Mg Tablet PO 40 mg DAILY AASHISH Administration Gabapentin 300 mg 04/28/24 09:00 05/01/24 08:59 Gabapentin 300 Mg Capsule PO 300 mg TID AASHISH Administration Glucagon 1 mg 04/28/24 15:39 Glucagon For Inj 1 Mg Vial IM PRN PRN Hypoglycemia Protocol Glucose 15 gm 04/28/24 15:39 Glucose Oral Gel 15 Gm Of Glucse In 37.5 Gm Tube PO PRN PRN Hypoglycemia Protocol Guaifenesin 600 mg 04/30/24 21:35 05/01/24 09:00 Guaifenesin 12 Hr 600 Mg Tabcr PO 600 mg Q12HR AASHISH Administration Dextrose 1,000 mls @ 100 mls/hr 04/28/24 15:39 Dextrose 5% 1,000 Ml IVPB PRN PRN Hypoglycemia Protocol Insulin Aspart 1 - 3 units 04/28/24 21:00 04/30/24 20:39 Insulin Aspart (*Bkc) 100 Units/Ml SUB-Q Not Given HS [facility] Protocol Insulin Aspart 2 - 5 units 04/28/24 17:00 05/01/24 09:07 Insulin Aspart (*Bkc) 100 Units/Ml SUB-Q Not Given TIDWM [facility] Protocol Insulin Glargine 10 units 04/28/24 21:00 04/30/24 20:35 Insulin Glargine (*Bkc) 100 Units/Ml SUB-Q 10 units HS AASHISH Administration Lorazepam 1 mg 04/28/24 09:00 05/01/24 09:00 Lorazepam (*Crx) 1 Mg Tablet PO 1 mg BID AASHISH Administration Metoprolol Succinate 25 mg 04/29/24 09:00 05/01/24 09:00 Metoprolol Succinate Ext Rel 25 Mg Tabcr PO 25 mg DAILY AASHISH Administration Naproxen 500 mg 04/28/24 09:00 05/01/24 09:00 Naproxen 500 Mg Tablet PO 500 mg BID AASHISH Administration Ondansetron HCl 4 mg 04/27/24 21:09 Ondansetron Inj 4 Mg/2 Ml Vial IV PUSH Q4H PRN Nausea Oseltamivir Phosphate 75 mg 04/30/24 22:25 05/01/24 09:00 Oseltamivir Phosphate 75 Mg Capsule PO 05/05/24 22:24 75 mg Q12HR AASHISH Administration Sacubitril/Valsartan 1 tab 04/28/24 17:00 04/28/24 17:48 Sacubitril/Valsartan 24-26 Mg Tablet PO 1 tab BID AASHISH Administration Spironolactone 25 mg 04/28/24 09:00 Spironolactone 25 Mg Tablet PO DAILY [facility] Tolterodine Tartrate 4 mg 04/28/24 09:00 05/01/24 09:00 Tolterodine Tartrate La 4 Mg Cap.Er.24h PO 4 mg DAILY AASHISH Administration Radiology Results: ITS Impressions Chest X-Ray 04/27/24 16:50 IMPRESSION: 1. Cardiomegaly. Labs Labs: Laboratory Results - last 24 hr 04/30/24 04/30/24 04/30/24 16:54 20:37 21:43 WBC RBC Hgb Hct MCV MCH MCHC RDW Plt Count MPV Sodium Potassium Chloride Carbon Dioxide Anion Gap BUN Creatinine Estim Creat Clear Calc Estimated GFR Glucose POC Capillary Glucose 202 H 181 H Calcium Influenza A (RT-PCR) Positive A Influenza B (RT-PCR) Negative RSV (RT-PCR) Negative SARS-CoV-2 RNA (RT-PCR) Negative 05/01/24 05/01/24 05/01/24 05:40 08:19 11:41 WBC 4.5 RBC 5.34 Hgb 11.3 L Hct 39.4 MCV 73.8 L MCH 21.2 L MCHC 28.7 L RDW 18.7 H Plt Count 232 MPV 9.5 Sodium 137 Potassium 3.9 Chloride 101 Carbon Dioxide 27 Anion Gap 9 BUN 34 H Creatinine 0.89 Estim Creat Clear Calc 84 Estimated GFR > 60 Glucose 129 H POC Capillary Glucose 133 H 169 H Calcium 8.5 Influenza A (RT-PCR) Influenza B (RT-PCR) RSV (RT-PCR) SARS-CoV-2 RNA (RT-PCR) Quality VTE Prophylaxis VTE prophylaxis: mechanical ordered
--- NOTE | 2024-05-01 13:17 | PM.IMPN ---
Progress Note: A&P Assessment and Plan (1) Acute on chronic combined systolic (congestive) and diastolic (congestive) heart failure: Code(s): I50.43 - Acute on chronic combined systolic (congestive) and diastolic (congestive) heart failure Status: Acute Assessment and Plan: - Symptoms: bilateral lower extremity swelling and dyspnea on exertion and gained 40 lb compared to her prior weight from 2 or 3 months ago - BNP: 4260 - EKG: sinus rhythm HR 86 - Chest XR: cardiomegaly - Echo: LVEF 30-35% with grade I diastolic dysfunction - Lasix 40 mg PO daily - Home med list is completed and Entresto and beta-petty supposed to be on it - Monitor vital signs, I&Os, BUN/creatinine, daily weights, neuro status and patient is a fall risk - Monitor serum electrolytes, Keep serum Potassium>4 and serum Magnesium>2 and CBC - Cardiology consulted, appreciate recommendations On GDMT with Entresto, spironolactone, Toprol XL, Jardiance as an outpatient. Entresto, spironolactone had been held because of mild hypotension. Resume Entresto this evening. Continue ToprolXL. Daily BMP Recommend BMP one week after discharge as well. (2) Acute hyperkalemia: Code(s): E87.5 - Hyperkalemia Status: Acute Assessment and Plan: K 5.1 on admission. - K 3.9 on am labs - Continue to monitor Resolved. (3) Type 2 diabetes mellitus with diabetic polyneuropathy: Qualifiers: Diabetes mellitus skilled nursing insulin use: without claims adjuster use Qualified Code(s): E11.42 - Type 2 diabetes mellitus with diabetic polyneuropathy Code(s): E11.42 - Type 2 diabetes mellitus with diabetic polyneuropathy Status: Chronic Assessment and Plan: ss, lantus 10 units at hs, hypoglycemia protocol she is on metfromin at home and jardiance will continue jardiance but hold metformin (4) Hypertension: Qualifiers: Hypertension type: primary hypertension Qualified Code(s): I10 - Essential (primary) hypertension Code(s): I10 - Essential (primary) hypertension Status: Chronic Assessment and Plan: Chronic - Continue metoprolol 25 mg p.o. daily - Entresto had been held because of mild hypotension. Resume Entresto this evening per cardiology - holding spironolactone 25 mg p.o. daily secondary to borderline hypotension and previous hyperkalemia - blood pressures remain stable, continue to monitor and resume home antihypertensives as appropriate (5) Obstructive sleep apnea: Code(s): G47.33 - Obstructive sleep apnea (adult) (pediatric) Status: Chronic Assessment and Plan: Untreated patient refuses BiPAP (6) Medication nonadherence due to psychosocial problem: Code(s): Z91.148 - Patient's other noncompliance with medication regimen for other reason; Z65.9 - Problem related to unspecified psychosocial circumstances Status: Acute Time Spent With Patient Time with patient: 25 - 35 minutes Subjective Date/time seen: 05/01/24 13:17 Interval history: 59-year-old female with a past medical history of combined systolic and diastolic heart failure, morbid obesity, type 2 diabetes mellitus with severe diabetic peripheral neuropathy, essential hypertension, untreated obstructive sleep apnea and combined urinary incontinence who presented to the ER from home due to some bilateral lower extremity swelling and dyspnea on exertion. Patient is pleasant sitting up in bed. She continues to endorse shortness of breath that is about the same as yesterday. She has no other complaints denying chest pain, palpitations, nausea / vomiting, and abdominal pain. Patient was evaluated by Cardiology today and attempt to resume her Entresto this afternoon. Continue to watch blood pressures. Review of Systems Review of Systems: All systems reviewed & are unremarkable except as noted in HPI and below Exam Narrative: AF HR 71 RR 18 SpO2 98 BP 105/69 General: female in no acute respiratory distress who is nontoxic appearing, sitting up in bed HEENT: Normocephalic. Atraumatic. Extraocular movement intact. Sclera clear and anicteric. No facial asymmetry. Chest: Lungs are clear but diminished to auscultation bilaterally with expiratory wheezes throughout. No wheezes or crackles. CV: Heart was regular rate and rhythm. S1-S2. No murmurs, gallops, or rubs. Abd: Abdomen was soft. Nontender. Nondistended. Positive bowel sounds. Ext: No clubbing, cyanosis. 2+ DP pulses bilaterally. 1+ pitting edema. Neuro: Patient is alert. Speech is clear. Objective Data Vital Signs Vital Signs: Vital Signs - 24 hr 04/30/24 14:00 04/30/24 16:00 04/30/24 20:00 Temperature 97.9 F Pulse Rate 89 92 Respiratory Rate 16 Blood Pressure 93/50 L Pulse Oximetry 98 Oxygen Delivery Room Air 04/30/24 20:00 04/30/24 21:32 05/01/24 00:00 Temperature 98.3 F Pulse Rate 88 83 91 Respiratory Rate 16 Blood Pressure 102/67 Pulse Oximetry 94 Oxygen Delivery 05/01/24 04:00 05/01/24 04:44 05/01/24 09:00 Temperature 97.1 F L Pulse Rate 89 71 82 Respiratory Rate 18 Blood Pressure 105/69 Pulse Oximetry 98 Oxygen Delivery 05/01/24 09:03 05/01/24 10:25 Temperature Pulse Rate 76 Respiratory Rate 20 Blood Pressure Pulse Oximetry Oxygen Delivery Room Air Intake/Output Intake/Output: Intake & Output 04/28/24 04/29/24 04/30/24 05/01/24 23:59 23:59 23:59 23:59 Intake Total 1570 1520 2016 1200 Output Total 4000 2900 2650 850 Balance -2430 -1380 -634 350 Meds/Results Medications: Active Medications Generic Name Dose Route Start Last Admin Trade Name Freq PRN Reason Stop Dose Admin Acetaminophen 650 mg 04/27/24 21:09 Acetaminophen 325 Mg Tablet PO Q4H PRN Mild Pain (1-3) or Fever Hydrocodone Bitart/Acetaminophen 1 tab 04/27/24 21:09 05/01/24 09:03 Hydrocodone/Acetaminophen (*Crx) 5-325 Mg Tablet PO 1 tab Q4H PRN Administration Pain Rated 4-6 Albuterol/Ipratropium 3 ml 05/01/24 12:28 Ipratropium 0.5 Mg/Albuterol Sulfate 2.5 Mg Ampul.Neb 3 Ml INHALATION Q6HRT PRN Shortness Of Breath Or Wheezing Atorvastatin Calcium 10 mg 04/28/24 09:00 05/01/24 09:00 Atorvastatin 10 Mg Tablet PO 10 mg DAILY AASHISH Administration Benzocaine 1 lozenge 04/30/24 21:28 04/30/24 21:40 Benzocaine/Menthol (*Bkc) 18 Ea Lozenge PO 1 lozenge PRN PRN Administration Sore Throat Buspirone HCl 10 mg 04/28/24 09:00 05/01/24 09:00 Buspirone Hcl 10 Mg Tablet PO 10 mg BID AASHISH Administration Dextrose 12.5 gm 04/28/24 15:39 Dextrose 50% 25 Gm/50 Ml Syringe IV PUSH PRN PRN Hypoglycemia Protocol Doxycycline Hyclate 100 mg 04/28/24 09:00 05/01/24 08:59 Doxycycline Hyclate 100 Mg Tablet PO 100 mg DAILY AASHISH Administration Empagliflozin 25 mg 04/28/24 09:00 05/01/24 09:00 Empagliflozin 25 Mg Tablet PO 25 mg DAILY AASHISH Administration Enoxaparin Sodium 40 mg 04/28/24 09:00 05/01/24 09:07 Enoxaparin 40 Mg/0.4 Ml Syringe SUB-Q 40 mg Q12HR AASHISH Administration Ferrous Sulfate 325 mg 04/28/24 09:00 05/01/24 09:00 Ferrous Sulfate [address] BY MOUTH 325 mg DAILY AASHISH Administration Furosemide 40 mg 05/01/24 09:00 05/01/24 09:00 Furosemide 40 Mg Tablet PO 40 mg DAILY AASHISH Administration Gabapentin 300 mg 04/28/24 09:00 05/01/24 08:59 Gabapentin 300 Mg Capsule PO 300 mg TID AASHISH Administration Glucagon 1 mg 04/28/24 15:39 Glucagon For Inj 1 Mg Vial IM PRN PRN Hypoglycemia Protocol Glucose 15 gm 04/28/24 15:39 Glucose Oral Gel 15 Gm Of Glucse In 37.5 Gm Tube PO PRN PRN Hypoglycemia Protocol Guaifenesin 600 mg 04/30/24 21:35 05/01/24 09:00 Guaifenesin 12 Hr 600 Mg Tabcr PO 600 mg Q12HR AASHISH Administration Dextrose 1,000 mls @ 100 mls/hr 04/28/24 15:39 Dextrose 5% 1,000 Ml IVPB PRN PRN Hypoglycemia Protocol Insulin Aspart 1 - 3 units 04/28/24 21:00 04/30/24 20:39 Insulin Aspart (*Bkc) 100 Units/Ml SUB-Q Not Given HS AASHISH Protocol Insulin Aspart 2 - 5 units 04/28/24 17:00 05/01/24 09:07 Insulin Aspart (*Bkc) 100 Units/Ml SUB-Q Not Given TIDWM AASHISH Protocol Insulin Glargine 10 units 04/28/24 21:00 04/30/24 20:35 Insulin Glargine (*Bkc) 100 Units/Ml SUB-Q 10 units HS AASHISH Administration Lorazepam 1 mg 04/28/24 09:00 05/01/24 09:00 Lorazepam (*Crx) 1 Mg Tablet PO 1 mg BID AASHISH Administration Metoprolol Succinate 25 mg 04/29/24 09:00 05/01/24 09:00 Metoprolol Succinate Ext Rel 25 Mg Tabcr PO 25 mg DAILY AASHISH Administration Naproxen 500 mg 04/28/24 09:00 05/01/24 09:00 Naproxen 500 Mg Tablet PO 500 mg BID AASHISH Administration Ondansetron HCl 4 mg 04/27/24 21:09 Ondansetron Inj 4 Mg/2 Ml Vial IV PUSH Q4H PRN Nausea Oseltamivir Phosphate 75 mg 04/30/24 22:25 05/01/24 09:00 Oseltamivir Phosphate 75 Mg Capsule PO 05/05/24 22:24 75 mg Q12HR AASHISH Administration Sacubitril/Valsartan 1 tab 04/28/24 17:00 04/28/24 17:48 Sacubitril/Valsartan 24-26 Mg Tablet PO 1 tab BID AASHISH Administration Spironolactone 25 mg 04/28/24 09:00 Spironolactone 25 Mg Tablet PO DAILY AASHISH Tolterodine Tartrate 4 mg 04/28/24 09:00 05/01/24 09:00 Tolterodine Tartrate La 4 Mg Cap.Er.24h PO 4 mg DAILY AASHISH Administration Radiology Results: ITS Impressions Chest X-Ray 04/27/24 16:50 IMPRESSION: 1. Cardiomegaly. Labs Labs: Laboratory Results - last 24 hr 04/30/24 04/30/24 04/30/24 16:54 20:37 21:43 WBC RBC Hgb Hct MCV MCH MCHC RDW Plt Count MPV Sodium Potassium Chloride Carbon Dioxide Anion Gap BUN Creatinine Estim Creat Clear Calc Estimated GFR Glucose POC Capillary Glucose 202 H 181 H Calcium Influenza A (RT-PCR) Positive A Influenza B (RT-PCR) Negative RSV (RT-PCR) Negative SARS-CoV-2 RNA (RT-PCR) Negative 05/01/24 05/01/24 05/01/24 05:40 08:19 11:41 WBC 4.5 RBC 5.34 Hgb 11.3 L Hct 39.4 MCV 73.8 L MCH 21.2 L MCHC 28.7 L RDW 18.7 H Plt Count 232 MPV 9.5 Sodium 137 Potassium 3.9 Chloride 101 Carbon Dioxide 27 Anion Gap 9 BUN 34 H Creatinine 0.89 Estim Creat Clear Calc 84 Estimated GFR > 60 Glucose 129 H POC Capillary Glucose 133 H 169 H Calcium 8.5 Influenza A (RT-PCR) Influenza B (RT-PCR) RSV (RT-PCR) SARS-CoV-2 RNA (RT-PCR) Quality VTE Prophylaxis VTE prophylaxis: mechanical ordered
[2024-05-01] MEDS: ACETAMINOPHEN 325 MG TABLET 650 MG PO ×2 (13:30→18:01)
[2024-05-01 17:10] LABS: Glucose Point of Care 233 mg/dl (65-105)
[2024-05-01] MEDS: INSULIN ASPART (*BKC) 100 UNITS/ML SUB-Q (18:01)
[2024-05-01] MEDS: IPRATROPIUM 0.5 MG/ALBUTEROL SULFATE 2.5 MG AMPUL.NEB 3 ML INHALATION (18:17)
[2024-05-01] MEDS: INSULIN GLARGINE (*BKC) 100 UNITS/ML 10 UNITS SUB-Q (21:17)
[2024-05-01 23:07] LABS: Glucose Point of Care 189 mg/dl (65-105)
[2024-05-02] VITALS: PULSE 86
[2024-05-02 04:00] VITALS: PULSE 88
[2024-05-02 04:30] VITALS: BP 107/62; PULSE 81; RESP 18; TEMP 36.6; O2SAT 97
[2024-05-02 05:46] LABS: Hematocrit 38.6 % (37.0-47.0); Hemoglobin 11.1 g/dL (12.0-15.0); Mean Corpuscular HGB Conc 28.8 g/dl (32-36); Mean Corpuscular Hemoglobin 21.6 pg (26-34); Mean Corpuscular Volume 75.1 fl (80-100); Mean Platelet Volume 9.8 fl (7.4-10.4); Platelet Count Result 227 k/mm3 (150-375); Red Blood Count 5.14 M/mm3 (4.2-5.4); Red Cell Distribution Width 18.6 % (11.5-14.5); White Blood Count 4.1 K/mm3 (4.5-10.0)
[2024-05-02 05:57] LABS: Anion Gap 9 mmol/L (4-12); Blood Urea Nitrogen 44 mg/dL (7-17); Calcium 8.1 mg/dL (8.4-10.2); Carbon Dioxide 24 mmol/L (22-30); Chloride 103 mmol/L (98-107); Estimated CRCL calculation 88 ml/min; Estimated Glomerular Filt Rate > 60; Glucose 166 mg/dL (65-110); Potassium 4.3 mmol/L (3.4-5.0); Sodium 136 mmol/L (137-145)
[2024-05-02 08:00] VITALS: PULSE 84
[2024-05-02] MEDS: EMPAGLIFLOZIN 25 MG TABLET PO (08:48)
[2024-05-02] MEDS: FUROSEMIDE 40 MG TABLET PO (08:48)
[2024-05-02] MEDS: OSELTAMIVIR PHOSPHATE 75 MG CAPSULE PO (08:49)
[2024-05-02] MEDS: DOXYCYCLINE HYCLATE 100 MG TABLET PO (08:49)
[2024-05-02] MEDS: GABAPENTIN 300 MG CAPSULE PO ×2 (08:49→13:13)
[2024-05-02] MEDS: NAPROXEN 500 MG TABLET PO (08:49)
[2024-05-02] MEDS: TOLTERODINE TARTRATE LA 4 MG CAP.ER.24H PO (08:49)
[2024-05-02] MEDS: FERROUS SULFATE 325 MG TABLET DR BY MOUTH (08:49)
[2024-05-02] MEDS: guaiFENesin 12 HR 600 MG TABCR PO (08:49)
[2024-05-02] MEDS: busPIRone HCL 10 MG TABLET PO (08:49)
[2024-05-02 08:50] VITALS: PULSE 76
[2024-05-02] MEDS: LORazepam (*CRX) 1 MG TABLET PO (08:50)
[2024-05-02] MEDS: METOPROLOL SUCCINATE EXT REL 25 MG TABCR PO (08:50)
[2024-05-02] MEDS: SACUBITRIL/VALSARTAN 24-26 MG TABLET 1 TAB PO (08:50)
[2024-05-02] MEDS: ATORVASTATIN 10 MG TABLET PO (08:50)
[2024-05-02] MEDS: ACETAMINOPHEN 325 MG TABLET 650 MG PO (08:51)
[2024-05-02] MEDS: ENOXAPARIN 40 MG/0.4 ML SYRINGE SUB-Q (08:51)
[2024-05-02] MEDS: IPRATROPIUM 0.5 MG/ALBUTEROL SULFATE 2.5 MG AMPUL.NEB 3 ML INHALATION (08:56)
[2024-05-02 09:27] LABS: Glucose Point of Care 149 mg/dl (65-105)
[2024-05-02 11:22] VITALS: BP 99/80; PULSE 76; RESP 20; TEMP 36.7; O2SAT 93
--- NOTE | 2024-05-02 12:01 | P.DS_ITS ---
DS: Admitting Diagnosis Discharge Date 05/02/2024 Admitting Diagnosis Acute on chronic combined systolic and diastolic congestive heart failure acute hyperkalemia type 2 diabetes mellitus hypertension KARY medication nonadherence DS: Discharge Diagnosis Discharge Diagnosis (1) Acute on chronic combined systolic (congestive) and diastolic (congestive) heart failure: Code(s): I50.43 - Acute on chronic combined systolic (congestive) and diastolic (congestive) heart failure Status: Acute (2) Acute hyperkalemia: Code(s): E87.5 - Hyperkalemia Status: Acute (3) Type 2 diabetes mellitus with diabetic polyneuropathy: Qualifiers: Diabetes mellitus ocean transportation intermediary insulin use: without usp use Qualified Code(s): E11.42 - Type 2 diabetes mellitus with diabetic polyneuropathy Code(s): E11.42 - Type 2 diabetes mellitus with diabetic polyneuropathy Status: Chronic (4) Hypertension: Qualifiers: Hypertension type: primary hypertension Qualified Code(s): I10 - Essential (primary) hypertension Code(s): I10 - Essential (primary) hypertension Status: Chronic (5) Obstructive sleep apnea: Code(s): G47.33 - Obstructive sleep apnea (adult) (pediatric) Status: Chronic (6) Medication nonadherence due to psychosocial problem: Code(s): Z91.148 - Patient's other noncompliance with medication regimen for other reason; Z65.9 - Problem related to unspecified psychosocial circumstances Status: Acute DS: Summary Hospital Course Reason for hospitalization: Acute on chronic combined systolic and diastolic congestive heart failure acute hyperkalemia type 2 diabetes mellitus hypertension KARY medication nonadherence Hospital Course: 59-year-old female with a past medical history of combined systolic and diastolic heart failure, morbid obesity, type 2 diabetes mellitus with severe diabetic peripheral neuropathy, essential hypertension, untreated obstructive sleep apnea and combined urinary incontinence who presented to the ER from home due to some bilateral lower extremity swelling and dyspnea on exertion. Patient was noted to be hyperkalemic which resolved during admission. Her BNP was elevated and chest XR showed cardiomegaly. Patient has a history of heart failure but has not been taking any of her medications. She was started on lasix and echo was ordered. Echo showed LVEF 30-35% with grade I diastolic dysfunction. Cardiology consulted. Patient was initially borderline hypotensive however this improved and she was able to resume her entresto per cardiology. She is to obtain a BMP in 1 week to reassess potassium levels as entresto can elevate these as well. She is to hold her spironolactone at this time as her blood pressures are borderline on the entresto and lasix. Discussed with patient to monitor her blood pressure at home and record the levels. She states understanding. Patients A1c was 8.8 on admission. She was started on lantus 10 units and remained on her home jardiance. Discussed continuing insulin at time of discharge however patient refused. She plans on following up with her PCP for her diabetes medications. Discussed with patient that she should check her glucose levels at home and record them for her follow up with PCP. She states understanding. At time of discharge patient had no complaints denying chest pain, shortness of breath, palpitations, nausea/vomiting, abdominal pain, lightheadedness and dizziness. Call made to cardiology, Dr. Chilel who was in agreement with discharge. Patient discharged home in a stable condition. She is to take her medications as prescribed and follow up with her PCP in 1 week and cardiology as scheduled. Status at Discharge Functional status at discharge: uses cane/walker Time Spent with Patient Time attestation: Total time spent providing and/or coordinating discharge services: Time spent: Greater than 30 minutes Exam Narrative: AF HR 81 RR 18 SPO2 97 BP 107/62 General: female in no acute respiratory distress who is nontoxic appearing, sitting up in her chair HEENT: Normocephalic. Atraumatic. Extraocular movement intact. Sclera clear and anicteric. No facial asymmetry. Chest: Lungs are clear to auscultation bilaterally. No wheezes or crackles. CV: Heart was regular rate and rhythm. S1-S2. No murmurs, gallops, or rubs. Abd: Abdomen was soft. Nontender. Nondistended. Positive bowel sounds. Ext: No clubbing, cyanosis. 2+ DP pulses bilaterally. 1+ pitting edema. Neuro: Patient is alert. Speech is clear. DS: Data Data Completed and Pending Completed studies during hospitalization: chest xr Labs on day of discharge: Labs from last 24 hours 05/02/24 05/02/24 05/01/24 09:12 05:35 20:34 WBC 4.1 L RBC 5.14 Hgb 11.1 L Hct 38.6 MCV 75.1 L MCH 21.6 L MCHC 28.8 L RDW 18.6 H Plt Count 227 MPV 9.8 Sodium 136 L Potassium 4.3 Chloride 103 Carbon Dioxide 24 Anion Gap 9 BUN 44 H D Creatinine 0.86 Estim Creat Clear Calc 88 Estimated GFR > 60 Glucose 166 H POC Capillary Glucose 149 H 189 H Calcium 8.1 L 05/01/24 16:44 WBC RBC Hgb Hct MCV MCH MCHC RDW Plt Count MPV Sodium Potassium Chloride Carbon Dioxide Anion Gap BUN Creatinine Estim Creat Clear Calc Estimated GFR Glucose POC Capillary Glucose 233 H Calcium Discharge Plan Discharge Attending physician on discharge: Barrett Delgadillo Consulting providers: Breonna Rocha Discharging Clinician: Lita Srivastava Anticipated Discharge Date/Time: 05/02/24 10:05 Patient Disposition: Home, Self-Care Activity: as tolerated Diet: as tolerated and heart healthy Discharge Instructions: Discharge disposition: Patient admitted to the hospital for heart failure exacerbation Take medications as prescribed Started on lasix 40 mg daily Continue jardiance and entresto Hold spironolactone as your blood pressures have been low, resume per cardiology or primary care provider Maintain a cardiac diet, 2 g sodium, do not over hydrate Remain active Monitor urine output Daily weights, if you gain more than 3 lb within 1 day or 5 lb in 1 week notify your primary care provider Obtain a blood draw in 1 week to reassess levels Follow up with cardiology Monitor blood pressures Take caution while standing, rising, or moving Change positions slowly taking a break between each position change If you standing feel dizzy sit back down and take a break You were receiving insulin during your admission to better control your blood sugar however you did not want to continue this at time of discharge Continue to monitor blood glucose levels at home Discuss diabetes management with your primary care provider Encouraged to continue with yearly vaccinations Return to the emergency department if he developed sudden shortness of breath, chest pain, nausea, vomiting, upset stomach or intractable diarrhea Return to the emergency department if you develop fever greater than 101.5 Follow-up with the primary care physician within 1-2 weeks Thank you for choosing [facility] for your healthcare needs Patient Instructions: Furosemide (By mouth), Sacubitril/Valsartan (By mouth), Heart Failure (DC), Low-Sodium Diet (DC) Patient Language: Romansh Stand Alone Forms: General Discharge Information Follow-up/Referrals: Breonna Rocha MD [Physician] - Call for Appointment Ortiz Machado MD [Primary Care Provider] - 1 Week Discharge Medications: New furosemide 40 mg Tablet 40 mg PO DAILY Qty: 30 0RF oseltamivir [Tamiflu] 75 mg capsule 75 mg PO Q12H Qty: 7 0RF Continued lorazepam 1 mg tablet 1 mg PO BID Qty: 60 4RF ferrous sulfate [iron] 325 mg (65 mg iron) tablet 325 mg PO DAILY apple cider vinegar 300 mg tablet 450 mg PO DAILY metoprolol succinate 25 mg tablet extended release 24 hr 25 mg PO DAILY Qty: 30 0RF Jardiance 25 mg tablet 25 mg PO DAILY Qty: 30 0RF sacubitril-valsartan [Entresto] 24-26 mg tablet 1 tablet PO BID Qty: 60 0RF (DME) blood-glucose meter [OneTouch Ultra2 Meter] Misc See Rx Instructions .Route Qty: 1 0RF Rx Instructions: use to test blood sugars once daily (DME) OneTouch Ultra Test Strip See Rx Instructions .Route Qty: 100 2RF Rx Instructions: use one daily to test blood sugars buspirone 10 mg tablet 10 mg PO BID Qty: 180 2RF Rx Instructions: TAKE 1 TABLET BY MOUTH TWICE A DAY tolterodine 4 mg capsule,extended release 24hr See Rx Instructions .ROUTE .COMPLEX Qty: 90 1RF Dose Instruction: TAKE 1 CAPSULE BY MOUTH EVERY DAY Rx Instructions: TAKE 1 CAPSULE BY MOUTH EVERY DAY metformin 500 mg tablet extended release 24 hr 2,000 mg PO DAILY Qty: 360 2RF atorvastatin 10 mg tablet 10 mg PO DAILY Qty: 90 2RF naproxen 500 mg tablet 500 mg PO BID Qty: 180 1RF gabapentin 300 mg capsule 300 mg PO TID Qty: 270 2RF doxycycline hyclate 100 mg capsule 100 mg PO DAILY Qty: 90 2RF Held spironolactone 25 mg tablet 25 mg PO DAILY Qty: 90 2RF Hold Instructions: Resume on 06/23/24. Hold until follow up with cardiology or PCP. Other Ambulatory Orders: Basic Metabolic Panel (Routine) Timeframe: 1 Week Location: Determined by Patient Ordered By: Lita Srivastava Date of admission: 04/29/24 16:18 Primary Care Provider: Ortiz Machado Admitting Provider: Roxane White Attending physician on admission: Lita Srivastava Condition: Stable Hospitalist MIPS Heart Failure (Exclusion) Patient has history of Heart Transplant or Left Ventricular Assistive Device?: No IF YES, STOP HERE Heart Failure (Qualifier) Patient has current or prior documentation of LVEF less than or equal to 40%, or mod/servere depressed LVSF?: Yes IF NO, STOP HERE If Yes, Heart Failure (Qualifier) Patient was prescribed or already taking an Angiotensin-Converting Enzyme (GIGI) Inhibitor, or Antiotensin Receptor Walter (ARB): Yes Patient was prescribed or already taking bisoprolol, carvedilol, or sustained release metoprolol succinate: Yes
[2024-05-02] MEDS: BENZOCAINE/MENTHOL (*BKC) 18 EA LOZENGE 1 LOZENGE PO (13:24)
--- NOTE | 2024-05-02 13:49 | P.PNCA_ITS ---
Progress Note: A&P Assessment and Plan (1) Chronic combined systolic and diastolic heart failure: Code(s): I50.42 - Chronic combined systolic (congestive) and diastolic (congestive) heart failure Status: Acute Assessment and Plan: History of systolic and diastolic heart failure, EF 30%. * Continue furosemide 40mg p.o. daily * Daily weights * Strict intake and output * CHF counseling (2) Cardiomyopathy: Code(s): I42.9 - Cardiomyopathy, unspecified Status: Acute Assessment and Plan: Nonischemic cardiomyopathy, EF 30% * On guideline directed medical therapy with Entresto, spironolactone, Toprol XL, Jardiance as an outpatient. * Daily BMP * recommend BMP one week after discharge as well. (3) Hypertension: Qualifiers: Hypertension type: primary hypertension Qualified Code(s): I10 - Essential (primary) hypertension Code(s): I10 - Essential (primary) hypertension Status: Chronic Assessment and Plan: As above (4) Acute hyperkalemia: Code(s): E87.5 - Hyperkalemia Status: Acute Assessment and Plan: Close monitoring potassium as an outpatient as she is also on Entresto which can cause hyperkalemia. Plan Would anticipate discharge in the next 24 - 48 hours if she remains stable Subjective Date/time seen: 05/02/24 13:49 Interval history: No acute events Review of Systems Review of Systems: All systems reviewed & are unremarkable except as noted in HPI and below Exam Const: General: comfortable, no acute distress, alert and awake Orientation/consciousness: patient oriented x3 HENMT: Head: normal to inspection Eyes: General: appearance normal, both eyes and all related structures Pupils: Equal, round and reactive pupils present Neck: Neck: normal visual inspection, supple and no JVD Carotids: normal carotid upstroke Resp: Effort & Inspection: normal respiratory effort Auscultation: rales on the left at the base Cardio: Rate: regular rate Rhythm: regular rhythm Heart sounds: S1 normal heart sound present, S2 normal heart sound present and no murmurs GI: Auscultation: normal bowel sounds Urinary Catheter: Urinary Catheter: patent and draining and urine clear Skin: General skin exam: normal color Neuro: General: patient oriented x3 Cranial nerves: Yes Equal, round and reactive pupils present Extrem: General: edema and pedal edema Other: mild edema Psych: Appearance: grossly normal Mental Status: mental status grossly normal Objective Data Vital Signs Vital Signs: Vital Signs - 24 hr 05/01/24 14:00 05/01/24 16:00 05/01/24 18:17 Temperature 36.1 C L Pulse Rate 80 84 78 Respiratory Rate 20 20 Blood Pressure 94/69 L Pulse Oximetry 93 Oxygen Delivery 05/01/24 18:17 05/01/24 20:00 05/01/24 20:00 Temperature Pulse Rate 85 Respiratory Rate Blood Pressure Pulse Oximetry 98 Oxygen Delivery Room Air Room Air 05/01/24 20:28 05/02/24 00:00 05/02/24 04:00 Temperature 36.8 C Pulse Rate 80 86 88 Respiratory Rate 16 Blood Pressure 110/72 Pulse Oximetry 97 Oxygen Delivery 05/02/24 04:30 05/02/24 08:00 05/02/24 08:49 Temperature 36.6 C Pulse Rate 81 84 Respiratory Rate 18 Blood Pressure 107/62 Pulse Oximetry 97 Oxygen Delivery Room Air 05/02/24 08:50 05/02/24 11:22 Temperature 36.7 C Pulse Rate 76 76 Respiratory Rate 20 Blood Pressure 99/80 L Pulse Oximetry 93 Oxygen Delivery Intake/Output Intake/Output: Intake & Output 04/29/24 04/30/24 05/01/24 05/02/24 23:59 23:59 23:59 23:59 Intake Total 1520 0476 8291 810 Output Total 2900 5087 [id number] 950 [id number] -140 Meds/Results Medications: Active Medications Generic Name Dose Route Start Last Admin Trade Name Freq PRN Reason Stop Dose Admin Acetaminophen 650 mg 04/27/24 21:09 05/02/24 08:51 Acetaminophen 325 Mg Tablet PO 650 mg Q4H PRN Administration Mild Pain (1-3) or Fever Hydrocodone Bitart/Acetaminophen 1 tab 04/27/24 21:09 05/01/24 09:03 Hydrocodone/Acetaminophen (*Crx) 5-325 Mg Tablet PO 1 tab Q4H PRN Administration Pain Rated 4-6 Albuterol/Ipratropium 3 ml 05/01/24 12:28 05/02/24 08:56 Ipratropium 0.5 Mg/Albuterol Sulfate 2.5 Mg Ampul.Neb 3 Ml INHALATION 3 ml Q6HRT PRN Administration Shortness Of Breath Or Wheezing Atorvastatin Calcium 10 mg 04/28/24 09:00 05/02/24 08:50 Atorvastatin 10 Mg Tablet PO 10 mg DAILY AASHISH Administration Benzocaine 1 lozenge 04/30/24 21:28 05/02/24 13:24 Benzocaine/Menthol (*Bkc) 18 Ea Lozenge PO 1 lozenge PRN PRN Administration Sore Throat Buspirone HCl 10 mg 04/28/24 09:00 05/02/24 08:49 Buspirone Hcl 10 Mg Tablet PO 10 mg BID AASHISH Administration Dextrose 12.5 gm 04/28/24 15:39 Dextrose 50% 25 Gm/50 Ml Syringe IV PUSH PRN PRN Hypoglycemia Protocol Doxycycline Hyclate 100 mg 04/28/24 09:00 05/02/24 08:49 Doxycycline Hyclate 100 Mg Tablet PO 100 mg DAILY AASHISH Administration Empagliflozin 25 mg 04/28/24 09:00 05/02/24 08:48 Empagliflozin 25 Mg Tablet PO 25 mg DAILY AASHISH Administration Enoxaparin Sodium 40 mg 04/28/24 09:00 05/02/24 08:51 Enoxaparin 40 Mg/0.4 Ml Syringe SUB-Q 40 mg Q12HR AASHISH Administration Ferrous Sulfate 325 mg 04/28/24 09:00 05/02/24 08:49 Ferrous Sulfate [address] BY MOUTH 325 mg DAILY AASHISH Administration Furosemide 40 mg 05/01/24 09:00 05/02/24 08:48 Furosemide 40 Mg Tablet PO 40 mg DAILY AASHISH Administration Gabapentin 300 mg 04/28/24 09:00 05/02/24 13:13 Gabapentin 300 Mg Capsule PO 300 mg TID AASHISH Administration Glucagon 1 mg 04/28/24 15:39 Glucagon For Inj 1 Mg Vial IM PRN PRN Hypoglycemia Protocol Glucose 15 gm 04/28/24 15:39 Glucose Oral Gel 15 Gm Of Glucse In 37.5 Gm Tube PO PRN PRN Hypoglycemia Protocol Guaifenesin 600 mg 04/30/24 21:35 05/02/24 08:49 Guaifenesin 12 Hr 600 Mg Tabcr PO 600 mg Q12HR AASHISH Administration Dextrose 1,000 mls @ 100 mls/hr 04/28/24 15:39 Dextrose 5% 1,000 Ml IVPB PRN PRN Hypoglycemia Protocol Insulin Aspart 1 - 3 units 04/28/24 21:00 05/01/24 21:13 Insulin Aspart (*Bkc) 100 Units/Ml SUB-Q Not Given HS [facility] Protocol Insulin Aspart 2 - 5 units 04/28/24 17:00 05/02/24 13:14 Insulin Aspart (*Bkc) 100 Units/Ml SUB-Q Not Given TIDWM [facility] Protocol Insulin Glargine 10 units 04/28/24 21:00 05/01/24 21:17 Insulin Glargine (*Bkc) 100 Units/Ml SUB-Q 10 units HS [facility] Administration Lorazepam 1 mg 04/28/24 09:00 05/02/24 08:50 Lorazepam (*Crx) 1 Mg Tablet PO 1 mg BID AASHISH Administration Metoprolol Succinate 25 mg 04/29/24 09:00 05/02/24 08:50 Metoprolol Succinate Ext Rel 25 Mg Tabcr PO 25 mg DAILY [facility] Administration Naproxen 500 mg 04/28/24 09:00 05/02/24 08:49 Naproxen 500 Mg Tablet PO 500 mg BID [facility] Administration Ondansetron HCl 4 mg 04/27/24 21:09 Ondansetron Inj 4 Mg/2 Ml Vial IV PUSH Q4H PRN Nausea Oseltamivir Phosphate 75 mg 04/30/24 22:25 05/02/24 08:49 Oseltamivir Phosphate 75 Mg Capsule PO 05/05/24 22:24 75 mg Q12HR [facility] Administration Sacubitril/Valsartan 1 tab 04/28/24 17:00 05/02/24 08:50 Sacubitril/Valsartan 24-26 Mg Tablet PO 1 tab BID [facility] Administration Spironolactone 25 mg 04/28/24 09:00 Spironolactone 25 Mg Tablet PO DAILY [facility] Tolterodine Tartrate 4 mg 04/28/24 09:00 05/02/24 08:49 Tolterodine Tartrate La 4 Mg Cap.Er.24h PO 4 mg DAILY [facility] Administration Radiology Results: ITS Impressions Chest X-Ray 04/27/24 16:50 IMPRESSION: 1. Cardiomegaly. Labs Labs: Laboratory Results - last 24 hr 05/01/24 05/01/24 05/02/24 16:44 20:34 05:35 WBC 4.1 L RBC 5.14 Hgb 11.1 L Hct 38.6 MCV 75.1 L MCH 21.6 L MCHC 28.8 L RDW 18.6 H Plt Count 227 MPV 9.8 Sodium 136 L Potassium 4.3 Chloride 103 Carbon Dioxide 24 Anion Gap 9 BUN 44 H D Creatinine 0.86 Estim Creat Clear Calc 88 Estimated GFR > 60 Glucose 166 H POC Capillary Glucose 233 H 189 H Calcium 8.1 L 05/02/24 09:12 WBC RBC Hgb Hct MCV MCH MCHC RDW Plt Count MPV Sodium Potassium Chloride Carbon Dioxide Anion Gap BUN Creatinine Estim Creat Clear Calc Estimated GFR Glucose POC Capillary Glucose 149 H Calcium
== END 2024-05-02 14:14 | disposition home or self-care (01) | DRG 291 ==
LOC: ANHED 19:18 → ANH3MED 22:50
PROVIDERS: Nurse Practitioner; Physician Assistant; Student in an Organized Health Care Education/Training Program; Admitting Provider Internal Medicine; Emergency Provider Emergency Medicine; PCP Family Medicine Adolescent Medicine; Visit Provider Student in an Organized Health Care Education/Training Program
DX: I11.0 Hypertensive heart disease with heart failure (principal); I50.43 Acute on chronic combined systolic (congestive) and diastolic (congestive) heart failure; Z68.42 Body mass index [BMI] 45.0-49.9, adult; Z91.148 Patient's other noncompliance with medication regimen for other reason; Z65.9 Problem related to unspecified psychosocial circumstances; I42.8 Other cardiomyopathies; E87.5 Hyperkalemia; G47.33 Obstructive sleep apnea (adult) (pediatric); E66.01 Morbid (severe) obesity due to excess calories; E11.42 Type 2 diabetes mellitus with diabetic polyneuropathy; N39.46 Mixed incontinence; M17.0 Bilateral primary osteoarthritis of knee; K21.9 Gastro-esophageal reflux disease without esophagitis; Z90.49 Acquired absence of other specified parts of digestive tract; Z89.412 Acquired absence of left great toe; Z79.84 Long term (current) use of oral hypoglycemic drugs
CPT/HCPCS: 36415; 71045; 80048; 80053; 81001; 82948; 83036; 83880; 84484; 85025; 85027; 85610; 85730; 87637; 93005; 93306; 94640; 96372; 96374; 96375; 96376; 99285; A9270; G0378; J1650; J1815; J1940